=== PATIENT | male | born 1950 | race Caucasian/White ===

== ENCOUNTER 2016-10-12 06:25 | Outpatient (RCR) | payer MEDICARE, MEDICAID ==
--- OUTSIDE RECORDS SUMMARY | 2016-10-04 12:50 | XMS REPORT | Continuity of Care Document ---
Author Author [facility] Organization [facility] Address Unknown Phone Unavailable Care Team Providers Care Kier Operator Name Role Phone MarlaMaynor PCP [phone] Source Comments Some departments are not documenting in the electronic medical record. If you do not see the information that you expected, contact Release of Information in the Health Information Management department at [phone] for further assistance in locating additional records.[facility] Active Allergies and Adverse Reactions No Known [...] ULTRA-FINE) 1 mL 29 x 1/2" syrg HYDROcodone/acetaminophen Take 1-2 Tabs by mouth Active [...] tablet every 5 minutes as 16 needed. carvedilol (COREG) 25 mg TAKE 1 TABLET BY MOUTH 180 Tab 2 09/14/20 Active tablet TWICE DAILY WITH MEALS 16 carvedilol (COREG) 25 mg TAKE 1 TABLET BY MOUTH 180 Tab 3 09/28/19 09/13/20 Discontin tablet TWICE DAILY WITH MEALS 16 16 ued Active Problems Problem Noted Date Urinary retention with incomplete bladder emptying 10/22/2012 Last Assessment & Plan: Now seeing urologist in [place]. Was given Rx that he did not [...] mg daily. Arthritis 08/05/2010 Glaucoma 08/05/2010 Claudication ([facility]) 08/05/2010 Overview: a. 03/26 - Lower arterial/SARAH study: no LE arterial stenosis, mod reduced bilateral SARAH's. Obesity, morbid ([facility]) 12/13/2007 Last Assessment & Plan: Reviewed diet and exercise goals. Encouraged to continue efforts with portion reduction and decreasing amount of soda consumed each day. Knee arthroplasty 12/13/2007 DM (diabetes mellitus) ([facility]) 12/13/2007 Last Assessment & Plan: Increase premeal [...] & Plan: Following with sleep specialist in [place]. CAD (coronary artery disease) 12/13/2007 Overview: a. History of chest pain. Treated at [facility] and told that he had "small heart attack" given NTG tabs. Seen at [facility] x 2 for chest pain resolved with [...] prior study J. 10/18/07 pt admitted to [facility], in [place] with CP. Cardiac cath showed a patent stent in the obtuse marginal. He had 50% stenosis in the mid LAD, 70% stenosis in a distal right PDA that was not amenable to intervention. It was felt that he didn't have anatomy suitable for intervention and he was managed medically. Reduced mobility 12/13/2007 Gait abnormality 12/13/2007 Most Recent Encounters Date Type Specialty Providers Description 09/13/2016 Refill Endocrinology, Metabolism Haresh Bo MD & Genetics 08/24/2016 Office Visit Endocrinology, Metabolism Haresh Bo MD Type 2 diabetes mellitus & Genetics with diabetic autonomic neuropathy, with long-term current use of insulin (HCC) (Primary Dx); Coronary artery disease of [place] heart with stable angina pectoris, unspecified vessel or lesion type (HCC) 08/24/2016 Telephone Endocrinology, Metabolism Haresh Bo MD Medication Question & Genetics 08/22/2016 Telephone Endocrinology, Metabolism Nereyda Tafoya PA-C Medication Refill - & Genetics Vitamin D 08/10/2016 Refill Endocrinology, Metabolism Haresh Bo MD & Genetics 08/03/2016 Telephone Endocrinology, Metabolism Nereyda Tafoya PA-C Medication Refill - & Genetics insulin Immunizations Name Dates Previously Given Next Due FLU VACCINE >3YO 08/21/2012, 07/11/2011 Flu Vaccine Trivalent=>3 07/16/2013 YO Social History Tobacco Use Types Packs/Day Years Used Date Former Smoker Cigarettes 28 Quit: 08/05/1978 Smokeless Tobacco: Never Used Tobacco Cessation: Counseling Given: No Comments: Alcohol Use Drinks/Week oz/Week Comments No Last Filed Vital Signs Vital Sign Reading Time Taken Blood Pressure 166/71 08/24/2016 11:47 AM ISOBUTYLENE OPERATOR CHIEF Pulse 80 08/24/2016 11:47 AM ISOBUTYLENE OPERATOR CHIEF Temperature 36.1 C (97 F) 07/11/2011 9:22 AM CDT Respiratory Rate 18 08/21/2012 2:25 PM ISOBUTYLENE OPERATOR CHIEF Height 1.803 m (5' 11") 08/24/2016 11:47 AM ISOBUTYLENE OPERATOR CHIEF Weight 178.627 kg (393 lb 12.8 08/24/2016 11:47 AM ISOBUTYLENE OPERATOR CHIEF oz) Body Mass Index 54.95 08/24/2016 11:47 AM ISOBUTYLENE OPERATOR CHIEF Oxygen Saturation 99% 12/16/2007 6:00 AM CDT Plan of Care Patient Goal Type Goal Result Component HEMOGLOBIN A1C below 8.0 Date Type Specialty Providers Description 11/27/2016 Appointment Endocrinology, Metabolism Nereyda Tafoya PA- C & Genetics [address] [facility] [address] [place] [address] [phone] (Fax) Health Maintenance Due Date Last Done [...]
[2016-10-04 13:52] VITALS: BP 154/50
--- NOTE | 2016-10-04 14:11 | Diagnostic Imaging Report ---
EXAMINATION: Portable upright radiograph of the chest. INDICATION: PICC line placement. FINDINGS: The heart size is moderately enlarged. There is pulmonary vascular congestion. There is no effusion or pneumothorax. The mediastinum and vianney appear unremarkable. A right-sided PICC line is placed, tip appears to be at the SVC level. IMPRESSION: Cardiomegaly with pulmonary vascular congestion. Dictated by: Dictated on workstation # [id number]
[2016-10-04 17:12] VITALS: BP 154/50
[2016-10-05] MEDS: VANCOMYCIN 2000 MG/NS 500 ML IVPB IV SCH ×4 (07:34→18:51)
[2016-10-05 09:45] VITALS: BP 128/51
[2016-10-05 18:57] VITALS: BP 180/74
[2016-10-05 21:12] VITALS: BP 180/74
[2016-10-06] MEDS: VANCOMYCIN 2000 MG/NS 500 ML IVPB IV SCH ×4 (07:45→17:30)
[2016-10-06 10:33] VITALS: BP 115/51
[2016-10-06 19:27] VITALS: BP 148/65
[2016-10-07] MEDS: VANCOMYCIN 2000 MG/NS 500 ML IVPB IV SCH ×4 (06:35→16:55)
[2016-10-07 07:03] VITALS: BP 146/66
[2016-10-07 16:58] VITALS: BP 124/65
[2016-10-08] MEDS: VANCOMYCIN 2000 MG/NS 500 ML IVPB IV SCH ×4 (06:56→16:53)
[2016-10-08 07:00] VITALS: BP 134/57
[2016-10-08 09:18] VITALS: BP 134/57
[2016-10-08 16:56] VITALS: BP 162/68
[2016-10-09] MEDS: CATHETER FLUSH 10 ML SYR IV PRN ×2 (07:35→09:45)
[2016-10-09] MEDS: VANCOMYCIN 2000 MG/NS 500 ML IVPB IV SCH ×4 (07:36→18:00)
[2016-10-09 07:44] VITALS: BP 152/74
[2016-10-09 18:10] VITALS: BP 148/88
[2016-10-10] MEDS: VANCOMYCIN 2000 MG/NS 500 ML IVPB IV SCH ×4 (07:32→17:11)
[2016-10-10] MEDS: CATHETER FLUSH 10 ML SYR IV PRN ×2 (07:33→09:50)
[2016-10-10 07:48] VITALS: BP 129/67
[2016-10-10 17:00] VITALS: BP 130/69
[2016-10-11] MEDS: CATHETER FLUSH 10 ML SYR IV PRN ×3 (07:16→19:02)
[2016-10-11 07:18] VITALS: BP 140/60
[2016-10-11] MEDS: VANCOMYCIN 2000 MG/NS 500 ML IVPB IV SCH ×4 (07:18→19:02)
[2016-10-11 09:25] VITALS: BP 140/60
[2016-10-11 19:03] VITALS: BP 127/78
[2016-10-11 21:25] VITALS: BP 127/78
[~2016-10-12] VITALS: Ht 180.3 cm; Wt 174.2 kg
[~2016-10-12 06:25] MED LIST: AC325T PO; ACET1TAB37 PO; ACHYD1T PO; ALIS150T PO; AMIT50TA3 PO; AMLO10TA2 PO; AMLO10TA4 PO; AMLO10TA82 PO; AMOX250C PO; AMOX500C2; AMOX500C2 PO; ASP325TEC PO; ASP81CT; ASP81TEC PO; ATEN100T45 PO; ATEN100T88 PO; ATEN50TA; ATN50T; ATOR80TA PO; ATOR80TA76 PO; AZIT-21 PO; BACI28.35 TP; BISA10SU58 RC; BRIM5DRO12 OD; BRIM5DRO12 OU; BRIM5DRO2 OU; CARV25TA PO; CEFD300C PO; CELE200C PO; CEPH-507 PO; CHOL500049 PO; CLCX200C; CLCX200C PO; CLIN-81 PO; CLIN300C3 PO; CLOP75TA; CLOP75TA28 PO; CLPD75T PO; CPR500T PO; CRV25T PO; CSPT25 OU; CYCL10TA9 PO; D50KC PO; DORZ10DR OU; DOXY100C42 PO; ERGO500028 PO; FURO40TA4 PO; FURO80TA3 PO; GABA-486 PO; GNT.3OO351 OU; GUAI120L29 PO; GUAI120S36 PO; HCT25T; HCT25T PO; HUM100VI14 SQ; HUMALOG SQ; HYDR-1231 PO; HYDR-2890 PO; HYDR-34; HYDR-3720 PO; HYDR-3820 PO; HYDR-757 PO; HYDR50TA3; INSASP10V; INSASP10V SC; INSASP10V SQ; INSU100C SQ; INSU100C7 SQ; INSU100I23 SQ; INSU100I3; INSU100V31 IJ; INSU100V5 SQ; INSU100V6 SC; INSU100V6 SQ; INSU200I SC; INSU300I SQ; Insulin Human Lispro SC; KCL20TCR PO; LACT1CAP62 PO; LANTU; LANTUS; LATA2.5D19 OU; LATA2.5D5 OU; LISI-552 PO; LISI1TAB10 PO; LISI40TA PO; LPRM1B120 PO; LSNP20T; LTN005OP2 OP; LTN005OP2 OU; MAGN400T6 PO; MAGN64TA8 PO; METF-380; METF500T8 PO; MPR22T TOP; MPR22T TP; MTF500T; NF-DOR2% OU; NITR0.4T3 SL; NS IV 500 ML 500 ML ONE; NS.65NA45; NTR.4SL SL; OMEG1CAP51 PO; OMEP20CA12; OMEP20CA12 PO; OMEP20CA6 PO; OMEP40CA36 PO; OXYGEN NG; OXYGEN NS; PARO20TA5 PO; PARO20TA57 PO; PIOG1TAB PO; PNT40TEC PO; POTA10CA43 PO; POTA10TA PO; POTA10TA10 PO; POTA10TA36 PO; POTA10TA6 PO; POTA20TA15 PO; PRD10T PO; PRX20T; RSG4T; RSG4T PO; SIMV40TA2; SIMV80TA3 PO; SULF-222 PO; SULF1TAB35 PO; SULF1TAB7 PO; TERA1CAP3 PO; TR1O15 TP; TRL10C90 TOP; TRM50T PO; TROUGH ORDER-PHARMACY XX NR; TROUGH ORDER-PHARMACY XX ONE; VANCOMYCIN 1 GM ADD-VANTAGE VIAL IV ONE; VANCOMYCIN 2000 MG/NS 500 ML IVPB IV SCH; VANCOMYCIN INJECTION 2,250 MG in NS IV 500 ML 500 ML IV ONE
[2016-10-12] MEDS: CATHETER FLUSH 10 ML SYR IV PRN ×2 (07:15→09:35)
[2016-10-12] MEDS: VANCOMYCIN 2000 MG/NS 500 ML IVPB IV SCH ×2 (07:15)
[2016-10-12 08:01] VITALS: BP 119/67
[2016-10-12 14:23] VITALS: BP 0/0
[2016-11-01] MEDS ORDERED: INSU200I SQ (11:20)
[2016-11-01] MEDS ORDERED: EMPA25TA PO (11:20)
[2016-11-01] MEDS ORDERED: POTA10TA10 PO (11:20)
[2016-11-01] MEDS ORDERED: ASPI-999 PO (11:20)
[2016-11-01] MEDS ORDERED: INSU300I SQ (11:20)
[2016-12-15] MEDS ORDERED: PRED10TA22 PO (10:28)
[2017-01-01] MEDS ORDERED: CYCL10TA9 PO (22:10)
== END 2017-01-02 | disposition home or self-care (01) ==
LOC: SDC 06:25
PROVIDERS: ATTEND Nurse Practitioner
DX: Z45.2 Encounter for adjustment and management of vascular access device (principal); L97.229 Non-pressure chronic ulcer of left calf with unspecified severity
CPT/HCPCS: 36415; 36569; 36592; 71010; 76937; 80202; 82565; 96365; 96366; 99211

== ENCOUNTER 2016-10-19 13:02 | Outpatient (RCR) | payer MEDICARE, MEDICAID ==
--- OUTSIDE RECORDS SUMMARY | 2016-08-31 13:17 | XMS REPORT | Continuity of Care Document ---
Author Author [facility] Organization [facility] Address Unknown Phone Unavailable Care Team Providers Care Brake Drum Lathe Operator Name Role Phone MarlaMaynor PCP [phone] Source Comments Some departments are not documenting in the electronic medical record. If you do not see the information that you expected, contact Release of Information in the Health Information Management department at [phone] for further assistance in locating additional records.[facility] Active Allergies and Adverse Reactions No Known Allergies Current Medications Prescription Sig. Disp. Refills Start End Date Status Date omeprazole DR(+) Take 2 Caps by mouth 30 0 12/16/19 Active (PRILOSEC) 20 mg capsule Daily. 08 aspirin EC 81 mg PO Take 81 mg by mouth Active tablet daily. paroxetine (PAXIL) 20 mg Take 20 mg by mouth Active PO tablet daily. atorvastatin (LIPITOR) 80 Take 80 mg by mouth Active mg PO tablet daily. clopidogrel (PLAVIX) 75 Take 75 mg by mouth Active mg daily. brimonidine (ALPHAGAN P) Apply 1 Drop to both eyes Active 0.15 % ophthalmic three times daily. solution Miscellaneous Medical 1 Each 3 02/08/20 Active Supply (T.E.D. 13 ANTI-EMBOLISM STOCKING) Misc POTASSIUM CHLORIDE Take 20 mEq by mouth Active (KLOR-CON M20 PO) daily. furosemide (LASIX) 80 mg Take 80 mg by mouth Active tablet daily. permethrin (ELIMITE) 5 % Apply to skin from neck 60 g 3 07/14/20 Active topical cream to toes. Bathe to remove 14 drug after 8-14 hours. Repeat in 7 days. Insulin Syringe-Needle Use to inject insulin six 600 Syringe 3 Active U-100 (BD INSULIN SYRINGE times daily. 14 ULTRA-FINE) 1 mL 29 x 1/2" syrg carvedilol (COREG) 25 mg TAKE 1 TABLET BY MOUTH 180 Tab 3 09/28/19 Active tablet TWICE DAILY WITH MEALS 16 HYDROcodone/acetaminophen Take 1-2 Tabs by mouth Active (+) (LORTAB, NORCO) every 6 hours as needed 10/325 mg tablet for Pain mupirocin (BACTROBAN) 2 % Apply topically to Active topical ointment affected area twice daily. gabapentin (NEURONTIN) Take 100 mg by mouth Active 100 mg capsule three times daily. blood sugar diagnostic Use 1 Strip as directed Active test strip twice daily before meals. amLODIPine (NORVASC) 10 Take 1 Tab by mouth every 90 Tab 3 05/31/20 Active mg tablet morning. 16 lisinopril (PRINIVIL; Take 1 Tab by mouth 90 Tab 3 05/31/20 Active ZESTRIL) 20 mg tablet daily. 16 insulin pen needles Use 1 Each as directed 400 Each 3 06/30/20 Active (disposable) (ULTICARE four times daily. 16 PEN NEEDLE) 32 gauge x 5/32" pen needle insulin lispro (HUMALOG Inject 85 Units under the 26 Syringe 3 Active KWIKPEN) 200 unit/mL (3 skin twice daily before 16 mL) inpn meals. TOUJEO SOLOSTAR 300 INJECT 150 UNITS (0.5ML) 60 Syringe 2 08/10/20 Active unit/mL (1.5 mL) SUBCUTANEOUSLY TWICE 16 injectable DAILY DIRECTED ergocalciferol (VITAMIN Take 1 Cap by mouth every 12 Cap 3 08/23/20 Active D-2) 50,000 unit capsule 7 days. 16 empagliflozin (JARDIANCE) Take 1 Tab by mouth daily 30 Tab 5 08/24/20 Active 25 mg tab 30 minutes before 16 breakfast. Indications: TYPE 2 DIABETES MELLITUS nitroglycerin (NITROSTAT) Place 1 Tab under tongue 25 Tab 0 08/24/20 Active 0.4 mg tablet every 5 minutes as 16 needed. nitroglycerin (NITROSTAT) Place 1 Tab under tongue 25 Tab 0 01/18/20 08/24/20 Discontin 0.4 mg tablet every 5 minutes as 13 16 ued needed. metFORMIN-XR(+) Take 2 Tabs by mouth 120 Tab 11 09/14/20 08/24/20 Discontin (GLUCOPHAGE XR) 500 mg twice daily with meals. 15 16 ued tablet insulin lispro (HUMALOG Inject 75 Units into 24 mL 5 03/03/20 Discontin KWIKPEN) 200 unit/mL (3 area(s) as directed twice 16 16 ued mL) inpn daily before meals. ergocalciferol (VITAMIN Take 1 Cap by mouth every 4 Cap 1 04/18/20 08/23/20 Discontin D-2) 50,000 unit capsule 7 days. 16 16 ued sulfamethoxazole-trimetho Take 1 Tab by mouth twice 08/24/20 Discontin prim (BACTRIM DS) 800-160 daily. Just renewed for 16 ued mg tablet another seven days TOUJEO SOLOSTAR 300 INJECT 150 UNITS (0.5 ML) 21 Syringe 1 06/12/20 08/10/20 Discontin unit/mL (1.5 mL) SUBCUTANEOUSLY TWICE 16 16 ued injectable DAILY DIRECTED dapagliflozin (FARXIGA) Take 1 Tab by mouth every 30 Tab 6 08/24/20 08/24/20 Discontin 10 mg tab morning. Indications: 16 16 ued TYPE 2 DIABETES MELLITUS Active Problems Problem Noted Date Urinary retention with incomplete bladder emptying 10/22/2012 Last Assessment & Plan: Now seeing urologist in [place]. Was given Rx that he did not feel was helpful. Cannot recall which medication. Encouraged to follow up regardless. Hearing loss of left ear 06/14/2012 Hypertension goal BP (blood pressure) < 130/80 01/24/2011 Last Assessment & Plan: BP good today. Continue the same, no change. Hypercholesteremia 08/05/2010 Last Assessment & Plan: Formatting of this note may be different from the original. Results for JEFF SUNG ( ) as of 01/21/2013 08:26 Ref. Range 10/18/2012 13:38 Cholesterol Latest Range: <200 MG/DL 112 Triglycerides Latest Range: <150 MG/DL 168 (H) HDL Latest Range: >40 MG/DL 29 (L) LDL Latest Range: <100 MG/DL 58 VLDL No range found 34 Non HDL Cholesterol No range found 83 LDL at goal, cont atorvastatin 80 mg daily. Arthritis 08/05/2010 Glaucoma 08/05/2010 Claudication (HCC) 08/05/2010 Overview: a. 03/26 - Lower arterial/SARAH study: no LE arterial stenosis, mod reduced bilateral SARAH's. Obesity, morbid ([facility]) 12/13/2007 Last Assessment & Plan: Reviewed diet and exercise goals. Encouraged to continue efforts with portion reduction and decreasing amount of soda consumed each day. Knee arthroplasty 12/13/2007 DM (diabetes mellitus) ([facility]) 12/13/2007 Last Assessment & Plan: Increase premeal insulin (Humalog to 40 units at breakfast and 60 units at lunch, 90 units before supper). Try getting supper insulin ready when supper started on the stove. Then, take Humalog when supper plate ready. Continue Lantus 75 units 3 times a day. At bedtime OK to take Humalog 2 units for every 10 over 180 mg/dL Humalog correction scale (add 2 units for every 10 points over 180), So, if bs 180 - 190 add 2 units, 191 - 200, add 4 units 201 - 210, add 6 units 211 - 220, add 8 units 221 - 230, add 10 units 231 - 240, add 12 241 - 250, add 14 251 - 260, add 16 261- 270, add 18 271 - 280, add 20 281 - 290, add 22 291 - 300, add 24 301 - 310, add 26 311 - 320, add 28 321 - 330, add 30 331 - 340, add 32 Etc. Gave examples of chair exercises. Discussed that it is imperative he lose weight. Gave Rx for DM shoes today, signed by Dr Bo SERAFIN (obstructive sleep apnea) 12/13/2007 Last Assessment & Plan: Following with sleep specialist in [place]. CAD (coronary artery disease) 12/13/2007 Overview: a. History of chest pain. Treated at [facility] and told that he had "small heart attack" given NTG tabs. Seen at [facility] x 2 for chest pain resolved with NTG. B. 2001 TARIK and plavix started c. 03/26 - Dobutamine stress echo: EF 50%, mild left-sided enlargement, non-ischemic. d. 06/26 - Stress thallium: EF 49%, mod lateral wall defect. e. 07/16/03 - Cardiac cath: Single-vessel disease in distal CX. Drug-eluting stent placed in OM branch. Normal LV function. f. 03/23/2004- 1. This pharmacologic stress test did not evoke any chest discomfort or EKG changes indicative of myocardial ischemia. Normal left ventricular size with mildly reduced ejection fraction (50%). All segments of myocardium are viable. There is no evidence of scar tissue. There is a very mild intensity, very small-sized, reversible ischemia involving the inferolateral wall. G. 10/17. thallium stress test: EF 50%, similar to previous exam H. 10/12/05 thallium stress test: EF 51%, slight increase in inducible ischemia on the present study, compared to the previous investigation, but this is a subtle distinction. I. 11/28/06 thallium stress test: EF 53%, similar compared to prior study J. 10/18/07 pt admitted to [facility] in [place] with CP. Cardiac cath showed a patent stent in the obtuse marginal. He had 50% stenosis in the mid LAD, 70% stenosis in a distal right PDA that was not amenable to intervention. It was felt that he didn't have anatomy suitable for intervention and he was managed medically. Reduced mobility 12/13/2007 Gait abnormality 12/13/2007 Most Recent Encounters Date Type Specialty Providers Description 08/24/2016 Office Visit Endocrinology, Metabolism Haresh Bo MD Type 2 diabetes mellitus & Genetics with diabetic autonomic neuropathy, with long-term current use of insulin ([facility]) (Primary Dx); Coronary artery disease of [place] heart with stable angina pectoris, unspecified vessel or lesion type ([facility]) 08/24/2016 Telephone EndocrinologyGrover David C, MD Medication Question & Genetics 08/22/2016 Telephone EndocrinologyGrover Kerstin, PA-C Medication Refill - & Genetics Vitamin D 08/10/2016 Refill EndocrinologyGrover David C, MD & Genetics 08/03/2016 Telephone EndocrinologyGrover Kerstin, PA-C Medication Refill - & Genetics insulin 06/30/2016 Refill EndocrinologyGrover David C, MD & Genetics 06/12/2016 Refill Endocrinology, Nereyda Albright PA-C & Genetics 06/12/2016 Refill EndocrinologyGrover David C, MD & Genetics 06/01/2016 Telephone EndocrinologyGrover Kerstin, PA-C Lab Results & Genetics Immunizations Name Dates Previously Given Next Due FLU VACCINE >3YO 08/21/2012, 07/11/2011 Flu Vaccine Trivalent=>3 07/16/2013 YO Social History Tobacco Use Types Packs/Day Years Used Date Former Smoker Cigarettes 28 Quit: 08/05/1978 Smokeless Tobacco: Never Used Tobacco Cessation: Counseling Given: No Comments: Alcohol Use Drinks/Week oz/Week Comments No Last Filed Vital Signs Vital Sign Reading Time Taken Blood Pressure 166/71 08/24/2016 11:47 AM CLAIM PROCESSING SPECIALIST Pulse 80 08/24/2016 11:47 AM CLAIM PROCESSING SPECIALIST Temperature 36.1 C (97 F) 07/11/2011 9:22 AM CDT Respiratory Rate 18 08/21/2012 2:25 PM CLAIM PROCESSING SPECIALIST Height 1.803 m (5' 11") 08/24/2016 11:47 AM CLAIM PROCESSING SPECIALIST Weight 178.627 kg (393 lb 12.8 08/24/2016 11:47 AM CLAIM PROCESSING SPECIALIST oz) Body Mass Index 54.95 08/24/2016 11:47 AM CLAIM PROCESSING SPECIALIST Oxygen Saturation 99% 12/16/2007 6:00 AM CDT Plan of Care Patient Goal Type Goal Result Component HEMOGLOBIN A1C below 8.0 Date Type Specialty Providers Description 11/27/2016 Appointment Endocrinology, Metabolism Nereyda Tafoya PA- C & Genetics [address] [facility] [address] [place] [address] [phone] (Fax) Health Maintenance Due Date Last Done Comments Hepatitis C Screening 1949 Physical (Comprehensive) 1956 Exam Pertussis Vaccine 1960 Tetanus Vaccine 1966 Colorectal Cancer 1999 Screening Shingles Vaccine 2009 Prevnar/Pneumovax (#1) 2014 Microalbumin 11/29/2016 11/30/2015, 11/26/2013, 03/11/2012 Additional history exists Dilated Eye Exam 12/27/2016 12/28/2015, 07/26/2015 (Previously completed), 07/23/2014 (Previously completed) Hba1c 02/22/2017 08/24/2016, 05/31/2016, 02/29/2016 Additional history exists Foot Exam 08/24/2017 08/24/2016, 05/31/2016, 05/31/2016 Additional history exists Influenza Vaccine 08/24/2017 08/28/2014 (Declined), 07/16/2013, Postponed from 05/25/2016 07/16/2013 (Patient declined), Additional history exists Results from Last 3 Months POC HEMOGLOBIN A1C (08/24/2016 1:30 PM) Component Value Range Poc Hemoglobin A1C 8.3 Specimen Blood, capillary - Blood POC GLUCOSE QUANTITATIVE BLOOD (08/24/2016 1:30 PM) Component Value Range Glucose, POC 368 Specimen Blood, capillary
[~2016-10-19 13:02] MED LIST changes: -NS IV 500 ML 500 ML ONE; -TROUGH ORDER-PHARMACY XX NR; -TROUGH ORDER-PHARMACY XX ONE; -VANCOMYCIN 1 GM ADD-VANTAGE VIAL IV ONE; -VANCOMYCIN 2000 MG/NS 500 ML IVPB IV SCH; -VANCOMYCIN INJECTION 2,250 MG in NS IV 500 ML 500 ML IV ONE
== END 2016-10-19 16:00 | disposition home or self-care (01) ==
LOC: WOUNDCARE 13:02
PROVIDERS: ATTEND Nurse Practitioner
DX: L97.222 Non-pressure chronic ulcer of left calf with fat layer exposed (principal); L03.116 Cellulitis of left lower limb
CPT/HCPCS: 11042; 87070; 87075; 87077; 87186; 87205; 97597; 99213

== ENCOUNTER 2016-11-01 08:12 | Day surgery (SDC) | payer MEDICARE, MEDICAID ==
[2016-11-01] VITALS (10 sets, daily range): BP systolic 100–161; BP diastolic 64–83
[~2016-11-01] VITALS: Ht 180.3 cm; Wt 174.2 kg
--- OUTSIDE RECORDS SUMMARY | 2016-11-01 08:16 | XMS REPORT | Continuity of Care Document ---
Author Author [facility] Organization [facility] Address Unknown Phone Unavailable Care Team Providers Care Medical Representative Name Role Phone MarlaMaynor PCP [phone] Source Comments Some departments are not documenting in the electronic medical record. If you do not see the information that you expected, contact Release of Information in the Health Information Management department at [phone] for further assistance in locating additional records.[facility] Active Allergies and Adverse Reactions No [...] Active tablet TWICE DAILY WITH MEALS 16 Active Problems Problem Noted Date Urinary retention with incomplete bladder emptying 10/22/2012 Last Assessment & Plan: Now seeing urologist in [place]. Was given Rx that he did not [...] mg daily. Arthritis 08/05/2010 Glaucoma 08/05/2010 Claudication ([facility]) 08/05/2010 Overview: a. 03/26 - Lower arterial/SARAH study: no LE arterial stenosis, mod reduced bilateral SARAH's. Obesity, morbid ([facility]) 12/13/2007 Last Assessment & Plan: Reviewed diet and exercise goals. Encouraged to continue efforts with portion reduction and decreasing amount of soda consumed each day. Knee arthroplasty 12/13/2007 DM (diabetes mellitus) ([facility]) 12/13/2007 Last Assessment & Plan: Increase premeal [...] & Plan: Following with sleep specialist in [place]. CAD (coronary artery disease) 12/13/2007 Overview: a. History of chest pain. Treated at [facility] and told that he had [...] prior study J. 10/18/07 pt admitted to hospital, [facility], in [place] with CP. Cardiac cath showed a patent [...] neuropathy, with long-term current use of insulin ([facility]) (Primary Dx); Coronary artery disease of [place] heart with stable angina pectoris, unspecified vessel or lesion type ([facility]) 08/24/2016 Telephone Endocrinology, Metabolism Haresh Bo MD [...] Taken Blood Pressure 166/71 08/24/2016 11:47 AM WOOL FLEECE SORTER Pulse 80 08/24/2016 11:47 AM WOOL FLEECE SORTER Temperature 36.1 C (97 F) 07/11/2011 9:22 AM CDT Respiratory Rate 18 08/21/2012 2:25 PM WOOL FLEECE SORTER Height 1.803 m (5' 11") 08/24/2016 11:47 AM WOOL FLEECE SORTER Weight 178.627 kg (393 lb 12.8 08/24/2016 11:47 AM WOOL FLEECE SORTER oz) Body Mass Index 54.95 08/24/2016 11:47 AM WOOL FLEECE SORTER Oxygen Saturation 99% 12/16/2007 6:00 AM CDT Plan of Care Patient Goal Type Goal Result Component HEMOGLOBIN A1C below 8.0 Date Type Specialty Providers Description 11/27/2016 Appointment Endocrinology, Metabolism Nereyda Tafoya PA- C & Genetics [address] [facility] [address] [place] [address] [phone] (Fax) Health Maintenance Due Date Last Done [...]
--- OUTSIDE RECORDS SUMMARY | 2016-11-01 08:18 | XMS REPORT | Continuity of Care Document ---
Author Author [facility] Organization [facility] Address Unknown Phone Unavailable Care Team Providers Care Label Tacker Name Role Phone MarlaMaynor PCP [phone] Source Comments Some departments are not documenting in the electronic medical record. If you do not see the information that you expected, contact Release of Information in the Health Information Management department at [phone] for further assistance in locating additional records.[facility] Active Allergies and Adverse Reactions No [...] Assessment & Plan: Now seeing urologist in [place]. Was given Rx that he did not [...] mg daily. Arthritis 08/05/2010 Glaucoma 08/05/2010 Claudication ([facility]) 08/05/2010 Overview: a. 03/26 - Lower arterial/SARAH study: no LE arterial stenosis, mod reduced bilateral SARAH's. Obesity, morbid ([facility]) 12/13/2007 Last Assessment & Plan: Reviewed diet and exercise goals. Encouraged to continue efforts with portion reduction and decreasing amount of soda consumed each day. Knee arthroplasty 12/13/2007 DM (diabetes mellitus) ([facility]) 12/13/2007 Last Assessment & Plan: Increase premeal [...] & Plan: Following with sleep specialist in [place]. CAD (coronary artery disease) 12/13/2007 Overview: a. History of chest pain. Treated at [facility] and told that he had "small heart attack" given NTG tabs. Seen at [facility] x 2 for chest pain resolved [...] study J. 10/18/07 pt admitted to hospital, [facility], in [place] with CP. Cardiac cath showed a patent [...] neuropathy, with long-term current use of insulin ([facility]) (Primary Dx); Coronary artery disease of [place] heart with stable angina pectoris, unspecified vessel or lesion type ([facility]) 08/24/2016 Telephone Endocrinology, Metabolism Haresh Bo MD [...] Taken Blood Pressure 166/71 08/24/2016 11:47 AM CASH ACCOUNTING CLERK Pulse 80 08/24/2016 11:47 AM CASH ACCOUNTING CLERK Temperature 36.1 C (97 F) 07/11/2011 9:22 AM CDT Respiratory Rate 18 08/21/2012 2:25 PM CASH ACCOUNTING CLERK Height 1.803 m (5' 11") 08/24/2016 11:47 AM CASH ACCOUNTING CLERK Weight 178.627 kg (393 lb 12.8 08/24/2016 11:47 AM CASH ACCOUNTING CLERK oz) Body Mass Index 54.95 08/24/2016 11:47 AM CASH ACCOUNTING CLERK Oxygen Saturation 99% 12/16/2007 6:00 AM CDT Plan of Care Patient Goal Type Goal Result Component HEMOGLOBIN A1C below 8.0 Date Type Specialty Providers Description 11/27/2016 Appointment Endocrinology, Metabolism Nereyda Tafoya PA- C & Genetics [address] [facility] [address] [place] [address] [phone] (Fax) Health Maintenance Due Date Last Done [...]
[2016-11-01] MEDS ORDERED: NS IV 1000 ML 1,000 ML ONE (08:41)
[2016-11-01] MEDS ORDERED: LIDOCAINE 1% INJ 20 ML (XYLOCAINE) VIAL ONE ×2 (08:41→12:27)
[2016-11-01] MEDS ORDERED: HEParin (CATH LAB) 2,000 ML IV ONE (08:41)
[2016-11-01] MEDS ORDERED: NS IV 1000 ML 1,000 ML IV SCH (08:43)
--- NOTE | 2016-11-01 09:11 | Diagnostic Imaging Report ---
EXAMINATION: Portable upright radiograph of the chest. INDICATION: Peripheral vascular disease. FINDINGS: The heart size is moderately enlarged. There is minimal pulmonary vascular congestion. No effusion or pneumothorax. The mediastinum and vianney appear unremarkable. IMPRESSION: Cardiomegaly with minimal pulmonary vascular congestion. Dictated by: Dictated on workstation # [id number]
[2016-11-01 09:15] LABS: MEAN PLATELET VOLUME 11.2 FL (7.4-10.4); RED BLOOD COUNT 5.43 10^6/uL (4.35-5.85); RED CELL DISTRIBUTION WIDTH 15.7 % (10.0-14.5); WHITE BLOOD COUNT 8.4 10^3/uL (4.3-11.0)
[2016-11-01] MEDS ORDERED: FLU TRIvalent (5 YOA+) 2016-17 (AFLURIA) 0.5 ML IM ONE (09:30)
[2016-11-01 09:31] LABS: PROTHROMBIN TIME PATIENT 12.7 SEC (12.2-14.7)
[2016-11-01 09:38] LABS: ALANINE AMINOTRANSFERASE 28 U/L (0-55); ALBUMIN 3.7 G/DL (3.2-4.5); ANION GAP 11 MMOL/L (5-14); ASPARTATE AMINO TRANSFERASE 18 U/L (5-34); BILIRUBIN,TOTAL 0.5 MG/DL (0.1-1.0); BLOOD UREA NITROGEN 14 MG/DL (7-18); BUN/CREATININE RATIO 15; CARBON DIOXIDE 24 MMOL/L (21-32); CHLORIDE 106 MMOL/L (98-107); CHOLESTEROL 119 MG/DL (< 200); CREATININE SERUM 0.95 MG/DL (0.60-1.30); DIRECT LDL 70 MG/DL (1-129); GFR ESTIMATED > 60; GLUCOSE 164 MG/DL (70-105); POTASSIUM 3.9 MMOL/L (3.6-5.0); SODIUM 141 MMOL/L (135-145); TOTAL PROTEIN 7.3 G/DL (6.4-8.2); TRIGLYCERIDES 147 MG/DL (<150); VLDL CHOLESTEROL 29 MG/DL (5-40)
[2016-11-01] MEDS ORDERED: EMPA25TA PO (11:20)
[2016-11-01] MEDS ORDERED: POTA10TA10 PO (11:20)
[2016-11-01] MEDS ORDERED: INSU300I SQ (11:20)
[2016-11-01] MEDS ORDERED: INSU200I SQ (11:20)
[2016-11-01] MEDS ORDERED: ASPI-999 PO (11:20)
[2016-11-01] MEDS ORDERED: fentaNYL INJECTION 100 MCG/2 ML AMP ONE (11:41)
[2016-11-01] MEDS ORDERED: MIDAZOLAM 5 MG/5 ML (VERSED) VIAL ONE (11:41)
--- NOTE | 2016-11-01 11:49 | Cardiac Procedure Note-CS/ASA ---
Pre-Procedure Note Pre-Op Procedure Note H&P Reviewed The H&P was reviewed, patient examined and no changes noted. Date H&P Reviewed: Nov 01, 2016 Time H&P Reviewed: 11:49 Conscious Sedation Pre-Proced Time Reviewed: 11:49 ASA Class: 3 Airway Mallampati Classification: (nenana appropriate class) I. II. III, IV Lungs Heart ASA score ASA 1: a normal healthy patient ASA 2: a patient with a mild systemic disease (mid diabetes, controlled hypertension, obesity x ASA 3: a patient with a severe systemic disease that limits activity (angina , COPD, prior Myocardial infarction) ASA 4: a patient with an incapacitating disease that is a constant threat to life (CHF, renal failure) ASA 5: a moribund patient not expected to survive 24 hrs. (ruptured aneurysm) ASA 6: a declared brain patient whose organs are being harvested. For emergent operations, add the letter E after the classification Grade 3 Sedation Plan: Analgesia, Amnesia, Plan communicated to team members, Discussed options with patient/fam, Discussed risks with patient/fam Note The patient is an appropriate candidate to undergo the planned procedure, sedation, and anesthesia. The patient immediately re-assessed prior to indication. GAMAL BRUNO MD Nov 01, 2016 11:49
[2016-11-01] MEDS ORDERED: HEParin 1000 UNIT/ML (10ML VIAL) FOR BOLUS ONE (12:39)
[2016-11-01] MEDS ORDERED: CLOPIDOGREL 300 MG (PLAVIX) TABLET PO ONE (13:12)
[2016-11-01] MEDS ORDERED: ASPIRIN 325 MG (5 GR) TABLET ONE (13:12)
[2016-11-01] MEDS ORDERED: PATIENT MAY USE OWN MEDS, ALL PO SCH (13:15)
[2016-11-01] MEDS ORDERED: HYDROcodone/APAP 10 MG/325 MG (LORTAB) TAB PO PRN (13:15)
[2016-11-01] MEDS: NS IV 1000 ML 1,000 ML IV SCH ×2 (13:38→23:09)
[2016-11-01] MEDS: PANTOPRAZOLE 20 MG TABLET (PROTONIX) PO SCH (16:00)
[2016-11-01] MEDS: INSULIN LISPRO SQ SCH (16:36)
[2016-11-01] MEDS ORDERED: LATANOPROST 0.005% (XALATAN) OPHTH SOLN 2.5 ML OU SCH (21:00)
[2016-11-01] MEDS ORDERED: ATORVASTATIN 80 MG (LIPITOR) TABLET PO SCH (21:00)
[2016-11-01] MEDS: Carvedilol 25 MG TABLET PO SCH (21:08)
[2016-11-01] MEDS: BRIMONIDINE 0.1% OU SCH (21:08)
[2016-11-02] VITALS: BP 133/80
[2016-11-02 04:00] VITALS: BP 106/50
[2016-11-02 04:57] LABS: MEAN PLATELET VOLUME 11.6 FL (7.4-10.4); RED CELL DISTRIBUTION WIDTH 15.9 % (10.0-14.5); WHITE BLOOD COUNT 9.2 10^3/uL (4.3-11.0)
[2016-11-02] MEDS: PANTOPRAZOLE 20 MG TABLET (PROTONIX) PO SCH (05:19)
[2016-11-02 05:32] LABS: ANION GAP 11 MMOL/L (5-14); BLOOD UREA NITROGEN 11 MG/DL (7-18); BUN/CREATININE RATIO 15; CALCIUM 8.6 MG/DL (8.5-10.1); CARBON DIOXIDE 22 MMOL/L (21-32); CHLORIDE 106 MMOL/L (98-107); CREATININE SERUM 0.74 MG/DL (0.60-1.30); GFR ESTIMATED > 60; GLUCOSE 92 MG/DL (70-105); POTASSIUM 3.6 MMOL/L (3.6-5.0); SODIUM 139 MMOL/L (135-145)
[2016-11-02] MEDS ORDERED: KCL 20 MEQ TAB (K-DUR) PO SCH (07:00)
[2016-11-02] MEDS: INSULIN LISPRO SQ SCH (07:00)
[2016-11-02] MEDS ORDERED: KCL 10 MEQ TAB (MICRO K) PO SCH (07:00)
--- NOTE | 2016-11-02 07:30 | Cardiology Progress Note ---
Subjective Subjective/Events-last exam patient is feeling better, no new complaint, groin is healing well Review of Systems General: No Chills, No Night Sweats, No Fatigue, No Malaise, No Appetite, No Other HEENT: No Head Aches, No Visual Changes, No Eye Pain, No Ear Pain, No Dysphasia , No Sinus Congestion, No Post Nasal Drip, No Sore Throat, No Other Pulmonary: No Dyspnea, No Cough, No Pleuritic Chest Pain, No Other Cardiovascular: No: Chest Pain, Edema, Lt Headedness, Orthopnea, Other, Palpitations, Paroxysmal Noc. Dyspnea Objective-Cardiology Exam Last Set of Vital Signs Vital Signs 11/02/16 11/02/16 04:00 07:00 Temp 97.6 Pulse 70 Resp 20 B/P 106/50 Pulse Ox 98 O2 Delivery Nasal Cannula O2 Flow Rate 3.00 Capillary Refill : Greater Than 3 Seconds General: Alert, Oriented X3, Cooperative HEENT: Atraumatic, PERRLA Neck: Supple, No JVD, No Thyromegaly Lungs: Clear to Auscultation, Normal Air Movement Heart: Regular Rate, Normal S1, Normal S2, No Murmurs Abdomen: Normal Bowel Sounds, Soft, No Tenderness, No Hepatosplenomegaly, No Masses Extremities: No Clubbing, No Cyanosis, No Edema, Normal Pulses, No Tenderness/ Swelling Skin: No Rashes, No Breakdown, No Significant Lesion Neuro: Normal Gait, Normal Speech, Strength at 5/5 X4 Ext, Normal Tone, Sensation Intact Psych/Mental Status: Mental Status NL, Mood NL Results Lab Laboratory Tests 11/01/16 09:10 11/02/16 04:24 A/P-Cardiology Admission Diagnosis peripheral arterial disease Hypertension Hyperlipidemia COPD Assessment/Plan peripheral arterial disease, status post drug-coated balloon angioplasty to the common femoral artery on the left Hypertension, continue current medication Hyperlipidemia, continue to monitor lipids COPD Morbid obesity GAMAL BRUNO MD Nov 02, 2016 07:30
--- NOTE | 2016-11-02 07:31 | Discharge Inst-Post CATH ---
Discharge Inst-CATH Post Cardiac Cath D/C Inst Follow Up/Plan Appointment with Dr. Miguel's office in 2-4 weeks CARDIAC CATH DISCHARGE INSTRUCTIONS *Hold Metformin for 48 hours post heart cath. ACTIVITY * Go Home directly and rest. * Limit activity of the leg (or wrist if it was used) for 7 days including aerobics, swimming, jogging, bicycling, etc. * Restrict stair-climbing for 7 days if possible, if not, climb up with your non -cath leg, then bring together on the same step. * Avoid lifting, pushing, pulling or excessive movement of the affected extremity for 7 days. * Customary sexual activity may be resumed after 2 days-use caution not to use a position that strains or causes pain to the affected extremity. * No driving for 24 hours. * NO SMOKING. * Avoid straining for bowel movements for 7 days. * Gentle walking on level ground is allowed. * Returning to work will depend on the type of procedure and the results. Your doctor will discuss this with you. CALL YOUR DOCTOR FOR ANY OF THE FOLLOWING: *If bleeding from the puncture site occurs- Apply gentle pressure to site with clean cloth and call your doctor or EMS. * If a knot or lump forms under the skin, increases in size, or causes pain. * If bruising appears to be worsening or moving further down your leg instead of disappearing. * Temperature above 101 F. CARE OF YOUR GROIN INCISION; * Bruising or purple discoloration of the skin near the puncture site is common. * You may shower only, no bathtub bathing for 5 days. Be careful to avoid slipping as your leg may feel stiff. * If a closure device was used on your femoral artery, please see the attached guide regarding care of the device and your leg. * REMOVE the dressing from your groin the next day after your procedure in the shower. CARE OF YOUR WRIST INCISION; * Bruising or purple discoloration of the skin near the puncture site is common. * You may shower. * DO NOT submerge wrist. * Remove dressing in 24 hours. GAMAL MIGUEL MD Nov 02, 2016 07:31
[2016-11-02 07:49] VITALS: BP 179/99
[2016-11-02] MEDS ORDERED: CLOPIDOGREL 75 MG (PLAVIX) TABLET PO SCH ×2 (09:00)
[2016-11-02] MEDS ORDERED: ASPIRIN E.C. 81 MG (ECOTRIN) TAB PO SCH (09:00)
[2016-11-02] MEDS ORDERED: amLODIPine 10 MG (NORVASC) TAB PO SCH (09:00)
[2016-11-02] MEDS ORDERED: lisINopril 20 MG (ZESTRIL) TAB PO SCH (09:00)
[2016-11-02] MEDS ORDERED: FUROSEMIDE 80 MG PO SCH (09:00)
[2016-11-02] MEDS ORDERED: Empagliflozin (Jardiance) 25 MG TABLET PO SCH (09:00)
[2016-11-02] MEDS ORDERED: ASPIRIN 81 MG CHEW (CHILDREN'S ASA) PO SCH (09:00)
[2016-11-02] MEDS ORDERED: PARoxetine 20 MG (PAXIL) TAB PO SCH (09:00)
[2016-11-02] MEDS: BRIMONIDINE 0.1% OU SCH (09:04)
[2016-11-02] MEDS: Carvedilol 25 MG TABLET PO SCH (09:07)
[2016-11-02 09:15] VITALS: BP 179/99
--- NOTE | 2016-11-02 13:21 | DISCHARGE SUMMARY ---
PROCEDURE PHYSICIAN: GAMAL BRUNO DATE OF PROCEDURE: 11/01/2016 REFERRING PHYSICIAN: Dr. Gutiérrez BRIEF HISTORY: Mr. Sung is a 65-year-old gentleman with hypertension, hyperlipidemia, morbid obesity and diabetes mellitus, peripheral arterial disease he had severe stenosis. In April was diagnosed with severe stenosis at the left common femoral artery. Underwent cutting balloon, and balloon angioplasty with excellent results reported significant improvement. Return to the office having worsening pain. SARAH became abnormal leg. I decided to evaluate him with angiogram again. PROCEDURE NOTE: After explaining the procedure to the patient, all pros and cons were explained. All questions were answered. The patient signed a consent, then he was placed on the cardiac catheterization laboratory. The right groin was prepped in sterile fashion. Local anesthesia applied right groin. 6-[place] sheath was placed in the right femoral artery. A pigtail catheter advanced to the abdominal aorta. Abdominal aortogram was done. Then through the pigtail I advanced a Storq wire and then advanced a straight catheter down to the common iliac artery. Angiogram was done. Then reintroduce the wire down to the superficial femoral artery and advanced the straight catheter down to the mid to distal SFA. Repeat angiogram to the left leg was done with runoff. At that point, I started pulling back the catheter and recording the pressure. The patient had systolic pressure of 90 mmHg in the superficial femoral artery and 160 mmHg of the common iliac artery at the site of the lesion at the origin of the superficial femoral artery and common femoral artery. At that point I reintroduced the Storq wire. I removed the catheter and exchanged the sheath into 7-[place]er 45 mm sheath placed in the left common femoral artery, then I advanced Wellington balloon 7 x 40 mm inflated to its nominal size then introduces a drug coated balloon with Lutonix 7 x 60 mm, inflated to 7.5 mm with excellent results. The balloon was removed. Angiogram showed excellent result. I pulled the long sheath back across the bifurcation. Did not show any significant gradient. Then advanced the wire up to the abdominal aorta, removed the long sheath and used a short 7-[place]er sheath placed the pigtail catheter in the abdominal aorta and repeated angiogram twice to evaluate the bifurcation. No complication noted. Pigtail catheter was removed. Then the sheath was removed. Attempt to deploy Mynx device failed. Manual pressure applied FINDINGS: 1. Right lower extremity: The right lower extremity runoff was done through the sheath showing mild to moderate disease, small vessel disease distally down to the foot. Small vessel disease distally down to the foot. Nonobstructive disease. 2. Left lower extremity runoff: Left lower extremity runoff was done at multiple stages. The superficial femoral artery has 40 to 50% stenosis. Distally there is small vessel disease. The left common femoral artery has restenosis at the previous area with severe stenosis with a gradient of 70 mmHg across the lesion. Successful balloon angioplasty, then using drug coated balloon with Lutonix 7 x 60 mm, inflated up to 7.25 mm with excellent results. Minimal residual stenosis was noted due to the fact that the artery is larger than 7 mm. 3. Abdominal aortogram: Abdominal aortogram was done at 3 separate imaging with evaluating of the bifurcation, mild disease at the bifurcation. No obstructive disease. No dissection was noted. CONCLUSION: 1. Severe restenosis of the left common femoral artery. Successful balloon angioplasty then drug coated balloon using Lutonix 7 x 16 mm with excellent results. 2. Mild disease at the left SFA and small vessel disease distally. 3. Mild small vessel disease at the right lower extremity distally. DISCUSSION AND RECOMMENDATION: I will continue maximizing medical therapy continue to monitor. FINAL DIAGNOSIS: 1. Peripheral arterial disease. 2. Hypertension. 3. Hyperlipidemia. 4. 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
== END 2016-11-02 07:31 | disposition home or self-care (01) ==
LOC: CATH 08:12 → CSD 13:38 → CATH 11-02 07:31
PROVIDERS: ATTEND Internal Medicine Cardiovascular Disease
DX: T82.857A Stenosis of other cardiac prosthetic devices, implants and grafts, initial encounter (principal); I70.203 Unspecified atherosclerosis of native arteries of extremities, bilateral legs; I10 Essential (primary) hypertension; E66.9 Obesity, unspecified; I25.10 Atherosclerotic heart disease of native coronary artery without angina pectoris; E78.5 Hyperlipidemia, unspecified; E11.9 Type 2 diabetes mellitus without complications; I50.32 Chronic diastolic (congestive) heart failure; I35.0 Nonrheumatic aortic (valve) stenosis; G47.30 Sleep apnea, unspecified; Z95.5 Presence of coronary angioplasty implant and graft; Z79.899 Other long term (current) drug therapy; Z79.4 Long term (current) use of insulin; Z86.718 Personal history of other venous thrombosis and embolism; Z87.891 Personal history of nicotine dependence; Z68.43 Body mass index [BMI] 50.0-59.9, adult
CPT/HCPCS: 36247; 36415; 37224; 71010; 75625; 75716; 80048; 80053; 80061; 82962; 85027; 85347; 85610; 85730; 87081

== ENCOUNTER 2016-12-14 00:24 | Inpatient (IN) | payer MEDICARE, MEDICAID ==
[2016-12-14] VITALS (15 sets, daily range): BP systolic 119–177; BP diastolic 55–83
[~2016-12-14] VITALS: Ht 180.3 cm; Wt 165.1 kg
[~2016-12-14 00:24] MED LIST changes: +ASPI-999 PO; +EMPA25TA PO; +INSU200I SQ
--- NOTE | 2016-12-14 00:39 | ED General ---
General Stated Complaint: CP,SOB,SHAKES,DIARRHEA Source of Information: Patient, Old Records History of Present Illness Time Seen by Provider: 00:28 Initial Comments PT ARRIVES VIA POV FROM HOME STATES "I GOT THE SHAKES AND I GOT THE RUNS" SINCE 1800 TONIGHT DIARRHEA X 4 . NO BLACK/BLOODY OR TARRY STOOLS NO NAUSEA/VOMITING PT STATES HE HAS "FELT HOT" SINCE 1800, BUT DID NOT CHECK TEMPERATURE ALSO C/O CHEST PAIN AND SHORTNESS OF BREATH X 1 HOUR--PT WITH HISTORY OF COPD, CHF AND CAD RATES CHEST PAIN / PT HAS PRODUCTIVE COUGH WITH WHITE SPUTUM HAS CHRONIC LEG EDEMA AND REDNESS TO LOWER LEGS--STATES IS NO DIFFERENT TODAY NO KNOWN SICK CONTACTS WITH [facility] HAS NOT TAKEN ANYTHING FOR SYMPTOMS PCP: DR. COOK Allergies and Home Medications Allergies Coded Allergies: No Known Drug Allergies (Verified , 10/17/07) Home Medications Amlodipine Besylate 10 Mg Tablet, 10 MG PO DAILY, (Reported) Aspirin 81 Mg Tab.chew, 81 MG PO DAILY, (Reported) Atorvastatin Calcium 80 Mg Tablet, 80 MG PO HS, (Reported) Brimonidine Tartrate 5 Ml Drops, 1 DROP OU TID, (Reported) Carvedilol 25 Mg Tablet, 25 MG PO BID, (Reported) Clopidogrel Bisulfate 75 Mg Tablet, 75 MG PO DAILY, (Reported) Empagliflozin 25 Mg Tablet, 25 MG PO DAILY, (Reported) Ergocalciferol (Vitamin D2) 50,000 Unit Capsule, 50,000 UNITS PO Mo, (Reported) Furosemide 80 Mg Tablet, 80 MG PO DAILY, (Reported) Hydrocodone/Acetaminophen 1 Each Tablet, 2 TAB PO Q6H PRN for PAIN, (Reported) Insulin Glargine,Hum.rec.anlog 300 Unit/1 Ml Insuln.pen, 150 UNITS SQ BID, ( Reported) Insulin Lispro 200 Unit/1 Ml Insuln.pen, 75 UNITS SQ BID, (Reported) Latanoprost 2.5 Ml Drops, 1 DROP OU HS, (Reported) Lisinopril 20 Mg Tablet, 20 MG PO DAILY, (Reported) Omeprazole 20 Mg Capsule.dr, 20 MG PO BID, (Reported) Paroxetine HCl 20 Mg Tablet, 20 MG PO DAILY, (Reported) Potassium Chloride 20 Meq Tab.er.prt, 20 MEQ PO DAILY, (Reported) Potassium Chloride 10 Meq Tablet.er, 10 MEQ PO DAILY, (Reported) Constitutional: see HPI, fever EENTM: no symptoms reported Respiratory: see HPI, cough, short of breath Cardiovascular: see HPI, chest pain, edema Gastrointestinal: see HPI, No abdominal pain, diarrhea, No nausea, No vomiting Genitourinary: no symptoms reported Musculoskeletal: no symptoms reported Skin: no symptoms reported Psychiatric/Neurological: No Symptoms Reported Hematologic/Lymphatic: No Symptoms Reported Immunological/Allergic: no symptoms reported Past Bsowsna-Noiunw-Vpwkyu Hx Patient Social History Alcohol Use: Denies Use Recreational Drug Use: No (DENIES BUT HAS A TATTOO OF A SYRINGE AND NEEDLE IN LEFT AC) Smoking Status: Former Smoker Type Used: Cigarettes Former Smoker/When Quit: Sep 24, 1998 Recent Foreign Travel: No Contact w/Someone Who Travel: No Recent Hopitalizations: Yes Immunizations Up To Date Tetanus Booster (TDap): Unknown PED Vaccines UTD: Yes Date of Pneumonia Vaccine: February 04, 2014 Date of Influenza Vaccine: May 25, 2013 Seasonal Allergies Seasonal Allergies: No Surgeries HX Surgeries: Yes (LEFT KNEE TKR; BILATERAL INGUINAL HERNIA; 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; I&D'S ; CARDIAC CATHS/STENTS IN HEART AND LEGS AND ANGIOPLASTIES-- LAST INTERVENTION 11/01/16 BALLOON ANGIOPLASTY LEFT COMMON FEMORAL ARTERY) Surgeries: Abdominal, Cardiac, Coronary Stent, Joint Replacement, Orthopedic, Vascular Surgery, Vasectomy Respiratory Hx Respiratory Disorders: Yes (O2 AT HS--REFUSES TO WEAR CPAP) Respiratory Disorders: Sleep Apnea, COPD Cardiovascular Hx Cardiac Disorders: Yes (MULTIPLE INTERVENTIONS IN HEART AND LEGS; CHF; CAROTID BRUIT) Cardiac Disorders: Chronic Edema/Swelling, Coronary Artery Disease, Deep Vein Thrombosis, High Cholesterol, Hypertension, Peripheral Vascular, Valvular Heart Disease Neurological Hx Neurological Disorders: Yes Neurological Disorders: Neuropathy Reproductive System Hx Reproductive Disorders: No Sexually Transmitted Disease: No HIV/AIDS: No Genitourinary Hx Genitourinary Disorders: No Gastrointestinal Hx Gastrointestinal Disorders: Yes Gastrointestinal Disorders: Abdominal Hernia, Gastroesophageal Reflux Musculoskeletal Hx Musculoskeletal Disorders: Yes Musculoskeletal Disorders: Arthritis, Chronic Back Pain, Fractures Endocrine Hx Endocrine Disorders: Yes (MORBID OBESITY) Endocrine Disorders: Diabetes, Insulin dep HEENT HX ENT Disorders: Yes HEENT Disorders: Glaucoma Loss of Vision: Denies Hearing Impairment: Denies Cancer Hx Cancer: No Psychosocial Hx Psychiatric Problems: No Integumentary HX Skin/Integumentary Disorder: Yes (MRSA; ABSCESSES AND CELLULITIS; I&D'S'; CHRONIC LEG ULCERS) Blood Transfusions Hx Blood Disorders: No Adverse Reaction to a Blood Tr: No Family Medical History Family Medial History: Arthritis 19 MOTHER Completed stroke 19 MOTHER Family history: Diabetes mellitus 19 MOTHER Family history: Hypertension 19 FATHER 19 MOTHER Hypercholesterolemia 19 MOTHER G8 BROTHER G8 BROTHER Hypertension 19 MOTHER Kidney disease 19 MOTHER Seizure disorder G8 BROTHER No Family History of: AIDS Abdominal aortic aneurysm Abdominal aortic aneurysm [place] disease [place]'s disease Alcoholism Alcoholism Alzheimer's disease Aphasia Aphasia Asthma Cancer Cancer of colon Cancer of mouth Cardiovascular disease Cataract Cataracts Chest pain Colon cancer Congenital disease Congenital heart disease Congenital heart disease Congestive heart failure Coronary thrombosis Cystic fibrosis Deafness or hearing loss Dementia Dementia Diabetes mellitus Drug abuse Dysphagia Family history: Allergy Family history: Alzheimer's disease Family history: Arthritis Family history: Asthma Family history: Breast disease Family history: Cardiovascular disease Family history: Coronary thrombosis Family history: Gastrointestinal disease Family history: Glaucoma Family history: Osteoporosis Family history: Thyroid disorder Fibrocystic disease of breast Gastroenteritis Glaucoma Headache Headache disorder Hearing loss Heart disease Hereditary disease History of - anemia History of - disorder History of - respiratory disease History of drug abuse Human immunodeficiency virus (HIV) seropositivity Infertile Malignant neoplasm of lung Myocardial infarction Parkinson's disease Prostate cancer Psychotic disorder Stroke Tuberculosis Visual impairment Physical Exam Vital Signs Vital Sign - Last 12Hours 12/14/16 12/14/16 00:30 00:31 Temp 101.1 Pulse 82 Resp 30 B/P (MAP) 160/52 Pulse Ox 86 O2 Delivery Room Air O2 Flow Rate 2.00 Capillary Refill : General Appearance: Obese, Other (DIRTY, MALODOROUS. TALKS IN FULL SENTENCES; MILDLY DYSPNEIC--AMBULATES IN ON HIS OWN) Neck: Non Tender, Supple, No JVD Respiratory: Decreased Breath Sounds (IN BASES ), Other (MILDLY DYSPNEIC; TALKS IN FULL SENTENCES) Cardiovascular: Regular Rate, Rhythm, Systolic Murmur (1-2/6) Gastrointestinal: Non Tender, Soft Extremity: Normal Capillary Refill, Non Tender, No Calf Tenderness, Pedal Edema (1+ BILATERALLY; ), Other (WOODY INDURATION AND CHRONIC VENOUS STASIS CHANGES AND ERYTHEMA TO BILATERAL LOWER LEGS. 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 ) Focused Exam Lactic Acid Level Laboratory Tests Test 12/14/16 03:11 Lactic Acid Level 1.73 MMOL/L (0.50-2.00) Progress/Results/Core Measures Results/Orders Lab Results Laboratory Tests Test 12/14/16 00:37 12/14/16 03:11 Range/Units White Blood Count 5.3 4.3-11.0 10^3/uL Red Blood Count 5.39 4.35-5.85 10^6/uL Hemoglobin 14.9 13.3-17.7 G/DL Hematocrit 44 40-54 % Mean Corpuscular Volume 82 80-99 FL Mean Corpuscular Hemoglobin 28 25-34 PG Mean Corpuscular Hemoglobin Concent 34 32-36 G/DL Red Cell Distribution Width 16.6 H 10.0-14.5 % Platelet Count 234 130-400 10^3/uL Mean Platelet Volume 11.9 H 7.4-10.4 FL Neutrophils (%) (Auto) 47 42-75 % Lymphocytes (%) (Auto) 30 12-44 % Monocytes (%) (Auto) 22 H 0-12 % Eosinophils (%) (Auto) 1 0-10 % Basophils (%) (Auto) 0 0-10 % Neutrophils # (Auto) 2.5 1.8-7.8 X 10^3 Lymphocytes # (Auto) 1.6 1.0-4.0 X 10^3 Monocytes # (Auto) 1.2 H 0.0-1.0 X 10^3 Eosinophils # (Auto) 0.1 0.0-0.3 10^3/uL Basophils # (Auto) 0.0 0.0-0.1 10^3/uL Neutrophils % (Manual) 56 % Lymphocytes % (Manual) 28 % Monocytes % (Manual) 15 % Eosinophils % (Manual) 0 % Basophils % (Manual) 0 % Band Neutrophils 1 % Blood Morphology Comment NORMAL Prothrombin Time 13.1 12.2-14.7 SEC INR Comment 1.0 0.8-1.4 Activated Partial Thromboplast Time 29 24-35 SEC Sodium Level 136 135-145 MMOL/L Potassium Level 3.8 3.6-5.0 MMOL/L Chloride Level 103 98-107 MMOL/L Carbon Dioxide Level 17 L 21-32 MMOL/L Anion Gap 16 H 5-14 MMOL/L Blood Urea Nitrogen 17 7-18 MG/DL Creatinine 1.47 H 0.60-1.30 MG/DL Estimat Glomerular Filtration Rate 48 BUN/Creatinine Ratio 12 Glucose Level 267 H 70-105 MG/DL Lactic Acid Level 3.39 *H 1.73 0.50-2.00 MMOL/L Calcium Level 8.8 8.5-10.1 MG/DL Magnesium Level 1.9 1.8-2.4 MG/DL Total Bilirubin 0.4 0.1-1.0 MG/DL Aspartate Amino Transf (AST/SGOT) 22 5-34 U/L Alanine Aminotransferase (ALT/SGPT) 22 0-55 U/L Alkaline Phosphatase 99 40-136 U/L Total Creatine Kinase 157 30-200 U/L Creatine Kinase MB 2.2 <6.6 NG/ML Troponin I < 0.30 <0.30 NG/ML B-Type Natriuretic Peptide 35.8 <100.0 PG/ML Total Protein 7.6 6.4-8.2 G/DL Albumin 3.8 3.2-4.5 G/DL Micro Results Microbiology 12/14/16 Influenza Types A,B Antigen (VAUGHN) - Final, Complete My Orders Orders - GERHARD WILLS DO Saline Lock/Iv-Start (12/14/16 00:34) Ekg Tracing (12/14/16 00:34) O2 (12/14/16 00:34) Monitor-Rhythm Ecg Trace Only (12/14/16 00:34) BNP (12/14/16 00:34) Cbc With Automated Diff (12/14/16 00:34) Comprehensive Metabolic Panel (12/14/16 00:34) Creatine Kinase (12/14/16 00:34) Creatine Kinase Mb (12/14/16 00:34) Lactic Acid Analyzer (12/14/16:34) Magnesium (12/14/16 00:34) Protime With Inr (12/14/16 00:34) Partial Thromboplastin Time (12/14/16 00:34) Troponin I (12/14/16 00:34) Ua Culture If Indicated (12/14/16 00:34) Blood Culture (3/23/17 00:34) Influenza A And B Antigens (12/14/16 00:34) Chest 1 View, Ap/Pa Only (12/14/16 00:34) Albuterol/Ipra Inhalation Soln (Duoneb I (12/14/16 00:45) Rt Request For Service (12/14/16 00:34) Svn Sm Volume Nebulizer Rt-Rfs (12/14/16 00:34) Acetaminophen Tablet (Tylenol Tablet) (12/14/16 00:45) Methylprednisolone Sod Succ (Solu-Medrol (12/14/16 00:45) Manual Differential (12/14/16 00:37) Aspirin Chewable Tablet (Baby Aspirin Ch (12/14/16 01:30) Ceftriaxone Injection (Rocephin Injectio (12/14/16 01:30) Medications Given in ED Current Medications Medications Dose Ordered Sig/Coral Route Start Time Stop Time Status Last Admin Dose Admin Acetaminophen 1,000 mg ONCE ONCE PO 12/14/16 00:45 12/14/16 00:46 DC 12/14/16 00:43 1,000 MG Albuterol/ Ipratropium 3 ml ONCE ONCE INH 12/14/16 00:45 12/14/16 00:46 DC 12/14/16 01:41 3 ML Aspirin 324 mg ONCE ONCE PO 12/14/16 01:30 12/14/16 01:31 DC 12/14/16 02:00 324 MG Ceftriaxone Sodium 1000 mg/ Sodium Chloride 50 ml @ 100 mls/hr ONCE ONCE IV 12/14/16 01:30 12/14/16 01:59 DC 12/14/16 02:00 100 MLS/HR Methylprednisolone Sodium Succinate 125 mg ONCE ONCE IVP 12/14/16 00:45 12/14/16 00:46 DC 12/14/16 00:43 125 MG Vital Signs/I&O Vital Sign - Last 12Hours 12/14/16 12/14/16 12/14/16 12/14/16 00:30 00:31 00:42 00:43 Temp 101.1 101.1 Pulse 82 Resp 30 B/P (MAP) 160/52 Pulse Ox 86 86 94 O2 Delivery Room Air Nasal Cannula O2 Flow Rate 2.00 2.00 12/14/16 12/14/16 12/14/16 12/14/16 02:55 03:28 03:45 03:47 Temp 98.1 97.4 Pulse 68 66 63 65 Resp 22 18 18 B/P (MAP) 164/64 146/72 Pulse Ox 95 94 97 O2 Delivery Nasal Cannula Nasal Cannula O2 Flow Rate 2.00 2.00 2.00 12/14/16 12/14/16 12/14/16 04:00 04:15 04:30 Pulse 63 64 62 Resp 20 16 19 B/P (MAP) 119/65 157/68 169/64 Pulse Ox 96 91 95 O2 Delivery Nasal Cannula Nasal Cannula Nasal Cannula O2 Flow Rate 2.00 2.00 2.00 Progress Note : Progress Note O2 SATS 85-887% ON ROOM AIR ON ARRIVAL--PT STATES HE WEARS HOME O2 AT BEDTIME. PT NO LONGER DYSPNEIC AFTER NEB TX AND O2 PLACEMENT--SATS UP TO LOW TO MID 90'S NO DETERIORATION IN PT'S CONDITION DURING ER STAY ECG Initial ECG Impression Time: 00:36 Initial ECG Rate: 79 Initial ECG Rhythm: Normal Sinus Initial ECG Impression: Nonspecific Changes Initial ECG Comparisson: Unchanged Diagnostic Imaging Comments CXR--CHRONIC CHANGES, NO ACUTE PROCESS, PENDING RADIOLOGIST REVIEW Reviewed: Reviewed by Me Departure Communication Progress Notes 0130--SPOKE WITH DR. MORE, ACCEPTS PT FOR ADMIT. Impression Impression: Primary Impression: COPD with acute exacerbation Additional Impressions: Hypoxia POSSIBLE PNEUMONIA Disposition: ADMITTED INPATIENT Condition: Improved Decision to Admit Reason: Admit from ER (General) Decision to Admit/Date: Dec 14, 2016 Time/Decision to Admit Time: 01:30 Departure-Patient Inst. Referrals: SHIV COOK MD (PCP/Family) Primary Care Physician GERHARD WILLS DO Dec 14, 2016 00:39
[2016-12-14] MEDS ORDERED: ACETAMINOPHEN 500 MG TAB (TYLENOL) PO ONE (00:45)
[2016-12-14] MEDS ORDERED: RT-ALBUTEROL/IPRATROPIUM 3 ML (DUONEB) VIAL INH ONE (00:45)
[2016-12-14] MEDS ORDERED: methylPREDNISolone 125 MG (Solu-MEDROL) VIAL IVP ONE (00:45)
[2016-12-14 00:48] LABS: BASOPHILS % (AUTO) 0 % (0-10); EOSINOPHILS # (AUTO) 0.1 10^3/uL (0.0-0.3); EOSINOPHILS % (AUTO) 1 % (0-10); LYMPHOCYTES # (AUTO) 1.6 X 10^3 (1.0-4.0); LYMPHOCYTES % (AUTO) 30 % (12-44); MEAN CORPUSCULAR HEMOGLOBIN 28 PG (25-34); MEAN CORPUSCULAR HGB CONC 34 G/DL (32-36); MEAN CORPUSCULAR VOLUME 82 FL (80-99); MEAN PLATELET VOLUME 11.9 FL (7.4-10.4); MONOCYTES # (AUTO) 1.2 X 10^3 (0.0-1.0); MONOCYTES % (AUTO) 22 % (0-12); NEUTROPHILS # (AUTO) 2.5 X 10^3 (1.8-7.8); NEUTROPHILS % (AUTO) 47 % (42-75); PLATELET COUNT 234 10^3/uL (130-400); RED BLOOD COUNT 5.39 10^6/uL (4.35-5.85); RED CELL DISTRIBUTION WIDTH 16.6 % (10.0-14.5); WHITE BLOOD COUNT 5.3 10^3/uL (4.3-11.0)
[2016-12-14 00:59] LABS: PROTHROMBIN TIME PATIENT 13.1 SEC (12.2-14.7)
[2016-12-14 01:08] LABS: ALANINE AMINOTRANSFERASE 22 U/L (0-55); ALBUMIN 3.8 G/DL (3.2-4.5); ANION GAP 16 MMOL/L (5-14); ASPARTATE AMINO TRANSFERASE 22 U/L (5-34); BILIRUBIN,TOTAL 0.4 MG/DL (0.1-1.0); BLOOD UREA NITROGEN 17 MG/DL (7-18); BUN/CREATININE RATIO 12; CALCIUM 8.8 MG/DL (8.5-10.1); CARBON DIOXIDE 17 MMOL/L (21-32); CHLORIDE 103 MMOL/L (98-107); CREATINE KINASE 157 U/L (30-200); CREATININE SERUM 1.47 MG/DL (0.60-1.30); GFR ESTIMATED 48; GLUCOSE 267 MG/DL (70-105); MAGNESIUM 1.9 MG/DL (1.8-2.4); POTASSIUM 3.8 MMOL/L (3.6-5.0); SODIUM 136 MMOL/L (135-145); TOTAL PROTEIN 7.6 G/DL (6.4-8.2)
[2016-12-14 01:15] LABS: TROPONIN I < 0.30 NG/ML (<0.30)
[2016-12-14 01:18] LABS: BAND NEUTROPHILS 1 %; BASOPHILS % (MANUAL) 0 %; EOSINOPHILS % (MANUAL) 0 %; LYMPHOCYTES % (MANUAL) 28 %; NEUTROPHILS % (MANUAL) 56 %
[2016-12-14] MEDS ORDERED: ASPIRIN 81 MG CHEW (CHILDREN'S ASA) PO ONE (01:30)
[2016-12-14] MEDS ORDERED: cefTRIAXone INJECTION 1,000 MG in NS (IVPB) 50 ML IV ONE (01:30)
[2016-12-14] MEDS ORDERED: ACETAMINOPHEN 500 MG TAB (TYLENOL) PO PRN (05:45)
[2016-12-14] MEDS ORDERED: methylPREDNISolone 125 MG (Solu-MEDROL) VIAL IV ONE (06:00)
[2016-12-14] MEDS ORDERED: CATHETER FLUSH 10 ML SYR IV PRN (06:00)
[2016-12-14] MEDS ORDERED: NITROGLYCERIN SUBLINGUAL 0.4 MG TAB (NITROSTAT) SL PRN (06:00)
[2016-12-14 06:06] LABS: BASOPHILS % (AUTO) 0 % (0-10); EOSINOPHILS % (AUTO) 0 % (0-10); LYMPHOCYTES # (AUTO) 0.7 X 10^3 (1.0-4.0); LYMPHOCYTES % (AUTO) 20 % (12-44); MEAN CORPUSCULAR HEMOGLOBIN 28 PG (25-34); MEAN CORPUSCULAR HGB CONC 34 G/DL (32-36); MEAN CORPUSCULAR VOLUME 82 FL (80-99); MEAN PLATELET VOLUME 11.9 FL (7.4-10.4); MONOCYTES # (AUTO) 0.1 X 10^3 (0.0-1.0); MONOCYTES % (AUTO) 3 % (0-12); NEUTROPHILS # (AUTO) 2.8 X 10^3 (1.8-7.8); NEUTROPHILS % (AUTO) 77 % (42-75); PLATELET COUNT 206 10^3/uL (130-400); RED BLOOD COUNT 5.39 10^6/uL (4.35-5.85); RED CELL DISTRIBUTION WIDTH 16.5 % (10.0-14.5); WHITE BLOOD COUNT 3.7 10^3/uL (4.3-11.0)
[2016-12-14 06:26] LABS: MYOGLOBIN SERUM 75.6 NG/ML (10.0-92.0)
[2016-12-14 06:30] LABS: ALANINE AMINOTRANSFERASE 23 U/L (0-55); ALBUMIN 3.7 G/DL (3.2-4.5); ANION GAP 14 MMOL/L (5-14); ASPARTATE AMINO TRANSFERASE 23 U/L (5-34); BILIRUBIN,TOTAL 0.4 MG/DL (0.1-1.0); BLOOD UREA NITROGEN 19 MG/DL (7-18); BUN/CREATININE RATIO 15; CALCIUM 8.8 MG/DL (8.5-10.1); CARBON DIOXIDE 18 MMOL/L (21-32); CHLORIDE 105 MMOL/L (98-107); CHOLESTEROL 118 MG/DL (< 200); DIRECT LDL 65 MG/DL (1-129); GFR ESTIMATED 55; GLUCOSE 305 MG/DL (70-105); MAGNESIUM 1.9 MG/DL (1.8-2.4); POTASSIUM 4.1 MMOL/L (3.6-5.0); SODIUM 137 MMOL/L (135-145); TOTAL PROTEIN 7.4 G/DL (6.4-8.2); TRIGLYCERIDES 128 MG/DL (<150); VLDL CHOLESTEROL 26 MG/DL (5-40)
--- NOTE | 2016-12-14 07:03 | Pulmonary Consultation ---
History of Present Illness History of Present Illness Date of Consultation 12/14/16 06:58 Date of Admission History of Present Illness 66yo with hx of COPD, CHF presented to ED secondary to progressive SOB, diarrhea, fever 101.1 and tremors. PT also had nonradiating mid sternal CP on admission that is now resolved. Pt has had similar previous episodes. I am consulted for pulmonary management. Allergies and Home Medications Allergies Coded Allergies: No Known Drug Allergies (Verified , 10/17/07) Home Medications Amlodipine Besylate 10 Mg Tablet, 10 MG PO DAILY, (Reported) Aspirin 81 Mg Tab.chew, 81 MG PO DAILY, (Reported) Atorvastatin Calcium 80 Mg Tablet, 80 MG PO HS, (Reported) Brimonidine Tartrate 5 Ml Drops, 1 DROP OU TID, (Reported) Carvedilol 25 Mg Tablet, 25 MG PO BID, (Reported) Clopidogrel Bisulfate 75 Mg Tablet, 75 MG PO DAILY, (Reported) Empagliflozin 25 Mg Tablet, 25 MG PO DAILY, (Reported) Ergocalciferol (Vitamin D2) 50,000 Unit Capsule, 50,000 UNITS PO Mo, (Reported) Furosemide 80 Mg Tablet, 80 MG PO DAILY, (Reported) Hydrocodone/Acetaminophen 1 Each Tablet, 2 TAB PO Q6H PRN for PAIN, (Reported) Insulin Glargine,Hum.rec.anlog 300 Unit/1 Ml Insuln.pen, 150 UNITS SQ BID, ( Reported) Insulin Lispro 200 Unit/1 Ml Insuln.pen, 75 UNITS SQ BID, (Reported) Latanoprost 2.5 Ml Drops, 1 DROP OU HS, (Reported) Lisinopril 20 Mg Tablet, 20 MG PO DAILY, (Reported) Omeprazole 20 Mg Capsule.dr, 20 MG PO BID, (Reported) Paroxetine HCl 20 Mg Tablet, 20 MG PO DAILY, (Reported) Potassium Chloride 20 Meq Tab.er.prt, 20 MEQ PO DAILY, (Reported) Potassium Chloride 10 Meq Tablet.er, 10 MEQ PO DAILY, (Reported) Past Upnlvoj-Qoyiom-Onhdtu Hx Patient Social History Alcohol Use: Denies Use Recreational Drug Use: No (DENIES BUT HAS A TATTOO OF A SYRINGE AND NEEDLE IN LEFT AC) Smoking Status: Former Smoker Type Used: Cigarettes Former Smoker/When Quit: Sep 24, 1998 Recent Foreign Travel: No Contact w/Someone Who Travel: No Recent Infectious Disease Expo: No Recent Hopitalizations: No Physical Abuse Screen: No Sexual Abuse: No Immunizations Up To Date Tetanus Booster (TDap): Unknown PED Vaccines UTD: Yes Date of Pneumonia Vaccine: February 04, 2014 Date of Influenza Vaccine: May 25, 2013 Seasonal Allergies Seasonal Allergies: No Surgeries HX Surgeries: Yes (LEFT KNEE TKR; BILATERAL INGUINAL HERNIA; 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; I&D'S ; CARDIAC CATHS/STENTS IN HEART AND LEGS AND ANGIOPLASTIES-- LAST INTERVENTION 11/01/16 BALLOON ANGIOPLASTY LEFT COMMON FEMORAL ARTERY) Surgeries: Abdominal, Cardiac, Coronary Stent, Joint Replacement, Orthopedic, Vascular Surgery, Vasectomy Respiratory Hx Respiratory Disorders: Yes (O2 AT HS--REFUSES TO WEAR CPAP) Respiratory Disorders: Sleep Apnea, COPD Cardiovascular Hx Cardiac Disorders: Yes (MULTIPLE INTERVENTIONS IN HEART AND LEGS; CHF; CAROTID BRUIT) Cardiac Disorders: Chronic Edema/Swelling, Coronary Artery Disease, Deep Vein Thrombosis, High Cholesterol, Hypertension, Peripheral Vascular, Valvular Heart Disease Neurological Hx Neurological Disorders: Yes Neurological Disorders: Neuropathy Reproductive System Hx Reproductive Disorders: No Sexually Transmitted Disease: No HIV/AIDS: No Genitourinary Hx Genitourinary Disorders: No Gastrointestinal Hx Gastrointestinal Disorders: Yes Gastrointestinal Disorders: Abdominal Hernia, Gastroesophageal Reflux Musculoskeletal Hx Musculoskeletal Disorders: Yes Musculoskeletal Disorders: Arthritis, Chronic Back Pain Endocrine Hx Endocrine Disorders: Yes (MORBID OBESITY) Endocrine Disorders: Diabetes, Insulin dep HEENT HX ENT Disorders: Yes HEENT Disorders: Glaucoma Loss of Vision: Denies Hearing Impairment: Denies Cancer Hx Cancer: No Psychosocial Hx Psychiatric Problems: No Integumentary HX Skin/Integumentary Disorder: Yes (MRSA; ABSCESSES AND CELLULITIS; I&D'S'; CHRONIC LEG ULCERS) Skin/Integumentary Disorders: Herpes Blood Transfusions Hx Blood Disorders: No Adverse Reaction to a Blood Tr: No Family Medical History Family Medial History: Arthritis 19 MOTHER Completed stroke 19 MOTHER Family history: Diabetes mellitus 19 MOTHER Family history: Hypertension 19 FATHER 19 MOTHER Hypercholesterolemia 19 MOTHER G8 BROTHER G8 BROTHER Hypertension 19 MOTHER Kidney disease 19 MOTHER Seizure disorder G8 BROTHER No Family History of: AIDS Abdominal aortic aneurysm Abdominal aortic aneurysm Neeraj's disease [place]'s disease Alcoholism Alcoholism Alzheimer's disease Aphasia Aphasia Asthma Cancer Cancer of colon Cancer of mouth Cardiovascular disease Cataract Cataracts Chest pain Colon cancer Congenital disease Congenital heart disease Congenital heart disease Congestive heart failure Coronary thrombosis Cystic fibrosis Deafness or hearing loss Dementia Dementia Diabetes mellitus Drug abuse Dysphagia Family history: Allergy Family history: Alzheimer's disease Family history: Arthritis Family history: Asthma Family history: Breast disease Family history: Cardiovascular disease Family history: Coronary thrombosis Family history: Gastrointestinal disease Family history: Glaucoma Family history: Osteoporosis Family history: Thyroid disorder Fibrocystic disease of breast Gastroenteritis Glaucoma Headache Headache disorder Hearing loss Heart disease Hereditary disease History of - anemia History of - disorder History of - respiratory disease History of drug abuse Human immunodeficiency virus (HIV) seropositivity Infertile Malignant neoplasm of lung Myocardial infarction Parkinson's disease Prostate cancer Psychotic disorder Stroke Tuberculosis Visual impairment Review of Systems Constitutional: Fever, Malaise, Weakness Eyes: No: Conjunctivae inflammation, Eyelid inflammation, Other, Pain, Redness , Vision change Respiratory: Cough, Dry, SOB with excertion, Shortness of breath, Wheezing Cardiovascular: Chest Pain, Lt Headedness, Paroxysmal Noc. Dyspnea, No: Palpitations Gastrointestinal: No: Abdominal Pain, Constipation, Diarrhea, Hematochezia, Melena, Nausea, Other, Vomiting Exam Exam Vital Signs Date Time Temp Pulse Resp B/P (MAP) Pulse Ox O2 Delivery O2 Flow Rate FiO2 12/14/16 06:30 57 18 132/58 95 Nasal Cannula 2.00 12/14/16 06:00 61 20 136/71 93 Nasal Cannula 2.00 12/14/16 05:30 57 18 132/55 93 Nasal Cannula 2.00 12/14/16 05:00 61 17 166/64 89 Nasal Cannula 2.00 12/14/16 04:45 62 17 170/71 89 Nasal Cannula 2.00 12/14/16 04:30 62 19 169/64 95 Nasal Cannula 2.00 12/14/16 04:15 64 16 157/68 91 Nasal Cannula 2.00 12/14/16 04:00 63 20 119/65 96 Nasal Cannula 2.00 12/14/16 03:47 65 12/14/16 03:45 63 18 146/72 97 Nasal Cannula 2.00 12/14/16 03:28 97.4 66 18 164/64 94 Nasal Cannula 2.00 12/14/16 02:55 98.1 68 22 95 2.00 12/14/16 00:43 101.1 12/14/16 00:42 94 2.00 12/14/16 00:31 86 Nasal Cannula 2.00 12/14/16 00:30 101.1 82 30 160/52 86 Room Air I & O 12/14/16 07:00 Intake Total 50 ml Balance 50 ml General Appearance: No Apparent Distress, Anxious, Obese Neck: Non Tender, Supple, No JVD Respiratory: No Accessory Muscle Use, No Respiratory Distress, Decreased Breath Sounds (IN BASES ) Cardiovascular: Regular Rate, Rhythm, Systolic Murmur (1-2/6) Capillary Refill: Less Than 3 Seconds Extremity: Normal Capillary Refill, Non Tender, No Calf Tenderness, Pedal Edema (1+ BILATERALLY; ), Other (WOODY INDURATION AND CHRONIC VENOUS STASIS CHANGES AND ERYTHEMA TO BILATERAL LOWER LEGS. 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 ) Results Lab Laboratory Tests 12/14/16 00:37 12/14/16 05:58 Assessment/Plan Assessment/Plan COPDAE -SVNS, solumedrol CAP with sepsis -Continue rocephin and doxy -barragan cultures -check influenza Obesity morbid obesity Transfer to 4th floor if ok with cardiology.. Clinical Quality Measures DVT/VTE Risk/Contraindication: Risk Factor Score Per Nursin RFS Level Per Nursing on Admit: 4+=Very High PEYMAN VALE DO Dec 14, 2016 07:03
[2016-12-14] MEDS: CATHETER FLUSH 10 ML SYR IV SCH ×3 (07:18→21:24)
[2016-12-14] MEDS: inSUlin (REGULAR) HUMAN 1 UNIT/0.01 ML (CHARGE PER UNIT) SC SCH ×4 (07:22→21:26)
[2016-12-14 07:47] LABS: BILIRUBIN,URINE NEGATIVE (NEGATIVE); KETONES,URINE NEGATIVE (NEGATIVE); LEUKOCYTE ESTERASE ,URINE NEGATIVE (NEGATIVE); NITRITE,URINE NEGATIVE (NEGATIVE); PH,URINE 6 (5-9); PROTEIN,URINE 2+ (NEGATIVE); UROBILINOGEN,URINE NORMAL (NORMAL)
[2016-12-14 08:00] LABS: SQUAMOUS EPITHELIAL CELL,UR RARE /HPF
[2016-12-14] MEDS ORDERED: RT-ALBUTEROL/IPRATROPIUM 3 ML (DUONEB) VIAL INH SCH (08:00)
--- NOTE | 2016-12-14 08:00 | Diagnostic Imaging Report ---
INDICATION: Questionable right lower lobe infiltrate, shortness of air. COMPARISON STUDY: Chest from November 01. FINDINGS: Portable view of the chest demonstrates lungs to be clear. Heart, mediastinum and pulmonary vascularity are normal. IMPRESSION: Negative chest. Dictated by: Dictated on workstation # [id number]
[2016-12-14] MEDS ORDERED: RT-ALBUTEROL/IPRATROPIUM 3 ML (DUONEB) VIAL IH PRN (08:30)
--- NOTE | 2016-12-14 08:43 | Consultation-Cardiology ---
HPI-Cardiology Cardiology Consultation: Date of Consultation 12/14/16 Date of Admission 12-14-16 Attending Physician Maynor Gutiérrez MD Admitting Physician Maynor Gutiérrez MD Consulting Physician Trae Aldana MD FACP [facility] HPI: Chief Complaint: Dyspnea Hypoxia Mr. 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 He has been admitted to ICU5 from the ED. He reports increasing malaise and generally not feeling well over the last couple days. He states he woke up early this morning with diarrhea, nausea, chills, fever and epigastric discomfort. He reports the epigastric discomfort was sharp and stabbing. He states it would come and go. No other associated symptoms. He reports chronic dyspnea, which has been somewhat worse the last few days. He reports productive cough of thick phlegm. He reports chronic bilat LE edema which is unchanged in the recent past. He states overall he is feeling better this morning. No c/o CP, palpitations, syncope or near syncope. He would like to eat and drink. Review of Systems-Cardiology Review of Systems Constitutional: As described under HPI Eyes: No blurred vision, No drainage, No pain, No vision change Ears/Nose/Throat: No ear discharge, No ear pain, No nasal drainage, No ulcerations Respiratory: As described under HPI Cardiovascular: As described under HPI Gastrointestinal: No constipation, diarrhea, nausea, No vomiting, No stool coloration changes Genitourinary: No dysuria, No discharge, No frequency, No hematuria, No urgency Skin: No rash, No skin related problems, No ulcerations Psychiatric/Neurological: No anxiety, No depression, No focal weakness, No seizure, No syncope Hematologic: No bleeding abnormalities [id number] Hx Patient Social History Alcohol Use: Denies Use Recreational Drug Use: No (DENIES BUT HAS A TATTOO OF A SYRINGE AND NEEDLE IN LEFT AC) Smoking Status: Former Smoker Former smoker/When Quit: Sep 24, 1998 Type Used: Cigarettes Recent Foreign Travel: No Recent Infectious Disease Expo: No Physical Abuse Screen: No Sexual Abuse: No Immunizations Up To Date Tetanus Booster (TDap): Unknown Date of Pneumonia Vaccine: February 04, 2014 Date of Influenza Vaccine: May 25, 2013 Past Medical History PMH As described under Assessment. Family Medical History Family Medical History: He reports a family h/o hypertension in his father and mother. He reports his mother had a stroke. He reports no family h/o CAD or premature SCD. Family History: 19 FATHER Family history: Hypertension 19 MOTHER Arthritis Completed stroke Family history: Diabetes mellitus Family history: Hypertension Hypercholesterolemia Hypertension Kidney disease G8 BROTHER Seizure disorder G8 BROTHER Hypercholesterolemia G8 BROTHER Hypercholesterolemia Allergies and Home Medications Allergies Coded Allergies: No Known Drug Allergies (Verified , 10/17/07) Home Medications Amlodipine Besylate 10 Mg Tablet, 10 MG PO DAILY, (Reported) Aspirin 81 Mg Tab.chew, 81 MG PO DAILY, (Reported) Atorvastatin Calcium 80 Mg Tablet, 80 MG PO HS, (Reported) Brimonidine Tartrate 5 Ml Drops, 1 DROP OU Q8H, (Reported) Carvedilol 25 Mg Tablet, 25 MG PO BID, (Reported) Clopidogrel Bisulfate 75 Mg Tablet, 75 MG PO DAILY, (Reported) Empagliflozin 25 Mg Tablet, 25 MG PO DAILY, (Reported) Ergocalciferol (Vitamin D2) 50,000 Unit Capsule, 50,000 UNITS PO Mo, (Reported) Furosemide 80 Mg Tablet, 80 MG PO DAILY, (Reported) Hydrocodone/Acetaminophen 1 Each Tablet, 2 TAB PO Q6H PRN for PAIN, (Reported) Insulin Glargine,Hum.rec.anlog 300 Unit/1 Ml Insuln.pen, 150 UNITS SQ BID, ( Reported) Insulin Lispro 200 Unit/1 Ml Insuln.pen, 75 UNITS SQ BID, (Reported) Latanoprost 2.5 Ml Drops, 1 DROP OU HS, (Reported) Lisinopril 20 Mg Tablet, 20 MG PO DAILY, (Reported) Omeprazole 20 Mg Capsule.dr, 20 MG PO BID, (Reported) Paroxetine HCl 20 Mg Tablet, 20 MG PO DAILY, (Reported) Potassium Chloride 20 Meq Tab.er.prt, 20 MEQ PO DAILY, (Reported) Physical Exam-Cardiology Physical Exam Vital Signs/I&O Vital Sign - Last 12Hours 12/14/16 12/14/16 12/14/16 12/14/16 00:43 02:55 03:28 03:45 Temp 101.1 98.1 97.4 Pulse 68 66 63 Resp 22 18 18 B/P (MAP) 164/64 146/72 Pulse Ox 95 94 97 O2 Delivery Nasal Cannula Nasal Cannula O2 Flow Rate 2.00 2.00 2.00 3/23/17 3/23/17 3/23/17 3/23/17 03:47 04:00 04:00 04:15 Pulse 65 63 64 Resp 20 16 B/P (MAP) 119/65 157/68 Pulse Ox 96 96 91 O2 Delivery Nasal Cannula Nasal Cannula O2 Flow Rate 2.00 3.00 2.00 12/14/16 12/14/16 12/14/16 12/14/16 04:30 04:45 05:00 05:30 Pulse 62 62 61 57 Resp 19 17 17 18 B/P (MAP) 169/64 170/71 166/64 132/55 Pulse Ox 95 89 89 93 O2 Delivery Nasal Cannula Nasal Cannula Nasal Cannula Nasal Cannula O2 Flow Rate 2.00 2.00 2.00 2.00 12/14/16 12/14/16 12/14/16 12/14/16 06:00 06:00 06:30 07:00 Pulse 61 57 59 Resp 20 18 B/P (MAP) 136/71 132/58 Pulse Ox 98 93 95 O2 Delivery Nasal Cannula Nasal Cannula Nasal Cannula O2 Flow Rate 3.00 2.00 2.00 12/14/16 09:37 Pulse Ox 92 O2 Flow Rate 3.00 Capillary Refill : Less Than 3 Seconds Constitutional: appears stated age, No apparent distress, well-developed, well- nourished HEENT: PERRL, No discharge, hearing is well preserved, oral hygience is good, No ulceration, No xanthelasmas are seen Neck: No carotid bruit, carotid pulses are 2 + bilaterally Respiratory: No accessory muscle use, No respiratory distress, chest expansion is symmetric, chest is bilaterally symmetric, other (diminished bases bilat; fair air entry) Cardiovascular: regular rate-rhythm, No JVD, S1 and S2, systolic murmur Gastrointestinal: No tender, soft, round, No spleenomegaly Extremities: No clubbing, No cyanosis, No significant edema Neurologic/Psychiatric: alert, oriented x 3, power is 5/5 both on sides Skin: No rash, No ulcerations Data Review Labs Laboratory Tests 12/14/16 00:37: White Blood Count 5.3, Red Blood Count 5.39, Hemoglobin 14.9, Hematocrit 44, Mean Corpuscular Volume 82, Mean Corpuscular Hemoglobin 28, Mean Corpuscular Hemoglobin Concent 34, Red Cell Distribution Width 16.6H, Platelet Count 234, Mean Platelet Volume 11.9H, Neutrophils (%) (Auto) 47, Lymphocytes (%) (Auto) 30 , Monocytes (%) (Auto) 22H, Eosinophils (%) (Auto) 1, Basophils (%) (Auto) 0, Neutrophils # (Auto) 2.5, Lymphocytes # (Auto) 1.6, Monocytes # (Auto) 1.2H, Eosinophils # (Auto) 0.1, Basophils # (Auto) 0.0, Neutrophils % (Manual) 56, Lymphocytes % (Manual) 28, Monocytes % (Manual) 15, Eosinophils % (Manual) 0, Basophils % (Manual) 0, Band Neutrophils 1, Blood Morphology Comment NORMAL, Prothrombin Time 13.1, INR Comment 1.0, Activated Partial Thromboplast Time 29, Sodium Level 136, Potassium Level 3.8, Chloride Level 103, Carbon Dioxide Level 17L, Anion Gap 16H, Blood Urea Nitrogen 17, Creatinine 1.47H, Estimat Glomerular Filtration Rate 48, BUN/Creatinine Ratio 12, Glucose Level 267H, Lactic Acid Level 3.39*H, Calcium Level 8.8, Magnesium Level 1.9, Total Bilirubin 0.4, Aspartate Amino Transf (AST/SGOT) 22, Alanine Aminotransferase ( ALT/SGPT) 22, Alkaline Phosphatase 99, Total Creatine Kinase 157, Creatine Kinase MB 2.2, Troponin I < 0.30, B-Type Natriuretic Peptide 35.8, Total Protein 7.6, Albumin 3.8 12/14/16 03:11: Lactic Acid Level 1.73 12/14/16 05:58: White Blood Count 3.7L, Red Blood Count 5.39, Hemoglobin 14.9, Hematocrit 44, Mean Corpuscular Volume 82, Mean Corpuscular Hemoglobin 28, Mean Corpuscular Hemoglobin Concent 34, Red Cell Distribution Width 16.5H, Platelet Count 206, Mean Platelet Volume 11.9H, Neutrophils (%) (Auto) 77H, Lymphocytes (%) (Auto) 20, Monocytes (%) (Auto) 3, Eosinophils (%) (Auto) 0, Basophils (%) (Auto) 0, Neutrophils # (Auto) 2.8, Lymphocytes # (Auto) 0.7L, Monocytes # (Auto) 0.1, Eosinophils # (Auto) 0.0, Basophils # (Auto) 0.0, Sodium Level 137, Potassium Level 4.1, Chloride Level 105, Carbon Dioxide Level 18L, Anion Gap 14, Blood Urea Nitrogen 19H, Creatinine 1.30, Estimat Glomerular Filtration Rate 55, BUN/ Creatinine Ratio 15, Glucose Level 305H, Calcium Level 8.8, Magnesium Level 1.9 , Total Bilirubin 0.4, Aspartate Amino Transf (AST/SGOT) 23, Alanine Aminotransferase (ALT/SGPT) 23, Alkaline Phosphatase 96, Troponin I < 0.30, Total Protein 7.4, Albumin 3.7, Myoglobin 75.6, Triglycerides Level 128, Cholesterol Level 118, LDL Cholesterol Direct 65, VLDL Cholesterol 26, HDL Cholesterol 19L 12/14/16 07:35: Urine Color YELLOW, Urine Clarity CLEAR, Urine pH 6, Urine Specific [place] 1.015L, Urine Protein 2+H, Urine Glucose (UA) 4+H, Urine Ketones NEGATIVE, Urine Nitrite NEGATIVE, Urine Bilirubin NEGATIVE, Urine Urobilinogen NORMAL, Urine Leukocyte Esterase NEGATIVE, Urine RBC (Auto) NEGATIVE, Urine RBC NONE, Urine WBC NONE, Urine Squamous Epithelial Cells RARE, Urine Crystals NONE, Urine Bacteria NEGATIVE, Urine Casts NONE, Urine Mucus NEGATIVE, Urine Culture Indicated NO Microbiology 12/14/16 Influenza Types A,B Antigen (VAUGHN) - Final, Complete Radiology NAME: JEFF SUNG [facility] REC#: [id number] PT STATUS: ADM IN : 1950 PHYSICIAN: GERHARD WILLS DO ADMIT DATE: 12/14/16/ICU Draft Date of Exam:12/14/16 CHEST 1 VIEW, AP/PA ONLY INDICATION: Questionable right lower lobe infiltrate, shortness of air. COMPARISON STUDY: Chest from November 01. FINDINGS: Portable view of the chest demonstrates lungs to be clear. Heart, mediastinum and pulmonary vascularity are normal. IMPRESSION: Negative chest. Dictated on workstation # [id number] Dict: 12/14/16 0644 Trans: 12/14/16 [id number] [id number] Interpreted by: MELY CEE MD Electronically signed by: ECG Impression ECG Initial ECG Rhythm: Normal Sinus A/P-Cardiology Assessment/Admission Diagnosis Sepsis likely secondary to pneumonia - management per Medical Services Acute on chronic exacerbation of COPD - management per pulmonary services Chronic diastolic congestive heart failure - clinically compensated Echocardiogram April 2016 showing moderate LVH with EF 60 percent, moderate aortic stenosis, no aortic regurgitation, PA pressure of 15 mmHg Moderate aortic valve stenosis Coronary artery disease-history of coronary stenting at in 2007, cardiac catheterization was carried out on November 04, 2014 showed [id number] aortic valve stenosis, patent stent in the second obtuse marginal branch, 40-50 percent stenosis in the mid LAD with mild irregularity in the first obtuse marginal branch and mild disease in the right coronary artery, nonobstructive disease, normal left ventricular size and function, ejection fraction [address] Miguel Peripheral arterial disease. Underwent angiogram on May 17, 2016 which showed severe stenosis at a calcified lesion at the left common femoral artery, underwent complex intervention using cutting balloon ([place]) and [place] balloon with improvement. Most recent peripheral angiogram of Oct [address] Miguel showed severe restenosis of the left common femoral artery. Successful balloon angioplasty then drug coated balloon using Lutonix 7 x 16 mm with excellent results. Mild disease at the left SFA and small vessel disease distally. Mild small vessel disease at the right lower extremity distally. Obesity, BMI is 51 Diabetes mellitus, followed and managed by Dr. Gutiérrez. History of joint replacement, History of glaucoma. Sleep apnea-refuses CPAP therapy, seen and followed by Dr. Pink Bilateral carotid calcification, no evidence of significant stenosis. Ultrasound was done in April 2016, continue to monitor Discussion and Recomendations Sepsis likely secondary to pneumonia which is being managed by pulmonary and medical services. C/O epigastric discomfort at time of nausea, diarrhea. No evidence of ACS thus far. Continue home medications including ASA, Plavix, BB, SHUKRI (-) and diuretics. No evidence of CHF at this time. Monitor lab closely. We would like to thank the hospitalist service for this consult. Further recommendations will be based on his hospital course. This consult is being scribed by Terry Goddard APRN on behalf of Dr. Aldana after discussion regarding plan of care. Clinical Quality Measures DVT/VTE Risk/Contraindication: Risk Factor Score Per Nursin RFS Level Per Nursing on Admit: 4+=Very High Physician Assessment Physician Assessment Lungs: fair air entry, prolonged exp phase Cor: reg A&R * As documented in our note above * Complex management due to multiple comorbidities * Will follow with you * Follow labs * I spoke with him and answered questions WANG GODDARD Dec 14, 2016 08:43 TRAE ALDANA MD FACP [facility] Dec 14, 2016 12:44
[2016-12-14] MEDS ORDERED: ASPIRIN E.C. 325 MG (ECOTRIN) TABLET PO SCH (09:00)
[2016-12-14] MEDS: methylPREDNISolone 40 MG/ML (Solu-MEDROL) VIAL IV SCH ×3 (09:25→21:25)
[2016-12-14] MEDS: RT-ALBUTEROL/IPRATROPIUM 3 ML (DUONEB) VIAL INH SCH ×3 (09:37→20:51)
[2016-12-14] MEDS: DOXYCYCLINE 100 MG/NS 100 ML IVPB IV SCH ×4 (09:42→21:25)
[2016-12-14] MEDS ORDERED: FLU TRIvalent (5 YOA+) 2016-17 (AFLURIA) 0.5 ML IM ONE (10:30)
--- NOTE | 2016-12-14 10:48 | History & Physical-Hospitalist ---
HPI History of Present Illness: HPI/Chief Complaint CC: Chest pain and SOB with diarrhea and fever of 101.1 HPI: This is a 66[address]WM pt of Dr. Gutiérrez's with hx of COPD and CHF that presented to ER with complaints of chest pain and SOB. Pt also complained of waking up with diarrhea and fever, which was 101.1. Pt was admitted to ICU and Cardiology and Pulmonology were consulted. senior gis analyst: Dr. Pink stated that pt may move to floor Dr. Aldana may want a heart cath Patient Interview: Pt states that he is breathing a little better. Pt states that PCP is Dr. Gutiérrez, and he saw him this Sunday. Pt started soft cough syrup with Hydrocodone which did not help his cough. Dr. Aldana is pts normal Flatwork Catcher. Pt states that he wears O2 at night. Physical exam stable. Pt states that he lives with his sons family. Pt normally ambulates using a scooter. Scribed by Eduardo Mary under the direct supervision of Dr. More. Source: patient Exam Limitations: no limitations Date Seen 12/14/16 Attending Physician Maynor Gutiérrez MD PCP Maynor Gutiérrez MD Referring Physician Date of Admission Dec 14, 2016 at 01:30 Home Medications & Allergies Home Medications Reviewed patient Home Medication Reconciliation Form Allergies Allergies Coded Allergies No Known Drug Allergies (Verified10/17/07) Past Rsflqsq-Sbmcyd-Bisjck Hx Patient Social History Marrital Status: single Employed/Student: unemployed Alcohol Use: Denies Use Recreational Drug Use: No (DENIES BUT HAS A TATTOO OF A SYRINGE AND NEEDLE IN LEFT AC) Smoking Status: Former Smoker Former smoker/When Quit: Sep 24, 1998 Type Used: Cigarettes Physical Abuse Screen: No Sexual Abuse: No Recent Foreign Travel: No Contact w/other who traveled: No Recent Hopitalizations: No Recent Infectious Disease Expo: No Immunizations Up To Date Tetanus Booster (TDap): Unknown Date of Pneumonia Vaccine: February 04, 2014 Date of Influenza Vaccine: May 25, 2013 Seasonal Allergies Seasonal Allergies: No Surgeries HX Surgeries: Yes (LEFT KNEE TKR; BILATERAL INGUINAL HERNIA; 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; I&D'S ; CARDIAC CATHS/STENTS IN HEART AND LEGS AND ANGIOPLASTIES-- LAST INTERVENTION 11/01/16 BALLOON ANGIOPLASTY LEFT COMMON FEMORAL ARTERY) Surgeries: Abdominal, Cardiac, Coronary Stent, Joint Replacement, Orthopedic, Vascular Surgery, Vasectomy Respiratory Hx Respiratory Disorders: Yes (O2 AT HS--REFUSES TO WEAR CPAP) Respiratory Disorders: COPD, Sleep Apnea Cardiovascular Hx Cardiovascular Disorders: Yes (MULTIPLE INTERVENTIONS IN HEART AND LEGS; CHF ; CAROTID BRUIT) Cardiac Disorders: Chronic Edema/Swelling, Coronary Artery Disease, Deep Vein Thrombosis, High Cholesterol, Hypertension, Peripheral Vascular, Valvular Heart Disease Neurological Hx Neurological Disorders: Yes Neurological Disorders: Neuropathy Reproductive System Hx Reproductive Disorders: No Sexually Transmitted Disease: No HIV/AIDS: No Genitourinary Hx Genitourinary Disorders: No Gastrointestinal Hx Gastrointestinal Disorders: Yes Gastrointestinal Disorders: Abdominal Hernia, Gastroesophageal Reflux Musculoskeletal Hx Musculoskeletal Disorders: Yes Musculoskeletal Disorders: Arthritis, Chronic Back Pain Endocrine Hx Endocrine Disorders: Yes (MORBID OBESITY) Endocrine Disorders: Diabetes, Insulin dep HEENT HX ENT Disorders: Yes HEENT Disorders: Glaucoma Loss of Vision: Denies Hearing Impairment: Denies Cancer Hx Cancer: No Psychosocial Hx Psychiatric Problems: No Integumentary HX Skin/Integumentary Disorder: Yes (MRSA; ABSCESSES AND CELLULITIS; I&D'S'; CHRONIC LEG ULCERS) Skin/Integumentary Disorders: Herpes Blood Transfusions Hx Blood Disorders: No Adverse Reaction to a Blood Tr: No Family Medical History Family Hx: Arthritis 19 MOTHER Completed stroke 19 MOTHER Family history: Diabetes mellitus 19 MOTHER Family history: Hypertension 19 FATHER 19 MOTHER Hypercholesterolemia 19 MOTHER G8 BROTHER G8 BROTHER Hypertension 19 MOTHER Kidney disease 19 MOTHER Seizure disorder G8 BROTHER No Family History of: AIDS Abdominal aortic aneurysm Abdominal aortic aneurysm [place]'s disease Neeraj's disease Alcoholism Alcoholism Alzheimer's disease Aphasia Aphasia Asthma Cancer Cancer of colon Cancer of mouth Cardiovascular disease Cataract Cataracts Chest pain Colon cancer Congenital disease Congenital heart disease Congenital heart disease Congestive heart failure Coronary thrombosis Cystic fibrosis Deafness or hearing loss Dementia Dementia Diabetes mellitus Drug abuse Dysphagia Family history: Allergy Family history: Alzheimer's disease Family history: Arthritis Family history: Asthma Family history: Breast disease Family history: Cardiovascular disease Family history: Coronary thrombosis Family history: Gastrointestinal disease Family history: Glaucoma Family history: Osteoporosis Family history: Thyroid disorder Fibrocystic disease of breast Gastroenteritis Glaucoma Headache Headache disorder Hearing loss Heart disease Hereditary disease History of - anemia History of - disorder History of - respiratory disease History of drug abuse Human immunodeficiency virus (HIV) seropositivity Infertile Malignant neoplasm of lung Myocardial infarction Parkinson's disease Prostate cancer Psychotic disorder Stroke Tuberculosis Visual impairment Review of Systems Constitutional: see HPI EENTM: no symptoms reported Respiratory: cough, short of breath Cardiovascular: chest pain Gastrointestinal: no symptoms reported Genitourinary: no symptoms reported Musculoskeletal: back pain Skin: no symptoms reported Psychiatric/Neurological: Depressed All Other Systems Reviewed Negative Unless Noted: Yes Physical Exam Physical Exam Vital Signs Vital Sign - Last 12Hours 12/14/16 12/14/16 00:30 00:31 Temp 101.1 Pulse 82 Resp 30 B/P (MAP) 160/52 Pulse Ox 86 O2 Delivery Room Air O2 Flow Rate 2.00 Capillary Refill : Less Than 3 Seconds General Appearance: No Apparent Distress, WD/WN, Chronically ill, Obese Eyes: Bilateral Eye Normal Inspection, Bilateral Eye PERRL HEENT: PERRL/EOMI, Normal ENT Inspection, Pharynx Normal Neck: Full Range of Motion, Normal Inspection, Non Tender, Supple, Carotid Bruit Respiratory: Chest Non Tender, Lungs Clear, No Accessory Muscle Use, No Respiratory Distress, Crackles, Decreased Breath Sounds Cardiovascular: Regular Rate, Rhythm, No Edema, No Gallop, No JVD, No Murmur, Normal Peripheral Pulses Gastrointestinal: Normal Bowel Sounds, No Organomegaly, No Pulsatile Mass, Non Tender, Soft Back: Normal Inspection, No CVA Tenderness, No Vertebral Tenderness Extremity: Normal Capillary Refill, Normal Inspection, Normal Range of Motion, Non Tender, No Calf Tenderness, No Pedal Edema Neurologic/Psychiatric: Alert, Oriented x3, No Motor/Sensory Deficits, Depressed Affect Skin: Normal Color, Warm/Dry Lymphatic: No Adenopathy Results Results/Procedures Lab Laboratory Tests 12/14/16 00:37 12/14/16 05:58 Assessment/Plan Admission Diagnosis Assessment: Sepsis with elevated lactic acid with acute bronchitis versus early pneumonia Diabetes mellitus insulin requiring Hypertension Obstructive sleep apnea Chronic hypoxia Overall debility Assessment and Plan Plan: Await Dr. Aldana's orders regarding heart cath Continue abx Maintain O2, Nebs Home meds Clinical Quality Measures DVT/VTE Risk/Contraindication: Risk Factor Score Per Nursin RFS Level Per Nursing on Admit: 4+=Very High FAITH MORE DO Dec 14, 2016 10:47
[2016-12-14] MEDS ORDERED: LATANOPROST 0.005% (XALATAN) OPHTH SOLN 2.5 ML OU SCH (21:00)
[2016-12-14] MEDS ORDERED: ATORVASTATIN 80 MG (LIPITOR) TABLET PO SCH (21:00)
[2016-12-14] MEDS: CARVEDILOL 12.5 MG (COREG) TABLET PO SCH (21:25)
[2016-12-14] MEDS: inSUlin ASPART (NovoLOG) 1 UNIT/0.01 ML (CHARGE PER UNIT) SC SCH (21:26)
[2016-12-14] MEDS: inSUlin DETERMIR 1 UNIT/0.01 ML (LEVEMIR) CHARGE PER UNIT SQ SCH (21:27)
[2016-12-14] MEDS: BRIMONIDINE 0.2% (ALPHAGAN) OPHTH SOLN 5 ML BTL OU SCH (21:34)
[2016-12-14] MEDS: PANTOPRAZOLE 20 MG TABLET (PROTONIX) PO SCH (21:38)
[2016-12-15] VITALS: BP 153/76
[2016-12-15] MEDS: HYDROcodone/APAP 10 MG/325 MG (LORTAB) TAB PO PRN ×2 (00:26→09:19)
[2016-12-15] MEDS: methylPREDNISolone 40 MG/ML (Solu-MEDROL) VIAL IV SCH ×2 (01:53→08:10)
[2016-12-15] MEDS: CATHETER FLUSH 10 ML SYR IV SCH (01:57)
[2016-12-15] MEDS: RT-ALBUTEROL/IPRATROPIUM 3 ML (DUONEB) VIAL INH SCH ×2 (02:22→10:29)
[2016-12-15 04:00] VITALS: BP 137/80
[2016-12-15 04:28] LABS: BASOPHILS % (AUTO) 0 % (0-10); EOSINOPHILS % (AUTO) 0 % (0-10); LYMPHOCYTES # (AUTO) 0.7 X 10^3 (1.0-4.0); LYMPHOCYTES % (AUTO) 7 % (12-44); MEAN CORPUSCULAR HEMOGLOBIN 27 PG (25-34); MEAN CORPUSCULAR HGB CONC 33 G/DL (32-36); MEAN CORPUSCULAR VOLUME 81 FL (80-99); MEAN PLATELET VOLUME 11.9 FL (7.4-10.4); MONOCYTES # (AUTO) 0.6 X 10^3 (0.0-1.0); MONOCYTES % (AUTO) 5 % (0-12); NEUTROPHILS % (AUTO) 88 % (42-75); PLATELET COUNT 248 10^3/uL (130-400); RED BLOOD COUNT 5.58 10^6/uL (4.35-5.85); RED CELL DISTRIBUTION WIDTH 16.3 % (10.0-14.5); WHITE BLOOD COUNT 10.2 10^3/uL (4.3-11.0)
[2016-12-15 04:51] LABS: ANION GAP 15 MMOL/L (5-14); BLOOD UREA NITROGEN 24 MG/DL (7-18); BUN/CREATININE RATIO 26; CARBON DIOXIDE 16 MMOL/L (21-32); CHLORIDE 102 MMOL/L (98-107); CREATININE SERUM 0.92 MG/DL (0.60-1.30); GFR ESTIMATED > 60; GLUCOSE 266 MG/DL (70-105); MAGNESIUM 1.9 MG/DL (1.8-2.4); PHOSPHORUS 3.6 MG/DL (2.3-4.7); POTASSIUM 3.9 MMOL/L (3.6-5.0); SODIUM 133 MMOL/L (135-145)
[2016-12-15] MEDS: inSUlin (REGULAR) HUMAN 1 UNIT/0.01 ML (CHARGE PER UNIT) SC SCH (06:41)
[2016-12-15] MEDS ORDERED: FUROSEMIDE 40 MG (LASIX) TAB PO SCH (07:00)
--- NOTE | 2016-12-15 07:48 | Diagnostic Imaging Report ---
INDICATION: Exacerbation COPD, hypoxemia. Portable chest 4:37 AM. Heart size upper limits of normal. Vascularity is normal. Lungs are clear. There are no effusions or pneumothoraces. IMPRESSION: No acute abnormalities in the chest. Dictated by: Dictated on workstation # [id number]
--- NOTE | 2016-12-15 07:59 | Pulmonary Progress Note ---
Subjective Subjective/Events-last exam No complications noted. Exam Exam Vital Signs Date Time Temp Pulse Resp B/P (MAP) Pulse Ox O2 Delivery O2 Flow Rate FiO2 12/15/16 07:05 74 12/15/16 04:00 96.4 60 20 137/80 99 Nasal Cannula 3.00 12/15/16 02:22 98 3.00 12/15/16 01:10 58 12/15/16 00:00 97.1 62 18 153/76 96 Nasal Cannula 3.00 12/14/16 20:51 98 3.00 12/14/16 20:30 98 Nasal Cannula 3.00 12/14/16 20:00 97.1 62 18 177/83 98 Nasal Cannula 3.00 12/14/16 19:00 60 12/14/16 16:00 96.2 63 20 144/65 95 Nasal Cannula 3.00 12/14/16 15:26 94 3.00 12/14/16 14:35 96.3 63 20 159/71 97 Nasal Cannula 3.00 12/14/16 14:32 92 Nasal Cannula 3.00 12/14/16 13:00 58 12/14/16 12:00 97.6 57 16 144/68 94 Nasal Cannula 3.00 12/14/16 09:37 92 3.00 12/14/16 08:00 98.0 61 20 157/78 97 Nasal Cannula 3.00 12/14/16 08:00 92 Nasal Cannula 3.00 I & O 12/15/16 07:00 Intake Total 3540 ml Output Total 3125 ml Balance 415 ml General Appearance: No Apparent Distress, WD/WN, Chronically ill, Obese HEENT: PERRL/EOMI, Normal ENT Inspection, Pharynx Normal Neck: Full Range of Motion, Normal Inspection, Non Tender, Supple, Carotid Bruit Respiratory: Chest Non Tender, Lungs Clear, No Accessory Muscle Use, No Respiratory Distress, Crackles, Decreased Breath Sounds Cardiovascular: Regular Rate, Rhythm, No Edema, No Gallop, No JVD, No Murmur, Normal Peripheral Pulses Capillary Refill: Less Than 3 Seconds Extremity: Normal Capillary Refill, Normal Inspection, Normal Range of Motion, Non Tender, No Calf Tenderness, No Pedal Edema Neurologic/Psychiatric: Alert, Oriented x3, No Motor/Sensory Deficits, Depressed Affect Skin: Normal Color, Warm/Dry Lymphatic: No Adenopathy Results Lab Laboratory Tests 12/14/16 00:37 12/14/16 05:58 12/15/16 04:16 Assessment/Plan Assessment/Plan COPDAE -SVNS, solumedrol CAP with sepsis - rocephin and doxy -barragan cultures Obesity morbid obesity Clinical Quality Measures DVT/VTE Risk/Contraindication: Risk Factor Score Per Nursin RFS Level Per Nursing on Admit: 4+=Very High PEYMAN VALE DO Dec 15, 2016 07:59
[2016-12-15] MEDS: CARVEDILOL 12.5 MG (COREG) TABLET PO SCH (08:10)
[2016-12-15] MEDS: PANTOPRAZOLE 20 MG TABLET (PROTONIX) PO SCH (08:10)
[2016-12-15] MEDS: inSUlin ASPART (NovoLOG) 1 UNIT/0.01 ML (CHARGE PER UNIT) SC SCH (08:11)
[2016-12-15] MEDS: inSUlin DETERMIR 1 UNIT/0.01 ML (LEVEMIR) CHARGE PER UNIT SQ SCH (08:11)
[2016-12-15] MEDS: BRIMONIDINE 0.2% (ALPHAGAN) OPHTH SOLN 5 ML BTL OU SCH (08:12)
[2016-12-15 08:39] VITALS: BP 148/67
[2016-12-15] MEDS ORDERED: KCL 20 MEQ TAB (K-DUR) PO SCH (09:00)
[2016-12-15] MEDS ORDERED: PARoxetine 20 MG (PAXIL) TAB PO SCH (09:00)
[2016-12-15] MEDS ORDERED: NON-FORMULARY MEDICATION 1 EA EA (Empagliflozin (Jardiance) 25 MG) PO SCH (09:00)
[2016-12-15] MEDS ORDERED: amLODIPine 10 MG (NORVASC) TAB PO SCH (09:00)
[2016-12-15] MEDS ORDERED: lisINopril 20 MG (ZESTRIL) TAB PO SCH (09:00)
[2016-12-15] MEDS ORDERED: ASPIRIN 81 MG CHEW (CHILDREN'S ASA) PO SCH (09:00)
[2016-12-15] MEDS ORDERED: DOXYCYCLINE 100 MG (VIBRAMYCIN) TABLET PO SCH (09:00)
[2016-12-15] MEDS ORDERED: CLOPIDOGREL 75 MG (PLAVIX) TABLET PO SCH (09:00)
--- NOTE | 2016-12-15 10:15 | Discharge Summary-Hospitalist ---
Diagnosis/Chief Complaint Date of Admission Dec 14, 2016 at 01:30 Date of Discharge Admission Diagnosis Assessment: Sepsis with elevated lactic acid with acute bronchitis versus early pneumonia Diabetes mellitus insulin requiring Hypertension Obstructive sleep apnea Chronic hypoxia Overall debility Discharge Diagnosis Assessment: Sepsis with elevated lactic acid with viral bronchitis Chest pain but ruled out angina Diabetes mellitus insulin requiring Hypertension Obstructive sleep apnea Chronic hypoxia Overall debility Plan: Await Dr. Aldana's orders regarding heart cath Continue abx Maintain O2, Nebs Home meds Reason Hospital Visit/Course CC: Chest pain and SOB with diarrhea and fever of 101.1 HPI: This is a 66yoWM pt of Dr. Gutiérrez's with hx of COPD and CHF that presented to ER with complaints of chest pain and SOB. Pt also complained of waking up with diarrhea and fever, which was 101.1. Pt was admitted to ICU and Cardiology and Pulmonology were consulted. dev technical mgr: Dr. Pink stated that pt may move to floor Dr. Aldana may want a heart cath Patient Interview: Pt states that he is breathing a little better. Pt states that PCP is Dr. Gutiérrez, and he saw him this Sunday. Pt started soft cough syrup with Hydrocodone which did not help his cough. Dr. Aldana is pts normal Plastic Maker. Pt states that he wears O2 at night. Physical exam stable. Pt states that he lives with his sons family. Pt normally ambulates using a scooter. Scribed by Eduardo Mary under the direct supervision of Dr. Mroe. Notes from 12/15/2016: Chart Review: No fever Vitals stable WBC 10 Labs adequate for DC CXR: no acute abnormality Patient Interview: Pt states that he feels ready for DC and will have his son pick him up. Pt uses [facility] pharmacy. Physical exam stable. Pt states that he has a sufficient supply of pain meds. No fever, vital signs stable, pleasant, improved, sitting in chair Regular rate and rhythm, clear to auscultation bilaterally and no wheezing is noted No significant edema Scribed by Eduardo Mary under the direct supervision of Dr. More. Hospital course: Patient had a brief hospital course he was admitted due to wheezing and chest pain and possible early pneumonia. Dr. Aldana was consulted since he sees the patient on a regular basis and he evaluated the situation and found no myocardial ischemia as source of the chest pain so cardiac catheterization was not initiated. Dr. Pink saw him in consultation due to the obstructive sleep apnea noncompliant with CPAP and found the patient to not have pneumonia just a viral bronchitis so all antibiotics were discontinued but he remained on steroid taper. Overall he was stable enough and wished for discharge and those arrangements were made with close follow-up with Dr. Pink and Dr. Gutiérrez. Discharge Summary Discharge Physical Examination Allergies: Coded Allergies: No Known Drug Allergies (Verified , 10/17/07) Vitals & I&Os Vital Signs Date Time Temp Pulse Resp B/P (MAP) Pulse Ox O2 Delivery O2 Flow Rate FiO2 12/15/16 08:45 96 Nasal Cannula 3.00 12/15/16 08:39 95.6 61 22 148/67 Hospital Course Labs (last 24 hrs) Laboratory Tests 12/14/16 13:19: Glucometer 285H 12/14/16 15:35: Glucometer 245H 12/14/16 20:37: Glucometer 285H 12/15/16 04:16: White Blood Count 10.2, Red Blood Count 5.58, Hemoglobin 15.0, Hematocrit 45, Mean Corpuscular Volume 81, Mean Corpuscular Hemoglobin 27, Mean Corpuscular Hemoglobin Concent 33, Red Cell Distribution Width 16.3H, Platelet Count 248, Mean Platelet Volume 11.9H, Neutrophils (%) (Auto) 88H, Lymphocytes (%) (Auto) 7L, Monocytes (%) (Auto) 5, Eosinophils (%) (Auto) 0, Basophils (%) (Auto) 0, Neutrophils # (Auto) 9.0H, Lymphocytes # (Auto) 0.7L, Monocytes # (Auto) 0.6, Eosinophils # (Auto) 0.0, Basophils # (Auto) 0.0, Sodium Level 133L, Potassium Level 3.9, Chloride Level 102, Carbon Dioxide Level 16L, Anion Gap 15H, Blood Urea Nitrogen 24H, Creatinine 0.92, Estimat Glomerular Filtration Rate > 60, BUN /Creatinine Ratio 26, Glucose Level 266H, Calcium Level 9.0, Phosphorus Level 3.6, Magnesium Level 1.9 Microbiology 12/14/16 Influenza Types A,B Antigen (VAUGHN) - Final, Complete Pending Labs Laboratory Tests 12/15/16 04:16: White Blood Count 10.2, Red Blood Count 5.58, Hemoglobin 15.0, Hematocrit 45, Mean Corpuscular Volume 81, Mean Corpuscular Hemoglobin 27, Mean Corpuscular Hemoglobin Concent 33, Red Cell Distribution Width 16.3, Platelet Count 248, Mean Platelet Volume 11.9, Neutrophils (%) (Auto) 88, Lymphocytes (%) (Auto) 7, Monocytes (%) (Auto) 5, Eosinophils (%) (Auto) 0, Basophils (%) (Auto) 0, Neutrophils # (Auto) 9.0, Lymphocytes # (Auto) 0.7, Monocytes # (Auto) 0.6, Eosinophils # (Auto) 0.0, Basophils # (Auto) 0.0, Sodium Level 133, Potassium Level 3.9, Chloride Level 102, Carbon Dioxide Level 16, Anion Gap 15, Blood Urea Nitrogen 24, Creatinine 0.92, Estimat Glomerular Filtration Rate > 60, BUN/ Creatinine Ratio 26, Glucose Level 266, Calcium Level 9.0, Phosphorus Level 3.6 , Magnesium Level 1.9 Discharge Home Medications: Active Scripts Active Prednisone 10 Mg Tab.ds.pk 10 Mg PO DAILY Take 6 tabs(60mg)daily,decrease by 1 tab(10mg)every other day. Reported Jardiance (Empagliflozin) 25 Mg Tablet 25 Mg PO DAILY Toujeo Solostar (Insulin Glargine,Hum.rec.anlog) 300 Unit/1 Ml Insuln.pen 150 Units SQ BID Humalog Kwikpen (Insulin Lispro) 200 Unit/1 Ml Insuln.pen 75 Units SQ BID Aspirin 81 Mg Tab.chew 81 Mg PO DAILY Latanoprost 2.5 Ml Drops 1 Drop OU HS Potassium Chloride 20 Meq Tab.er.prt 20 Meq PO DAILY Vitamin D2 (Ergocalciferol (Vitamin D2)) 50,000 Unit Capsule 50,000 Units PO MO Atorvastatin Calcium 80 Mg Tablet 80 Mg PO HS Amlodipine Besylate 10 Mg Tablet 10 Mg PO DAILY Furosemide 80 Mg Tablet 80 Mg PO DAILY Carvedilol 25 Mg Tablet 25 Mg PO BID Lisinopril 20 Mg Tablet 20 Mg PO DAILY Clopidogrel (Clopidogrel Bisulfate) 75 Mg Tablet 75 Mg PO DAILY Paroxetine HCl 20 Mg Tablet 20 Mg PO DAILY Omeprazole 20 Mg Capsule.dr 20 Mg PO BID Hydrocodon-Acetaminophn 10-325 (Hydrocodone/Acetaminophen) 1 Each Tablet 2 Tab PO Q6H PRN Alphagan P (Brimonidine Tartrate) 5 Ml Drops 1 Drop OU Q8H Instructions to patient/family Please see electonic discharge instructions given to patient. Clinical Quality Measures DVT/VTE Risk/Contraindication: Risk Factor Score Per Nursin RFS Level Per Nursing on Admit: 4+=Very High FAITH MORE DO Dec 15, 2016 10:14
[2016-12-15] MEDS ORDERED: PRED10TA22 PO (10:28)
--- NOTE | 2016-12-15 10:31 | Discharge Instructions ---
Discharge Instructions Discharge Medications New, Converted or Re-Newed RX: Transmitted to Pharmacy New Medications: Prednisone (Prednisone) 10 Mg Tab.ds.pk 10 MG PO DAILY, #42 PKG Take 6 tabs(60mg)daily,decrease by 1 tab(10mg)every other day. Continued Medications: Amlodipine Besylate (Amlodipine Besylate) 10 Mg Tablet 10 MG PO DAILY, TAB Aspirin (Aspirin) 81 Mg Tab.chew 81 MG PO DAILY, TAB Atorvastatin Calcium (Atorvastatin Calcium) 80 Mg Tablet 80 MG PO HS, TAB Brimonidine Tartrate (Alphagan P) 5 Ml Drops 1 DROP OU Q8H, EA Carvedilol (Carvedilol) 25 Mg Tablet 25 MG PO BID, TAB Clopidogrel Bisulfate (Clopidogrel) 75 Mg Tablet 75 MG PO DAILY, TAB Empagliflozin (Jardiance) 25 Mg Tablet 25 MG PO DAILY Ergocalciferol (Vitamin D2) (Vitamin D2) 50,000 Unit Capsule 35417 UNITS PO Mo, TAB Furosemide (Furosemide) 80 Mg Tablet 80 MG PO DAILY, TAB Hydrocodone/Acetaminophen (Hydrocodon-Acetaminophn 10-325) 1 Each Tablet 2 TAB PO Q6H PRN for PAIN, TAB Insulin Glargine,Hum.rec.anlog (Toujeo Solostar) 300 Unit/1 Ml Insuln.pen 150 UNITS SQ BID Insulin Lispro (Humalog Kwikpen) 200 Unit/1 Ml Insuln.pen 75 UNITS SQ BID Latanoprost (Latanoprost) 2.5 Ml Drops 1 DROP OU HS, EA Lisinopril (Lisinopril) 20 Mg Tablet 20 MG PO DAILY, TAB Omeprazole (Omeprazole) 20 Mg Capsule.dr 20 MG PO BID, CAP Paroxetine HCl (Paroxetine HCl) 20 Mg Tablet 20 MG PO DAILY, TAB Potassium Chloride (Potassium Chloride) 20 Meq Tab.er.prt 20 MEQ PO DAILY, TAB Patient Instructions Goal/Follow Up Appt: Dr Pink in [address] Gutiérrez in 1 week Activity & Diet Discharge Diet: ADA Diet, Cardiac Diet Activity as Tolerated: Yes FAITH MORE DO Dec 15, 2016 10:31
[2016-12-15 11:14] VITALS: BP 148/67
--- OUTSIDE RECORDS SUMMARY | 2016-12-17 05:23 | XMS REPORT | Continuity of Care Document ---
Author Author [facility] Organization [facility] Address Unknown Phone Unavailable Care Team Providers Care Rn Cardiac Name Role Phone Maynor Gutiérrez PCP [phone] Source Comments Some departments are not documenting in the electronic medical record. If you do not see the information that you expected, contact Release of Information in the Health Information Management department at [phone] for further assistance in locating additional records.[facility] Active Allergies and Adverse Reactions [...] Assessment & Plan: Now seeing urologist in [place]. Was given Rx that he did not [...] mg daily. Arthritis 08/05/2010 Glaucoma 08/05/2010 Claudication ([facility]) 08/05/2010 Overview: a. 03/26 - Lower arterial/SARAH study: no LE arterial stenosis, mod reduced bilateral SARAH's. Obesity, morbid ([facility]) 12/13/2007 Last Assessment & Plan: Reviewed diet and exercise goals. Encouraged to continue efforts with portion reduction and decreasing amount of soda consumed each day. Knee arthroplasty 12/13/2007 DM (diabetes mellitus) ([facility]) 12/13/2007 Last Assessment & Plan: [...] & Plan: Following with sleep specialist in [place]. CAD (coronary artery disease) 12/13/2007 Overview: a. History of chest pain. Treated at [facility] and told that he had "small heart attack" given NTG tabs. Seen at [facility] x 2 for chest pain resolved [...] prior study J. 10/18/07 pt admitted to [facility], in [place] with CP. Cardiac cath showed a patent stent in the obtuse marginal. He had 50% stenosis in the mid LAD, 70% stenosis in a distal right PDA that was not amenable to intervention. It was felt that he didn't have anatomy suitable for intervention and he was managed medically. Reduced mobility 12/13/2007 Gait abnormality 12/13/2007 Immunizations Name Dates Previously Given Next Due FLU VACCINE >3YO 08/21/2012, 07/11/2011 Flu Vaccine Trivalent=>3 07/16/2013 YO Social History Tobacco Use Types Packs/Day Years Used Date Former Smoker Cigarettes 27 Quit: 08/05/1978 Smokeless Tobacco: Never Used Tobacco Cessation: Counseling Given: No Comments: Alcohol Use Drinks/Week oz/Week Comments No Last Filed Vital Signs Vital Sign Reading Time Taken Blood Pressure 166/71 08/24/2016 11:47 AM UNDERCUTTER OPERATOR Pulse 80 08/24/2016 11:47 AM UNDERCUTTER OPERATOR Temperature 36.1 C (97 F) 07/11/2011 9:22 AM CDT Respiratory Rate 18 08/21/2012 2:25 PM UNDERCUTTER OPERATOR Height 1.803 m (5' 11") 08/24/2016 11:47 AM UNDERCUTTER OPERATOR Weight 178.627 kg (393 lb 12.8 08/24/2016 11:47 AM UNDERCUTTER OPERATOR oz) Body Mass Index 54.95 08/24/2016 11:47 AM UNDERCUTTER OPERATOR Oxygen Saturation 99% 12/16/2007 6:00 AM CDT Plan of Care Patient Goal Type Goal Result Component HEMOGLOBIN A1C below 8.0 Health Maintenance Due Date Last Done Comments [...] Vaccine 08/24/2017 08/28/2014 (Declined), 07/16/2013, Postponed from 05/25/2017 07/16/2013 (Patient declined), Additional history exists Results from Last 3 Months Not on file
--- OUTSIDE RECORDS SUMMARY | 2016-12-17 05:49 | XMS REPORT | Continuity of Care Document ---
Author Author [facility] Organization [facility] Address Unknown Phone Unavailable Care Team Providers Care Pumping Plant Operator Name Role Phone Maynor Gutiérrez PCP [phone] Source Comments Some departments are not documenting in the electronic medical record. If you do not see the information that you expected, contact Release of Information in the Health Information Management department at [phone] for further assistance in locating additional records.[facility] Active Allergies and Adverse Reactions No [...] Assessment & Plan: Now seeing urologist in [place]. Was given Rx that he did not [...] mg daily. Arthritis 08/05/2010 Glaucoma 08/05/2010 Claudication ([facility]) 08/05/2010 Overview: a. 03/26 - Lower arterial/SARAH study: no LE arterial stenosis, mod reduced bilateral SARAH's. Obesity, morbid ([facility]) 12/13/2007 Last Assessment & Plan: Reviewed diet and exercise goals. Encouraged to continue efforts with portion reduction and decreasing amount of soda consumed each day. Knee arthroplasty 12/13/2007 DM (diabetes mellitus) ([facility]) 12/13/2007 Last Assessment & Plan: Increase [...] & Plan: Following with sleep specialist in [place]. CAD (coronary artery disease) 12/13/2007 Overview: a. History of chest pain. Treated at [facility] and told that he had "small heart attack" given NTG tabs. Seen at [facility] x 2 for chest pain resolved [...] prior study J. 10/18/07 pt admitted to [facility], in [place] with CP. Cardiac cath showed a patent [...] Taken Blood Pressure 166/71 08/24/2016 11:47 AM BATCH WEIGHER Pulse 80 08/24/2016 11:47 AM BATCH WEIGHER Temperature 36.1 C (97 F) 07/11/2011 9:22 AM CDT Respiratory Rate 18 08/21/2012 2:25 PM BATCH WEIGHER Height 1.803 m (5' 11") 08/24/2016 11:47 AM BATCH WEIGHER Weight 178.627 kg (393 lb 12.8 08/24/2016 11:47 AM BATCH WEIGHER oz) Body Mass Index 54.95 08/24/2016 11:47 AM BATCH WEIGHER Oxygen Saturation 99% 12/16/2007 6:00 AM CDT [...]
[2016-12-18] MEDS ORDERED: VITAMIN D2 50,000 UNITS (1.25 MG) CAP PO SCH (11:30)
== END 2016-12-15 11:10 | disposition home or self-care (01) | DRG 871 ==
LOC: DELPENDDIS → EDUNIT# 00:24 → ER 00:32 → ICU 01:30 → 4TH 13:56
PROVIDERS: ADMIT Internal Medicine; ATTEND Family Medicine
DX: A41.9 Sepsis, unspecified organism (principal); J18.9 Pneumonia, unspecified organism; J44.1 Chronic obstructive pulmonary disease with (acute) exacerbation; I50.32 Chronic diastolic (congestive) heart failure; I35.0 Nonrheumatic aortic (valve) stenosis; I25.10 Atherosclerotic heart disease of native coronary artery without angina pectoris; Z95.5 Presence of coronary angioplasty implant and graft; I73.9 Peripheral vascular disease, unspecified; E66.01 Morbid (severe) obesity due to excess calories; Z68.43 Body mass index [BMI] 50.0-59.9, adult; E11.9 Type 2 diabetes mellitus without complications; G47.30 Sleep apnea, unspecified; I65.23 Occlusion and stenosis of bilateral carotid arteries
CPT/HCPCS: 36415; 71010; 80048; 80053; 80061; 81000; 82550; 82553; 82962; 83605; 83735; 83874; 83880; 84100; 84484; 85007; 85025; 85027; 85610; 85730; 87040; 87804; 93005; 93041; 94640; 94760; 96365; 96375

== ENCOUNTER 2016-12-28 09:37 | Outpatient (RCR) | payer MEDICARE, MEDICAID ==
[~2016-12-28 09:37] MED LIST changes: +ERGO50006 PO; +PRED10TA22 PO
[2017-01-01] MEDS ORDERED: CYCL10TA9 PO (22:10)
== END 2017-03-28 | disposition home or self-care (01) ==
LOC: CARD 09:37
PROVIDERS: ATTEND Physician Assistant
DX: I25.10 Atherosclerotic heart disease of native coronary artery without angina pectoris (principal); R07.9 Chest pain, unspecified; G89.4 Chronic pain syndrome; E11.9 Type 2 diabetes mellitus without complications
CPT/HCPCS: 93225; 93226

== ENCOUNTER 2017-01-01 21:24 | Emergency (ER) | payer MEDICARE, MEDICAID ==
[~2017-01-01] VITALS: Ht 170.2 cm; Wt 163.3 kg
[~2017-01-01 21:24] MED LIST changes: -ERGO50006 PO
[2017-01-01] MEDS ORDERED: ORPHENADRINE 60 MG/2 ML (NORFLEX) AMP IM ONE (21:45)
[2017-01-01] MEDS ORDERED: KETOROLAC 60 MG/2 ML VIAL IM ONE (21:45)
[2017-01-01] MEDS ORDERED: CYCL10TA9 PO (22:10)
--- NOTE | 2017-01-01 22:10 | ED General ---
General Chief Complaint: Head/Cervical Problems Stated Complaint: NECK PAIN Nursing Triage Note: Pt. advises neck pain that awoke him from sleep prior to contacting EMS. Pt. denies injury to his neck and rates pain at a 10/10. He also advises he has been experiencing periods of dizziness in addition to the neck pain. Nursing Sepsis Screen: No Definite Risk Source of Information: Patient Exam Limitations: No Limitations History of Present Illness Time Seen by Provider: 21:30 Initial Comments This 66-year-old gentleman presents to the emergency room via EMS with complaints of left-sided neck pain that started upon waking up around 08:00. He denies any injury or strain of any kind. There is obvious muscle tension or spasm on palpation. He took 3 hydrocodone 10 mg tablets without sufficient relief. Allergies and Home Medications Allergies Coded Allergies: No Known Drug Allergies (Verified , 10/17/07) Home Medications Amlodipine Besylate 10 Mg Tablet, 10 MG PO DAILY, (Reported) Aspirin 81 Mg Tab.chew, 81 MG PO DAILY, (Reported) Atorvastatin Calcium 80 Mg Tablet, 80 MG PO HS, (Reported) Brimonidine Tartrate 5 Ml Drops, 1 DROP OU Q8H, (Reported) Carvedilol 25 Mg Tablet, 25 MG PO BID, (Reported) Clopidogrel Bisulfate 75 Mg Tablet, 75 MG PO DAILY, (Reported) Cyclobenzaprine HCl 10 Mg Tablet, 10 MG PO TID PRN for SPASMS, #15 Prescribed by: BECKI LEDBETTER on 01/01/17 2210 Empagliflozin 25 Mg Tablet, 25 MG PO DAILY, (Reported) Ergocalciferol (Vitamin D2) 50,000 Unit Capsule, 50,000 UNITS PO Mo, (Reported) Furosemide 80 Mg Tablet, 80 MG PO DAILY, (Reported) Hydrocodone/Acetaminophen 1 Each Tablet, 2 TAB PO Q6H PRN for PAIN, (Reported) Insulin Glargine,Hum.rec.anlog 300 Unit/1 Ml Insuln.pen, 150 UNITS SQ BID, ( Reported) Insulin Lispro 200 Unit/1 Ml Insuln.pen, 75 UNITS SQ BID, (Reported) Latanoprost 2.5 Ml Drops, 1 DROP OU HS, (Reported) Lisinopril 20 Mg Tablet, 20 MG PO DAILY, (Reported) Omeprazole 20 Mg Capsule.dr, 20 MG PO BID, (Reported) Paroxetine HCl 20 Mg Tablet, 20 MG PO DAILY, (Reported) Potassium Chloride 20 Meq Tab.er.prt, 20 MEQ PO DAILY, (Reported) Prednisone 10 Mg Tab.ds.pk, 10 MG PO DAILY, #42 Take 6 tabs(60mg)daily,decrease by 1 tab(10mg)every other day. Prescribed by: FAITH MORE on 12/15/16 1028 Constitutional: no symptoms reported EENTM: no symptoms reported Respiratory: no symptoms reported Cardiovascular: no symptoms reported Gastrointestinal: no symptoms reported Genitourinary: no symptoms reported Musculoskeletal: see HPI Skin: no symptoms reported Psychiatric/Neurological: No Symptoms Reported Hematologic/Lymphatic: No Symptoms Reported Past Afidddo-Kzmnyv-Ggllwb Hx Patient Social History Alcohol Use: Denies Use Recreational Drug Use: No Type Used: Cigarettes Former Smoker/When Quit: Sep 24, 1998 Recent Foreign Travel: No Contact w/Someone Who Travel: No Recent Infectious Disease Expo: No Recent Hopitalizations: No Immunizations Up To Date Tetanus Booster (TDap): Unknown PED Vaccines UTD: Yes Date of Pneumonia Vaccine: February 04, 2014 Date of Influenza Vaccine: May 25, 2013 Seasonal Allergies Seasonal Allergies: No Surgeries HX Surgeries: Yes Surgeries: Abdominal, Cardiac, Coronary Stent, Joint Replacement, Orthopedic, Vascular Surgery, Vasectomy Respiratory Hx Respiratory Disorders: Yes (O2 AT HS--REFUSES TO WEAR CPAP) Respiratory Disorders: Sleep Apnea, COPD Cardiovascular Hx Cardiac Disorders: Yes (MULTIPLE INTERVENTIONS IN HEART AND LEGS; CHF; CAROTID BRUIT) Cardiac Disorders: Chronic Edema/Swelling, Coronary Artery Disease, Deep Vein Thrombosis, High Cholesterol, Hypertension, Peripheral Vascular, Valvular Heart Disease Neurological Hx Neurological Disorders: Yes Neurological Disorders: Neuropathy Reproductive System Hx Reproductive Disorders: No Sexually Transmitted Disease: No HIV/AIDS: No Genitourinary Hx Genitourinary Disorders: No Gastrointestinal Hx Gastrointestinal Disorders: Yes Gastrointestinal Disorders: Abdominal Hernia, Gastroesophageal Reflux Musculoskeletal Hx Musculoskeletal Disorders: Yes Musculoskeletal Disorders: Arthritis, Chronic Back Pain Endocrine Hx Endocrine Disorders: Yes (MORBID OBESITY) Endocrine Disorders: Diabetes, Insulin dep HEENT HX ENT Disorders: Yes HEENT Disorders: Glaucoma Loss of Vision: Denies Hearing Impairment: Denies Cancer Hx Cancer: No Psychosocial Hx Psychiatric Problems: No Integumentary HX Skin/Integumentary Disorder: Yes (MRSA; ABSCESSES AND CELLULITIS; I&D'S'; CHRONIC LEG ULCERS) Skin/Integumentary Disorders: Herpes Blood Transfusions Hx Blood Disorders: No Adverse Reaction to a Blood Tr: No Family Medical History Family Medial History: Arthritis 19 MOTHER Completed stroke 19 MOTHER Family history: Diabetes mellitus 19 MOTHER Family history: Hypertension 19 FATHER 19 MOTHER Hypercholesterolemia 19 MOTHER G8 BROTHER G8 BROTHER Hypertension 19 MOTHER Kidney disease 19 MOTHER Seizure disorder G8 BROTHER No Family History of: AIDS Abdominal aortic aneurysm Abdominal aortic aneurysm Neeraj's disease Sargent's disease Alcoholism Alcoholism Alzheimer's disease Aphasia Aphasia Asthma Cancer Cancer of colon Cancer of mouth Cardiovascular disease Cataract Cataracts Chest pain Colon cancer Congenital disease Congenital heart disease Congenital heart disease Congestive heart failure Coronary thrombosis Cystic fibrosis Deafness or hearing loss Dementia Dementia Diabetes mellitus Drug abuse Dysphagia Family history: Allergy Family history: Alzheimer's disease Family history: Arthritis Family history: Asthma Family history: Breast disease Family history: Cardiovascular disease Family history: Coronary thrombosis Family history: Gastrointestinal disease Family history: Glaucoma Family history: Osteoporosis Family history: Thyroid disorder Fibrocystic disease of breast Gastroenteritis Glaucoma Headache Headache disorder Hearing loss Heart disease Hereditary disease History of - anemia History of - disorder History of - respiratory disease History of drug abuse Human immunodeficiency virus (HIV) seropositivity Infertile Malignant neoplasm of lung Myocardial infarction Parkinson's disease Prostate cancer Psychotic disorder Stroke Tuberculosis Visual impairment Physical Exam Vital Signs Vital Sign - Last 12Hours 01/01/17 01/01/17 21:34 22:34 Temp 98.8 Pulse 79 Resp 14 B/P (MAP) 144/52 Pulse Ox 94 O2 Delivery Room Air O2 Flow Rate 2.00 Capillary Refill : Less Than 3 Seconds General Appearance: No Apparent Distress, WD/WN, Obese HEENT: PERRL/EOMI, Normal ENT Inspection Neck: Tender Lateral, Other (muscle tension/spasm of the left lateral neck) Respiratory: Lungs Clear, Normal Breath Sounds, No Accessory Muscle Use, No Respiratory Distress Cardiovascular: Regular Rate, Rhythm, No Edema, No Murmur Extremity: Normal Inspection Neurologic/Psychiatric: Alert, Oriented x3, No Motor/Sensory Deficits, Normal Mood/Affect, trustee of estate II-XII Norm as Tested Skin: Normal Color, Warm/Dry Progress/Results/Core Measures Results/Orders My Orders Orders - BECKI PADILLA MD Ketorolac Injection (Toradol Injection) (01/01/17 21:45) Orphenadrine Injection (Norflex Injectio (01/01/17 21:45) Medications Given in ED Current Medications Medications Dose Ordered Sig/Coral Route Start Time Stop Time Status Last Admin Dose Admin Ketorolac Tromethamine 60 mg ONCE ONCE IM 01/01/17 21:45 01/01/17 21:46 DC 01/01/17 21:44 60 MG Orphenadrine Citrate 60 mg ONCE ONCE IM 01/01/17 21:45 01/01/17 21:46 DC 01/01/17 21:44 60 MG Vital Signs/I&O Vital Sign - Last 12Hours 01/01/17 01/01/17 21:34 22:34 Temp 98.8 Pulse 79 69 Resp 14 14 B/P (MAP) 144/52 Pulse Ox 94 96 O2 Delivery Room Air O2 Flow Rate 2.00 Blood Pressure Mean: 82 Progress Note : Progress Note Patient treated with Toradol and Norflex with moderate improvement. Departure Impression Impression: Primary Impression: Muscle spasms of neck Additional Impression: Neck pain Disposition: 01 HOME, SELF-CARE Condition: Improved Departure-Patient Inst. Decision time for Depature: 22:00 Referrals: SHIV COOK MD (PCP/Family) Primary Care Physician Patient Instructions: Muscle Spasms (DC) Add. Discharge Instructions: You may take ibuprofen up to 800 mg every 8 hours as needed for pain. Add your hydrocodone for pain not controlled by ibuprofen. Use your supplemental oxygen if you take hydrocodone or Flexeril (cyclobenzaprine). Follow-up with your primary care provider in 2 days if not improving. You may use a gentle heat on the affected muscle to encourage relaxation. All discharge instructions reviewed with patient and/or family. Voiced understanding. Scripts Cyclobenzaprine HCl (Cyclobenzaprine HCl) 10 Mg Tablet 10 MG PO TID Y for SPASMS, #15 TAB Prov: BECKI PADILLA MD 01/01/17 BECKI PADILLA MD Jan 01, 2017 22:10
[2017-01-01 22:34] VITALS: BP 137/57
== END 2017-01-01 22:35 | disposition home or self-care (01) ==
LOC: EDUNIT# 21:24 → ER 21:26
DX: M62.838 Other muscle spasm (principal); I10 Essential (primary) hypertension; E11.9 Type 2 diabetes mellitus without complications; E66.01 Morbid (severe) obesity due to excess calories; Z79.4 Long term (current) use of insulin; Z79.02 Long term (current) use of antithrombotics/antiplatelets; Z79.82 Long term (current) use of aspirin; Z79.899 Other long term (current) drug therapy; Z95.5 Presence of coronary angioplasty implant and graft
CPT/HCPCS: 96372; 99283

== ENCOUNTER 2017-01-18 10:24 | Emergency (ER) | payer MEDICARE, MEDICAID ==
[~2017-01-18] VITALS: Ht 180.3 cm; Wt 163.3 kg
--- NOTE | 2017-01-18 10:44 | Diagnostic Imaging Report ---
EXAM: CT head. TECHNIQUE: Noncontrast axial images of the brain were obtained. INDICATION: Right facial. Right-sided weakness. Comparison 04/16/14. FINDINGS: There is no intracranial hemorrhage, edema or mass effect. There is mild periventricular and deep white hypodensities compatible with chronic microvascular ischemic changes. The brain parenchyma appears unremarkable. No hydrocephalus. The visualized portions of the orbits and paranasal sinuses appear unremarkable. IMPRESSION: No acute process. Dictated by: Dictated on workstation # [id number]
[2017-01-18 11:00] LABS: BASOPHILS % (AUTO) 1 % (0-10); EOSINOPHILS # (AUTO) 0.2 10^3/uL (0.0-0.3); EOSINOPHILS % (AUTO) 3 % (0-10); LYMPHOCYTES # (AUTO) 1.8 X 10^3 (1.0-4.0); LYMPHOCYTES % (AUTO) 22 % (12-44); MEAN CORPUSCULAR HEMOGLOBIN 28 PG (25-34); MEAN CORPUSCULAR HGB CONC 34 G/DL (32-36); MEAN CORPUSCULAR VOLUME 83 FL (80-99); MEAN PLATELET VOLUME 10.9 FL (7.4-10.4); MONOCYTES # (AUTO) 0.9 X 10^3 (0.0-1.0); MONOCYTES % (AUTO) 11 % (0-12); NEUTROPHILS # (AUTO) 5.3 X 10^3 (1.8-7.8); NEUTROPHILS % (AUTO) 64 % (42-75); PLATELET COUNT 319 10^3/uL (130-400); RED BLOOD COUNT 5.04 10^6/uL (4.35-5.85); RED CELL DISTRIBUTION WIDTH 17.2 % (10.0-14.5); WHITE BLOOD COUNT 8.3 10^3/uL (4.3-11.0)
--- NOTE | 2017-01-18 11:08 | Diagnostic Imaging Report ---
INDICATION: Right-sided facial droop Portable chest 10:59 AM There is cardiomegaly. Pulmonary vascularity is normal. Lungs are clear. There are no effusions or pneumothoraces. IMPRESSION: Cardiomegaly without evidence of pulmonary venous hypertension Dictated by: Dictated on workstation # [id number]
[2017-01-18 11:10] LABS: PROTHROMBIN TIME PATIENT 12.8 SEC (12.2-14.7)
[2017-01-18 11:18] LABS: ALANINE AMINOTRANSFERASE 16 U/L (0-55); ALBUMIN 3.6 G/DL (3.2-4.5); ANION GAP 12 MMOL/L (5-14); ASPARTATE AMINO TRANSFERASE 17 U/L (5-34); BILIRUBIN,TOTAL 0.8 MG/DL (0.1-1.0); BLOOD UREA NITROGEN 10 MG/DL (7-18); BUN/CREATININE RATIO 12; CALCIUM 8.7 MG/DL (8.5-10.1); CARBON DIOXIDE 23 MMOL/L (21-32); CHLORIDE 107 MMOL/L (98-107); CREATININE SERUM 0.81 MG/DL (0.60-1.30); GFR ESTIMATED > 60; GLUCOSE 118 MG/DL (70-105); POTASSIUM 3.3 MMOL/L (3.6-5.0); SODIUM 142 MMOL/L (135-145); TOTAL PROTEIN 6.9 G/DL (6.4-8.2)
[2017-01-18 11:24] LABS: TROPONIN I < 0.30 NG/ML (<0.30)
[2017-01-18 11:34] LABS: BILIRUBIN,URINE NEGATIVE (NEGATIVE); KETONES,URINE NEGATIVE (NEGATIVE); LEUKOCYTE ESTERASE ,URINE NEGATIVE (NEGATIVE); NITRITE,URINE NEGATIVE (NEGATIVE); PH,URINE 5 (5-9); PROTEIN,URINE NEGATIVE (NEGATIVE); UROBILINOGEN,URINE NORMAL (NORMAL)
[2017-01-18 11:44] LABS: SQUAMOUS EPITHELIAL CELL,UR 0-2 /HPF
--- NOTE | 2017-01-18 11:48 | ED Neurological Problem ---
General Chief Complaint: Neuro-Stroke Like Symptoms Stated Complaint: RIGHT SIDE FACIAL DROOPING/RIGHT SIDE PAIN Nursing Triage Note: Reports he woke up with right eye pain and right facial droop along with right sided weakness. Nursing Sepsis Screen: No Definite Risk Source: patient Exam Limitations: no limitations History of Present Illness Time seen by provider: 10:37 Initial Comments Here with report of waking up with right facial droop and right-sided weakness. States he went to bed at 930 last night and was fine and then woke up an hour or 2 ago this morning and had the symptoms. States that there are little better now but still feels a little droopy on the right side. Denies nausea or vomiting. Denies other concerns. Timing/Duration: unknown Severity: mild Associated Symptoms: No fever/chills, No nausea/vomiting, weakness Allergies and Home Medications Allergies Coded Allergies: No Known Drug Allergies (Verified , 10/17/07) Home Medications Amlodipine Besylate 10 Mg Tablet, 10 MG PO DAILY, (Reported) Aspirin 81 Mg Tab.chew, 81 MG PO DAILY, (Reported) Atorvastatin Calcium 80 Mg Tablet, 80 MG PO HS, (Reported) Brimonidine Tartrate 5 Ml Drops, 1 DROP OU Q8H, (Reported) Carvedilol 25 Mg Tablet, 25 MG PO BID, (Reported) Clopidogrel Bisulfate 75 Mg Tablet, 75 MG PO DAILY, (Reported) Cyclobenzaprine HCl 10 Mg Tablet, 10 MG PO TID PRN for SPASMS, #15 Prescribed by: BECKI LEDBETTER on 01/01/17 2210 Empagliflozin 25 Mg Tablet, 25 MG PO DAILY, (Reported) Ergocalciferol (Vitamin D2) 50,000 Unit Capsule, 50,000 UNITS PO Mo, (Reported) Furosemide 80 Mg Tablet, 80 MG PO DAILY, (Reported) Hydrocodone/Acetaminophen 1 Each Tablet, 2 TAB PO Q6H PRN for PAIN, (Reported) Insulin Glargine,Hum.rec.anlog 300 Unit/1 Ml Insuln.pen, 150 UNITS SQ BID, ( Reported) Insulin Lispro 200 Unit/1 Ml Insuln.pen, 75 UNITS SQ BID, (Reported) Latanoprost 2.5 Ml Drops, 1 DROP OU HS, (Reported) Lisinopril 20 Mg Tablet, 20 MG PO DAILY, (Reported) Omeprazole 20 Mg Capsule.dr, 20 MG PO BID, (Reported) Paroxetine HCl 20 Mg Tablet, 20 MG PO DAILY, (Reported) Potassium Chloride 20 Meq Tab.er.prt, 20 MEQ PO DAILY, (Reported) Prednisone 10 Mg Tab.ds.pk, 10 MG PO DAILY, #42 Take 6 tabs(60mg)daily,decrease by 1 tab(10mg)every other day. Prescribed by: FAITH MORE on 12/15/16 1028 Constitutional: no symptoms reported Eyes: No Symptoms Reported Ears, Nose, Mouth, Throat: no symptoms reported Respiratory: no symptoms reported Cardiovascular: No chest pain, edema, No palpitations Gastrointestinal: No abdominal pain, No nausea, No vomiting Genitourinary: no symptoms reported Musculoskeletal: see HPI, muscle weakness Psychiatric/Neurological: See HPI, Denies Headache, Weakness Endocrine: No Symptoms Reported All Other Systems Reviewed Negative Unless Noted: Yes Past Vbgroae-Igditw-Futxwc Hx Patient Social History Alcohol Use: Rarely Uses Recreational Drug Use: No Smoking Status: Former Smoker Type Used: Cigarettes Former Smoker/When Quit: Sep 24, 1998 Recent Foreign Travel: No Contact w/Someone Who Travel: No Recent Infectious Disease Expo: No Recent Hopitalizations: Yes (OCT 2016) Immunizations Up To Date Tetanus Booster (TDap): Unknown PED Vaccines UTD: Yes Date of Pneumonia Vaccine: February 04, 2014 Date of Influenza Vaccine: May 25, 2013 Seasonal Allergies Seasonal Allergies: No Surgeries HX Surgeries: Yes Surgeries: Abdominal, Cardiac, Coronary Stent, Joint Replacement, Orthopedic, Vascular Surgery, Vasectomy Respiratory Hx Respiratory Disorders: Yes (O2 AT HS--REFUSES TO WEAR CPAP) Respiratory Disorders: Sleep Apnea, COPD Cardiovascular Hx Cardiac Disorders: Yes (MULTIPLE INTERVENTIONS IN HEART AND LEGS; CHF; CAROTID BRUIT) Cardiac Disorders: Chronic Edema/Swelling, Coronary Artery Disease, Deep Vein Thrombosis, High Cholesterol, Hypertension, Peripheral Vascular, Valvular Heart Disease Neurological Hx Neurological Disorders: Yes Neurological Disorders: Neuropathy Reproductive System Hx Reproductive Disorders: No Sexually Transmitted Disease: No HIV/AIDS: No Genitourinary Hx Genitourinary Disorders: No Gastrointestinal Hx Gastrointestinal Disorders: Yes Gastrointestinal Disorders: Abdominal Hernia, Gastroesophageal Reflux Musculoskeletal Hx Musculoskeletal Disorders: Yes Musculoskeletal Disorders: Arthritis, Chronic Back Pain Endocrine Hx Endocrine Disorders: Yes (MORBID OBESITY) Endocrine Disorders: Diabetes, Insulin dep HEENT HX ENT Disorders: Yes HEENT Disorders: Glaucoma Loss of Vision: Denies Hearing Impairment: Denies Cancer Hx Cancer: No Psychosocial Hx Psychiatric Problems: No Integumentary HX Skin/Integumentary Disorder: Yes (MRSA; ABSCESSES AND CELLULITIS; I&D'S'; CHRONIC LEG ULCERS) Skin/Integumentary Disorders: Herpes Blood Transfusions Hx Blood Disorders: No Adverse Reaction to a Blood Tr: No Reviewed Nursing Assessment Reviewed/Agree w Nursing PMH: Yes Family Medical History Family Medial History: Arthritis 19 MOTHER Completed stroke 19 MOTHER Family history: Diabetes mellitus 19 MOTHER Family history: Hypertension 19 FATHER 19 MOTHER Hypercholesterolemia 19 MOTHER G8 BROTHER G8 BROTHER Hypertension 19 MOTHER Kidney disease 19 MOTHER Seizure disorder G8 BROTHER Physical Exam Vital Signs Vital Sign - Last 12Hours 01/18/17 01/18/17 11:06 11:11 Temp 97.8 Pulse 67 Resp 20 B/P (MAP) 137/69 Pulse Ox 95 O2 Delivery Nasal Cannula O2 Flow Rate 3.00 Capillary Refill : Less Than 3 Seconds General Appearance: WD/WN, no apparent distress, obese HEENT: PERRL/EOMI, pharynx normal Neck: full range of motion, supple Respiratory: lungs clear, normal breath sounds Cardiovascular: regular rate, rhythm, no murmur Peripheral Pulses: 2+ Dorsalis Pedis (R), 2+ Left Dors-Pedis (L), 2+ Radial Pulses (R), 2+ Radial Pulses (L) Gastrointestinal: non tender, soft Back: normal inspection, no CVA tenderness, no vertebral tenderness Extremities: non-tender, normal inspection Neurologic/Psychiatric: alert, oriented x 3 Crainal Nerves: normal hearing, normal speech, PERRL Coordination/Gait: normal finger to nose Motor/Sensory: no sensory deficit, no pronator drift, weak motor strength RLE Skin: normal color, warm/dry Stroke NIH Stroke Scale Assessment Level of Consciousness: 0=Alert Level of Consciousness-Questio: 0=Answers both month/age LOC Commands: 0=Performs both tasks Gaze: 0=Normal Visual Morales: 0=No visual loss Facial Movement (Facial Paresi: 0=Normal symmetrical mnt Motor Function-Arms Right: 0=No drift Motor Function-Arms Left: 0=No drift Motor Function-Legs Right: 1=Drift Motor Function-Legs Left: 0=No drift Limb Ataxia: 0=Absent Sensory: 0=Normal:no loss Best Language: 0=No aphasia Dysarthria: 0=Normal Extinction & Inattention: 0=No abnormality Stroke Thrombolytic Exclusion Age 18 or Over: Yes Progress/Results/Core Measures Results/Orders Lab Results Laboratory Tests Test 01/18/17 10:52 01/18/17 11:25 Range/Units White Blood Count 8.3 4.3-11.0 10^3/uL Red Blood Count 5.04 4.35-5.85 10^6/uL Hemoglobin 14.1 13.3-17.7 G/DL Hematocrit 42 40-54 % Mean Corpuscular Volume 83 80-99 FL Mean Corpuscular Hemoglobin 28 25-34 PG Mean Corpuscular Hemoglobin Concent 34 32-36 G/DL Red Cell Distribution Width 17.2 H 10.0-14.5 % Platelet Count 319 130-400 10^3/uL Mean Platelet Volume 10.9 H 7.4-10.4 FL Neutrophils (%) (Auto) 64 42-75 % Lymphocytes (%) (Auto) 22 12-44 % Monocytes (%) (Auto) 11 0-12 % Eosinophils (%) (Auto) 3 0-10 % Basophils (%) (Auto) 1 0-10 % Neutrophils # (Auto) 5.3 1.8-7.8 X 10^3 Lymphocytes # (Auto) 1.8 1.0-4.0 X 10^3 Monocytes # (Auto) 0.9 0.0-1.0 X 10^3 Eosinophils # (Auto) 0.2 0.0-0.3 10^3/uL Basophils # (Auto) 0.0 0.0-0.1 10^3/uL Prothrombin Time 12.8 12.2-14.7 SEC INR Comment 1.0 0.8-1.4 Activated Partial Thromboplast Time 27 24-35 SEC D-Dimer 0.64 H 0.00-0.49 UG/ML Sodium Level 142 135-145 MMOL/L Potassium Level 3.3 L 3.6-5.0 MMOL/L Chloride Level 107 98-107 MMOL/L Carbon Dioxide Level 23 21-32 MMOL/L Anion Gap 12 5-14 MMOL/L Blood Urea Nitrogen 10 7-18 MG/DL Creatinine 0.81 0.60-1.30 MG/DL Estimat Glomerular Filtration Rate > 60 BUN/Creatinine Ratio 12 Glucose Level 118 H 70-105 MG/DL Calcium Level 8.7 8.5-10.1 MG/DL Total Bilirubin 0.8 0.1-1.0 MG/DL Aspartate Amino Transf (AST/SGOT) 17 5-34 U/L Alanine Aminotransferase (ALT/SGPT) 16 0-55 U/L Alkaline Phosphatase 80 40-136 U/L Troponin I < 0.30 <0.30 NG/ML B-Type Natriuretic Peptide 154.2 H <100.0 PG/ML Total Protein 6.9 6.4-8.2 G/DL Albumin 3.6 3.2-4.5 G/DL Urine Color YELLOW Urine Clarity CLEAR Urine pH 5 5-9 Urine Specific [place] 1.010 L 1.016-1.022 Urine Protein NEGATIVE NEGATIVE Urine Glucose (UA) 4+ H NEGATIVE Urine Ketones NEGATIVE NEGATIVE Urine Nitrite NEGATIVE NEGATIVE Urine Bilirubin NEGATIVE NEGATIVE Urine Urobilinogen NORMAL NORMAL MG/DL Urine Leukocyte Esterase NEGATIVE NEGATIVE Urine RBC (Auto) NEGATIVE NEGATIVE Urine RBC NONE /HPF Urine WBC NONE /HPF Urine Squamous Epithelial Cells 0-2 /HPF Urine Crystals NONE /LPF Urine Bacteria TRACE /HPF Urine Casts NONE /LPF Urine Mucus NEGATIVE /LPF Urine Culture Indicated NO My Orders Orders - DOE DUMAS MD Ct Head Wo-R/O Stroke (01/18/17 10:34) Cbc With Automated Diff (01/18/17 10:37) Protime With Inr (01/18/17 10:37) Partial Thromboplastin Time (01/18/17 10:37) Comprehensive Metabolic Panel (01/18/17 10:37) Fibrin Degradation Products (01/18/17 10:37) Troponin I (01/18/17 10:37) Ua Culture If Indicated (01/18/17 10:37) Chest 1 View, Ap/Pa Only (01/18/17 10:37) Ekg Tracing (01/18/17 10:37) Nothing By Mouth (01/18/17 Dinner) Accucheck Stat ONCE (01/18/17 10:37) Saline Lock/Iv-Start (01/18/17 10:37) Saline Lock/Iv-Start (01/18/17 10:37) Vital Signs-Stroke Q1H (01/18/17 10:37) O2 (01/18/17 10:37) Intake & Output 06,14,22 (01/18/17 10:37) Monitor-Rhythm Ecg Trace Only (01/18/17 10:37) Dysphagia Screening Tool (01/18/17 10:37) BNP (01/18/17 11:48) Vital Signs/I&O Vital Sign - Last 12Hours 01/18/17 01/18/17 11:06 11:11 Temp 97.8 Pulse 67 Resp 20 B/P (MAP) 137/69 Pulse Ox 95 O2 Delivery Nasal Cannula O2 Flow Rate 3.00 Blood Pressure Mean: 91 Point of Care Testing Finger Stick Blood Glucose: 114 Progress Note : Progress Note Seen and evaluated. Stroke team activation initiated. IV, labs, EKG, chest x- ray, CT head ordered. Patient is excluded from TPA due to outside timeframe and patient is on oral anticoagulation. Patient informed and agrees. Monitor patient. Patient only scores a 1 on stroke scale for mild weakness of the right lower extremity which may have been new. Monitor patient. 1200: Patient is improved and without symptoms. 1300: All labs and findings reviewed. CT negative for acute findings. No other acute findings noted. Patient was able to walk through the ER without difficulty. Patient was noted to have normal blood sugar this morning which is not normal for the patient as he usually has her blood sugars. Patient may have had a hypoglycemic episode on waking. Overall though, no acute findings. I did discuss this with the patient and he states he is comfortable going home. I would like him to follow-up with his primary care doctor, Dr. Gutiérrez. I did inform the patient that I would send a copy of the chart over to his doctor. He requested that I send a copy to Dr. Miguel as well. This will be done. Discharged home with return precautions. Patient verbalize understanding instructions and agreement with plan. ECG Initial ECG Impression Date: Jan 18, 2017 Initial ECG Impression Time: 11:02 Initial ECG Rate: 65 Initial ECG Rhythm: Normal Sinus Comment Sinus rhythm with incomplete left bundle branch block. No evidence of ST elevation ND. Left axis deviation. Similar to previous of 12/15/16. Interpreted by me. Diagnostic Imaging Diagonstic Imaging: CT Plain Films/CT/US/NM/MRI: head Comments NAME: JEFF TERRY [facility] REC#: [id number] PT STATUS: REG ER : 1950 PHYSICIAN: DOE DUMAS MD ADMIT DATE: 01/18/17/ER Signed Date of Exam: 01/18/17 CT HEAD WO-R/O STROKE EXAM: CT head. TECHNIQUE: Noncontrast axial images of the brain were obtained. INDICATION: Right facial. Right-sided weakness. Comparison 04/16/14. FINDINGS: There is no intracranial hemorrhage, edema or mass effect. There is mild periventricular and deep white hypodensities compatible with chronic microvascular ischemic changes. The brain parenchyma appears unremarkable. No hydrocephalus. The visualized portions of the orbits and paranasal sinuses appear unremarkable. IMPRESSION: No acute process. Dictated by: Dictated on workstation # [id number] Dict: 01/18/17 1039 Trans: 01/18/17 1041 Interpreted by: PAMELLA WILSON MD Electronically signed by: PAMELLA WILSON MD 01/18/17 1041 Diagonstic Imaging: Xray Plain Films/CT/US/NM/MRI: chest Comments VIA [facility]. [place], [place] NAME: JEFF TERRY [facility] REC#: [id number] PT STATUS: REG ER : 1950 PHYSICIAN: DOE DUMAS MD ADMIT DATE: 01/18/17/ER Draft Date of Exam:01/18/17 CHEST 1 VIEW, AP/PA ONLY INDICATION: Right-sided facial droop Portable chest 10:59 AM There is cardiomegaly. Pulmonary vascularity is normal. Lungs are clear. There are no effusions or pneumothoraces. IMPRESSION: Cardiomegaly without evidence of pulmonary venous hypertension Dictated on workstation # [id number] Dict: 01/18/17 1104 Trans: 01/18/17 1107 CITLALY [id number] Interpreted by: DOE PHAM Electronically signed by: Departure Impression Impression: Primary Impression: Transient cerebral ischemia Qualified Codes: G45.9 - Transient cerebral ischemic attack, unspecified Disposition: 01 HOME, SELF-CARE Condition: Improved Departure-Patient Inst. Decision time for Depature: 13:12 Referrals: SHIV GUTIÉRREZ MD (PCP/Family) Primary Care Physician Patient Instructions: Transient Ischemic Attack (DC) Add. Discharge Instructions: All discharge instructions reviewed with patient and/or family. Voiced understanding. Carefully monitor your blood sugars and take medications as directed. Follow up with Dr. Gutiérrez and a few days for recheck. You may follow-up with her division engineer as well. Return for worse pain, fever, vomiting, weakness, breathing problems or other concerns as needed. Copy Copies To 1: SHIV GUTIÉRREZ MD Copies To 2: GAMAL MIGUEL MD, TIMOTHY D MD Jan 18, 2017 11:48
[2017-01-18 13:21] VITALS: BP 135/72
== END 2017-01-18 13:21 | disposition home or self-care (01) ==
LOC: EDUNIT# 10:24 → ER 10:28
DX: G45.9 Transient cerebral ischemic attack, unspecified (principal); I51.7 Cardiomegaly; I10 Essential (primary) hypertension; E11.9 Type 2 diabetes mellitus without complications; I25.10 Atherosclerotic heart disease of native coronary artery without angina pectoris; I44.7 Left bundle-branch block, unspecified; E66.01 Morbid (severe) obesity due to excess calories; Z79.82 Long term (current) use of aspirin; Z79.02 Long term (current) use of antithrombotics/antiplatelets; Z79.4 Long term (current) use of insulin; Z79.899 Other long term (current) drug therapy; Z87.891 Personal history of nicotine dependence
CPT/HCPCS: 36415; 70450; 71010; 80053; 81000; 83880; 84484; 85025; 85379; 85610; 85730; 93005; 93041

== ENCOUNTER → 2017-02-08 | Outpatient (CLI) | payer MEDICARE, MEDICAID ==
--- NOTE | 2017-02-08 15:18 | Diagnostic Imaging Report ---
INDICATION: Right knee pain. FINDINGS: Three views of the right knee show severe joint space narrowing of the medial compartment of the knee with nearly [id number]-[id number] contact. There are osteophytes forming at the margins of the articular surfaces on both the medial and lateral compartment. There are small osteophytes forming at the patellofemoral joint as well. There is no fracture or dislocation. There is no appreciable joint effusion. IMPRESSION: Degenerative changes of the knee, most severe in the medial compartment. Dictated by: Dictated on workstation # [id number]
== END ==
LOC: RAD 14:11
PROVIDERS: ATTEND Family Medicine
DX: M17.11 Unilateral primary osteoarthritis, right knee (principal)
CPT/HCPCS: 73562

== ENCOUNTER → 2017-03-05 | Outpatient (CLI) | payer MEDICARE, MEDICAID ==
[~2017-03-05] MED LIST changes: +ERGO50006 PO
== END ==
LOC: CARD 11:42
PROVIDERS: ATTEND Physician Assistant
DX: I25.10 Atherosclerotic heart disease of native coronary artery without angina pectoris (principal); E11.9 Type 2 diabetes mellitus without complications; I10 Essential (primary) hypertension; E78.2 Mixed hyperlipidemia

== ENCOUNTER → 2017-03-28 | Outpatient (CLI) | payer MEDICARE, MEDICAID ==
[~2017-03-28] MED LIST changes: +CATHETER FLUSH 10 ML SYR IV PRN; +REGADENOSON 0.4 MG/5 ML SYR (LEXISCAN) IV ONE
[2017-03-28 09:46] VITALS: BP 177/81
[2017-03-28 09:49] VITALS: BP 187/87
--- NOTE | 2017-03-28 16:54 | STRESS TEST ---
PROCEDURE PHYSICIAN: GAMAL BRUNO DATE OF PROCEDURE: 03/28/2017 LEXISCAN MYOVIEW STRESS TEST REPORT: INDICATION: Coronary artery disease. BASELINE HEART RATE: 71 BASELINE BLOOD PRESSURE: 177/81 BASELINE EKG: Sinus rhythm with no ischemic changes. IN SUMMARY: The patient was injected with 10.69 mCi of technetium 99 Myoview and the resting images were obtained. Then the patient received 0.4 mg of Lexiscan followed by 32.1 mCi of technetium 99 Myoview. Throughout the test, there were no EKG changes. The resting and stress images were reviewed and compared in the short axis, horizontal long axis, and vertical long axis views. Review of the images showed diaphragmatic attenuation. There is a fixed defect at the basal to mid inferior wall, which is probably secondary to that diaphragmatic attenuation. Ischemia was noted involving the whole anterior wall , anteroapical segment, with reversibility. SSS is 8, SDS 6, TID value 1.06. On the gated images, the left ventricle appeared to be dilated with end-diastolic volume 152 mL, end-systolic volume 78 mL. Mild diffuse left ventricular hypokinesia with calculated ejection fraction 49%. IN CONCLUSION: 1. The patient tolerated Lexiscan well. 2. Diaphragmatic attenuation with reversible ischemia involving the whole anterior wall, anteroapical segment, fixed defect at the basal to mid inferior wall, which could be a secondary to diaphragmatic attenuation. 3. Dilated left ventricle with mild diffuse left ventricular hypokinesia. Calculated ejection fraction 49%. Job ID: [id number] Dictated Date: 03/28/2017 14:09:22 Utility Accounts Director Date: 03/28/2017 16:47:54 / shonna
== END ==
LOC: CARD 08:17
PROVIDERS: ATTEND Physician Assistant
DX: I25.10 Atherosclerotic heart disease of native coronary artery without angina pectoris (principal); E11.9 Type 2 diabetes mellitus without complications; I10 Essential (primary) hypertension; E78.2 Mixed hyperlipidemia
CPT/HCPCS: 78452; 93017

== ENCOUNTER 2017-04-03 08:26 | Day surgery (SDC) | payer MEDICARE, MEDICAID ==
[~2017-04-03] VITALS: Ht 180.3 cm; Wt 166.9 kg
[~2017-04-03 08:26] MED LIST changes: -CATHETER FLUSH 10 ML SYR IV PRN; -REGADENOSON 0.4 MG/5 ML SYR (LEXISCAN) IV ONE
[2017-04-03] MEDS ORDERED: NS IV 1000 ML 1,000 ML ONE (08:45)
[2017-04-03] MEDS ORDERED: HEParin (CATH LAB) 2,000 ML IV ONE (08:45)
[2017-04-03] MEDS ORDERED: NS IV 1000 ML 1,000 ML IV SCH ×3 (08:51→12:30)
[2017-04-03 09:02] VITALS: BP 150/75
[2017-04-03 09:07] LABS: MEAN PLATELET VOLUME 11.4 FL (7.4-10.4); RED BLOOD COUNT 5.64 10^6/uL (4.35-5.85); RED CELL DISTRIBUTION WIDTH 15.2 % (10.0-14.5); WHITE BLOOD COUNT 9.3 10^3/uL (4.3-11.0)
[2017-04-03 09:28] LABS: ALANINE AMINOTRANSFERASE 23 U/L (0-55); ANION GAP 11 MMOL/L (5-14); ASPARTATE AMINO TRANSFERASE 14 U/L (5-34); BILIRUBIN,TOTAL 0.8 MG/DL (0.1-1.0); BLOOD UREA NITROGEN 15 MG/DL (7-18); BUN/CREATININE RATIO 15; CALCIUM 9.9 MG/DL (8.5-10.1); CARBON DIOXIDE 25 MMOL/L (21-32); CHLORIDE 101 MMOL/L (98-107); CHOLESTEROL 129 MG/DL (< 200); CREATININE SERUM 1.03 MG/DL (0.60-1.30); DIRECT LDL 65 MG/DL (1-129); GFR ESTIMATED > 60; GLUCOSE 156 MG/DL (70-105); POTASSIUM 4.1 MMOL/L (3.6-5.0); SODIUM 137 MMOL/L (135-145); TOTAL PROTEIN 7.9 GM/DL (6.4-8.2); TRIGLYCERIDES 169 MG/DL (<150); VLDL CHOLESTEROL 34 MG/DL (5-40)
[2017-04-03] MEDS ORDERED: GABA-486 PO (10:04)
[2017-04-03] MEDS ORDERED: ISOS30TA3 PO (10:04)
[2017-04-03 10:08] LABS: INR 0.9 (0.8-1.4)
[2017-04-03] MEDS ORDERED: MIDAZOLAM 5 MG/5 ML (VERSED) VIAL ONE (10:16)
[2017-04-03] MEDS ORDERED: diphenhydrAMINE 50 MG/ML INJ (BENADRYL) ONE (10:16)
[2017-04-03] MEDS ORDERED: fentaNYL INJECTION 100 MCG/2 ML AMP ONE (10:16)
[2017-04-03] MEDS ORDERED: HEParin 1000 UNIT/ML (10ML VIAL) FOR BOLUS ONE (10:17)
[2017-04-03] MEDS ORDERED: VERAPAMIL 5 MG/2 ML (CALAN) VIAL IV ONE (10:17)
[2017-04-03] MEDS ORDERED: NITROGLYCERIN DRIP 25 MG/D5W 250 ML IV ONE (10:17)
--- NOTE | 2017-04-03 10:58 | Cardiac Procedure Note-CS/ASA ---
Pre-Procedure Note Pre-Op Procedure Note H&P Reviewed The H&P was reviewed, patient examined and no changes noted. Date H&P Reviewed: Apr 03, 2017 Time H&P Reviewed: 10:58 Conscious Sedation Pre-Proced Time Reviewed: 10:58 ASA Class: 3 Airway Mallampati Classification: (port gamble appropriate class) I. II. III, IV Lungs Heart ASA score ASA 1: a normal healthy patient ASA 2: a patient with a mild systemic disease (mid diabetes, controlled hypertension, obesity ASA 3: a patient with a severe systemic disease that limits activity (angina , COPD, prior Myocardial infarction) ASA 4: a patient with an incapacitating disease that is a constant threat to life (CHF, renal failure) ASA 5: a moribund patient not expected to survive 24 hrs. (ruptured aneurysm) ASA 6: a declared brain patient whose organs are being harvested. For emergent operations, add the letter E after the classification Grade 1 Sedation Plan: Analgesia, Amnesia, Plan communicated to team members, Discussed options with patient/fam, Discussed risks with patient/fam Note The patient is an appropriate candidate to undergo the planned procedure, sedation, and anesthesia. The patient immediately re-assessed prior to indication. Dominick NOGUERA MD Apr 03, 2017 10:58
--- NOTE | 2017-04-03 12:08 | Cardiology Post Procedure Note ---
Post-Procedure Note Physician (s)/Mortgage Loan Computation Clerk (s) Physician Dominick NOGUERA MD Pre-Procedure Diagnosis Pre-Procedure Diagnosis: atypical chest pain, abnormal nuclear stress test Post-Procedure Note Procedure Start Date: Apr 03, 2017 Procedure Start Time: 11:00 Name of Procedure: coronary angiography, left heart catheterization Findings/Procedure Note patent RCA, Mild disease in the LAD. Patent stent in the OM; no severe disease noted. Normal LV function with no wall motion abnormalities and LVEDP of 18 mmHg. Severe aortic stenosis with mean gradient of 45 mmHg and peak gradient of 57-67 mmHg. contrast dose 144 mL's of Omnipaque. Fluoroscopy time 11.8 minutes. Fluoroscopy dose 1568 mgy Anesthesia Type: Conscious Sedation Estimated blood loss (mL): 15 mL Contrast Amount: 144 Post-Procedure Diagnosis Post-operative diagnosis: patent epicardial coronary arteries. Severe aortic stenosis Dominick NOGUERA MD Apr 03, 2017 12:08 pm
--- NOTE | 2017-04-03 12:12 | Discharge Inst-Post CATH ---
Discharge Inst-CATH Post Cardiac Cath D/C Inst Follow Up/Plan Dr. Miguel in 2 weeks CARDIAC CATH DISCHARGE INSTRUCTIONS *Hold Metformin for 48 hours post heart cath. ACTIVITY * Go Home directly and rest. * Limit activity of the leg (or wrist if it was used) for 7 days including aerobics, swimming, jogging, bicycling, etc. * Restrict stair-climbing for 7 days if possible, if not, climb up with your non -cath leg, then bring together on the same step. * Avoid lifting, pushing, pulling or excessive movement of the affected extremity for 7 days. * Customary sexual activity may be resumed after 2 days-use caution not to use a position that strains or causes pain to the affected extremity. * No driving for 24 hours. * NO SMOKING. * Avoid straining for bowel movements for 7 days. * Gentle walking on level ground is allowed. * Returning to work will depend on the type of procedure and the results. Your doctor will discuss this with you. CALL YOUR DOCTOR FOR ANY OF THE FOLLOWING: *If bleeding from the puncture site occurs- Apply gentle pressure to site with clean cloth and call your doctor or EMS. * If a knot or lump forms under the skin, increases in size, or causes pain. * If bruising appears to be worsening or moving further down your leg instead of disappearing. * Temperature above 101 F. CARE OF YOUR GROIN INCISION; * Bruising or purple discoloration of the skin near the puncture site is common. * You may shower only, no bathtub bathing for 5 days. Be careful to avoid slipping as your leg may feel stiff. * If a closure device was used on your femoral artery, please see the attached guide regarding care of the device and your leg. * REMOVE the dressing from your groin the next day after your procedure in the shower. CARE OF YOUR WRIST INCISION; * Bruising or purple discoloration of the skin near the puncture site is common. * You may shower. * DO NOT submerge wrist. * Remove dressing in 24 hours. Dominick NOGUERA MD Apr 03, 2017 12:12 pm
[2017-04-03 12:15] VITALS: BP 97/65
[2017-04-03] MEDS ORDERED: PATIENT MAY USE OWN MEDS, ALL PO SCH (12:15)
--- NOTE | 2017-04-03 12:15 | Cardiology Discharge Summary ---
Diagnosis/Chief Complaint Date of Admission 04/03/2017 Date of Discharge 04/03/2017 Admission Diagnosis chest pressure, abnormal nuclear stress test, previous coronary artery disease Final/Discharge Diagnosis no severe coronary artery disease, severe aortic valve stenosis Chief Complaint/HPI Chief Complaint/HPI this is a 66-year-old gentleman who has history of coronary artery disease status post PCI with stent to OM, diabetes, morbid obesity, PAD. He presented with episodes of atypical chest pressure and chest numbness. He is a patient of Dr. Miguel. Stress test was performed which showed possibility of anterior ischemia. He was brought to the Access Clerk after informed consent was taken. Discharge Summary Procedures coronary angiography and left heart catheterization Discharge Physical Examination stable Hospital Course stable Pending Labs Laboratory Tests 04/03/17 09:00: White Blood Count 9.3, Red Blood Count 5.64, Hemoglobin 16.1, Hematocrit 48, Mean Corpuscular Volume 85, Mean Corpuscular Hemoglobin 29, Mean Corpuscular Hemoglobin Concent 34, Red Cell Distribution Width 15.2, Platelet Count 274, Mean Platelet Volume 11.4, Prothrombin Time 12.0, INR Comment 0.9, Activated Partial Thromboplast Time 25, Sodium Level 137, Potassium Level 4.1, Chloride Level 101, Carbon Dioxide Level 25, Anion Gap 11, Blood Urea Nitrogen 15, Creatinine 1.03, Estimat Glomerular Filtration Rate > 60, BUN/Creatinine Ratio 15, Glucose Level 156, Calcium Level 9.9, Total Bilirubin 0.8, Aspartate Amino Transf (AST/SGOT) 14, Alanine Aminotransferase (ALT/SGPT) 23, Alkaline Phosphatase 103, Total Protein 7.9, Albumin 4.0, Triglycerides Level 169, Cholesterol Level 129, LDL Cholesterol Direct 65, VLDL Cholesterol 34, HDL Cholesterol 33 Discussion & Recommendations Discussion no severe coronary artery disease, severe aortic stenosis on left heart catheterization with normal ejection fraction. Will defer to Dr. Miguel for further management. Follow up appt.: Dr. Miguel in 2 weeks Dicharge Diet: Cardiac Diet Activity as Tolerated: Yes Home Medications Reviewed patient Home Medication Reconciliation Form Discharge Home Medications: Reviewed and agree with Discharge Medication list on patient's Discharge Instruction sheet Condition at discharge stable Instructions to patient/family Dr. Miguel in 2 weeks Dominick NOGUERA MD Apr 03, 2017 12:15 pm
[2017-04-03 13:00] VITALS: BP 114/66
[2017-04-03 14:00] VITALS: BP 113/65
[2017-04-03 15:00] VITALS: BP 91/47
--- OUTSIDE RECORDS SUMMARY | 2017-04-03 19:34 | XMS REPORT | Continuity of Care Document ---
Author Author [facility] Organization [facility] Address Unknown Phone Unavailable Care Team Providers Care Optics Engineer Name Role Phone Dmitri Gutiérrezyd PCP [phone] Source Comments Some departments are not documenting in the electronic medical record. If you do not see the information that you expected, contact Release of Information in the Health Information Management department at [phone] for further assistance in locating additional records.[facility] Active Allergies and Adverse Reactions No Known [...] 80 mg by mouth Active tablet daily. HYDROcodone/acetaminophen Take 1-2 Tabs by mouth Active (+) (LORTAB, NORCO) every 6 hours as needed 10/325 mg tablet for Pain blood sugar diagnostic Use 1 Strip as directed Active test strip twice daily before meals. CareSens N brandChecks twice daily lisinopril (PRINIVIL; Take 1 Tab by mouth 90 Tab 3 09/07/20 Active ZESTRIL) 20 mg tablet daily. 16 insulin pen needles Use 1 Each as directed 400 Each 3 06/30/20 Active (disposable) (ULTICARE four times daily. 16 PEN NEEDLE) 32 gauge x 5/32" pen needle ergocalciferol (VITAMIN Take 1 Cap by mouth every 12 Cap 3 08/23/20 Active D-2) 50,000 unit capsule 7 days. 16 nitroglycerin (NITROSTAT) Place 1 Tab under tongue 25 Tab 0 08/24/20 Active 0.4 mg tablet every 5 minutes as 16 needed. carvedilol (COREG) 25 mg TAKE 1 TABLET BY MOUTH 180 Tab 2 09/14/20 Active tablet TWICE DAILY WITH MEALS 16 potassium chloride SR Take 10 mEq by mouth Active (K-DUR) 10 mEq tablet daily. Take with a meal and a full glass of water. insulin glargine (TOUJEO Inject 150 units under 60 Syringe 2 02/21/20 Active SOLOSTAR) 300 unit/mL skin twice daily as 17 (1.5 mL) injectable directed. insulin lispro (HUMALOG Inject 75 Units under the 135 mL 2 02/21/20 Active KWIKPEN) 200 unit/mL (3 skin twice daily. 17 mL) inpn JARDIANCE 25 mg tab TAKE ONE TABLET BY MOUTH 30 Tab 6 03/08/20 Active EVERY DAY 30 MINUTES 17 BEFORE BREAKFAST. INDICATION: TYPE 2 DIABETES MELLITUS amLODIPine (NORVASC) 10 Take 1 Tab by mouth every 90 Tab 3 03/10/20 Active mg tablet morning. 17 amLODIPine (NORVASC) 10 Take 1 Tab by mouth every 90 Tab 3 05/31/20 03/08/20 Discontin mg tablet morning. 16 17 ued empagliflozin (JARDIANCE) Take 1 Tab by mouth daily 30 Tab 5 08/24/20 03/08/20 Discontin 25 mg tab 30 minutes before 16 17 ued breakfast. Indications: TYPE 2 DIABETES MELLITUS Active Problems Problem Noted Date Urinary retention with incomplete bladder emptying 10/22/2012 Last Assessment & Plan: Now seeing urologist in [place]. Was given Rx that he did not [...] mg daily. Arthritis 08/05/2010 Glaucoma 08/05/2010 Claudication ([facility]) 08/05/2010 Overview: a. 03/26 - Lower arterial/SARAH study: no LE arterial stenosis, mod reduced bilateral SARAH's. Obesity, morbid ([facility]) 12/13/2007 Last Assessment & Plan: Reviewed diet and exercise goals. Encouraged to continue efforts with portion reduction and decreasing amount of soda consumed each day. Knee arthroplasty 12/13/2007 DM (diabetes mellitus) ([facility]) 12/13/2007 Last Assessment & Plan: Increase premeal [...] & Plan: Following with sleep specialist in [place]. CAD (coronary artery disease) 12/13/2007 Overview: a. History of chest pain. Treated at and told that he had "small heart attack" given NTG tabs. Seen at [facility] x 2 for chest pain resolved with [...] reversible ischemia involving the inferolateral wall. G. thallium stress test: EF 50%, similar to previous exam H. 10/12/05 thallium stress test: EF 51%, slight increase in inducible ischemia on the present study, compared to the previous investigation, but this is a subtle distinction. I. 11/28/06 thallium stress test: EF 53%, similar compared to prior study J. 10/18/07 pt admitted to hospital, [facility] [place] with CP. Cardiac cath showed a patent stent in the obtuse marginal. He had 50% stenosis in the mid LAD, 70% stenosis in a distal right PDA that was not amenable to intervention. It was felt that he didn't have anatomy suitable for intervention and he was managed medically. Reduced mobility 12/13/2007 Gait abnormality 12/13/2007 Most Recent Encounters Date Type Specialty Providers Description 03/08/2017 Refill Endocrinology, Metabolism Nereyda Tafoya PA-C Essential hypertension & Genetics (Primary Dx); Uncontrolled type 2 diabetes mellitus with complication, with long-term current use of insulin (HCC) 03/08/2017 Refill Endocrinology, Metabolism Haresh Bo MD & Genetics 02/20/2017 Refill Endocrinology, Metabolism Nereyda Tafoya PA-C & Genetics 02/07/2017 Orders Only Endocrinology, Metabolism Nereyda Tafoya PA- C & Genetics 01/30/2017 Office Visit Endocrinology, Metabolism Nereyda Tafoya PA- C 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 (HCC) (Primary Dx); Essential hypertension; Hypercholesteremia; Vitamin D deficiency; Morbid obesity, unspecified obesity type (HCC) Immunizations Name Dates Previously Given Next Due FLU VACCINE >3YO 08/21/2012, 07/11/2011 Flu Vaccine Trivalent=>3 07/16/2013 YO Social History Tobacco Use Types Packs/Day Years Used Date Former Smoker Cigarettes 28 Quit: 08/05/1978 Smokeless Tobacco: Never Used Tobacco Cessation: Counseling Given: No Comments: Alcohol Use Drinks/Week oz/Week Comments No drinks a few drinks per year Last Filed Vital Signs Vital Sign Reading Time Taken Blood Pressure 147/73 01/30/2017 11:02 AM CDT Pulse 66 01/30/2017 11:02 AM CDT Temperature 36.1 C (97 F) 07/11/2011 9:22 AM CDT Respiratory Rate 18 08/21/2012 2:25 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 Height 1.803 m (5' 11") 01/30/2017 11:02 AM CDT Weight 167.922 kg (370 lb 3.2 01/30/2017 11:02 AM CDT oz) Body Mass Index 51.66 01/30/2017 11:02 AM CDT Oxygen Saturation 99% 12/16/2007 6:00 AM CDT Plan of Care Patient Goal Type Goal Result Component HEMOGLOBIN A1C below 8.0 Health Maintenance Due Date Last Done Comments Hepatitis C Screening 1949 Physical (Comprehensive) 1956 Exam Pertussis Vaccine 1960 Tetanus Vaccine 1966 Colorectal Cancer 1999 Screening Shingles Vaccine 2009 Abdominal Aortic Aneurysm 2014 Screening Prevnar/Pneumovax (#1) 2014 Microalbumin 11/29/2016 11/30/2015, 11/26/2013, 03/11/2012 Additional history exists Hba1c 08/02/2017 01/30/2017, 08/24/2016, 05/31/2016 Additional history exists Influenza Vaccine 08/24/2017 08/28/2014 (Declined), 07/16/2013, Postponed from 05/25/2017 07/16/2013 (Patient declined), Additional history exists Dilated Eye Exam 12/12/2017 12/12/2016, 12/28/2015, 07/26/2015 Additional history exists (Previously completed) Foot Exam 01/30/2018 01/30/2017, 08/24/2016, 05/31/2016 Additional history exists Procedures from Last 3 Months Procedure Name Priority Date/Time Associated Diagnosis Comments GLUCOSE METER DOWNLOAD Routine 01/30/2017 Diabetic autonomic 12:00 AM CDT neuropathy associated with type 2 diabetes mellitus (HCC) Results from Last 3 Months * POC HEMOGLOBIN A1C (01/30/2017 11:21 AM) Component Value Range Poc Hemoglobin A1C 8.2 Specimen Blood, capillary - Blood * POC GLUCOSE QUANTITATIVE BLOOD (01/30/2017 11:21 AM) Component Value Range Glucose, POC 131 Specimen Blood, capillary * GLUCOSE METER DOWNLOAD (01/30/2017)
--- NOTE | 2017-04-05 09:40 | CARDIAC CATHETERIZATION ---
PROCEDURE PHYSICIAN: ELVA MIDDLETON DATE OF PROCEDURE: 04/03/2017 CORONARY ANGIOGRAPHY AND LEFT HEART CATHETERIZATION REPORT: PRIMARY DESK INTERVIEWER: Dr. Miguel PERFORMING DESK INTERVIEWER: Dr. Verna Middleton INDICATION: 1. Atypical chest pressure. 2. Abnormal nuclear stress test. 3. Previous history of coronary artery disease, status post PCI. PREOPERATIVE DIAGNOSIS: 1. Atypical chest pressure with abnormal nuclear stress test. 2. History of coronary artery disease with PCI. POSTOPERATIVE DIAGNOSES: 1. No severe coronary artery disease. 2. Severe aortic stenosis. HISTORY: Mr. Sung is a 66-year-old gentleman with a history of morbid obesity, diabetes, peripheral arterial disease, coronary artery disease status post PCI, he presents with atypical chest pressure and chest numbness for the last 2 months. His primary front office java developer is Dr. Miguel who performed a stress test which showed an abnormality in the anterior wall. The patient therefore consented for coronary angiography and left heart catheterization. PROCEDURE PERFORMED: 1. Coronary angiography. 2. Left heart catheterization. SPECIMENS: None. COMPLICATIONS: None. ANTICOAGULATION: IV heparin. CONTRAST: 144 mL of Omnipaque. FLUOROSCOPY DOSE: 1568 mGy. FLUOROSCOPY TIME: 11.8 minutes. COMPLICATIONS: None. PROCEDURE DETAILS: The patient was brought to the Central Supply Assistant after informed consent was taken. He was draped and prepped in the usual sterile fashion. The right radial artery was weak; however, the Wade's test was normal. Therefore, we accessed the right radial artery to with a 6-British sheath. We first went in with a Francis catheter and performed heart catheterization. We were also able to cannulate the RCA. However, we were not able to engage the left coronary system; therefore, we tried a JL5 catheter. We were still unsuccessful; therefore, we finally tried with a JL4.5 catheter and were successful. FINDINGS: LEFT HEART CATHETERIZATION: 1. LV pressure 165/3 mmHg, LVDP 18 mmHg, aortic pressure 109/59 mmHg. Normal LV function with no wall motion abnormalities. Mean gradient across the aortic valve 45 mmHg. Peak gradient was anywhere between 57 and 67 mmHg. 2. RCA was patent with no epicardial coronary disease. 3. Left main: This is short left main with no disease. 4. LAD: The LAD has mild proximal disease with no severe stenosis. There is a small diagonal artery less than 1.5 mm in diameter which has probably 50 to 60% disease. There is a large first diagonal artery, which divides into 2 branches with no severe disease. 5. The left circumflex artery has no significant disease in the proximal and midsegment. It divides into an obtuse marginal artery, which has a patent stent and no significant disease noted. IMPRESSION/CONCLUSION: 1. Patent stent in the obtuse marginal artery. 2. Mild to moderate disease in the LAD/diagonal system. RCA is patent. 3. Severe aortic stenosis with mean gradient of 45 mmHg on left heart catheterization with normal LV function. 4. Will deferred to Dr. Miguel for further management. Job ID: [id number] Dictated Date: 04/03/2017 12:24:51 Legend Maker Date: 04/05/2017 08:59:53 / shonna
== END 2017-04-03 15:30 | disposition home or self-care (01) ==
LOC: CATH 08:26 → ICU 12:15 → ENPENDDIS 15:00 → CATH 15:30
PROVIDERS: ATTEND Internal Medicine Interventional Cardiology
DX: R07.89 Other chest pain (principal); R94.39 Abnormal result of other cardiovascular function study; I25.10 Atherosclerotic heart disease of native coronary artery without angina pectoris; I35.0 Nonrheumatic aortic (valve) stenosis; E66.01 Morbid (severe) obesity due to excess calories; I10 Essential (primary) hypertension; Z86.718 Personal history of other venous thrombosis and embolism; E78.5 Hyperlipidemia, unspecified; E11.9 Type 2 diabetes mellitus without complications; I50.32 Chronic diastolic (congestive) heart failure; I70.203 Unspecified atherosclerosis of native arteries of extremities, bilateral legs; R00.8 Other abnormalities of heart beat; Z79.899 Other long term (current) drug therapy; Z95.5 Presence of coronary angioplasty implant and graft; Z79.4 Long term (current) use of insulin; Z87.891 Personal history of nicotine dependence; Z95.820 Peripheral vascular angioplasty status with implants and grafts; Z68.43 Body mass index [BMI] 50.0-59.9, adult
CPT/HCPCS: 36415; 80053; 80061; 85027; 85610; 85730; 87081; 93005; 93458

== ENCOUNTER → 2017-07-18 | Outpatient (CLI) | payer MEDICARE, MEDICAID ==
[~2017-07-18] MED LIST changes: +ISOS30TA3 PO; +RT-ALBUTEROL SULF 2.5 MG/3 ML PRE-MIX VIAL IH ONE
== END ==
LOC: RT 12:48
PROVIDERS: ATTEND Nurse Practitioner Family
DX: J98.4 Other disorders of lung (principal); R09.02 Hypoxemia; R06.00 Dyspnea, unspecified; E66.01 Morbid (severe) obesity due to excess calories
CPT/HCPCS: 94060; 94640; 94726; 94729

== ENCOUNTER 2017-10-01 15:09 | Emergency (ER) | payer MEDICARE, MEDICAID ==
[~2017-10-01] VITALS: Ht 180.3 cm; Wt 168.3 kg
[~2017-10-01 15:09] MED LIST changes: -NITR0.4T3 SL; +NITR0.4T42 SL; -RT-ALBUTEROL SULF 2.5 MG/3 ML PRE-MIX VIAL IH ONE
--- OUTSIDE RECORDS SUMMARY | 2017-10-01 15:14 | XMS REPORT | Clinical Summary ---
Author Author [facility] Organization [facility] Address Unknown Phone Unavailable Care Team Providers Care Contract Designer Name Role Phone PCP Unavailable Source Comments Some departments are not documenting in the electronic medical record. If you do not see the information that you expected, contact Release of Information in the Health Information Management department at [phone] for further assistance in locating additional records.[facility] Allergies No Known Allergies Current Medications Prescription Sig. [...] by mouth Active tablet daily. HYDROcodone/acetaminophen Take 2 tablets by mouth Active (+) (LORTAB, NORCO) every 6 hours as needed 10/325 mg tablet for Pain blood sugar diagnostic Use 1 Strip as directed Active test strip twice daily before meals. CareSens N brandChecks twice daily ergocalciferol (VITAMIN Take 1 Cap by mouth every 12 Cap 3 08/23/20 Active D-2) 50,000 unit capsule 7 days. 16 nitroglycerin (NITROSTAT) Place 1 Tab under tongue 25 Tab 0 12/01/20 Active 0.4 mg tabletIndications: every 5 minutes as 16 Type 2 diabetes mellitus needed. with diabetic autonomic neuropathy, with long-term current use of insulin ([facility]), Coronary artery disease of [place] heart with stable angina pectoris, unspecified vessel or lesion type ([facility]) insulin glargine (TOUJEO Inject 150 units under 60 Syringe 2 02/21/20 Active SOLOSTAR) 300 unit/mL skin twice daily as 17 (1.5 mL) injectable directed. JARDIANCE 25 mg tab TAKE ONE TABLET BY MOUTH 30 Tab 6 03/08/20 Active EVERY DAY 30 MINUTES 17 BEFORE BREAKFAST. INDICATION: TYPE 2 DIABETES MELLITUS amLODIPine (NORVASC) 10 Take 1 Tab by mouth every 90 Tab 3 03/10/20 Active mg tabletIndications: morning. 17 Essential hypertension, Uncontrolled type 2 diabetes mellitus with complication, with long-term current use of insulin ([facility]) lisinopril (PRINIVIL; TAKE ONE (1) TABLET BY 90 Tab 3 05/01/20 Active ZESTRIL) 20 mg MOUTH DAILY 17 tabletIndications: Essential hypertension, Uncontrolled type 2 diabetes mellitus with complication, with long-term current use of insulin ([facility]) isosorbide mononitrate SR Take 30 mg by mouth every Active (IMDUR) 30 mg tablet morning. Extended release cyclobenzaprine Take 10 mg by mouth three Active (FLEXERIL) 10 mg tablet times daily as needed for Muscle Cramps. gabapentin (NEURONTIN) Take 100 mg by mouth Active 100 mg capsule three times daily. carvedilol (COREG) 25 mg Take 1 tablet by mouth 180 tablet 2 06/29/20 Active tablet twice daily. Take with 17 food. aMILoride (MIDAMOR) 5 mg Take 1 tablet by mouth 60 tablet 3 07/25/20 Active tabletIndications: daily. 17 Essential hypertension insulin lispro (HUMALOG 75 units in AM; 90 U ac 30 Syringe 3 07/25/20 Active KWIKPEN) 200 unit/mL (3 supper, SQ inj 17 mL) inpnIndications: type Indications: type 2 2 diabetes mellitus diabetes mellitus insulin pen needles Use 1 each as directed 400 each 3 09/19/20 Active (disposable) (ULTICARE four times daily. 17 PEN NEEDLE) 32 gauge x 5/32" pen needle insulin pen needles Use 1 Each as directed 400 Each 3 06/30/2009/19 Discontin (disposable) (ULTICARE four times daily. 16 17 ued PEN NEEDLE) 32 gauge x /32" pen needle Active Problems Problem Noted Date Urinary retention with incomplete bladder emptying 10/22/2012 Last Assessment & Plan: Now seeing urologist in [place]. Was given Rx that he did not [...] mg daily. Arthritis 08/05/2010 Glaucoma 08/05/2010 Claudication ([facility]) 08/05/2010 Overview: a. 03/26 - Lower arterial/SARAH study: no LE arterial stenosis, mod reduced bilateral SARAH's. Obesity, morbid ([facility]) 12/13/2007 Last Assessment & Plan: Reviewed diet and exercise goals. Encouraged to continue efforts with portion reduction and decreasing amount of soda consumed each day. Knee arthroplasty 12/13/2007 DM (diabetes mellitus) ([facility]) 12/13/2007 Last Assessment & Plan: Increase [...] & Plan: Following with sleep specialist in [place]. CAD (coronary artery disease) 12/13/2007 Overview: a. History of chest pain. Treated at [facility] and told that he had "small heart attack" given NTG tabs. Seen at [facility] x 2 for chest pain resolved [...] prior study J. 10/18/07 pt admitted to [facility], [facility], in [place] with CP. Cardiac cath showed a patent stent in the obtuse marginal. He had 50% stenosis in the mid LAD, 70% stenosis in a distal right PDA that was not amenable to intervention. It was felt that he didn't have anatomy suitable for intervention and he was managed medically. Reduced mobility 12/13/2007 Gait abnormality 12/13/2007 Encounters Date Type Specialty Care Team Description 09/19/2017 Refill Endocrinology, Metabolism Haresh Bo MD & Genetics 09/03/2017 Refill Endocrinology, Metabolism Nereyda Tafoya PA-C & Genetics 07/25/2017 Office Visit Endocrinology, Metabolism Haresh Bo MD Diabetes mellitus without & Genetics complication (HCC) (Primary Dx);Essential hypertension;Type 2 diabetes mellitus with diabetic polyneuropathy, with long-term current use of insulin (HCC);Chronic pain of right knee from Last 3 Months Immunizations Name Dates Previously Given Next Due FLU VACCINE >3YO 08/21/2012, 07/11/2011 Flu Vaccine Trivalent=>3 07/16/2013 YO Family History Medical History Relation Name Comments Seizures Brother Diabetes Brother T2DM Diabetes Father Melanoma Neg Hx Relation Name Status Comments Brother Brother Father Mother Social History Tobacco Use Types Packs/Day Years Used Date Former Smoker Cigarettes 28 Quit: 08/05/1978 Smokeless Tobacco: Former User Tobacco Cessation: Counseling Given: No Alcohol Use Drinks/Week oz/Week Comments No "beer once or twice per year" Sex Assigned at Date Recorded Not on file Last Filed Vital Signs Vital Sign Reading Time Taken Blood Pressure 148/70 07/25/2017 1:06 PM CDT Pulse 81 07/25/2017 1:06 PM CDT Temperature 36.1 C (97 F) 07/11/2011 9:22 AM CDT Respiratory Rate 18 08/21/2012 2:25 PM [employer] Oxygen Saturation 99% 12/16/2007 6:00 AM CDT Inhaled Oxygen - - Concentration Weight 162.8 kg (359 lb) 07/25/2017 1:06 PM CDT Height 180.3 cm (5' 11") 07/25/2017 1:06 PM CDT Body Mass Index 50.07 07/25/2017 1:06 PM CDT Plan of Treatment Health Maintenance Due Date Last Done Comments HEPATITIS C SCREENING 1949 PHYSICAL (COMPREHENSIVE) 1956 EXAM PERTUSSIS VACCINE 1960 TETANUS VACCINE 1966 COLORECTAL CANCER 1999 SCREENING SHINGLES VACCINE 2009 ABDOMINAL AORTIC ANEURYSM 2014 SCREENING PREVNAR/PNEUMOVAX (#1) 2014 HBA1C 01/22/2018 07/25/2017, 07/25/2017, 05/07/2017, Additional history exists DILATED EYE EXAM 04/29/2018 04/29/2017 (Previously completed), 12/12/2016, 12/28/2015, Additional history exists MICROALBUMIN 05/07/2018 05/07/2017, 11/30/2015, 11/26/2013, Additional history exists FOOT EXAM 07/25/2018 07/25/2017, 05/07/2017, 01/30/2017, Additional history exists INFLUENZA VACCINE Addressed 07/03/2017 (Previously completed), Overridden with the 08/28/2014 (Declined), 07/16/2013, intention of not Additional history exists completing the topic Goals Patient Goal Type Goal Recent Progress Patient-Stat Author ed? Result Component HEMOGLOBIN A1C < 8.0 7.6 (12/05/2007 5:20 AM No RAUL Tafoya) MARILEE Dawn Procedures Procedure Name Priority Date/Time Associated Diagnosis Comments GLUCOSE METER DOWNLOAD Routine 07/25/2017 Diabetes mellitus without 12:00 AM CDT complication (HCC) from Last 3 Months Results * POC GLUCOSE QUANTITATIVE BLOOD (07/25/2017) Component Value Ref Range Glucose, POC 288 Specimen Performing Laboratory IN CLINIC * GLUCOSE METER DOWNLOAD (07/25/2017) Specimen Performing Laboratory IN CLINIC * POC HEMOGLOBIN A1C (07/25/2017) Component Value Ref Range Poc Hemoglobin A1C 8.1 Specimen Performing Laboratory Blood IN CLINIC from Last 3 Months
--- OUTSIDE RECORDS SUMMARY | 2017-10-01 15:14 | XMS REPORT | Encounter Summary ---
Author Author [facility] Organization [facility] Address Unknown Phone Unavailable Care Team Providers Care Corn Miller Name Role Phone PCP Unavailable Reason for Referral * Consult, Test & Treat (Routine) Status Reason Specialty Diagnoses / Referred By Referred To Procedures Contact Contact Closed Specialty Orthopedic Surgery Diagnoses [facility] Chronic pain of MD Stephanie 1ST AND 2ND FLOOR Required right knee [address] [place] [phone] Phone: Reason for Visit * Reason Comments Diabetes Encounter Details Date Type Department Care Team Description 07/25/2017 Office Visit [facility] Haresh Bo MD Diabetes mellitus without Physicians - Internal [address] complication (HCC) Medicine [address] (Primary Dx);Essential [address] [place] [address] hypertension;Type 2 [address] [facility] [phone] diabetes mellitus with OFFICE BLDG diabetic polyneuropathy, [place], [place] with long-term current [phone] use of insulin [phone] ([facility]);Chronic pain of right knee Social History Tobacco Use Types Packs/Day Years Used Date Former Smoker Cigarettes 28 Quit: 08/05/1978 Smokeless Tobacco: Former User Alcohol Use Drinks/Week oz/Week Comments No "beer once or twice per year" Sex Assigned at Date Recorded Not on file as of this encounter Last Filed Vital Signs Vital Sign Reading Time Taken Blood Pressure 148/70 07/25/2017 1:06 PM CDT Pulse 81 07/25/2017 1:06 PM CDT Temperature - - Respiratory Rate - - Oxygen Saturation - - Inhaled Oxygen - - Concentration Weight 162.8 kg (359 lb) 07/25/2017 1:06 PM CDT Height 180.3 cm (5' 11") 07/25/2017 1:06 PM CDT Body Mass Index 50.07 07/25/2017 1:06 PM CDT in this encounter Instructions * Patient Instructions - Haresh Bo MD - 07/25/2017 1:00 PM CDT You were seen in the diabetes clinic today for type 2 diabetes treated with insulin. Your hemoglobin A1c today was 8.1% representing a slight drop since her last visit when it was 8.3%. Your doing a great job on recording your blood sugars twice daily. Some of your morning blood sugars are approaching the target range of the low 100 mg/dL. Your evening sugars seem to be higher and this is also your largest meal. Today I have changed her insulin dose to as follows: 1 continue to take Toujeo insulin 150 units before breakfast and dinner. Takes 75 units of Humalog before breakfast and 90 units before supper. Today we also addressed her blood pressure. Your last several visits have shown a systolic blood pressure of about 150 mmHg. I would like this slightly lower so I have added another medication called amiodarone which she will take once daily in the morning. I am very happy to hear that you are making some progress on your diet and trying to walk more. My other major concern is the health of your feet. Continue to look at them every day, wear good comfortable shoes and report any lesions cuts or infection as soon as they should appear. We will see you back in 3 months but be sure to call if things change before then or if you need further assistance. in this encounter Progress Notes * Haresh Bo MD - 07/25/2017 1:00 PM CDT Formatting of this note may be different from the original. Date of Service: 07/25/2017 Subjective: Edis Sung is a 66 y.o. male. History of Present Illness This is a 66-year-old man with type 2 diabetes and high insulin dose requirements. He feels like his health is been "falling apart." His knees are his major complaint particularly the right knee which is painful on walking. His feet and ankles also hurt when walking and he asks for referral for orthopedic surgery to consider replacement of the right knee. He admits to walking more than usual. He has had increased focus on his diet and is trying to decrease the number of calories and fat calories in particular he is eating more salads. He takes Toujeo insulin twice daily 150 units each dose. He takes 75 units of Humalog before breakfast and dinner. He eats 2 meals a day with the morning meal being very light such as cereal and milk. He eats out at a cafeteria for his evening meal where he gets his major calories at 5:30 PM. Sometimes he will have a snack midday. He has had no hypoglycemia. He had a left cataract removed 4 months ago and had a complete ophthalmologic examination at that time. He has shortness of breath with walking but no chest pain. His edema has been stable. He has complete anesthesia from the tips of the toes to sock top area on the ankles. He inspects his feet bottom and top every day and seems to understand the importance of reporting complications to a should they occur. He has had some loose stools last for 5 days. Imodium has not been helpful. There is been no blood in the stool. Review of Systems The standard 14 point review of systems is positive for decreased hearing and joint pain or stiffness. Objective: aMILoride (MIDAMOR) 5 mg tablet Take 1 tablet by mouth daily. amLODIPine (NORVASC) 10 mg tablet Take 1 Tab by mouth every morning. aspirin EC 81 mg PO tablet Take 81 mg by mouth daily. atorvastatin (LIPITOR) 80 mg PO tablet Take 80 mg by mouth daily. blood sugar diagnostic test strip Use 1 Strip as directed twice daily before meals. CareSens N brand Checks twice daily brimonidine (ALPHAGAN P) 0.15 % ophthalmic solution Apply 1 Drop to both eyes three times daily. carvedilol (COREG) 25 mg tablet Take 1 tablet by mouth twice daily. Take with food. clopidogrel (PLAVIX) 75 mg Take 75 mg by mouth daily. cyclobenzaprine (FLEXERIL) 10 mg tablet Take 10 mg by mouth three times daily as needed for Muscle Cramps. ergocalciferol (VITAMIN D-2) 50,000 unit capsule Take 1 Cap by mouth every 7 days. furosemide (LASIX) 80 mg tablet Take 80 mg by mouth daily. gabapentin (NEURONTIN) 100 mg capsule Take 100 mg by mouth three times daily. HYDROcodone/acetaminophen(+) (LORTAB, NORCO) 10/325 mg tablet Take 2 tablets by mouth every 6 hours as needed for Pain insulin glargine (TOUJEO SOLOSTAR) 300 unit/mL (1.5 mL) injectable Inject 150 units under skin twice daily as directed. insulin lispro (HUMALOG KWIKPEN) 200 unit/mL (3 mL) inpn 75 units in AM; 90 U ac supper, SQ inj Indications: type 2 diabetes mellitus insulin pen needles (disposable) (ULTICARE PEN NEEDLE) 32 gauge x 5/32" pen needle Use 1 Each as directed four times daily. isosorbide mononitrate SR (IMDUR) 30 mg tablet Take 30 mg by mouth every morning. Extended release JARDIANCE 25 mg tab TAKE ONE TABLET BY MOUTH EVERY DAY 30 MINUTES BEFORE BREAKFAST. INDICATION: TYPE 2 DIABETES MELLITUS lisinopril (PRINIVIL; ZESTRIL) 20 mg tablet TAKE ONE (1) TABLET BY MOUTH DAILY Miscellaneous Medical Supply (T.E.D. ANTI-EMBOLISM STOCKING) Misc nitroglycerin (NITROSTAT) 0.[address] 1 Tab under tongue every 5 minutes as needed. omeprazole DR(+) (PRILOSEC) 20 mg capsule Take 2 Caps by mouth Daily. paroxetine (PAXIL) 20 mg PO tablet Take 20 mg by mouth daily. POTASSIUM CHLORIDE (KLOR-CON M20 PO) Take 20 mEq by mouth daily. Vitals: 07/25/17 1306 BP: 148/70 Pulse: 81 Weight: (!) 162.8 kg (359 lb) Height: 180.3 cm (71") Body mass index is 50.07 kg/(m^2). Physical Exam Constitutional: He is oriented to person, place, and time. He appears well- developed and well-nourished. No distress. HENT: Head: Normocephalic and atraumatic. Eyes: Conjunctivae and EOM are normal. Pupils are equal, round, and reactive to light. Right eye exhibits no discharge. Left eye exhibits no discharge. Both retinas are benign, no H/E Neck: Normal range of motion. Neck supple. No JVD present. No tracheal deviation present. No thyromegaly present. Cardiovascular: Normal rate, regular rhythm, normal heart sounds and intact distal pulses. No murmur heard. Pulses: Dorsalis pedis pulses are 0 on the right side, and 0 on the left side. Posterior tibial pulses are 0 on the right side, and 0 on the left side. Pulmonary/Chest: Effort normal and breath sounds normal. He has no wheezes. He has no rales. Abdominal: Soft. Bowel sounds are normal. Musculoskeletal: Normal range of motion. Right foot: There is no deformity. Left foot: There is normal range of motion and no deformity. 2+ pretibial edema, chronic edema with redness to mid calf. Numb to touch to mid calf bilaterally. Feet: Right Foot: Protective Sensation: 5 sites tested. 5 sites sensed. Skin Integrity: Negative for ulcer, blister, skin breakdown, erythema, warmth, callus or dry skin. Left Foot: Protective Sensation: 5 sites tested. 5 sites sensed. Skin Integrity: Negative for ulcer, blister, skin breakdown, erythema, warmth, callus or dry skin. Lymphadenopathy: He has no cervical adenopathy. Neurological: He is alert and oriented to person, place, and time. He has normal reflexes. No cranial nerve deficit. Coordination normal. Skin: Skin is warm and dry. No rash noted. He is not diaphoretic. No erythema. Psychiatric: He has a normal mood and affect. His behavior is normal. Judgment and thought content normal. Nursing note and vitals reviewed. Comprehensive Metabolic Profile Lab Results Component Value Date/Time NA 140 05/07/2017 08:06 AM K 3.6 05/07/2017 08:06 AM CL 107 05/07/2017 08:06 AM CO2 24 05/07/2017 08:06 AM GAP 9 05/07/2017 08:06 AM BUN 9 05/07/2017 08:06 AM CR 0.82 05/07/2017 08:06 AM GLU 161 (H) 05/07/2017 08:06 AM GLU 140 (H) 07/20/2006 08:42 AM Lab Results Component Value Date/Time CA 9.3 05/07/2017 08:06 AM ALBUMIN 4.0 05/07/2017 08:06 AM TOTPROT 7.4 05/07/2017 08:06 AM ALKPHOS 90 05/07/2017 08:06 AM AST 12 05/07/2017 08:06 AM ALT 15 05/07/2017 08:06 AM TOTBILI 0.6 05/07/2017 08:06 AM GFR >60 05/07/2017 08:06 AM GFRAA >60 05/07/2017 08:06 AM A1c 8.1% Assessment and Plan: 1. Diabetes mellitus without complication (HCC) POC GLUCOSE QUANTITATIVE BLOOD POC HEMOGLOBIN A1C GLUCOSE METER DOWNLOAD 2. Essential hypertension aMILoride (MIDAMOR) 5 mg tablet 3. Type 2 diabetes mellitus with diabetic polyneuropathy, with long-term current use of insulin (HCC) insulin lispro (HUMALOG KWIKPEN) 200 unit/mL (3 mL ) inpn 4. Chronic pain of right knee AMB REFERRAL TO ORTHOPEDICS Diagnoses and all orders for this visit: Diabetes mellitus without complication (HCC) - POC GLUCOSE QUANTITATIVE BLOOD - POC HEMOGLOBIN A1C - GLUCOSE METER DOWNLOAD Essential hypertension - aMILoride (MIDAMOR) 5 mg tablet; Take 1 tablet by mouth daily. Type 2 diabetes mellitus with diabetic polyneuropathy, with long-term current use of insulin ([facility]) - insulin lispro (HUMALOG KWIKPEN) 200 unit/mL (3 mL) inpn; 75 units in AM; 90 U ac supper, SQ inj Indications: type 2 diabetes mellitus Chronic pain of right knee - ORTHOPEDIC SURGERY Patient Instructions You were seen in the diabetes clinic today for type 2 diabetes treated with insulin. Your hemoglobin A1c today was 8.1% representing a slight drop since her last visit when it was 8.3%. Your doing a great job on recording your blood sugars twice daily. Some of your morning blood sugars are approaching the target range of the low 100 mg/dL. Your evening sugars seem to be higher and this is also your largest meal. Today I have changed her insulin dose to as follows: 1 continue to take Toujeo insulin 150 units before breakfast and dinner. Takes 75 units of Humalog before breakfast and 90 units before supper. Today we also addressed her blood pressure. Your last several visits have shown a systolic blood pressure of about 150 mmHg. I would like this slightly lower so I have added another medication called amiodarone which she will take once daily in the morning. I am very happy to hear that you are making some progress on your diet and trying to walk more. My other major concern is the health of your feet. Continue to look at them every day, wear good comfortable shoes and report any lesions cuts or infection as soon as they should appear. We will see you back in 3 months but be sure to call if things change before then or if you need further assistance. call if diarrhea persists Future Appointments Date Time Provider Department Center 10/26/2017 2:00 PM Nereyda Tafoya PA-C [facility] in this encounter Plan of Treatment Name Priority Associated Diagnoses Order Schedule AMB REFERRAL TO ORTHOPEDICS Routine Chronic pain of right Ordered: 07/25 knee as of this encounter Goals Patient Goal Type Goal Recent Progress Patient-Stat Author ed? Result Component HEMOGLOBIN A1C < 8.0 7.6 (12/05/2007 5:20 AM No RAUL Tafoya) MARILEE Dawn as of this encounter Procedures Procedure Name Priority Date/Time Associated Diagnosis Comments GLUCOSE METER DOWNLOAD Routine 07/25/2017 Diabetes mellitus without 12:00 AM CDT complication (HCC) in this encounter Results * POC HEMOGLOBIN A1C (07/25/2017) Component Value Ref Range Poc Hemoglobin A1C 8.1 Specimen Performing Laboratory Blood IN CLINIC * POC GLUCOSE QUANTITATIVE BLOOD (07/25/2017) Component Value Ref Range Glucose, POC 288 Specimen Performing Laboratory IN CLINIC in this encounter Visit Diagnoses Diagnosis Diabetes mellitus without complication (HCC) - Primary Type II or unspecified type diabetes mellitus without mention of complication , not stated as uncontrolled Essential hypertension Unspecified essential hypertension Type 2 diabetes mellitus with diabetic polyneuropathy, with long-term current use of insulin (HCC) Chronic pain of right knee in this encounter
--- OUTSIDE RECORDS SUMMARY | 2017-10-01 15:14 | XMS REPORT | Continuity of Care Document ---
Author Author [facility] Organization [facility] Address Unknown Phone Unavailable Care Team Providers Care Developer Automatic Name Role Phone [employer] Unavailable Unavailable Problems Medications Allergies, Adverse Reactions, Alerts Immunizations Results Vital Signs Encounters Location Location Details Encounter Type Encounter Number Reason For Visit Attending Provider ADM Date DC Date Status Source OUTPATIENT [id number] BINACA SHULTZ 05/07/20172016 Active [facility] [place] [facility] Active [facility] Procedures Plan of Care Social History Assessment and Plan Family History Advance Directives Functional Status
--- OUTSIDE RECORDS SUMMARY | 2017-10-01 15:14 | XMS REPORT | Encounter Summary ---
Author Author [facility] Organization [facility] Address Unknown Phone Unavailable Care Team Providers Care Statistical Financial Analyst Name Role Phone PCP Unavailable Reason for Visit * Reason Comments Medication Refill Vitamin D Encounter Details Date Type Department Care Team Description 09/03/2017 Refill [facility] Nereyda Tafoya PA-C Physicians - Internal [address] [facility] Medicine [address] [facility] [place] [address] OFFICE BLDG [phone] [address] [place] [address] Social History Tobacco Use Types Packs/Day Years Used Date Former Smoker Cigarettes 28 Quit: 08/05/1978 Smokeless Tobacco: Former User Alcohol Use Drinks/Week oz/Week Comments No "beer once or twice per year" Sex Assigned at Date Recorded Not on file as of this encounter Plan of Treatment Not on fileas of this encounter Goals Patient Goal Type Goal Recent Progress Patient-Stat Author ed? Result Component HEMOGLOBIN A1C < 8.0 7.6 (12/05/2007 5:20 AM No RAUL Tafoya) MARILEE Dawn as of this encounter Visit Diagnoses Not on filein this encounter
--- OUTSIDE RECORDS SUMMARY | 2017-10-01 15:14 | XMS REPORT | Encounter Summary ---
Author Author [facility] Organization [facility] Address Unknown Phone Unavailable Care Team Providers Care Dental Assisting Instructor Name Role Phone PCP Unavailable Reason for Visit * Reason Comments Medication Refill pen needles Encounter Details Date Type Department Care Team Description 09/19/2017 Refill [facility] Haresh Bo MD Physicians - Internal [address] [facility] Medicine [address] [place] [address] [address] [facility] MED [phone] [place] [address] Social History Tobacco Use Types Packs/Day Years [...]
--- NOTE | 2017-10-01 15:26 | ED Cough/URI ---
General Chief Complaint: Glucose Problems Stated Complaint: LETHARGIC Source: patient, EMS Exam Limitations: clinical condition History of Present Illness Time seen by provider: 15:14 Initial Comments Patient presents to ER by EMS with a chief complaint per EMS the family called them because they found him at his house passed out. When EMS arrived they said the blood glucose was 40 to give him an amp of D50 and his blood glucose 1/200. This is the patient does not give much history but didn't open his eyes and was alert after the give him the sugar. Patient says he ate rice crispy for breakfast that morning and then he remembered he was going to go out with his family after going to his doctor's appointment this morning. He went to the doctor's appointment to get some refills on his pain medications hydrocodone. He took 2 tablets of hydrocodone this morning but none since then. He does not remember falling or anything after getting home from the doctor's office. Family says he could've been away for much more than an hour. Patient reports she is on long-acting insulin twice a day and Humalog 75 units twice a day with meals. He typically eats 3 meals a day. He says had a cough nonproductive for the last one day. No fevers, chills, nausea, vomiting, diarrhea, abdominal pain , chest pain. He does feel little short of breath. EMS put a nonrebreather on him because his sats were 80 something percent when he was still waking up. Patient does have obesity hypoventilation syndrome and sleep apnea likely and says he uses a CPAP at home. The patient says he has COPD but does not smoke. He denies using oxygen at home. Allergies and Home Medications Allergies Coded Allergies: No Known Drug Allergies (Verified , 10/17/07) Home Medications Amlodipine Besylate 10 Mg Tablet, 10 MG PO DAILY, (Reported) Aspirin 81 Mg Tab.chew, 81 MG PO DAILY, (Reported) Atorvastatin Calcium 80 Mg Tablet, 80 MG PO HS, (Reported) Brimonidine Tartrate 5 Ml Drops, 1 DROP OU Q8H, (Reported) Carvedilol 25 Mg Tablet, 25 MG PO BID, (Reported) Clopidogrel Bisulfate 75 Mg Tablet, 75 MG PO DAILY, (Reported) Empagliflozin 25 Mg Tablet, 25 MG PO DAILY, (Reported) Ergocalciferol (Vitamin D2) 50,000 Unit Capsule, 50,000 UNITS PO Mo, (Reported) Furosemide 80 Mg Tablet, 80 MG PO DAILY, (Reported) Gabapentin 100 Mg Capsule, 100 MG PO TID, (Reported) Hydrocodone/Acetaminophen 1 Each Tablet, 2 TAB PO Q6H PRN for PAIN, (Reported) Insulin Glargine,Hum.rec.anlog 300 Unit/1 Ml Insuln.pen, 150 UNITS SQ BID, ( Reported) Insulin Lispro 200 Unit/1 Ml Insuln.pen, 75 UNITS SQ BID, (Reported) Isosorbide Mononitrate 30 Mg Tab.er.24h, 30 MG PO DAILY, (Reported) Lisinopril 20 Mg Tablet, 20 MG PO DAILY, (Reported) Omeprazole 20 Mg Capsule.dr, 20 MG PO BID, (Reported) Paroxetine HCl 20 Mg Tablet, 20 MG PO DAILY, (Reported) Potassium Chloride 20 Meq Tab.er.prt, 20 MEQ PO DAILY, (Reported) Constitutional: No chills, No diaphoresis, No fever, No malaise EENTM: nose congestion, No ear discharge, No ear pain Respiratory: cough, No phlegm, short of breath, No wheezing Cardiovascular: see HPI, No chest pain, No palpitations, syncope Gastrointestinal: No abdominal pain, No constipation, No diarrhea, No nausea, No vomiting Genitourinary: No discharge Musculoskeletal: No back pain, No joint pain Skin: No pruritus, No rash Psychiatric/Neurological: Denies Headache, Denies Numbness Past Trgsvdj-Wtmtvc-Bsekoy Hx Patient Social History Alcohol Use: Denies Use Recreational Drug Use: No Smoking Status: Former Smoker Type Used: Cigarettes Former Smoker, Quit: Sep 24, 1986 Recent Hopitalizations: Yes (OCT 2016) Immunizations Up To Date Tetanus Booster (TDap): Unknown PED Vaccines UTD: Yes Date of Pneumonia Vaccine: February 04, 2014 Date of Influenza Vaccine: May 25, 2013 Seasonal Allergies Seasonal Allergies: No Surgeries History of Surgeries: Yes (STENT PLACEMENT, VASECTOMY, SURGERY TO LEFT AXILARRY -DRAINED AREA, MRSA POS) Surgeries: Abdominal, Cardiac, Coronary Stent, Joint Replacement, Orthopedic, Vascular Surgery, Vasectomy Respiratory History of Respiratory Disorde: Yes (O2 AT HS--REFUSES TO WEAR CPAP) Respiratory Disorders: Sleep Apnea, COPD Currently Using CPAP: No Currently Using BIPAP: No Cardiovascular History of Cardiac Disorders: Yes (MULTIPLE INTERVENTIONS IN HEART AND LEGS; CHF; CAROTID BRUIT) Cardiac Disorders: Chronic Edema/Swelling, Coronary Artery Disease, Deep Vein Thrombosis, High Cholesterol, Hypertension, Peripheral Vascular, Valvular Heart Disease Neurological History of Neurological Disord: Yes (CVA around 07') Neurological Disorders: Neuropathy Reproductive System Hx Reproductive Disorders: No Sexually Transmitted Disease: No HIV/AIDS: No Genitourinary History of Genitourinary Disor: No Gastrointestinal History of Gastrointestinal Di: Yes Gastrointestinal Disorders: Gastroesophageal Reflux Musculoskeletal History of Musculoskeletal Dis: Yes Musculoskeletal Disorders: Arthritis, Chronic Back Pain Endocrine History of Endocrine Disorders: Yes (MORBID OBESITY) Endocrine Disorders: Diabetes, Insulin dep HEENT HEENT Disorders: Glaucoma Loss of Vision: Denies Hearing Impairment: Denies Cancer History of Cancer: No Psychosocial History of Psychiatric Problem: No Integumentary History of Skin or Integumenta: Yes (MRSA; ABSCESSES AND CELLULITIS; I&D'S'; CHRONIC LEG ULCERS, cold sores) Skin/Integumentary Disorders: Herpes Blood Transfusions History of Blood Disorders: No Adverse Reaction to a Blood Tr: No Family Medical History Family Medial History: Arthritis 19 MOTHER Completed stroke 19 MOTHER Family history: Diabetes mellitus 19 MOTHER Family history: Hypertension 19 FATHER 19 MOTHER Hypercholesterolemia 19 MOTHER G8 BROTHER G8 BROTHER Hypertension 19 MOTHER Kidney disease 19 MOTHER Seizure disorder G8 BROTHER No Family History of: AIDS Abdominal aortic aneurysm Abdominal aortic aneurysm Bacon's disease Neeraj's disease Alcoholism Alcoholism Alzheimer's disease Aphasia Aphasia Asthma Cancer Cancer of colon Cancer of mouth Cardiovascular disease Cataract Cataracts Chest pain Colon cancer Congenital disease Congenital heart disease Congenital heart disease Congestive heart failure Coronary thrombosis Cystic fibrosis Deafness or hearing loss Dementia Dementia Diabetes mellitus Drug abuse Dysphagia Family history: Allergy Family history: Alzheimer's disease Family history: Arthritis Family history: Asthma Family history: Breast disease Family history: Cardiovascular disease Family history: Coronary thrombosis Family history: Gastrointestinal disease Family history: Glaucoma Family history: Osteoporosis Family history: Thyroid disorder Fibrocystic disease of breast Gastroenteritis Glaucoma Headache Headache disorder Hearing loss Heart disease Hereditary disease History of - anemia History of - disorder History of - respiratory disease History of drug abuse Human immunodeficiency virus (HIV) seropositivity Infertile Malignant neoplasm of lung Myocardial infarction Parkinson's disease Prostate cancer Psychotic disorder Stroke Tuberculosis Visual impairment Physical Exam Vital Signs Vital Sign - Last 12Hours 10/01/17 10/01/17 15:09 15:41 Temp 95.9 Pulse 56 Resp 18 B/P (MAP) 121/67 (85) Pulse Ox 95 O2 Delivery Room Air O2 Flow Rate 2.00 Capillary Refill : General Appearance: WD/WN, mild distress Eyes: Bilateral Eye Normal Inspection, Bilateral Eye PERRL, Bilateral Eye EOMI HEENT: PERRL/EOMI, normal ENT inspection, TMs normal, pharynx normal (oral mucosa mildly dry) Neck: non-tender, supple, normal inspection Respiratory: chest non-tender, no respiratory distress, no accessory muscle use , decreased breath sounds, wheezing (few) Cardiovascular: normal peripheral pulses, regular rate, rhythm Gastrointestinal: normal bowel sounds, non tender, soft Extremities: non-tender, normal capillary refill, other (chronic pedal edema 1 + pitting) Neurologic/Psychiatric: alert, oriented x 3 Skin: normal color, warm/dry Progress/Results/Core Measures Suspected Sepsis SIRS Temperature: Pulse: Respiratory Rate: Laboratory Tests 10/01/17 16:57: White Blood Count 11.1H Blood Pressure / Mean: Laboratory Tests 10/01/17 16:57: Creatinine 1.10, Platelet Count 224, Total Bilirubin 0.7 Results/Orders Lab Results Laboratory Tests Test 10/01/17 15:36 10/01/17 16:57 Range/Units Blood Gas Puncture Site R RAD Blood Gas Patient Temperature 96.8 Arterial Blood pH 7.37 7.37-7.43 Arterial Blood Partial Pressure CO2 36 35-45 MMHG Arterial Blood Partial Pressure O2 76 L 79-93 MMHG Arterial Blood HCO3 21 L 23-27 MMOL/L Arterial Blood Total CO2 21.6 21.0-31.0 MMOL/L Arterial Blood Oxygen Saturation 96 94-100 % Arterial Blood Base Excess -4.1 L -2.5-2.5 MMOL/L Wade Test YES-POS Blood Gas Ventilator Setting NO Blood Gas Inspired Oxygen RA White Blood Count 11.1 H 4.3-11.0 10^3/uL Red Blood Count 4.34 L 4.35-5.85 10^6/uL Hemoglobin 13.4 13.3-17.7 G/DL Hematocrit 38 L 40-54 % Mean Corpuscular Volume 88 80-99 FL Mean Corpuscular Hemoglobin 31 25-34 PG Mean Corpuscular Hemoglobin Concent 35 32-36 G/DL Red Cell Distribution Width 14.8 H 10.0-14.5 % Platelet Count 224 130-400 10^3/uL Mean Platelet Volume 11.5 H 7.4-10.4 FL Neutrophils (%) (Auto) 77 H 42-75 % Lymphocytes (%) (Auto) 13 12-44 % Monocytes (%) (Auto) 8 0-12 % Eosinophils (%) (Auto) 2 0-10 % Basophils (%) (Auto) 0 0-10 % Neutrophils # (Auto) 8.5 H 1.8-7.8 X 10^3 Lymphocytes # (Auto) 1.4 1.0-4.0 X 10^3 Monocytes # (Auto) 0.9 0.0-1.0 X 10^3 Eosinophils # (Auto) 0.2 0.0-0.3 10^3/uL Basophils # (Auto) 0.0 0.0-0.1 10^3/uL Sodium Level 135 135-145 MMOL/L Potassium Level 3.7 3.6-5.0 MMOL/L Chloride Level 103 98-107 MMOL/L Carbon Dioxide Level 20 L 21-32 MMOL/L Anion Gap 12 5-14 MMOL/L Blood Urea Nitrogen 20 H 7-18 MG/DL Creatinine 1.10 0.60-1.30 MG/DL Estimat Glomerular Filtration Rate > 60 BUN/Creatinine Ratio 18 Glucose Level 70 70-105 MG/DL Calcium Level 9.2 8.5-10.1 MG/DL Total Bilirubin 0.7 0.1-1.0 MG/DL Aspartate Amino Transf (AST/SGOT) 20 5-34 U/L Alanine Aminotransferase (ALT/SGPT) 18 0-55 U/L Alkaline Phosphatase 80 40-136 U/L C-Reactive Protein High Sensitivity 6.90 H 0.00-0.50 MG/DL B-Type Natriuretic Peptide 134.3 H <100.0 PG/ML Total Protein 7.4 6.4-8.2 GM/DL Albumin 3.8 3.2-4.5 GM/DL Micro Results Microbiology 10/01/17 Influenza Types A,B Antigen (VAUGHN) - Final, Complete My Orders Orders - VICTORINA ANDRE Arterial Blood Gas (10/01/17 15:36) BNP (10/01/17 15:21) Cbc With Automated Diff (10/01/17 15:21) Comprehensive Metabolic Panel (10/01/17 15:21) Hs C Reactive Protein (1/8/18 15:21) Influenza A And B Antigens (10/01/17 15:21) Chest 1 View, Ap/Pa Only (10/01/17 15:21) Albuterol/Ipra Inhalation Soln (Duoneb I (10/01/17 15:30) Svn Sm Volume Nebulizer Rt-Rfs (10/01/17 15:21) Accucheck Stat ONCE (10/01/17 15:23) Cho 60g/M 3snack (16-2000 Clement) (10/01/17 Lunch) Medications Given in ED Current Medications Medications Dose Ordered Sig/Coral Route Start Time Stop Time Status Last Admin Dose Admin Albuterol/ Ipratropium 3 ml ONCE ONCE INH 10/01/17 15:30 10/01/17 15:31 DC 10/01/17 15:41 3 ML Vital Signs/I&O Vital Sign - Last 12Hours 10/01/17 10/01/17 15:09 15:41 Temp 95.9 Pulse 56 Resp 18 B/P (MAP) 121/67 (85) Pulse Ox 95 98 O2 Delivery Room Air Nasal Cannula O2 Flow Rate 2.00 Capillary Refill : Progress Note #1: Time: 16:58 Progress Note ABG is not remarkable at this time. There is a miscommunication and a delay in his labs which is increased his length of stay in the ER. We are still waiting for lab results. Patient is comfortable, alert oriented and ate dinner. Progress Note #2: Time: 18:20 Progress Note Patient is no longer short of breath. His sats are in the mid 90s on room air. He is not expressing any pain or nausea and feels that he is ready to go home. His repeat CBG after eating dinner is 88. We will put crackers in his hand let him go home and eat supper. Diagnostic Imaging Diagonstic Imaging: Xray Plain Films/CT/US/NM/MRI: chest Comments NAME: JEFF TERRY MED REC#: [id number] PHYSICIAN: VICTORINA ANDRE MD CC: DOE PHAM MD; VICTORINA ANDRE Page 1 of 1 RADIOLOGY REPORT [place] CC: DOE PHAM MD; VICTORINA ANDRE Page 1 of 1 RADIOLOGY REPORT NAME: JEFF TERRY [facility] REC#: [id number] PT STATUS: REG ER : 1950 PHYSICIAN: VICTORINA ANDRE MD ADMIT DATE: 10/01/17/ER Signed Date of Exam: 10/01/17 CHEST 1 VIEW, AP/PA ONLY INDICATION: Hyperglycemia. EXAMINATION: Portable chest at 3:39 PM. FINDINGS: The heart size and pulmonary vascularity are normal. The lungs are clear. There are no effusions or pneumothoraces. IMPRESSION: Negative chest. Dictated by: Dictated on workstation # [id number] Dict: 10/01/17 1548 Trans: 10/01/17 1637 Interpreted by: DOE PHAM MD Electronically signed by: DOE PHAM MD 10/01/17 1637 Reviewed: Reviewed by Me Departure Impression Impression: Primary Impression: Hypoglycemic reaction Disposition: 01 HOME, SELF-CARE Condition: Improved Departure-Patient Inst. Decision time for Depature: 18:22 Referrals: SHIV COOK MD (PCP/Family) Primary Care Physician Patient Instructions: Diabetes Type 2 (DC) Add. Discharge Instructions: Go home and eat some food high in fiber. Take your insulin and check your sugar. Plan to follow up with your primary care physician within the next 1-2 weeks. If her sugar goes low again or you begin to have other symptoms such as nausea, shortness of breath, cough, diarrhea, abdominal pain or chest pain you should return to the ER for further evaluation. All discharge instructions reviewed with patient and/or family. Voiced understanding. Copy Copies To 1: SHIV COOK MD, TITUS J Oct 01, 2017 15:26
[2017-10-01] MEDS ORDERED: RT-ALBUTEROL/IPRATROPIUM 3 ML (DUONEB) VIAL INH ONE (15:30)
[2017-10-01 15:43] LABS: ABG BASE EXCESS -4.1 MMOL/L (-2.5-2.5); ABG OXYGEN SATURATION 96 % (94-100); ABG PCO2 36 MMHG (35-45); ABG PH 7.37 (7.37-7.43); ABG PO2 76 MMHG (79-93); ABG TCO2 21.6 MMOL/L (21.0-31.0)
[2017-10-01 15:47] LABS: ALLENS TEST YES-POS; INSPIRED O2 RA; PATIENT TEMP 96.8; VENTILATOR NO
--- NOTE | 2017-10-01 15:55 | Diagnostic Imaging Report ---
INDICATION: Hyperglycemia. EXAMINATION: Portable chest at 3:39 PM. FINDINGS: The heart size and pulmonary vascularity are normal. The lungs are clear. There are no effusions or pneumothoraces. IMPRESSION: Negative chest. Dictated by: Dictated on workstation # [id number]
[2017-10-01 17:20] LABS: BASOPHILS % (AUTO) 0 % (0-10); EOSINOPHILS # (AUTO) 0.2 10^3/uL (0.0-0.3); EOSINOPHILS % (AUTO) 2 % (0-10); HEMATOCRIT 38 % (40-54); HEMOGLOBIN 13.4 G/DL (13.3-17.7); LYMPHOCYTES # (AUTO) 1.4 X 10^3 (1.0-4.0); LYMPHOCYTES % (AUTO) 13 % (12-44); MEAN CORPUSCULAR HEMOGLOBIN 31 PG (25-34); MEAN CORPUSCULAR HGB CONC 35 G/DL (32-36); MEAN CORPUSCULAR VOLUME 88 FL (80-99); MEAN PLATELET VOLUME 11.5 FL (7.4-10.4); MONOCYTES # (AUTO) 0.9 X 10^3 (0.0-1.0); MONOCYTES % (AUTO) 8 % (0-12); NEUTROPHILS # (AUTO) 8.5 X 10^3 (1.8-7.8); NEUTROPHILS % (AUTO) 77 % (42-75); PLATELET COUNT 224 10^3/uL (130-400); RED BLOOD COUNT 4.34 10^6/uL (4.35-5.85); RED CELL DISTRIBUTION WIDTH 14.8 % (10.0-14.5); WHITE BLOOD COUNT 11.1 10^3/uL (4.3-11.0)
[2017-10-01 17:27] LABS: ALANINE AMINOTRANSFERASE 18 U/L (0-55); ALBUMIN 3.8 GM/DL (3.2-4.5); ALKALINE PHOSPHATASE 80 U/L (40-136); BILIRUBIN,TOTAL 0.7 MG/DL (0.1-1.0); BUN/CREATININE RATIO 18; CALCIUM 9.2 MG/DL (8.5-10.1); CARBON DIOXIDE 20 MMOL/L (21-32); CHLORIDE 103 MMOL/L (98-107); GFR ESTIMATED > 60; GLUCOSE 70 MG/DL (70-105); POTASSIUM 3.7 MMOL/L (3.6-5.0); SODIUM 135 MMOL/L (135-145); TOTAL PROTEIN 7.4 GM/DL (6.4-8.2)
[2017-10-01 18:26] VITALS: BP 129/68
== END 2017-10-01 18:36 | disposition home or self-care (01) ==
LOC: EDUNIT# 15:09 → ER 15:10
DX: E11.649 Type 2 diabetes mellitus with hypoglycemia without coma (principal); J44.9 Chronic obstructive pulmonary disease, unspecified; G47.30 Sleep apnea, unspecified; I11.0 Hypertensive heart disease with heart failure; I50.9 Heart failure, unspecified; I25.10 Atherosclerotic heart disease of native coronary artery without angina pectoris; I73.9 Peripheral vascular disease, unspecified; E78.00 Pure hypercholesterolemia, unspecified; K21.9 Gastro-esophageal reflux disease without esophagitis; E66.01 Morbid (severe) obesity due to excess calories; E11.40 Type 2 diabetes mellitus with diabetic neuropathy, unspecified; Z86.718 Personal history of other venous thrombosis and embolism; Z79.82 Long term (current) use of aspirin; Z79.4 Long term (current) use of insulin; Z86.73 Personal history of transient ischemic attack (TIA), and cerebral infarction without residual deficits; Z98.52 Vasectomy status; Z87.891 Personal history of nicotine dependence; Z95.5 Presence of coronary angioplasty implant and graft; Z86.14 Personal history of Methicillin resistant Staphylococcus aureus infection; Z82.49 Family history of ischemic heart disease and other diseases of the circulatory system; Z68.43 Body mass index [BMI] 50.0-59.9, adult
CPT/HCPCS: 36415; 71045; 80053; 82805; 82962; 83880; 85025; 86141; 87804; 94640; 99283

== ENCOUNTER → 2017-11-07 | Outpatient (CLI) | payer MEDICARE, MEDICAID ==
[2017-11-07 17:24] LABS: BUN/CREATININE RATIO 20; CALCIUM 9.2 MG/DL (8.5-10.1); CARBON DIOXIDE 21 MMOL/L (21-32); CHLORIDE 102 MMOL/L (98-107); CREATININE SERUM 1.02 MG/DL (0.60-1.30); GFR ESTIMATED > 60; GLUCOSE 176 MG/DL (70-105); POTASSIUM 4.4 MMOL/L (3.6-5.0); SODIUM 134 MMOL/L (135-145)
== END ==
LOC: LAB 16:46
PROVIDERS: ATTEND Physician Assistant Surgical
DX: I10 Essential (primary) hypertension (principal); E11.65 Type 2 diabetes mellitus with hyperglycemia; E11.43 Type 2 diabetes mellitus with diabetic autonomic (poly)neuropathy; Z79.4 Long term (current) use of insulin
CPT/HCPCS: 36415; 80048

== ENCOUNTER → 2018-03-08 | Outpatient (CLI) | payer MEDICARE, MEDICAID | LOC: CARD 10:37 | PROVIDERS: ATTEND Physician Assistant | DX: I25.10 Atherosclerotic heart disease of native coronary artery without angina pectoris (principal); I10 Essential (primary) hypertension; E78.2 Mixed hyperlipidemia; I73.9 Peripheral vascular disease, unspecified; E11.9 Type 2 diabetes mellitus without complications; I07.1 Rheumatic tricuspid insufficiency | CPT/HCPCS: 93306 ==

== ENCOUNTER 2018-07-27 12:39 | Emergency (ER) | payer MEDICARE, MEDICAID ==
[~2018-07-27] VITALS: Ht 180.3 cm; Wt 166.9 kg
[~2018-07-27 12:39] MED LIST changes: -AMLO10TA2 PO; +AMLO10TA6 PO
--- NOTE | 2018-07-27 13:11 | Diagnostic Imaging Report ---
INDICATION: Dyspnea and cough for three days. COMPARISON: 10/01/2017. DISCUSSION: Two views of the chest were obtained. Normal heart size. No focal consolidation, pleural fluid, or pneumothorax. No osseous abnormality. IMPRESSION: 1. Negative chest. Dictated by: Dictated on workstation # [id number]
[2018-07-27] MEDS ORDERED: BENZONATATE 100 MG (TESSALON) CAPSULE PO SCH (13:30)
[2018-07-27] MEDS ORDERED: BENZ-13 PO (14:11)
--- NOTE | 2018-07-27 14:11 | ED Cough/URI ---
General Chief Complaint: Cough/Cold/Flu Symptoms Stated Complaint: COUGH Nursing Triage Note: ARRIVED VIA ELECTRIC WC TO ROOM 07. COMPLAINS OF COUGH AND HAVING A FEVER OF 99 LAST NIGHT. HAS TAKEN ASA FOR FEVER. Source: patient Exam Limitations: no limitations History of Present Illness Date Seen by Provider: Jul 27, 2018 Time Seen by Provider: 12:43 Initial Comments Patient is a 67 year old male who presents to the emergency room with complaints of a cough for 3 days and a low grade fever of 99 degrees last night. Reports taking aspirin for fever. Denies SOB, productive cough, chest pain. Timing/Duration: other (3 days) Severity/Quality: dry cough Prior Episodes/Possible Cause: no prior episodes Associated Symptoms: fever/chills Allergies and Home Medications Allergies Coded Allergies: No Known Drug Allergies (Verified , 10/17/07) Home Medications Amlodipine Besylate 10 Mg Tablet, 10 MG PO DAILY, (Reported) Aspirin 81 Mg Tab.chew, 81 MG PO DAILY, (Reported) Atorvastatin Calcium 80 Mg Tablet, 80 MG PO HS, (Reported) Benzonatate 100 Mg Capsule, 100 MG PO TID Prescribed by: ABDIRIZAK TAYLOR on 07/27/18 1411 Brimonidine Tartrate 5 Ml Drops, 1 DROP OU Q8H, (Reported) Carvedilol 25 Mg Tablet, 25 MG PO BID, (Reported) Clopidogrel Bisulfate 75 Mg Tablet, 75 MG PO DAILY, (Reported) Empagliflozin 25 Mg Tablet, 25 MG PO DAILY, (Reported) Ergocalciferol (Vitamin D2) 50,000 Unit Capsule, 50,000 UNITS PO Mo, (Reported) Furosemide 80 Mg Tablet, 80 MG PO DAILY, (Reported) Gabapentin 100 Mg Capsule, 100 MG PO TID, (Reported) Hydrocodone/Acetaminophen 1 Each Tablet, 2 TAB PO Q6H PRN for PAIN, (Reported) Insulin Glargine,Hum.rec.anlog 300 Unit/1 Ml Insuln.pen, 150 UNITS SQ BID, ( Reported) Insulin Lispro 200 Unit/1 Ml Insuln.pen, 75 UNITS SQ BID, (Reported) Isosorbide Mononitrate 30 Mg Tab.er.24h, 30 MG PO DAILY, (Reported) Lisinopril 20 Mg Tablet, 20 MG PO DAILY, (Reported) Omeprazole 20 Mg Capsule.dr, 20 MG PO BID, (Reported) Paroxetine HCl 20 Mg Tablet, 20 MG PO DAILY, (Reported) Potassium Chloride 20 Meq Tab.er.prt, 20 MEQ PO DAILY, (Reported) Patient Home Medication List Home Medication List Reviewed: Yes Review of Systems Review of Systems Constitutional: see HPI, fever Respiratory: see HPI, cough; No hemoptysis, No phlegm, No short of breath, No wheezing All Other Systems Reviewed Negative Unless Noted: Yes Past Fdfjbks-Likhdu-Atynbx Hx Past Med/Social Hx: Reviewed Nursing Past Med/Soc Hx Patient Social History Alcohol Use: Rarely Uses Recreational Drug Use: No Smoking Status: Former Smoker Type Used: Cigarettes Former Smoker, Quit: Sep 24, 1986 Recent Foreign Travel: No Contact w/Someone Who Travel: No Recent Infectious Disease Expo: No Recent Hopitalizations: Yes (OCT 2016) Immunizations Up To Date Tetanus Booster (TDap): Unknown PED Vaccines UTD: Yes Date of Pneumonia Vaccine: February 04, 2014 Date of Influenza Vaccine: May 25, 2013 Seasonal Allergies Seasonal Allergies: No Past Medical History Surgeries: Yes (STENT PLACEMENT, VASECTOMY, SURGERY TO LEFT AXILARRY-DRAINED AREA, MRSA POS) Abdominal, Cardiac, Coronary Stent, Joint Replacement, Orthopedic, Vascular Surgery, Vasectomy Respiratory: No (O2 AT HS--REFUSES TO WEAR CPAP) Sleep Apnea, COPD Currently Using CPAP: No Currently Using BIPAP: No Cardiac: Yes (MULTIPLE INTERVENTIONS IN HEART AND LEGS; CHF; CAROTID BRUIT) Chronic Edema/Swelling, Coronary Artery Disease, Deep Vein Thrombosis, High Cholesterol, Hypertension, Peripheral Vascular, Valvular Heart Disease Neurological: Yes (CVA around 07') Neuropathy Reproductive Disorders: No Sexually Transmitted Disease: No HIV/AIDS: No Genitourinary: No Gastrointestinal: Yes Gastroesophageal Reflux Musculoskeletal: Yes Arthritis, Chronic Back Pain Endocrine: Yes (MORBID OBESITY) Diabetes, Insulin dep Glaucoma Loss of Vision: Denies Hearing Impairment: Denies Cancer: No Psychosocial: No Integumentary: Yes (MRSA; ABSCESSES AND CELLULITIS; I&D'S'; CHRONIC LEG ULCERS) Herpes Blood Disorders: No Adverse Reaction/Blood Tranf: No Family Medical History Reviewed Nursing Family Hx Arthritis 19 MOTHER Completed stroke 19 MOTHER Family history: Diabetes mellitus 19 MOTHER Family history: Hypertension 19 FATHER 19 MOTHER Hypercholesterolemia 19 MOTHER G8 BROTHER G8 BROTHER Hypertension 19 MOTHER Kidney disease 19 MOTHER Seizure disorder G8 BROTHER No Family History of: AIDS Abdominal aortic aneurysm Abdominal aortic aneurysm Dougherty's disease Dougherty's disease Alcoholism Alcoholism Alzheimer's disease Aphasia Aphasia Asthma Cancer Cancer of colon Cancer of mouth Cardiovascular disease Cataract Cataracts Chest pain Colon cancer Congenital disease Congenital heart disease Congenital heart disease Congestive heart failure Coronary thrombosis Cystic fibrosis Deafness or hearing loss Dementia Dementia Diabetes mellitus Drug abuse Dysphagia Family history: Allergy Family history: Alzheimer's disease Family history: Arthritis Family history: Asthma Family history: Breast disease Family history: Cardiovascular disease Family history: Coronary thrombosis Family history: Gastrointestinal disease Family history: Glaucoma Family history: Osteoporosis Family history: Thyroid disorder Fibrocystic disease of breast Gastroenteritis Glaucoma Headache Headache disorder Hearing loss Heart disease Hereditary disease History of - anemia History of - disorder History of - respiratory disease History of drug abuse Human immunodeficiency virus (HIV) seropositivity Infertile Malignant neoplasm of lung Myocardial infarction Parkinson's disease Prostate cancer Psychotic disorder Stroke Tuberculosis Visual impairment Physical Exam Vital Signs - First Documented 07/27/18 12:43 Temp 97.8 Pulse 77 Resp 16 B/P (MAP) 109/63 (78) Pulse Ox 97 O2 Delivery Room Air Capillary Refill : Less Than 3 Seconds Height: 5'11.00" Weight: 368lbs. 0.0oz. 166.286441qn; 51.3 BMI Method:Stated General Appearance: WD/WN, no apparent distress Eyes: Bilateral Eye Normal Inspection, Bilateral Eye PERRL, Bilateral Eye EOMI HEENT: TMs normal, pharynx normal Neck: non-tender, full range of motion, supple, normal inspection, carotid bruit Respiratory: chest non-tender, lungs clear, normal breath sounds, no respiratory distress, no accessory muscle use Cardiovascular: normal peripheral pulses, regular rate, rhythm, no edema, no gallop, no JVD, no murmur Extremities: normal capillary refill Neurologic/Psychiatric: alert, normal mood/affect, oriented x 3 Skin: normal color, warm/dry Progress/Results/Core Measures Suspected Sepsis Recent Fever Within 48 Hours: No Infection Criteria Present: Suspected New Infection New/Unexplained Altered Menta: No Sepsis Screen: No Definite Risk SIRS Temperature:97.8 Pulse: 77 Respiratory Rate: 16 Blood Pressure 109 /63 Mean: 78 Results/Orders Micro Results Microbiology 07/27/18 Influenza Types A,B Antigen (VAUGHN) - Final, Complete My Orders Orders - ABDIRIZAK TAYLOR Influenza A And B Antigens (07/27/18 12:51) Chest Pa/Lat (2 View) (07/27/18 12:51) Benzonatate Capsule (Tessalon Perles) (07/27/18 13:30) Vital Signs/I&O 07/27/18 07/27/18 12:43 14:30 Temp 97.8 97.8 Pulse 77 77 Resp 16 16 B/P (MAP) 109/63 (78) 109/63 (78) Pulse Ox 97 97 O2 Delivery Room Air Capillary Refill : Less Than 3 Seconds Blood Pressure Mean: 78 Progress Note : Time: 14:00 Progress Note I have seen and evaluated the patient. I have informed him of his normal imaging and laboratory studies. He agrees with plan of care, plans for discharge , return precautions were given. Diagnostic Imaging Diagonstic Imaging: Xray Plain Films/CT/US/NM/MRI: chest Comments NAME: JEFF TERRY [facility] REC#: [id number] PT STATUS: DEP ER : 1950 PHYSICIAN: ABDIRIZAK TAYLOR ADMIT DATE: 07/27/18/ER Signed Date of Exam: 07/27/18 CHEST PA/LAT (2 VIEW) INDICATION: Dyspnea and cough for three days. COMPARISON: 10/01/2017. DISCUSSION: Two views of the chest were obtained. Normal heart size. No focal consolidation, pleural fluid, or pneumothorax. No osseous abnormality. IMPRESSION: 1. Negative chest. Dictated by: Dictated on workstation # [id number] Dict: 07/27/18 1308 Trans: 07/27/18 1606 Interpreted by: SAMI TOLEDO MD Electronically signed by: SAMI TOLEDO MD 07/27/18 1606 Reviewed: Reviewed by Me Departure Impression Primary Impression: Upper respiratory infection Disposition: 01 HOME, SELF-CARE Condition: Stable/Unchanged Departure-Patient Inst. Decision time for Depature: 14:09 Referrals: SHIV GUTIÉRREZ MD (PCP/Family) Primary Care Physician Patient Instructions: Cough, Runny Nose, and the Common Cold (DC) Add. Discharge Instructions: Medication as directed. Follow-up with Dr. Gutiérrez within 1 week for recheck. Return back to the emergency room for any worsening symptoms or concerns as needed. All discharge instructions reviewed with patient and/or family. Voiced understanding. Scripts Benzonatate (Tessalon Perle) 100 Mg Capsule 100 MG PO TID, #21 CAP Prov: ABDIRIZAK TAYLOR 07/27/18 ABDIRIZAK TAYLOR Jul 27, 2018 14:11
[2018-07-27 14:30] VITALS: BP 109/63
== END 2018-07-27 14:30 | disposition home or self-care (01) ==
LOC: EDUNIT# 12:39 → ER 12:40
DX: J06.9 Acute upper respiratory infection, unspecified (principal); G47.30 Sleep apnea, unspecified; J44.9 Chronic obstructive pulmonary disease, unspecified; I11.0 Hypertensive heart disease with heart failure; I50.9 Heart failure, unspecified; I25.10 Atherosclerotic heart disease of native coronary artery without angina pectoris; E78.00 Pure hypercholesterolemia, unspecified; E11.59 Type 2 diabetes mellitus with other circulatory complications; I73.9 Peripheral vascular disease, unspecified; E11.42 Type 2 diabetes mellitus with diabetic polyneuropathy; K21.9 Gastro-esophageal reflux disease without esophagitis; E66.01 Morbid (severe) obesity due to excess calories; Z86.718 Personal history of other venous thrombosis and embolism; Z86.73 Personal history of transient ischemic attack (TIA), and cerebral infarction without residual deficits; Z79.82 Long term (current) use of aspirin; Z86.14 Personal history of Methicillin resistant Staphylococcus aureus infection; Z82.49 Family history of ischemic heart disease and other diseases of the circulatory system; Z79.4 Long term (current) use of insulin; Z87.891 Personal history of nicotine dependence; Z98.52 Vasectomy status; Z86.19 Personal history of other infectious and parasitic diseases; Z95.5 Presence of coronary angioplasty implant and graft
CPT/HCPCS: 71046; 87804

== ENCOUNTER → 2018-08-23 | Outpatient (CLI) | payer MEDICARE, MEDICAID ==
[~2018-08-23] MED LIST changes: +BENZ-13 PO
[2018-08-23 14:02] LABS: CREATININE SERUM 1.76 MG/DL (0.60-1.30); POTASSIUM 5.7 MMOL/L (3.6-5.0)
== END ==
LOC: LAB 13:32
PROVIDERS: ATTEND Physician Assistant Surgical
DX: E11.65 Type 2 diabetes mellitus with hyperglycemia (principal); E87.5 Hyperkalemia; E87.1 Hypo-osmolality and hyponatremia
CPT/HCPCS: 36415; 80048

== ENCOUNTER → 2018-08-28 | Outpatient (CLI) | payer MEDICARE, MEDICAID ==
[2018-08-28 12:31] LABS: CALCIUM 9.8 MG/DL (8.5-10.1); CREATININE SERUM 1.38 MG/DL (0.60-1.30); POTASSIUM 5.3 MMOL/L (3.6-5.0)
== END ==
LOC: LAB 11:53
PROVIDERS: ATTEND Physician Assistant Surgical
DX: E11.65 Type 2 diabetes mellitus with hyperglycemia (principal); E87.1 Hypo-osmolality and hyponatremia; E87.5 Hyperkalemia
CPT/HCPCS: 36415; 80048

== ENCOUNTER 2018-12-31 13:08 | Emergency (ER) | payer MEDICARE, MEDICAID ==
[~2018-12-31] VITALS: Ht 180.3 cm; Wt 166.9 kg
[~2018-12-31 13:08] MED LIST changes: -AMLO10TA6 PO; +AMLO10TA7 PO
--- OUTSIDE RECORDS SUMMARY | 2018-12-31 13:14 | XMS REPORT | Encounter Summary ---
Author Author [facility] Organization [facility] Address Unknown Phone Unavailable Care Team Providers Care Bark Scaler Name Role Phone Haresh Goldsmith MD Unavailable Xiao Burrows MD Unavailable Maynor Gutiérrez MD PCP Nereyda Tafoya PA-C Unavailable Haresh Bo MD Unavailable Froilan Delgado MD Unavailable Meliza Spencer APRN Unavailable Unavailable Barry Gale MD Unavailable Sebastian Amador MD Unavailable [place] Choi MD Unavailable Reason for Visit * Reason Comments Medication Refill Encounter Details Care Team Description Date Type Department Haresh Bo MD [address] [facility] [address] [place] [address] [phone] 11/11/2018 Refill [facility] [address] [place] [address] Social History Date Tobacco Use Types Packs/Day Years Used Quit: 08/05/1978 Former Smoker Cigarettes 28 Smokeless Tobacco: Never Used Alcohol Use Drinks/Week oz/Week Comments No Sex Assigned at Date Recorded Not on file Industry Job Start Date Occupation Not on file Not on file Not on file Travel End Travel History Travel Start No recent travel history available. documented as of this encounter Functional Status Date of Assessment Functional Status Response 10/18/2017 Does the patient have a hearing impairment: Yes 10/18/2017 Does the patient have a visual impairment: Yes 10/18/2017 Does the patient have an activity of daily living Yes (ADL) impairment: 10/18/2017 Does the patient have an instrumental activity of Yes daily living (IADL) impairment: Date of Assessment Cognitive Status Response 10/18/2017 Does the patient have a cognitive impairment: No documented as of this encounter Plan of Treatment Not on filedocumented as of this encounter Goals Goal Patient Associated Recent Progress Patient-Stat Author Goal Type Problems ed? HEMOGLOBIN A1C < 8.0 Result 7.6 (12/05/2007 No Lottie, Component 5:20 AM CDT) MARILEE Dawn documented as of this encounter Visit Diagnoses Not on filedocumented in this encounter
--- OUTSIDE RECORDS SUMMARY | 2018-12-31 13:14 | XMS REPORT | Clinical Summary ---
Author Author [facility] Organization [facility] Address Unknown Phone Unavailable Care Team Providers Care Direct Care Supervisor Name Role Phone Haresh Goldsmith MD Unavailable Xiao Burrows MD Unavailable Maynor Gutiérrez MD PCP Nereyda Tafoya PA-C Unavailable Haresh Bo MD Unavailable Froilan Delgado MD Unavailable Meliza Spencer APRN Unavailable Unavailable Barry Gale MD Unavailable Sebasitan Amador MD Unavailable [place] Choi MD Unavailable Source Comments Some departments are not documenting in the electronic medical record. If you do not see the information that you expected, contact Release of Information in the Health Information Management department at [phone] for further assistance in locating additional records.[facility] Allergies No Known Allergies Medications End Date Status Medication Sig Dispensed Refills Start Date Active aspirin EC 81 mg PO Take 81 mg by 0 tablet mouth daily. Active paroxetine (PAXIL) 20 mg Take 20 mg by 0 PO tablet mouth daily. Active atorvastatin (LIPITOR) 80 Take 80 mg by 0 mg PO tablet mouth daily. Active clopidogrel (PLAVIX) 75 Take 75 mg by 0 mg mouth daily. Active brimonidine (ALPHAGAN P) Apply 1 Drop 0 0.15 % ophthalmic to both eyes solution three times daily. Active Miscellaneous Medical 1 Each 3 Supply (T.E.D. 3 ANTI-EMBOLISM STOCKING) Misc Active POTASSIUM CHLORIDE Take 20 mEq 0 (KLOR-CON M20 PO) by mouth daily. Active furosemide (LASIX) 80 mg Take 80 mg by 0 tablet mouth daily. Active HYDROcodone/acetaminophen Take 2 0 (+) (LORTAB, NORCO) tablets by 10/325 mg tablet mouth every 6 hours as needed for Pain Active blood sugar diagnostic Use 1 Strip 0 test strip as directed twice daily before meals. CareSens N brand Checks twice daily Active nitroglycerin (NITROSTAT) Place 1 Tab 25 Tab 0 0.4 mg tabletIndications: under tongue 6 Type 2 diabetes mellitus every 5 with diabetic autonomic minutes as neuropathy, with needed. long-term current use of insulin ([facility]), Coronary artery disease of [place] heart with stable angina pectoris, unspecified vessel or lesion type ([facility]) Active isosorbide mononitrate SR Take 30 mg by 0 (IMDUR) 30 mg tablet mouth every morning. Extended release Active cyclobenzaprine Take 10 mg by 0 (FLEXERIL) 10 mg tablet mouth three times daily as needed for Muscle Cramps. Active gabapentin (NEURONTIN) Take 100 mg 0 100 mg capsule by mouth three times daily. Active amLODIPine (NORVASC) 10 TAKE 1 TABLET 90 tablet 3 mg tabletIndications: BY MOUTH 8 Essential hypertension, EVERY Uncontrolled type 2 MORNING. diabetes mellitus with complication, with long-term current use of insulin ([facility]) Active Alcohol Swabs padm Apply 1 each 400 each 3 topically to 8 affected area four times daily. E11.[address] Haresh Bo Active aMILoride (MIDAMOR) 5 mg Take 1 tablet 30 tablet 0 tabletIndications: by mouth 8 Essential hypertension daily. Active lisinopril (PRINIVIL; TAKE 1 TABLET 90 tablet 2 ZESTRIL) 20 mg BY MOUTH 8 tabletIndications: DAILY Essential hypertension, Uncontrolled type 2 diabetes mellitus with complication, with long-term current use of insulin ([facility]) Active carvedilol (COREG) 25 mg TAKE 1 TABLET 180 tablet 2 tablet BY MOUTH 8 TWICE DAILY. TAKE WITH FOOD. Active insulin glargine U-300 135 U bid 6 Package 3 conc (TOUJEO SOLOSTAR 8 U-300 INSULIN) 300 unit/mL (1.5 mL) injectableIndications: Uncontrolled type 2 diabetes mellitus with complication, with long-term current use of insulin ([facility]) Active insulin lispro (HUMALOG 75 units in 10 Syringe 5 KWIKPEN INSULIN) 200 AM; 90 U ac 8 unit/mL (3 mL) supper, SQ inpnIndications: type 2 inj diabetes mellitus Active VITAMIN D 50,000 unit TAKE 1 12 capsule 3 capsuleIndications: CAPSULE BY 9 Vitamin D deficiency MOUTH EVERY 7 DAYS. Active empagliflozin 25 mg Take 25 mg by 0 tabIndications: type 2 mouth daily. diabetes mellitus Active ULTICARE PEN NEEDLE 32 USE 1 EACH 400 each 3 gauge x 5/32" pen needle DIRECTED FOUR 9 TIMES DAILY. Active VICTOZA 3-DOMI 0.6 mg/0.1 INJECT 1.8 MG 27 mL 1 mL (18 mg/3 mL) UNDER THE 9 pnijIndications: SKIN DAILY. Uncontrolled type 2 diabetes mellitus with complication, with long-term current use of insulin ([facility]) 12/09/2018 Discontinued liraglutide(+) (VICTOZA) Inject 1.8 mg 27 mL 2 0.6 mg/0.1 mL (18 mg/3 under the 8 mL) pnijIndications: skin daily. Uncontrolled type 2 diabetes mellitus with complication, with long-term current use of insulin ([facility]) Active Problems Problem Noted Date Urinary retention with incomplete bladder emptying 10/22/2012 Last Assessment & Plan: Now seeing urologist in [place]. Was given Rx that he did not feel was helpful. Cannot recall which medication. Encouraged to follow up regardless. Hearing loss of left ear 06/14/2012 Hypertension goal BP (blood pressure) < 130/80 01/24/2011 Last Assessment & Plan: BP good today. Continue the same, no change. Hypercholesteremia 08/05/2010 Last Assessment & Plan: Results for JEFF SUNG ( ) as [...] mg daily. Arthritis 08/05/2010 Glaucoma 08/05/2010 Claudication 08/05/2010 Overview: a. 03/26 - Lower arterial/SARAH study: no LE arterial stenosis, mod reduced bilateral SARAH's. Obesity, morbid 12/13/2007 Last Assessment & Plan: Reviewed diet and exercise goals. Encouraged to continue efforts with portion reduction and decreasing amount of soda consumed each day. Knee arthroplasty 12/13/2007 DM (diabetes mellitus) 12/13/2007 Last Assessment & Plan: Increase premeal [...] & Plan: Following with sleep specialist in [place]. CAD (coronary artery disease) 12/13/2007 Overview: a. History of chest pain. Treated at [facility] and told that he had "small heart attack" given NTG tabs. Seen at [facility] x 2 for chest pain resolved with [...] prior study J. 10/18/07 pt admitted to [facility] in [place] with CP. Cardiac cath showed a patent stent in the obtuse marginal. He had 50% stenosis in the mid LAD, 70% stenosis in a distal right PDA that was not amenable to intervention. It was felt that he didn't have anatomy suitable for intervention and he was managed medically. Reduced mobility 12/13/2007 Gait abnormality 12/13/2007 Encounters Care Team Description Date Type Specialty Nereyda Tafoya PA-C Uncontrolled type 2 diabetes mellitus with complication , with long-term current use of insulin (HCC) 12/09/2018 Refill Diabetes Services Haresh Bo MD 11/11/2018 Refill Endocrinology, Metabolism & Genetics Haresh Bo MD Type 2 diabetes mellitus with other circulatory complication, with long-term current use of insulin (HCC) (Primary Dx) 10/30/2018 Office Visit Diabetes Services Nereyda Tafoya PA-C Vitamin D deficiency 10/21/2018 Refill Diabetes Services from Last 3 Months Immunizations Name Dates Previously Given Next Due FLU VACCINE >3YO 08/21/2012, 07/11/2011 Flu Vaccine Trivalent=>3 07/16/2013 YO Family History Medical History Relation Name Comments Seizures Brother Diabetes Brother T2DM Diabetes Father Melanoma Neg Hx Relation Name Status Comments Brother Brother Father Mother Social History Date Tobacco Use Types Packs/Day Years Used Quit: 08/05/1978 Former Smoker Cigarettes 28 Smokeless Tobacco: Never Used Tobacco Cessation: Counseling Given: No Alcohol Use Drinks/Week oz/Week Comments No Sex Assigned at Date Recorded Not on file Industry Job Start Date Occupation Not on file Not on file Not on file Travel End Travel History Travel Start No recent travel history available. Last Filed Vital Signs Time Taken Vital Sign Reading 10/30/2018 12:51 PM SURVEY TECHNICIAN Blood Pressure 114/62 10/30/2018 12:51 PM SURVEY TECHNICIAN Pulse 76 07/11/2011 9:22 AM CDT Temperature 36.1 C (97 F) 08/21/2012 2:25 PM SURVEY TECHNICIAN Respiratory Rate 18 08/19/2018 2:29 PM SURVEY TECHNICIAN Oxygen Saturation 95% - Inhaled Oxygen - Concentration 10/30/2018 12:51 PM SURVEY TECHNICIAN Weight 160.8 kg (354 lb 6.4 oz) 10/30/2018 12:51 PM SURVEY TECHNICIAN Height 180.3 cm (5' 11") 10/30/2018 12:51 PM SURVEY TECHNICIAN Body Mass Index 49.43 Plan of Treatment Health Maintenance Due Date Last Done Comments HEPATITIS C SCREENING 1950 PHYSICAL (COMPREHENSIVE) 1956 EXAM DTAP/TDAP VACCINES (1 - 1967 Tdap) COLORECTAL CANCER 1999 SCREENING SHINGLES RECOMBINANT 1999 VACCINE (1 of 2) ABDOMINAL AORTIC ANEURYSM 2014 SCREENING PNEUMONIA (PCV13/PPSV23) 2014 VACCINES (1 of 2 - PCV13) INFLUENZA VACCINE 04/24/2019 06/05/2018 (Previously completed), 07/03/2017 (Previously completed), 08/28/2014 (Declined), Additional history exists HBA1C 04/29/2019 10/30/2018, 08/19/2018, 05/03/2018, Additional history exists DILATED EYE EXAM 05/01/2019 05/01/2018 (Previously completed), 10/29/2017 (Previously completed), 08/08/2017 (Previously completed), Additional history exists FOOT EXAM 10/30/2019 10/30/2018, 08/19/2018, 05/03/2018, Additional history exists Goals Goal Patient Associated Recent Progress Patient-Stat Author Goal Type Problems ed? HEMOGLOBIN A1C < 8.0 Result 7.6 (12/05/2007 No Lottie, Component 5:20 AM CDT) MARILEE Dawn Procedures Comments Procedure Name Priority Date/Time Associated Diagnosis POC GLUCOSE QUANTITATIVE Routine 10/30/2018 Type 2 diabetes mellitus BLOOD 1:35 PM SURVEY TECHNICIAN with other circulatory complication, with long-term current use of insulin (HCC) POC GLUCOSE QUANTITATIVE Routine 10/30/2018 Type 2 diabetes mellitus BLOOD 1:20 PM SURVEY TECHNICIAN with other circulatory complication, with long-term current use of insulin (HCC) POC HEMOGLOBIN A1C Routine 10/30/2018 Type 2 diabetes mellitus 1:05 PM SURVEY TECHNICIAN with other circulatory complication, with long-term current use of insulin (HCC) POC GLUCOSE QUANTITATIVE Routine 10/30/2018 Type 2 diabetes mellitus BLOOD 1:05 PM SURVEY TECHNICIAN with other circulatory complication, with long-term current use of insulin (HCC) from Last 3 Months Results * POC GLUCOSE QUANTITATIVE BLOOD (10/30/2018 1:35 PM SURVEY TECHNICIAN) Only the most recent of 3 results within the time period is included. Glucose, POC [facility] Specimen Blood, capillary Performing Organization Address City/State/Zipcode Phone Number IN CLINIC * POC HEMOGLOBIN A1C (10/30/2018 1:05 PM SURVEY TECHNICIAN) Poc Hemoglobin 7.5 % IN CLINIC A1C Specimen Blood, capillary - Blood Performing Organization Address City/State/Zipcode Phone Number IN CLINIC from Last 3 Months Insurance Type Payer Benefit Subscriber ID Effective Phone Address Plan / Dates Group Medicare MEDICARE MEDICARE xxxxxxxxxx 2005-P PART A AND resent B Medicaid [facility] MEDICAID [facility] xxxxxxxxxxx 2012-P [employer] [place] PLAN [place] (Home) [place] [address] Advance Directives Patient has advance care planning documents, and code status on file. For more information, please contact: [facility] [address] [place] [address] Date Inactivated Comments Code Status Date Activated 12/16/2007 6:14 PM Full Code 12/06/2007 9:00 PM
--- OUTSIDE RECORDS SUMMARY | 2018-12-31 13:14 | XMS REPORT | Encounter Summary ---
Author Author [facility] Organization [facility] Address Unknown Phone Unavailable Care Team Providers Care Firefighter Name Role Phone Haresh Goldsmith MD Unavailable Xiao Burrows MD Unavailable Maynor Gutiérrez MD PCP Nereyda Tafoya PA-C Unavailable Haresh Bo MD Unavailable Froilan Delgado MD Unavailable Meliza Spencer APRN Unavailable Unavailable Barry Gale MD Unavailable Sebastian Amador MD Unavailable [place] Choi MD Unavailable Reason for Visit * Reason Comments Medication Refill Encounter Details Care Team Description Date Type Department Nereyda Tafoya PA-C [address] [facility] [address] [place] [address] Uncontrolled type 2 diabetes mellitus with complication, with long-term current use of insulin (HCC) 12/09/2018 Refill [facility] [address] [place] [address] Social History Date Tobacco Use Types Packs/Day [...] impairment: No documented as of this encounter Miscellaneous Notes * Telephone Encounter - Nuris Bee RN - 12/09/2018 2:00 PM CDT .E-scribe filled per standing order protocol documented in this encounter Plan of Treatment Not on filedocumented as of this encounter Goals Goal Patient Associated Recent Progress Patient-Stat Author Goal Type Problems ed? HEMOGLOBIN A1C < 8.0 Result 7.6 (12/05/2007 No Lottie, Component 5:20 AM CDT) MARILEE Dawn documented as of this encounter Visit Diagnoses Diagnosis Uncontrolled type 2 diabetes mellitus with complication, with long-term current use of insulin (HCC) documented in this encounter
--- OUTSIDE RECORDS SUMMARY | 2018-12-31 13:14 | XMS REPORT | Encounter Summary ---
Author Author [facility] Organization [facility] Address Unknown Phone Unavailable Care Team Providers Care Nurse Transitional Name Role Phone Haresh Goldsmith MD Unavailable Xiao Burrows MD Unavailable Maynor Gutiérrez MD PCP Nereyda Tafoya PA-C Unavailable Haresh Bo MD Unavailable Froilan Delgado MD Unavailable Meliza Spencer APRN Unavailable Unavailable Barry Gale MD Unavailable Sebastian Amador MD Unavailable [place] Choi MD Unavailable Reason for Visit * Reason Comments Diabetes Encounter Details Care Team Description Date Type Department Haresh Bo MD [address] [facility] [address] [place], [place] [id number] Type 2 diabetes mellitus with other circulatory complication , with long-term current use of insulin (HCC) (Primary Dx) 10/30/2018 Office Visit [facility] [address] [place] [address] Social History Date Tobacco Use [...] history available. documented as of this encounter Last Filed Vital Signs Time Taken Vital Sign Reading 10/30/2018 12:51 PM CASH CONTROLLER Blood Pressure 114/62 10/30/2018 12:51 PM CASH CONTROLLER Pulse 76 - Temperature - - Respiratory Rate - - Oxygen Saturation - - Inhaled Oxygen - Concentration 10/30/2018 12:51 PM CASH CONTROLLER Weight 160.8 kg (354 lb 6.4 oz) 10/30/2018 12:51 PM CASH CONTROLLER Height 180.3 cm (5' 11") 10/30/2018 12:51 PM CASH CONTROLLER Body Mass Index 49.43 documented in this encounter Functional Status Date of Assessment [...] impairment: No documented as of this encounter Patient Instructions * Patient Instructions* Haresh Bo MD - 10/30/2018 1:00 PM CASH CONTROLLER Your A1c today is 7.5%, a good value. I like it under 8%. Your blood sugars are sometimes high at bedtime because you eat more carbohydrate with your dinner meal. When you have a dinner with extra carbohydrate, INCREASE your PREmeal insulin ( Humalog) to 100 units instead of 90. Good job, please stop in the lab today to check you blood chemitries. Your Foot Exam: . The foot should have good circulation, normal sensation and no deformities. Actions taken today: Please follow regularly with a foot doctor or plastic molder. Wear shoes or slippers all the time. Trim your toe nails carefully. Cut straight across and file the nail. Do not cut cuticles or pop blisters. Wash your feet with warm water and soap every day and pat them dry. Put a moisturizing cream or lotion on your feet. Check both feet every day. Look for cuts, blisters, swelling, or redness. Make sure to check all over your feet, including the bottoms of your feet and in between your toes. If you cant see well or if you have trouble seeing the bottoms of your feet, ask a family member or friend to check your feet. Wear socks that are not too tight, and change them every day. Wear shoes that fit well, but are not too tight. Check inside your shoes before you put them on. Make sure there is nothing sharp inside. Have your doctor check your feet at each visit. File calluses after shower/bath with gus board CONTROLLER documented in this encounter Progress Notes * Haresh Bo MD - 10/30/2018 1:00 PM CASH CONTROLLER Date of Service: 10/30/2018 Subjective: Edis Sung is a 67 y.o. male. History of Present IllnessThis is a 67-year-old obese type II diabetic with high insulin requirements who comes to clinic today without any specific complaints. He admits that he is feeling better and doing well. He is prior to the fact that he is eating a little less and exercising somewhat more in the past. He walks around at home when possible. His current complaints include numbness in the hands and feet which tends to keep him up at night. His hands are tingling all the time and they are symmetrical in the fingers. Nothing seems to give him relief although he tries stretching them and massaging and when possible. His feet are numb from the toes to the several inches above the ankle joint. He is also complaining of a fine tremor in both hands that does not interfere with his ability to write. He eats 2 meals a day breakfast and supper. His supper is his largest meal at about 530. He takes 75 units of Humalog before breakfast and 90 units of Humalog before supper. He takes Toujeo insulin 55 units in the morning and 80 at night. He checks his blood sugars twice daily. There is no particular pattern to the blood sugar in the mornings vary between about 128 and 306. In the afternoons early evening some blood sugars approach 450 again without any particular pattern to range from about 115 up to the mid 400s. He attributes the high blood sugars before bedtime to eating more carbohydrate with his meal and not taking extra insulin. He has no hypoglycemia at home. He has no hypoglycemic unawareness. He had a dilated eye exam in August 2018 and was not told of any diabetic pathology. He has chest pain when he walks about 100 feet. It is substernal and a pressure feeling it is nonradiating and is relieved by rest. He is seen his oracle application consultant 3 weeks ago and this is apparently under evaluation. There is been no nocturnal chest pain or shortness of breath. His stomach and bowels are working normally although he admits to only having a bowel movement every other day. He has lots of gas. He has no sores or infection in his feet and does a thorough foot exam daily. His flu shot is current. He has been tested for sleep apnea and does not have it and does not use CPAP. Review of Systems Objective: Alcohol Swabs padm Apply 1 each topically to affected area four times daily. E11.[address] Haresh Bo aMILoride (MIDAMOR) 5 mg tablet Take 1 tablet by mouth daily. amLODIPine (NORVASC) 10 mg tablet TAKE 1 TABLET BY MOUTH EVERY MORNING. aspirin EC 81 mg PO tablet Take [...] times daily. carvedilol (COREG) 25 mg tablet TAKE 1 TABLET BY MOUTH TWICE DAILY. TAKE WITH FOOD. clopidogrel (PLAVIX) 75 mg Take 75 mg by mouth daily. cyclobenzaprine (FLEXERIL) 10 mg tablet Take 10 mg by mouth three times daily as needed for Muscle Cramps. empagliflozin 25 mg tab Take 25 mg by mouth daily. furosemide (LASIX) 80 mg tablet Take 80 mg by mouth daily. gabapentin (NEURONTIN) 100 mg capsule Take 100 mg by mouth three times daily. HYDROcodone/acetaminophen(+) (LORTAB, NORCO) 10/325 mg tablet Take 2 tablets by mouth every 6 hours as needed for Pain insulin glargine U-300 conc (TOUJEO SOLOSTAR U-300 INSULIN) 300 unit/mL ( 1.5 mL) injectable 135 U bid insulin lispro (HUMALOG KWIKPEN INSULIN) 200 unit/mL (3 mL) inpn 75 units in AM; 90 U ac supper, SQ inj insulin pen needles (disposable) (ULTICARE PEN NEEDLE) 32 gauge x 5/32" pen needle Use one each as directed four times daily. isosorbide mononitrate SR (IMDUR) 30 mg tablet Take 30 mg by mouth every morning. Extended release liraglutide(+) (VICTOZA) 0.6 mg/0.1 mL (18 mg/3 mL) pnij Inject 1.8 mg under the skin daily. lisinopril (PRINIVIL; ZESTRIL) 20 mg tablet TAKE 1 TABLET BY MOUTH DAILY Miscellaneous Medical Supply (T.E.D. ANTI-EMBOLISM STOCKING) Misc nitroglycerin (NITROSTAT) 0.[address] 1 Tab under tongue every 5 minutes as needed. paroxetine (PAXIL) 20 mg PO tablet Take 20 mg by mouth daily. POTASSIUM CHLORIDE (KLOR-CON M20 PO) Take 20 mEq by mouth daily. VITAMIN D 50,000 unit capsule TAKE 1 CAPSULE BY MOUTH EVERY 7 DAYS. Vitals: 10/30/18 1251 BP: 114/62 Pulse: 76 Weight: (!) 160.8 kg (354 lb 6.4 oz) Height: 180.3 cm (71") Body mass index is 49.43 kg/m. Physical Exam Constitutional: He is oriented to [...] murmur heard. Pulses: Dorsalis pedis pulses are 1+ on the right side, and 1+ on the left side. Posterior tibial pulses are 1+ on the right side, and 0 on the left side. Pulmonary/Chest: Effort normal and breath sounds normal. He has no wheezes. He has no rales. Abdominal: Soft. Bowel sounds are normal. Musculoskeletal: Normal range of motion. Right foot: There is deformity. Left foot: There is deformity. Sl hammer toes. Skin dry and cool, flaky. Mild pretibial and pedal edema. Feet: Right Foot: Protective Sensation: 5 sites tested. 0 sites sensed. Skin Integrity: Positive for skin breakdown and dry skin. Negative for ulcer, blister, erythema, warmth or callus. Left Foot: Protective Sensation: 5 sites tested. 0 sites sensed. Skin Integrity: Positive for skin breakdown and dry skin. Negative for ulcer, blister, erythema, warmth or callus. Lymphadenopathy: He has no cervical adenopathy. Neurological: He is alert and oriented to person, place, and time. He has normal reflexes. No cranial nerve deficit. Coordination normal. Skin: Skin is warm and dry. Capillary refill takes more than 3 seconds. No rash noted. He is not diaphoretic. No erythema. Psychiatric: He has a normal mood and affect. His behavior is normal. Judgment and thought content normal. Nursing note and vitals reviewed. Comprehensive Metabolic Profile Lab Results Component Value Date/Time NA 129 (A) 08/23/2018 K 5.7 (A) 08/23/2018 CL 101 08/23/2018 CO2 15 (A) 08/23/2018 GAP 13 08/23/2018 BUN 60 (A) 08/23/2018 CR 1.76 (A) 08/23/2018 GLU 529 (A) 08/23/2018 GLU 140 (H) 07/20/2006 08:42 AM Lab Results Component Value Date/Time CA 9 08/23/2018 ALBUMIN 4.3 08/19/2018 02:49 PM TOTPROT 8.1 (H) 08/19/2018 02:49 PM ALKPHOS 81 08/19/2018 02:49 PM AST 16 08/19/2018 02:49 PM ALT 22 08/19/2018 02:49 PM TOTBILI 0.7 08/19/2018 02:49 PM GFR 39 08/23/2018 GFRAA >60 08/19/2018 02:49 PM No results found for: MCALB24 Microalbumin/CR ratio Urine Date Value Ref Range Status 05/07/2017 169.69 (H) <30 ug/mg Final Comment: NOTE NEW REFERENCE RANGES Microalbumin, Random Date Value Ref Range Status 08/19/2018 <7.0 <19 MCG/ML Final Lab Results Component Value Date CHOL 92 08/19/2018 TRIG 223 (H) 08/19/2018 HDL 23 (L) 08/19/2018 LDL 42 08/19/2018 VLDL 45 08/19/2018 NONHDLCHOL 69 08/19/2018 TSH Date Value Ref Range Status 05/07/2017 2.085 0.35 - 5.00 MCU/ML Final Hemoglobin A1C Date Value Ref Range Status 12/05/2007 7.6 (H) 5.0 - 6.5 % Final Comment: For non-diabetic patients, the normal reference range is 5.0-6.5%. For patients with Type I or Type II Diabetes Mellitus, the ADA recommends maintaining the A1c level <7.3%. However, at levels below 5.8%, the risk of hypoglycemia increases. Patients with an A1c of >9.8% are considered to be extremely hyperglycemic. Please note the reference range is higher by 0.3%. This is due to the new world standardizing organizations making diabetic monitoring the same internationally. Poc Hemoglobin A1C Date Value Ref Range Status 10/30/2018 7.5 % Final 08/19/2018 8.2 % Final 05/03/2018 8.8 Final Assessment and Plan: Improved A1c, acceptable w/ target < 8%. Chest pain could be ischemic, cardiology working on it. Neuropathy, increase Paxil to 40 mg I don't think he can handle carb counting, but I suggested adding +10U Humalog when he has extra CHO w dinner. 1. Type 2 diabetes mellitus with other circulatory complication, with long-term current use of insulin ([facility]) COMPREHENSIVE METABOLIC PANEL POC GLUCOSE QUANTITATIVE BLOOD POC HEMOGLOBIN A1C POC GLUCOSE QUANTITATIVE BLOOD POC GLUCOSE QUANTITATIVE BLOOD Diagnoses and all orders for this visit: Type 2 diabetes mellitus with other circulatory complication, with long-term current use of insulin ([facility]) - COMPREHENSIVE METABOLIC PANEL; Future; Expected date: 10/30/2018 - POC GLUCOSE QUANTITATIVE BLOOD - POC HEMOGLOBIN A1C - POC GLUCOSE QUANTITATIVE BLOOD - POC GLUCOSE QUANTITATIVE BLOOD Patient Instructions Your A1c today is 7.5%, a good value. I like it under 8%. Your blood sugars are sometimes high at bedtime because you eat more carbohydrate with your dinner meal. When you have a dinner with extra carbohydrate, INCREASE your PREmeal insulin ( Humalog) to 100 units instead of 90. Good job, please stop in the lab today to check you blood chemitries. Your Foot Exam: . The foot should have good circulation, normal sensation and no deformities. Actions taken today: Please follow regularly with a foot doctor or plastic molder. Wear shoes or slippers all the time. Trim your toe nails carefully. Cut straight across and file the nail. Do not cut cuticles or pop blisters. Wash your feet with warm water and soap every day and pat them dry. Put a moisturizing cream or lotion on your feet. Check both feet every day. Look for cuts, blisters, swelling, or redness. Make sure to check all over your feet, including the bottoms of your feet and in between your toes. If you cant see well or if you have trouble seeing the bottoms of your feet, ask a family member or friend to check your feet. Wear socks that are not too tight, and change them every day. Wear shoes that fit well, but are not too tight. Check inside your shoes before you put them on. Make sure there is nothing sharp inside. Have your doctor check your feet at each visit. File calluses after shower/bath with emery board No future appointments. ' CONTROLLER documented in this encounter Plan of Treatment Order Schedule Name Priority Associated Diagnoses Expected: 10/30/2018 (Approximate), Expires: 10/30/2019 COMPREHENSIVE METABOLIC PANEL Routine Type 2 diabetes mellitus with other circulatory complication, with long-term current use of insulin ([facility]) documented as of this encounter Goals Goal Patient Associated Recent Progress Patient-Stat Author Goal Type Problems ed? HEMOGLOBIN A1C < 8.0 Result 7.6 (12/05/2007 No Lottie, Component 5:20 AM CDT) MARILEE Dawn documented as of this encounter Procedures Comments Procedure Name Priority Date/Time Associated Diagnosis POC GLUCOSE QUANTITATIVE Routine 10/30/2018 Type 2 diabetes mellitus BLOOD 1:35 PM CASH CONTROLLER with other circulatory complication, with long-term current use of insulin ([facility]) POC GLUCOSE QUANTITATIVE Routine 10/30/2018 Type 2 diabetes mellitus BLOOD 1:20 PM CASH CONTROLLER with other circulatory complication, with long-term current use of insulin ([facility]) POC GLUCOSE QUANTITATIVE Routine 10/30/2018 Type 2 diabetes mellitus BLOOD 1:05 PM CASH CONTROLLER with other circulatory complication, with long-term current use of insulin ([facility]) POC HEMOGLOBIN A1C Routine 10/30/2018 Type 2 diabetes mellitus 1:05 PM CASH CONTROLLER with other circulatory complication, with long-term current use of insulin ([facility]) documented in this encounter Results * POC GLUCOSE QUANTITATIVE BLOOD (10/30/2018 1:35 PM CASH CONTROLLER) Glucose, POC 117 IN CLINIC Specimen Blood, capillary Performing Organization Address [facility] [place] [facility] * POC GLUCOSE QUANTITATIVE BLOOD (10/30/2018 1:20 PM CASH CONTROLLER) Glucose, POC 66Comment: gave additional cup IN CLINIC of apple juice - physician in room Specimen Blood, capillary Performing Organization Address [facility] Phone Number [place] [facility] * POC HEMOGLOBIN A1C (10/30/2018 1:05 PM CASH CONTROLLER) Poc Hemoglobin 7.5 % IN CLINIC A1C Specimen Blood, capillary - Blood Performing Organization Address [facility] Phone Number [place] [facility] * POC GLUCOSE QUANTITATIVE BLOOD (10/30/2018 1:05 PM CASH CONTROLLER) Glucose, POC 67Comment: gave 1 cup of apple IN CLINIC juice Specimen Blood, capillary Performing Organization Address [facility] Phone Number [place] [facility] documented in this encounter Visit Diagnoses Diagnosis Type 2 diabetes mellitus with other circulatory complication, with long-term current use of insulin ([facility]) - Primary documented in this encounter
--- OUTSIDE RECORDS SUMMARY | 2018-12-31 13:15 | XMS REPORT | Encounter Summary ---
Author Author [facility] Organization [facility] Address Unknown Phone Unavailable Care Team Providers Care Sports Doctor Name Role Phone Haresh Goldsmith MD Unavailable [...] Date Type Department Nereyda Tafoya PA-C [address] [facility] [address] [place] [address] Vitamin D deficiency 10/21/2018 Refill [facility] [address] [place] [address] Social History Date Tobacco Use [...] A1C < 8.0 Result 7.6 (12/05/2007 No Tafoya, Component 5:20 AM CDT) MARILEE Dawn documented as of this encounter Visit Diagnoses Diagnosis Vitamin D deficiency Unspecified vitamin D deficiency documented in this encounter
[2018-12-31 13:28] LABS: BASOPHILS % (AUTO) 0 % (0-10); EOSINOPHILS # (AUTO) 0.4 10^3/uL (0.0-0.3); EOSINOPHILS % (AUTO) 3 % (0-10); HEMATOCRIT 41 % (40-54); HEMOGLOBIN 13.9 G/DL (13.3-17.7); LYMPHOCYTES # (AUTO) 1.8 X 10^3 (1.0-4.0); LYMPHOCYTES % (AUTO) 15 % (12-44); MEAN CORPUSCULAR HEMOGLOBIN 31 PG (25-34); MEAN CORPUSCULAR HGB CONC 34 G/DL (32-36); MEAN CORPUSCULAR VOLUME 90 FL (80-99); MEAN PLATELET VOLUME 11.4 FL (7.4-10.4); MONOCYTES # (AUTO) 0.9 X 10^3 (0.0-1.0); MONOCYTES % (AUTO) 7 % (0-12); NEUTROPHILS # (AUTO) 8.9 X 10^3 (1.8-7.8); NEUTROPHILS % (AUTO) 74 % (42-75); PLATELET COUNT 236 10^3/uL (130-400); RED CELL DISTRIBUTION WIDTH 14.7 % (10.0-14.5); WHITE BLOOD COUNT 12.1 10^3/uL (4.3-11.0)
[2018-12-31 13:50] LABS: ALANINE AMINOTRANSFERASE 20 U/L (0-55); ALBUMIN 3.8 GM/DL (3.2-4.5); ALKALINE PHOSPHATASE 71 U/L (40-136); BILIRUBIN,TOTAL 0.7 MG/DL (0.1-1.0); BUN/CREATININE RATIO 12; CALCIUM 8.8 MG/DL (8.5-10.1); CARBON DIOXIDE 21 MMOL/L (21-32); CHLORIDE 107 MMOL/L (98-107); CREATININE SERUM 0.83 MG/DL (0.60-1.30); GFR ESTIMATED > 60; GLUCOSE 87 MG/DL (70-105); POTASSIUM 3.8 MMOL/L (3.6-5.0); SODIUM 136 MMOL/L (135-145); URIC ACID 8.7 MG/DL (2.6-7.2)
[2018-12-31 14:13] LABS: ERYTHROCYTE SEDIMENTATION RATE 18 MM/HR (0-30)
--- NOTE | 2018-12-31 14:24 | ED Upper Extremity ---
General Chief Complaint: Upper Extremity Stated Complaint: L ARM PAIN Nursing Triage Note: PT ARRIVED PER EMS, PT CO OF L WRIST PAIN FOR A COUPLE MONTHS, RATES PAIN 10/10 Nursing Sepsis Screen: No Definite Risk Source: patient Exam Limitations: no limitations History of Present Illness Date Seen by Provider: Dec 31, 2018 Time Seen by Provider: 13:10 Initial Comments 68-year-old male who was brought to the emergency room by [facility] for complaints of left wrist pain that started last night. He reports taking his home pain medication without relief. He reports he's had trouble with the left upper extremity for a couple of months but the pain is not worse the last night. There is mild swelling to the left wrist and it is painful to touch. Allergies and Home Medications Allergies Coded Allergies: No Known Drug Allergies (Verified , 10/17/07) Home Medications Amlodipine Besylate 10 Mg Tablet, 10 MG PO DAILY, (Reported) Aspirin 81 Mg Tab.chew, 81 MG PO DAILY, (Reported) Atorvastatin Calcium 80 Mg Tablet, 80 MG PO HS, (Reported) Benzonatate 100 Mg Capsule, 100 MG PO TID Prescribed by: ABDIRIZAK TAYLOR on 07/27/18 1411 Brimonidine Tartrate 5 Ml Drops, 1 DROP OU Q8H, (Reported) Carvedilol 25 Mg Tablet, 25 MG PO BID, (Reported) Clopidogrel Bisulfate 75 Mg Tablet, 75 MG PO DAILY, (Reported) Empagliflozin 25 Mg Tablet, 25 MG PO DAILY, (Reported) Ergocalciferol (Vitamin D2) 50,000 Unit Capsule, 50,000 UNITS PO Mo, (Reported) Furosemide 80 Mg Tablet, 80 MG PO DAILY, (Reported) Gabapentin 100 Mg Capsule, 100 MG PO TID, (Reported) Hydrocodone/Acetaminophen 1 Each Tablet, 2 TAB PO Q6H PRN for PAIN, (Reported) Insulin Glargine,Hum.rec.anlog 300 Unit/1 Ml Insuln.pen, 150 UNITS SQ BID, ( Reported) Insulin Lispro 200 Unit/1 Ml Insuln.pen, 75 UNITS SQ BID, (Reported) Isosorbide Mononitrate 30 Mg Tab.er.24h, 30 MG PO DAILY, (Reported) Lisinopril 20 Mg Tablet, 20 MG PO DAILY, (Reported) Omeprazole 20 Mg Capsule.dr, 20 MG PO BID, (Reported) Paroxetine HCl 20 Mg Tablet, 20 MG PO DAILY, (Reported) Potassium Chloride 20 Meq Tab.er.prt, 20 MEQ PO DAILY, (Reported) Past Wngrsfo-Svlhwn-Amnvaz Hx Patient Social History Alcohol Use: Denies Use Recreational Drug Use: No Smoking Status: Never a Smoker Type Used: Cigarettes Former Smoker, Quit: Sep 24, 1986 Recent Foreign Travel: No Contact w/Someone Who Travel: No Recent Infectious Disease Expo: No Recent Hopitalizations: No Immunizations Up To Date Tetanus Booster (TDap): Unknown PED Vaccines UTD: Yes Date of Pneumonia Vaccine: February 04, 2014 Date of Influenza Vaccine: May 25, 2013 Seasonal Allergies Seasonal Allergies: No Past Medical History Surgeries: Yes (STENT PLACEMENT, VASECTOMY, SURGERY TO LEFT AXILARRY-DRAINED AREA, MRSA POS) Abdominal, Cardiac, Coronary Stent, Joint Replacement, Orthopedic, Vascular Surgery, Vasectomy Respiratory: No (O2 AT HS--REFUSES TO WEAR CPAP) Sleep Apnea, COPD Currently Using CPAP: No Currently Using BIPAP: No Cardiac: Yes (MULTIPLE INTERVENTIONS IN HEART AND LEGS; CHF; CAROTID BRUIT) Chronic Edema/Swelling, Coronary Artery Disease, Deep Vein Thrombosis, High Cholesterol, Hypertension, Peripheral Vascular, Valvular Heart Disease Neurological: Yes (CVA around 07') Neuropathy Reproductive Disorders: No Sexually Transmitted Disease: No HIV/AIDS: No Genitourinary: No Gastrointestinal: Yes Gastroesophageal Reflux Musculoskeletal: Yes Arthritis, Chronic Back Pain Endocrine: Yes (MORBID OBESITY) Diabetes, Insulin dep Glaucoma Loss of Vision: Denies Hearing Impairment: Denies Cancer: No Psychosocial: No Integumentary: Yes (MRSA; ABSCESSES AND CELLULITIS; I&D'S'; CHRONIC LEG ULCERS) Herpes Blood Disorders: No Adverse Reaction/Blood Tranf: No Family Medical History Arthritis 19 MOTHER Completed stroke 19 MOTHER Family history: Diabetes mellitus 19 MOTHER Family history: Hypertension 19 FATHER 19 MOTHER Hypercholesterolemia 19 MOTHER G8 BROTHER G8 BROTHER Hypertension 19 MOTHER Kidney disease 19 MOTHER Seizure disorder G8 BROTHER No Family History of: AIDS Abdominal aortic aneurysm Abdominal aortic aneurysm Neeraj's disease Seneca's disease Alcoholism Alcoholism Alzheimer's disease Aphasia Aphasia Asthma Cancer Cancer of colon Cancer of mouth Cardiovascular disease Cataract Cataracts Chest pain Colon cancer Congenital disease Congenital heart disease Congenital heart disease Congestive heart failure Coronary thrombosis Cystic fibrosis Deafness or hearing loss Dementia Dementia Diabetes mellitus Drug abuse Dysphagia Family history: Allergy Family history: Alzheimer's disease Family history: Arthritis Family history: Asthma Family history: Breast disease Family history: Cardiovascular disease Family history: Coronary thrombosis Family history: Gastrointestinal disease Family history: Glaucoma Family history: Osteoporosis Family history: Thyroid disorder Fibrocystic disease of breast Gastroenteritis Glaucoma Headache Headache disorder Hearing loss Heart disease Hereditary disease History of - anemia History of - disorder History of - respiratory disease History of drug abuse Human immunodeficiency virus (HIV) seropositivity Infertile Malignant neoplasm of lung Myocardial infarction Parkinson's disease Prostate cancer Psychotic disorder Stroke Tuberculosis Visual impairment Physical Exam Vital Signs Vital Signs - First Documented 12/31/18 13:10 Temp 98.7 Pulse 72 Resp 18 B/P (MAP) 122/59 (80) Pulse Ox 97 Capillary Refill : Less Than 3 Seconds Height, Weight, BMI Height: 5'11.00" Weight: 368lbs. 0.0oz. 166.744168lg; 51.3 BMI Method:Stated Progress/Results/Core Measures Results/Orders Lab Results Laboratory Tests Test 12/31/18 13:20 Range/Units White Blood Count 12.1 H 4.3-11.0 10^3/uL Red Blood Count 4.50 4.35-5.85 10^6/uL Hemoglobin 13.9 13.3-17.7 G/DL Hematocrit 41 40-54 % Mean Corpuscular Volume 90 80-99 FL Mean Corpuscular Hemoglobin 31 25-34 PG Mean Corpuscular Hemoglobin Concent 34 32-36 G/DL Red Cell Distribution Width 14.7 H 10.0-14.5 % Platelet Count 236 130-400 10^3/uL Mean Platelet Volume 11.4 H 7.4-10.4 FL Neutrophils (%) (Auto) 74 42-75 % Lymphocytes (%) (Auto) 15 12-44 % Monocytes (%) (Auto) 7 0-12 % Eosinophils (%) (Auto) 3 0-10 % Basophils (%) (Auto) 0 0-10 % Neutrophils # (Auto) 8.9 H 1.8-7.8 X 10^3 Lymphocytes # (Auto) 1.8 1.0-4.0 X 10^3 Monocytes # (Auto) 0.9 0.0-1.0 X 10^3 Eosinophils # (Auto) 0.4 H 0.0-0.3 10^3/uL Basophils # (Auto) 0.0 0.0-0.1 10^3/uL Erythrocyte Sedimentation Rate 18 0-30 MM/HR Sodium Level 136 135-145 MMOL/L Potassium Level 3.8 3.6-5.0 MMOL/L Chloride Level 107 98-107 MMOL/L Carbon Dioxide Level 21 21-32 MMOL/L Anion Gap 8 5-14 MMOL/L Blood Urea Nitrogen 10 7-18 MG/DL Creatinine 0.83 0.60-1.30 MG/DL Estimat Glomerular Filtration Rate > 60 BUN/Creatinine Ratio 12 Glucose Level 87 70-105 MG/DL Uric Acid 8.7 H 2.6-7.2 MG/DL Calcium Level 8.8 8.5-10.1 MG/DL Corrected Calcium 9.0 8.5-10.1 MG/DL Total Bilirubin 0.7 0.1-1.0 MG/DL Aspartate Amino Transf (AST/SGOT) 19 5-34 U/L Alanine Aminotransferase (ALT/SGPT) 20 0-55 U/L Alkaline Phosphatase 71 40-136 U/L C-Reactive Protein High Sensitivity 0.81 H 0.00-0.50 MG/DL Total Protein 7.0 6.4-8.2 GM/DL Albumin 3.8 3.2-4.5 GM/DL My Orders Orders - ABDIRIZAK TAYLOR Cbc With Automated Diff (12/31/18 13:17) Comprehensive Metabolic Panel (12/31/18 13:17) Hs C Reactive Protein (12/31/18 13:17) Uric Acid (12/31/18 13:17) Erythrocyte Sedimentation Rate (12/31/18 13:17) Wrist, Left, 3 Views Or More (12/31/18 13:17) Fentanyl Injection (Sublimaze Injection (12/31/18 14:30) Colchicine Tablet (Colcrys Tablet) (12/31/18 14:30) Vital Signs/I&O 12/31/18 13:10 Temp 98.7 Pulse 72 Resp 18 B/P (MAP) 122/59 (80) Pulse Ox 97 Blood Pressure Mean: 80 Diagnostic Imaging Diagonstic Imaging: Xray Comments [facility] [place], [place] NAME: JEFF TERRY [facility] REC#: [id number] PT STATUS: REG ER : 1950 PHYSICIAN: ABDIRIZAK TAYLOR ADMIT DATE: 12/31/18/ER Draft Date of Exam:12/31/18 WRIST, LEFT, 3 VIEWS OR MORE INDICATION: Left wrist pain 3 views of the left wrist shows calcific arterial sclerosis. There is some calcification of the triangular fibrocartilage. There is slight widening of the scapholunate joint space. There are no fractures seen. IMPRESSION: Slight widening of the scapholunate joint space could represent some ligamentous injury in the wrist. Dictated on workstation # [id number] Dict: 12/31/18 1420 Trans: 12/31/18 1424 [facility] [id number] Interpreted by: DOE PHAM MD Electronically signed by: Reviewed: Reviewed by Me Departure Impression Primary Impression: Gout attack Disposition: 01 HOME, SELF-CARE Condition: Stable/Unchanged Departure-Patient Inst. Decision time for Depature: 14:22 Referrals: SHIV COOK MD (PCP/Family) Primary Care Physician Patient Instructions: Gout Add. Discharge Instructions: Take the 2 colchicine pills that were given to you in the emergency room one hour after discharge. Follow-up with your primary care provider within 1 week for recheck. Take your home medication as directed for pain. All discharge instructions reviewed with patient and/or family. Voiced understanding. ABDIRIZAK TAYLOR Dec 31, 2018 14:24
[2018-12-31] MEDS ORDERED: fentaNYL INJECTION 100 MCG/2 ML AMP IVP ONE (14:30)
[2018-12-31] MEDS ORDERED: COLCHICINE 0.6 MG (COLCRYS) TABLET PO ONE (14:30)
[2018-12-31 15:25] VITALS: BP 120/59
== END 2018-12-31 15:25 | disposition home or self-care (01) ==
LOC: EDUNIT# 13:08 → ER 13:09
DX: M10.9 Gout, unspecified (principal); J44.9 Chronic obstructive pulmonary disease, unspecified; G47.30 Sleep apnea, unspecified; I11.0 Hypertensive heart disease with heart failure; I50.9 Heart failure, unspecified; I25.10 Atherosclerotic heart disease of native coronary artery without angina pectoris; E78.00 Pure hypercholesterolemia, unspecified; E11.51 Type 2 diabetes mellitus with diabetic peripheral angiopathy without gangrene; I73.9 Peripheral vascular disease, unspecified; E11.40 Type 2 diabetes mellitus with diabetic neuropathy, unspecified; K21.9 Gastro-esophageal reflux disease without esophagitis; E66.01 Morbid (severe) obesity due to excess calories; Z86.73 Personal history of transient ischemic attack (TIA), and cerebral infarction without residual deficits; Z86.718 Personal history of other venous thrombosis and embolism; Z86.14 Personal history of Methicillin resistant Staphylococcus aureus infection; Z82.49 Family history of ischemic heart disease and other diseases of the circulatory system; Z68.43 Body mass index [BMI] 50.0-59.9, adult; Z79.82 Long term (current) use of aspirin; Z79.02 Long term (current) use of antithrombotics/antiplatelets; Z79.4 Long term (current) use of insulin; Z87.891 Personal history of nicotine dependence; Z95.5 Presence of coronary angioplasty implant and graft; Z98.52 Vasectomy status
CPT/HCPCS: 36415; 73110; 80053; 84550; 85025; 85652; 86141

== ENCOUNTER 2019-01-06 08:58 | Emergency (ER) | payer MEDICARE, MEDICAID ==
[~2019-01-06] VITALS: Ht 180.3 cm; Wt 166.9 kg
--- NOTE | 2019-01-06 09:44 | ED Lower Extremity ---
General Chief Complaint: Lower Extremity Stated Complaint: LEFT BIG TOE, KNEE PAIN Nursing Triage Note: AMB TO ED C/O PAIN IN L FOOT AFTER HITING A TABLE BRUSING TOE . ABRASION TO OUTSIDE OF L KNEE. Nursing Sepsis Screen: No Definite Risk Source: patient Exam Limitations: no limitations History of Present Illness Date Seen by Provider: Jan 06, 2019 Time Seen by Provider: 09:13 Initial Comments Here with report of left great toe pain and abrasion to the left knee as well as in the left ankle. Go to the bathroom in the middle the night and misjudged the door and accidentally kicked the door with his toe. This caused him to fall for into the wall and he got the abrasion on his knee. Unsure about the abrasion to the lateral aspect of the foot. He is able to walk but does have pain at the foot, especially the great and second toe, and the knee. Denies other injuries. Did not hit his head. Onset: this morning Severity: mild, moderate Pain/Injury Location: left knee, left 1st toe Method of Injury: direct blow Modifying Factors: Improves With Immobilization; Worse With Movement Allergies and Home Medications Allergies Coded Allergies: No Known Drug Allergies (Verified , 10/17/07) Home Medications Amlodipine Besylate 10 Mg Tablet, 10 MG PO DAILY, (Reported) Aspirin 81 Mg Tab.chew, 81 MG PO DAILY, (Reported) Atorvastatin Calcium 80 Mg Tablet, 80 MG PO HS, (Reported) Benzonatate 100 Mg Capsule, 100 MG PO TID Prescribed by: ABDIRIZAK TAYLOR on 07/27/18 1411 Brimonidine Tartrate 5 Ml Drops, 1 DROP OU Q8H, (Reported) Carvedilol 25 Mg Tablet, 25 MG PO BID, (Reported) Clopidogrel Bisulfate 75 Mg Tablet, 75 MG PO DAILY, (Reported) Empagliflozin 25 Mg Tablet, 25 MG PO DAILY, (Reported) Ergocalciferol (Vitamin D2) 50,000 Unit Capsule, 50,000 UNITS PO Mo, (Reported) Furosemide 80 Mg Tablet, 80 MG PO DAILY, (Reported) Gabapentin 100 Mg Capsule, 100 MG PO TID, (Reported) Hydrocodone/Acetaminophen 1 Each Tablet, 2 TAB PO Q6H PRN for PAIN, (Reported) Insulin Glargine,Hum.rec.anlog 300 Unit/1 Ml Insuln.pen, 150 UNITS SQ BID, ( Reported) Insulin Lispro 200 Unit/1 Ml Insuln.pen, 75 UNITS SQ BID, (Reported) Isosorbide Mononitrate 30 Mg Tab.er.24h, 30 MG PO DAILY, (Reported) Lisinopril 20 Mg Tablet, 20 MG PO DAILY, (Reported) Omeprazole 20 Mg Capsule.dr, 20 MG PO BID, (Reported) Paroxetine HCl 20 Mg Tablet, 20 MG PO DAILY, (Reported) Potassium Chloride 20 Meq Tab.er.prt, 20 MEQ PO DAILY, (Reported) Patient Home Medication List Home Medication List Reviewed: Yes Review of Systems Constitutional: see HPI; No fever Respiratory: no symptoms reported Cardiovascular: no symptoms reported Musculoskeletal: see HPI, joint pain, joint swelling Skin: change in color, lesions (left great toe abrasions as described above) Psychiatric/Neurological: No Symptoms Reported Past Lobgggq-Hvhwme-Wpnqst Hx Past Med/Social Hx: Reviewed Nursing Past Med/Soc Hx Patient Social History Alcohol Use: Denies Use Recreational Drug Use: No Smoking Status: Former Smoker Type Used: Cigarettes Former Smoker, Quit: Sep 24, 1986 Recent Foreign Travel: No Contact w/Someone Who Travel: No Recent Infectious Disease Expo: No Recent Hopitalizations: No Immunizations Up To Date Tetanus Booster (TDap): Unknown PED Vaccines UTD: Yes Date of Pneumonia Vaccine: February 04, 2014 Date of Influenza Vaccine: May 25, 2013 Seasonal Allergies Seasonal Allergies: No Past Medical History Surgeries: Yes (STENT PLACEMENT, VASECTOMY, SURGERY TO LEFT AXILARRY-DRAINED AREA, MRSA POS) Abdominal, Cardiac, Coronary Stent, Joint Replacement, Orthopedic, Vascular Surgery, Vasectomy Respiratory: No (O2 AT HS--REFUSES TO WEAR CPAP) Sleep Apnea, COPD Currently Using CPAP: No Currently Using BIPAP: No Cardiac: Yes (MULTIPLE INTERVENTIONS IN HEART AND LEGS; CHF; CAROTID BRUIT) Chronic Edema/Swelling, Coronary Artery Disease, Deep Vein Thrombosis, High Cholesterol, Hypertension, Peripheral Vascular, Valvular Heart Disease Neurological: Yes (CVA around 07') Neuropathy Reproductive Disorders: No Sexually Transmitted Disease: No HIV/AIDS: No Genitourinary: No Gastrointestinal: Yes Gastroesophageal Reflux Musculoskeletal: Yes Arthritis, Chronic Back Pain Endocrine: Yes (MORBID OBESITY) Diabetes, Insulin dep Glaucoma Loss of Vision: Denies Hearing Impairment: Denies Cancer: No Psychosocial: No Integumentary: Yes (MRSA; ABSCESSES AND CELLULITIS; I&D'S'; CHRONIC LEG ULCERS) Herpes Blood Disorders: No Adverse Reaction/Blood Tranf: No Family Medical History Reviewed Nursing Family Hx Arthritis 19 MOTHER Completed stroke 19 MOTHER Family history: Diabetes mellitus 19 MOTHER Family history: Hypertension 19 FATHER 19 MOTHER Hypercholesterolemia 19 MOTHER G8 BROTHER G8 BROTHER Hypertension 19 MOTHER Kidney disease 19 MOTHER Seizure disorder G8 BROTHER No Family History of: AIDS Abdominal aortic aneurysm Abdominal aortic aneurysm Lajas's disease Lajas's disease Alcoholism Alcoholism Alzheimer's disease Aphasia Aphasia Asthma Cancer Cancer of colon Cancer of mouth Cardiovascular disease Cataract Cataracts Chest pain Colon cancer Congenital disease Congenital heart disease Congenital heart disease Congestive heart failure Coronary thrombosis Cystic fibrosis Deafness or hearing loss Dementia Dementia Diabetes mellitus Drug abuse Dysphagia Family history: Allergy Family history: Alzheimer's disease Family history: Arthritis Family history: Asthma Family history: Breast disease Family history: Cardiovascular disease Family history: Coronary thrombosis Family history: Gastrointestinal disease Family history: Glaucoma Family history: Osteoporosis Family history: Thyroid disorder Fibrocystic disease of breast Gastroenteritis Glaucoma Headache Headache disorder Hearing loss Heart disease Hereditary disease History of - anemia History of - disorder History of - respiratory disease History of drug abuse Human immunodeficiency virus (HIV) seropositivity Infertile Malignant neoplasm of lung Myocardial infarction Parkinson's disease Prostate cancer Psychotic disorder Stroke Tuberculosis Visual impairment Physical Exam Vital Signs Vital Signs - First Documented 01/06/19 09:01 Temp 99.0 Pulse 87 Resp 18 B/P (MAP) 193/98 (129) Pulse Ox 95 O2 Delivery Room Air Capillary Refill : Less Than 3 Seconds Height, Weight, BMI Height: 5'11.00" Weight: 368lbs. 0.0oz. 166.011374jj; 51.3 BMI Method:Stated General Appearance: WD/WN, no apparent distress HEENT: PERRL/EOMI, pharynx normal Cardiovascular: regular rate, rhythm, no murmur Respiratory: lungs clear, normal breath sounds Knees: bilateral knee normal range of motion; left knee other (abrasion to the left knee lateral aspect. Does have some swelling about the knee although history of total left knee repair and may be chronic.) Feet: left foot other (left first and second toe swollen with moderate amount of ecchymosis about both great toe. There is abrasion to the lateral posterior aspect of the left foot that looks like a skin tear or blister that has subsequently opened.) Neurologic/Psychiatric: alert, oriented x 3 Skin: warm/dry, other (venous stasis changes to both lower extremities from mid tibia down. No obvious signs of infection to the left foot currently but does have bruising and injuries as noted above.) Progress/Results/Core Measures Results/Orders My Orders Orders - DOE DUMAS MD Knee, Left, 3 Views (01/06/19 09:13) Toe(S) (01/06/19 09:13) Vital Signs/I&O 01/06/19 09:01 Temp 99.0 Pulse 87 Resp 18 B/P (MAP) 193/98 (129) Pulse Ox 95 O2 Delivery Room Air Blood Pressure Mean: 129 Progress Progress Note : Progress Note Seen and evaluated. We will check x-ray of the left great toe as well as the left knee. Wound care done by nursing to left foot. 1045: Wounds cleaned by nursing and dressed with antibiotic ointment and dressing. Fracture of great toe noted. Postop shoe. Discharged home with return precautions. Patient verbalize understanding instructions and agreement with plan. Diagnostic Imaging Diagonstic Imaging: Xray Plain Films/CT/US/NM/MRI: other Comments [facility] [place] [place] NAME: JEFF TERRY [facility] REC#: [id number] PT STATUS: REG ER : 1950 PHYSICIAN: DOE DUMAS MD ADMIT DATE: 01/06/19/ER Draft Date of Exam:01/06/19 TOE(S) INDICATION: Injury to left toes AP, oblique, and lateral views of the left toes were obtained at 1005 AM. There is an acute oblique fracture of the first proximal phalanx which may extend to the interphalangeal joint. There is no other acute finding. IMPRESSION: Acute fracture of first proximal phalanx as described above, extending to the interphalangeal joint. Dictated on workstation # [id number] Dict: 01/06/19 1035 Trans: 01/06/19 1039 [place] [id number] Interpreted by: MADIE MOORE MD Electronically signed by: Diagonstic Imaging: Xray Plain Films/CT/US/NM/MRI: knee Comments [facility]. [place], [place] NAME: JEFF TERRY [facility] REC#: [id number] PT STATUS: REG ER : 1950 PHYSICIAN: DOE DUMAS MD ADMIT DATE: 01/06/19/ER Draft Date of Exam:01/06/19 KNEE, LEFT, 3 VIEWS INDICATION: Left knee pain. TECHNIQUE: AP, oblique, and lateral views of the left knee were obtained. FINDINGS: No fracture or acute bony abnormality is seen. The left knee prosthesis appears in good alignment with no sign of loosening. There are chronic soft tissue calcifications posteriorly with vascular calcifications noted. IMPRESSION: Well aligned left knee prosthesis with no acute bony abnormality. Dictated on workstation # [id number] Dict: 01/06/19 1030 Trans: 01/06/19 1031 [id number] Interpreted by: MADIE MOORE MD Electronically signed by: Departure Impression Primary Impression: Fracture of toe Qualified Codes: S92.415A - Nondisplaced fracture of proximal phalanx of left great toe, initial encounter for closed fracture Additional Impression: Multiple abrasions Disposition: HOME, SELF-CARE Condition: Improved Departure-Patient Inst. Decision time for Depature: 10:48 Referrals: TERESO PAN FLOYD R MD (PCP/Family) Primary Care Physician Patient Instructions: Skin Abrasions (DC), Toe Fracture Add. Discharge Instructions: All discharge instructions reviewed with patient and/or family. Voiced understanding. Follow-up with your doctor this week for recheck and further evaluation. You did fracture your toe. You may need to follow-up with orthopedist listed order choosing to ensure that the bone is healing properly. Your Dr. Siegel with this as well. Return for worse pain, swelling, red streaks up the foot or leg, weakness or other concerns as needed. Take medications as directed. Scripts Cephalexin (Cephalexin) 500 Mg Tablet 500 MG PO QID, #20 TAB 0 Refills Prov: DOE DUMAS MD 01/06/19 DOE DUMAS MD Jan 06, 2019 09:44
[2019-01-06] MEDS ORDERED: ONDANSETRON 4 MG/2 ML (SDV) Z0FRAN IVP ONE (10:00)
[2019-01-06] MEDS ORDERED: ceFAZolin INJECTION 1,000 MG in WATER (STERILE) FOR INJECTION 10 ML IV ONE (10:00)
[2019-01-06] MEDS ORDERED: NS IV 1000 ML 1,000 ML IV SCH (10:00)
[2019-01-06] MEDS ORDERED: ASPIRIN 81 MG CHEW (CHILDREN'S ASA) PO ONE (10:00)
--- NOTE | 2019-01-06 10:32 | Diagnostic Imaging Report ---
INDICATION: Left knee pain. TECHNIQUE: AP, oblique, and lateral views of the left knee were obtained. FINDINGS: No fracture or acute bony abnormality is seen. The left knee prosthesis appears in good alignment with no sign of loosening. There are chronic soft tissue calcifications posteriorly with vascular calcifications noted. IMPRESSION: Well aligned left knee prosthesis with no acute bony abnormality. Dictated by: Dictated on workstation # [id number]
--- NOTE | 2019-01-06 10:40 | Diagnostic Imaging Report ---
INDICATION: Injury to left toes AP, oblique, and lateral views of the left toes were obtained at 1005 AM. There is an acute oblique fracture of the first proximal phalanx which may extend to the interphalangeal joint. There is no other acute finding. IMPRESSION: Acute fracture of first proximal phalanx as described above, extending to the interphalangeal joint. Dictated by: Dictated on workstation # [id number]
[2019-01-06] MEDS ORDERED: CEPH500T PO (10:54)
[2019-01-06 11:10] VITALS: BP 193/98
== END 2019-01-06 11:10 | disposition home or self-care (01) ==
LOC: EDUNIT# 08:58 → ER 09:00
DX: S92.412A Displaced fracture of proximal phalanx of left great toe, initial encounter for closed fracture (principal); G47.30 Sleep apnea, unspecified; J44.9 Chronic obstructive pulmonary disease, unspecified; I11.0 Hypertensive heart disease with heart failure; I50.9 Heart failure, unspecified; I25.10 Atherosclerotic heart disease of native coronary artery without angina pectoris; E78.00 Pure hypercholesterolemia, unspecified; E11.51 Type 2 diabetes mellitus with diabetic peripheral angiopathy without gangrene; I73.9 Peripheral vascular disease, unspecified; K21.9 Gastro-esophageal reflux disease without esophagitis; E66.01 Morbid (severe) obesity due to excess calories; Z86.718 Personal history of other venous thrombosis and embolism; Z86.14 Personal history of Methicillin resistant Staphylococcus aureus infection; Z86.19 Personal history of other infectious and parasitic diseases; Z82.49 Family history of ischemic heart disease and other diseases of the circulatory system; Z68.43 Body mass index [BMI] 50.0-59.9, adult; Z79.82 Long term (current) use of aspirin; Z79.4 Long term (current) use of insulin; Z79.02 Long term (current) use of antithrombotics/antiplatelets; Z87.891 Personal history of nicotine dependence; Z95.5 Presence of coronary angioplasty implant and graft; Z98.52 Vasectomy status; W22.09XA Striking against other stationary object, initial encounter; Y92.002 Bathroom of unspecified non-institutional (private) residence as the place of occurrence of the external cause
CPT/HCPCS: 73562; 73660

== ENCOUNTER 2019-03-18 09:17 | Outpatient (CLI) | payer MEDICARE, MEDICAID ==
[~2019-03-18] VITALS: Ht 180.3 cm; Wt 156.5 kg
[~2019-03-18 09:17] MED LIST changes: +CEPH500T PO
[2019-03-18] MEDS ORDERED: INSU300I SQ (09:42)
[2019-03-18] MEDS ORDERED: OMEG1CAP58 PO (09:42)
[2019-03-18] MEDS ORDERED: AMIL5TAB3 PO (09:42)
[2019-03-18] MEDS ORDERED: CYCL10TA9 PO (09:42)
[2019-03-18] MEDS ORDERED: INSU100I48 SQ (09:42)
[2019-03-18] MEDS ORDERED: NITR0.4T39 SL (09:42)
[2019-03-18 09:49] VITALS: BP 95/49
== END 2019-03-18 10:54 | disposition home or self-care (01) ==
LOC: PREOP 09:17
PROVIDERS: ATTEND Orthopaedic Surgery Orthopaedic Surgery of the Spine
DX: Z01.818 Encounter for other preprocedural examination (principal)
CPT/HCPCS: 87081

== ENCOUNTER 2019-03-24 07:08 | Inpatient (IN) | payer MEDICARE, MEDICAID ==
--- NOTE | 2019-03-18 12:23 | NUR ---
MEDS WERE ENTERED AT [facility], I ALSO HAD A MED LIST FAXED FROM [facility]. I REVIEWED ALL THE MEDICATIONS AND MADE NO CHANGES.
[~2019-03-24] VITALS: Ht 180.3 cm; Wt 156.5 kg
[~2019-03-24 07:08] MED LIST changes: +AMIL5TAB3 PO; +HYDROcodone/APAP 10 MG/325 MG (LORTAB) TAB PO PRN; +INSU100I48 SQ; +MULTIVIT W/MINERALS TAB (THERAGRAN M) PO SCH; +NITR0.4T39 SL; +OMEG1CAP58 PO; +ONDANSETRON 4 MG/2 ML (SDV) Z0FRAN IV PRN; +morphine INJ 4 MG/ML 1 ML (VIAL/SYRINGE) IVP PRN
[2019-03-24 07:10] VITALS: BP 145/79
--- NOTE | 2019-03-24 07:30 | NUR ---
PT STATES HE STOPPED ASPIRIN 03/17 AND STATES HE TOOK PLAVIX YESTERDAY, 03/23/19. AFTER DISCUSSION, PT STATES HE IS "PRETTY SURE" HE STOPPED PLAVIX 03/17/19. DR SILVEIRA TO ROOM, DISCUSSED WITH PT RISKS OF PROCEEDING WITH SURGERY IF HE DID NOT, IN FACT, STOP PLAVIX PRE-OPERATIVELY. PT STATES HE MANAGES HIS OWN MEDS AND PUTS THEM IN A PILL BOX, CANNOT SAY WITH ABSOLUTE CERTAINTY THAT THE PLAVIX WAS STOPPED. SURGERY CANCELLED BY DR SILVEIRA. PT AND STEP-DAUGHTER VERBALIZE UNDERSTANDING OF THIS DECISION. STEP-DAUGHTER STATES PT IS "FORGETFUL" AT TIMES AND THAT PT'S SON, ESPINOZA, WHO LIVES WITH PT, WILL MANAGE HIS MEDS PRIOR TO RETURNING FOR RE-SCHEDULES SURGERY.
[2019-03-24] MEDS ORDERED: GENTAMICIN 40 MG/ML 2 ML INJ SDV ONE (07:43)
[2019-03-24] MEDS ORDERED: THROMBIN 5,000 UNIT (RECOTHROM) VIAL ONE (07:45)
[2019-03-24] MEDS ORDERED: LACTATED RINGERS 1,000 ML IV PRN (07:46)
[2019-03-24] MEDS ORDERED: ceFAZolin 2 GM/NS 50 ML IVPB IV ONE (08:00)
[2019-03-24] MEDS ORDERED: ceFAZolin 2 GM/50 ML NS 50 ML IV ONE (08:00)
[2019-03-24] MEDS ORDERED: ceFAZolin INJECTION 2,000 MG in WATER (STERILE) FOR INJECTION 10 ML IV SCH (10:45)
[2019-03-24] MEDS ORDERED: inSUlin ASPART (NovoLOG) 1 UNIT/0.01 ML (CHARGE PER UNIT) SC SCH (11:00)
== END 2019-03-24 08:30 | disposition home or self-care (01) | DRG 552 ==
LOC: 4TH 07:08 → SURG 07:09
PROVIDERS: ADMIT Orthopaedic Surgery Orthopaedic Surgery of the Spine; ATTEND Orthopaedic Surgery Orthopaedic Surgery of the Spine
DX: M48.02 Spinal stenosis, cervical region (principal); M54.12 Radiculopathy, cervical region; Z53.09 Procedure and treatment not carried out because of other contraindication
CPT/HCPCS: 82962

== ENCOUNTER 2019-04-22 06:49 | Inpatient (IN) | payer MEDICARE, MEDICAID ==
[~2019-04-22] VITALS: Ht 180.3 cm; Wt 156.5 kg
[2019-04-22] VITALS (10 sets, daily range): BP systolic 124–148; BP diastolic 55–84
[~2019-04-22 06:49] MED LIST changes: -HYDROcodone/APAP 10 MG/325 MG (LORTAB) TAB PO PRN; -MULTIVIT W/MINERALS TAB (THERAGRAN M) PO SCH; -ONDANSETRON 4 MG/2 ML (SDV) Z0FRAN IV PRN; -morphine INJ 4 MG/ML 1 ML (VIAL/SYRINGE) IVP PRN
--- OUTSIDE RECORDS SUMMARY | 2019-04-22 06:55 | XMS REPORT | Clinical Summary ---
Author Author [facility] Organization [facility] Address Unknown Phone Unavailable Care Team Providers Care Office Administrator Name Role Phone Haresh Goldsmith MD Unavailable Xiao Burrows MD Unavailable Maynor Gutiérrez MD PCP Nereyda Tafoya PA-C Unavailable Haresh Bo MD Unavailable Froilan Delgado MD Unavailable Meliza Spencer APRN Unavailable Unavailable Barry Gale MD Unavailable Sebastian Amador MD Unavailable [place] Choi MD Unavailable Source Comments Some departments are not documenting in the electronic medical record. If you d o not see the information that you expected, contact Release of Information in [facility] Information Management department at [phone] for further assistan ce in locating additional records.[facility] Allergies No Known Allergies Medications End Date [...] mg by 0 mg mouth daily. Active Miscellaneous Medical 1 Each 3 [...] with needed. long-term current use of insulin ([facility]), Coronary artery disease of [place] heart with stable angina pectoris, unspecified vessel or lesion type ([facility]) Active isosorbide mononitrate SR Take 30 mg by 0 (IMDUR) 30 mg tablet mouth every morning. Extended release Active cyclobenzaprine Take 10 mg by 0 (FLEXERIL) 10 mg tablet mouth three times daily as needed for Muscle Cramps. Active gabapentin (NEURONTIN) Take 100 mg 0 100 mg capsule by mouth three times daily. Active Alcohol Swabs padm Apply 1 each 400 each 3 topically to 8 affected area four times daily. E11.[address] Haresh Bo Active aMILoride (MIDAMOR) 5 mg Take 1 tablet 30 tablet 0 tabletIndications: by mouth 8 Essential hypertension daily. Active insulin lispro (HUMALOG 75 units in 10 Syringe 5 KWIKPEN INSULIN) 200 AM; 90 U ac 8 unit/mL (3 mL) supper, SQ inpnIndications: type 2 inj diabetes mellitus Active VITAMIN D 50,000 unit TAKE 1 12 capsule 3 capsuleIndications: CAPSULE BY 9 Vitamin D deficiency MOUTH EVERY 7 DAYS. Active ULTICARE PEN NEEDLE 32 USE 1 EACH 400 each 3 gauge x /32" pen needle DIRECTED FOUR 9 TIMES DAILY. Active VICTOZA 3-DOMI 0.6 mg/0.1 INJECT 1.8 MG 27 mL 1 mL (18 mg/3 mL) UNDER THE 9 pnijIndications: SKIN DAILY. Uncontrolled type 2 diabetes mellitus with complication, with long-term current use of insulin ([facility]) Active lisinopril (PRINIVIL; TAKE 1 TABLET 90 tablet 2 ZESTRIL) 20 mg BY MOUTH 9 tabletIndications: DAILY Essential hypertension, Uncontrolled type 2 diabetes mellitus with complication, with long-term current use of insulin (HCC) Active amLODIPine (NORVASC) 10 TAKE 1 TABLET 90 tablet 3 mg tabletIndications: BY MOUTH 9 Essential hypertension, EVERY Uncontrolled type 2 MORNING. diabetes mellitus with complication, with long-term current use of insulin (HCC) Active flaxseed oil (OMEGA 3 PO) Take 1,000 mg 0 by mouth daily. Active carvedilol (COREG) 25 mg TAKE 1 TABLET 180 tablet 2 tablet BY MOUTH 9 TWICE DAILY. TAKE WITH FOOD. Active JARDIANCE 25 mg TAKE ONE 90 tablet 3 tabIndications: TABLET BY 9 Uncontrolled type 2 MOUTH DAILY diabetes mellitus with 30 MINUTES complication, with BEFORE long-term current use of BREAKFAST. insulin ([facility]) Active TOUJEO SOLOSTAR U-300 INJECT 55 20.25 mL 1 INSULIN 300 unit/mL (1.5 UNITS UNDER 9 mL) THE SKIN injectableIndications: EVERY MORNING Uncontrolled type 2 AND 80 UNITS diabetes mellitus with UNDER THE complication, with SKIN EVERY long-term current use of EVENING insulin ([facility]) 04/14/2019 Discontinued insulin glargine U-300 Inject 55 27 mL 1 conc (TOUJEO SOLOSTAR units under 9 U-300 INSULIN) 300 the skin in unit/mL (1.5 mL) the morning injectableIndications: and 80 units Uncontrolled type 2 under the diabetes mellitus with skin at complication, with night. long-term current use of insulin ([facility]) Active Problems Problem Noted Date Urinary retention with incomplete bladder emptying 10/22/2012 Last Assessment & Plan: Now seeing urologist in [place]. Was given Rx that he did not [...] Claudication 08/05/2010 Overview: a. 03/26 - Lower arterial/SRAAH study: no LE arterial stenosis, mod reduced [...] & Plan: Following with sleep specialist in [place]. CAD (coronary artery disease) 12/13/2007 Overview: a. History of chest pain. Treated at [facility] and told that he had "small heart attack" given NTG tabs. Seen at [facility] x 2 for chest pain resolved [...] prior study J. 10/18/07 pt admitted to [facility] in [place] with CP. Cardiac cath showed a patent stent in the obtuse marginal. He had 50% stenosis in the mid LAD, 70% stenosis in a distal right PDA that was not amenable to intervention. It was felt that he didn't have anatomy suitable for intervention and he was managed medically. Reduced mobility 12/13/2007 Gait abnormality 12/13/2007 Encounters Care Team Description Date Type Specialty Haresh Bo MD Uncontrolled type 2 diabetes mellitus with complication, with long-term current use of insulin ([facility]) 04/14/2019 Refill Diabetes Services Nereyda Tafoya PA-C Uncontrolled type 2 diabetes mellitus with complication, with long-term current use of insulin ([facility]) 02/18/2019 Refill Diabetes Services Nereyda Tafoya PA-C 02/07/2019 Refill Diabetes Services Haresh Bo MD 02/03/2019 Hospital Lab Encounter Nereyda Tafoya PA-C 02/03/2019 Hospital Radiology Encounter Nereyda Tafoya PA-C Type 2 diabetes mellitus with other circulatory complication, with long-term current use of insulin (HCC) (Primary Dx); Left wrist pain; Essential hypertension; Hypercholesteremia; Hyponatremia 02/03/2019 Office Visit Diabetes Services Nereyda Tafoya PA-C Uncontrolled type 2 diabetes mellitus with complication, with long-term current use of insulin (HCC) 01/23/2019 Refill Diabetes Services Nereyda Tafoya PA-C Uncontrolled type 2 diabetes mellitus with complication, with long-term current use of insulin ([facility]) 01/22/2019 Refill Diabetes Services from Last 3 Months Immunizations Name Administration Dates Next Due FLU VACCINE >3YO 08/21/2012, 07/11/2011 Flu Vaccine Trivalent=>3 07/16/2013 YO Family History Medical History Relation Name Comments Seizures Brother Diabetes Brother T2DM Diabetes Father Melanoma Neg Hx Relation Name Status Comments Brother Brother Father Mother Social History Date Tobacco Use Types Packs/Day Years Used Quit: 08/05/1978 Former Smoker Cigarettes 28 Smokeless Tobacco: Never Used Tobacco Cessation: Counseling Given: No Drinks/Week oz/Week Comments Alcohol Use No Sex Assigned at Date Recorded Not on file Industry Job Start Date Occupation Not on file Not on file Not on file Travel End Travel History Travel Start No recent travel history available. Last Filed Vital Signs Reading Time Taken Comments Vital Sign 127/68 02/03/2019 9:08 AM CDT Blood Pressure 63 02/03/2019 9:08 AM CDT Pulse 36.1 C (97 F) 07/11/2011 9:22 AM CDT Temperature 18 08/21/2012 2:25 PM CONTACT LENS CUTTER Respiratory Rate 95% 08/19/2018 2:29 PM CONTACT LENS CUTTER room air Oxygen Saturation - - Inhaled Oxygen Concentration 164.2 kg (362 lb) 02/03/2019 9:08 AM CDT per pt Weight 180.3 cm (5' 11") 02/03/2019 9:08 AM CDT Height 50.49 02/03/2019 9:08 AM CDT Body Mass Index Plan of Treatment Health Maintenance Due Date Last Done Comments HEPATITIS C SCREENING 1950 PHYSICAL (COMPREHENSIVE) 1956 EXAM DTAP/TDAP VACCINES (1 - 1967 Tdap) COLORECTAL CANCER 1999 SCREENING SHINGLES RECOMBINANT 1999 VACCINE (1 of 2) ABDOMINAL AORTIC ANEURYSM 2014 SCREENING PNEUMONIA (PCV13/PPSV23) 2014 VACCINES (1 of 2 - PCV13) INFLUENZA VACCINE 06/24/2019 06/05/2018 (Previously completed), 07/03/2017 (Previously completed), 08/28/2014 (Declined), Additional history exists HBA1C 08/06/2019 02/03/2019, 10/30/2018, 08/19/2018, Additional history exists DILATED EYE EXAM 11/02/2019 11/02/2018 (Previously completed), 05/01/2018 (Previously completed), 10/29/2017 (Previously completed), Additional history exists FOOT EXAM 02/04/2020 02/03/2019, 10/30/2018, 08/19/2018, Additional history exists Goals Goal Patient Associated Recent Progress Patient-Stat Author Goal Type Problems ed? HEMOGLOBIN A1C < 8.0 Result 7.6 (12/05/2007 Katiuska Tafoya, Component 5:20 AM CDT) MARILEE Dawn Procedures Comments Procedure Name Priority Date/Time Associated Diagnosis COMPREHENSIVE METABOLIC Routine 02/03/2019 Type 2 diabetes mellitus PANEL 11:04 AM CDT with other circulatory complication, with long-term current use of insulin (HCC) WRIST 2 VIEWS LEFT Routine 02/03/2019 Left wrist pain 10:15 AM CDT POC GLUCOSE QUANTITATIVE Routine 02/03/2019 Type 2 diabetes mellitus BLOOD 9:17 AM CDT with other circulatory complication, with long-term current use of insulin (HCC) POC HEMOGLOBIN A1C Routine 02/03/2019 Type 2 diabetes mellitus 9:17 AM CDT with other circulatory complication, with long-term current use of insulin (HCC) from Last 3 Months Results * COMPREHENSIVE METABOLIC PANEL (02/03/2019 11:04 AM CDT) Sodium 135 (L) 137 - 147 MMOL/L [facility] Potassium 3.6 3.5 - 5.1 MMOL/L [facility] Chloride 103 98 - 110 MMOL/L [facility] Glucose 105 (H) 70 - 100 MG/DL [facility] Blood Urea 15 7 - 25 MG/DL [facility] Nitrogen Creatinine 0.97 0.4 - 1.24 MG/DL [facility] Calcium 9.3 8.5 - 10.6 MG/DL [facility] Total Protein 7.6 6.0 - 8.0 G/DL [facility] Total Bilirubin 0.6 0.3 - 1.2 MG/DL [facility] Albumin 4.2 3.5 - 5.0 G/DL [facility] Alk Phosphatase 84 25 - 110 U/L [facility] AST (SGOT) 16 7 - 40 U/L [facility] CO2 23 21 - 30 MMOL/L [facility] ALT (SGPT) 21 7 - 56 U/L [facility] Anion Gap 9 3 - 12 [facility] eGFR Non >60 >60 mL/min [facility] Comment: [place] The eGFR is not validated for use in drug dosing adjustments.Continue to use estimated creatinine clearance per dosing reference text.Please contact the Clinical Pharmacist for questions. eGFR >60 >60 mL/min [facility] [place] Comment: The eGFR is not validated for use in drug dosing adjustments.Continue to use estimated creatinine clearance per dosing reference text.Please contact the Clinical Pharmacist for questions. Specimen Blood Performing Organization Address City/State/Zipcode Phone Number [facility] [address] [place] [address] * WRIST 2 VIEWS LEFT (02/03/2019 10:15 AM CDT) Specimen Left Impressions Performed At FINDINGS/IMPRESSION: [facility] 1.There is no acute fracture. Normal alignment. 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 Joint spaces are well-maintained. 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 4.Severe diffuse arterial calcifications. Approved by Juan Pablo Enrique MD on 02/03/2019 1:01 PM By my electronic signature, I attest that I have personally reviewed the images for this examination and formulated the interpretations and opinions expressed in this report Finalized by Thierry Mauricio M.D. on 02/03/2019 4:22 PM. Dictated by Juan Pablo Enrique MD on 02/03/2019 11:04 AM. Narrative Performed At WRIST 2 VIEWS LEFT [facility] CLINICAL HISTORY: Male, 68 years old. Left wrist pain after fall COMPARISON:No previous exam. TECHNIQUE:WRIST 2 VIEWS LEFT Procedure Note Interface, Radiant Results - 02/03/2019 4:25 PM CDT WRIST 2 VIEWS LEFT CLINICAL HISTORY: Male, 68 years old. Left wrist pain after fall COMPARISON: No previous exam. TECHNIQUE: WRIST 2 VIEWS LEFT IMPRESSION FINDINGS/IMPRESSION: 1. There is no acute fracture. Normal alignment. 2. Mild first CMC and triscaphe osteoarthrosis with associated subchondral cystic changes. Joint spaces are well-maintained. 3. 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 4. Severe diffuse arterial calcifications. Approved by Juan Pablo Enrique MD on 02/03/2019 1:01 PM By my electronic signature, I attest that I have personally reviewed the images for this examination and formulated the interpretations and opinions expressed in this report Finalized by Thierry Mauricio M.D. on 02/03/2019 4:22 PM. Dictated by Juan Pablo Enrique MD on 02/03/2019 11:04 AM. Performing Organization Address [facility] Phone Number [facility] * POC GLUCOSE QUANTITATIVE BLOOD (02/03/2019 9:17 AM CDT) Glucose, POC [facility] Specimen Blood, capillary Performing Organization Address [facility] * POC HEMOGLOBIN A1C (02/03/2019 9:17 AM CDT) Poc Hemoglobin 7 % [facility] A1C Specimen Blood, capillary - Blood Performing Organization Address City/[facility] from Last 3 Months Insurance Type Payer Benefit Subscriber ID Effective Phone Address Plan / Dates Group Medicare MEDICARE MEDICARE xxxxxxxxxxx 2005-P PART A AND resent B Medicaid [facility] MEDICAID [facility] xxxxxxxxxxx 2012-P COMMUNITY resent PLAN [place] [address] Advance Directives Patient Candy Spreader Explanation Type Date Recorded Advance Directive/DPOA Date Inactivated Comments Code Status Date Activated 12/16/2007 6:14 PM Full Code 12/06/2007 9:00 PM
--- OUTSIDE RECORDS SUMMARY | 2019-04-22 06:55 | XMS REPORT | Encounter Summary ---
Author Author [facility] Organization [facility] Address Unknown Phone Unavailable Care Team Providers Care Sharepoint Administrator Name Role Phone Haresh Goldsmith MD [...] Type Department Haresh Bo MD [address] [facility] [address] [place] [address] [phone] Uncontrolled type 2 diabetes mellitus with complication, with long-term current use of insulin (HCC) 04/14/2019 Refill [facility] [address] [place] [address] Social History Date Tobacco Use Types Packs/Day Years Used Quit: 08/05/1978 Former Smoker Cigarettes 28 Smokeless Tobacco: Never Used Drinks/Week oz/Week Comments Alcohol Use No Sex [...]
--- OUTSIDE RECORDS SUMMARY | 2019-04-22 06:55 | XMS REPORT | Encounter Summary ---
Author Author [facility] Organization [facility] Address Unknown Phone Unavailable Care Team Providers Care Grain Elevator Superintendent Name Role Phone Haresh Goldsmith MD Unavailable [...] Date Type Department Nereyda Tafoya PA-C [address] [facility] [address] [address] [place] [address] Uncontrolled type 2 diabetes mellitus with complication, with long-term current use of insulin (HCC) 02/18/2019 Refill [facility] [address] [place] [address] Social History Date Tobacco Use [...] Telephone Encounter - Nuris Bee RN - 02/18/2019 2:13 PM CDT .E-scribe filled per standing order [...]
--- OUTSIDE RECORDS SUMMARY | 2019-04-22 06:56 | XMS REPORT | Encounter Summary ---
Author Author [facility] Organization [facility] Address Unknown Phone Unavailable Care Team Providers Care Patient Services Technician Name Role Phone Haresh Goldsmith MD Unavailable Xiao Burrows MD Unavailable Maynor Gutiérrez MD PCP Nereyda Tafoya PA-C Unavailable Haresh Bo MD Unavailable Froilan Delgado MD Unavailable Meliza Spencer APRN Unavailable Unavailable Barry Gale MD Unavailable Sebastian Amador MD Unavailable [place] Choi MD Unavailable Encounter Details Care Team Description Date Type Department Haresh Bo MD [address] [facility] [address] [place], [place] [id number] 02/03/2019 [facility] [address] [address] Social History Date Tobacco Use Types Packs/Day [...] impairment: No documented as of this encounter Medications at Time of Discharge Start Date End Date Medication Sig Dispensed Refills 01/28/2018 Alcohol Swabs padm Apply 1 each 400 each 3 topically to affected area four times daily. E11.[address] Haresh Bo 03/06/2018 aMILoride (MIDAMOR) 5 mg Take 1 tablet 30 tablet 0 tabletIndications: by mouth Essential hypertension daily. 01/21/2019 amLODIPine (NORVASC) 10 TAKE 1 TABLET 90 tablet 3 mg tabletIndications: BY MOUTH Essential hypertension, EVERY Uncontrolled type 2 MORNING. diabetes mellitus with complication, with long-term current use of insulin (HCC) aspirin EC 81 mg PO Take 81 mg by 0 tablet mouth daily. atorvastatin (LIPITOR) 80 Take 80 mg by 0 mg PO tablet mouth daily. blood sugar diagnostic Use 1 Strip 0 test strip as directed twice daily before meals. CareSens N brand Checks twice daily clopidogrel (PLAVIX) 75 Take 75 mg by 0 mg mouth daily. cyclobenzaprine Take 10 mg by 0 (FLEXERIL) 10 mg tablet mouth three times daily as needed for Muscle Cramps. flaxseed oil (OMEGA 3 PO) Take 1,000 mg 0 by mouth daily. furosemide (LASIX) 80 mg Take 80 mg by 0 tablet mouth daily. gabapentin (NEURONTIN) Take 100 mg 0 100 mg capsule by mouth three times daily. HYDROcodone/acetaminophen Take 2 0 (+) (LORTAB, NORCO) tablets by 10/325 mg tablet mouth every 6 hours as needed for Pain 08/19/2018 insulin lispro (HUMALOG 75 units in 10 Syringe 5 KWIKPEN INSULIN) 200 AM; 90 U ac unit/mL (3 mL) supper, SQ inpnIndications: type 2 inj diabetes mellitus isosorbide mononitrate SR Take 30 mg by 0 (IMDUR) 30 mg tablet mouth every morning. Extended release 01/21/2019 lisinopril (PRINIVIL; TAKE 1 TABLET 90 tablet 2 ZESTRIL) 20 mg BY MOUTH tabletIndications: DAILY Essential hypertension, Uncontrolled type 2 diabetes mellitus with complication, with long-term current use of insulin ([facility]) 02/07/2013 Miscellaneous Medical 1 Each 3 Supply (T.E.D. ANTI-EMBOLISM STOCKING) [facility] 08/24/2016 nitroglycerin (NITROSTAT) Place 1 Tab 25 Tab 0 0.4 mg tabletIndications: under tongue Type 2 diabetes mellitus every 5 with diabetic autonomic minutes as neuropathy, with needed. long-term current use of insulin ([facility]), Coronary artery disease of [place] heart with stable angina pectoris, unspecified vessel or lesion type ([facility]) paroxetine (PAXIL) 20 mg Take 20 mg by 0 PO tablet mouth daily. POTASSIUM CHLORIDE Take 20 mEq 0 (KLOR-CON M20 PO) by mouth daily. 11/11/2018 ULTICARE PEN NEEDLE 32 USE 1 EACH 400 each 3 gauge x 5/32" pen needle DIRECTED FOUR TIMES DAILY. 12/09/2018 VICTOZA 3-DOMI 0.6 mg/0.1 INJECT 1.8 MG 27 mL 1 mL (18 mg/3 mL) UNDER THE pnijIndications: SKIN DAILY. Uncontrolled type 2 diabetes mellitus with complication, with long-term current use of insulin ([facility]) 10/22/2018 VITAMIN D 50,000 unit TAKE 1 12 capsule 3 capsuleIndications: CAPSULE BY Vitamin D deficiency MOUTH EVERY 7 DAYS. 05/07/2018 02/07/2019 carvedilol (COREG) 25 mg TAKE 1 TABLET 180 tablet 2 tablet BY MOUTH TWICE DAILY. TAKE WITH FOOD. 02/18/2019 empagliflozin 25 mg Take 25 mg by 0 tabIndications: type 2 mouth daily. diabetes mellitus 01/22/2019 04/14/2019 insulin glargine U-300 Inject 55 27 mL 1 conc (TOUJEO SOLOSTAR units under U-300 INSULIN) 300 the skin in unit/mL (1.5 mL) the morning injectableIndications: and 80 units Uncontrolled type 2 under the diabetes mellitus with skin at complication, with night. long-term current use of insulin ([facility]) documented as of this encounter Plan of [...] of insulin (HCC) documented in this encounter Results * COMPREHENSIVE METABOLIC PANEL (02/03/2019 11:04 [...] >60 >60 mL/min [facility] Comment: [place] The eGFR is not validated for use in drug dosing adjustments.Continue to use estimated creatinine clearance per dosing reference text.Please contact the Clinical Pharmacist for questions. eGFR >60 >60 mL/min [facility] [place] Comment: The eGFR is not validated for use in drug dosing adjustments.Continue to use estimated creatinine clearance per dosing reference text.Please contact the Clinical Pharmacist for questions. Specimen Blood Performing Organization Address City/State/Zipcode Phone Number [facility] [address] [place] [address] documented in this encounter Visit Diagnoses Diagnosis Type 2 diabetes mellitus with other circulatory complication, with long-term current use of insulin (HCC) Uncontrolled diabetes mellitus with complications (HCC) Type II or unspecified type diabetes mellitus with unspecified complication, uncontrolled Hyponatremia Hyposmolality and/or hyponatremia Hyperkalemia Hyperpotassemia Hyperglycemia Other abnormal glucose documented in this encounter
--- OUTSIDE RECORDS SUMMARY | 2019-04-22 06:56 | XMS REPORT | Encounter Summary ---
Author Author [facility] Organization [facility] Address Unknown Phone Unavailable Care Team Providers Care Barrel Raiser Name Role Phone Haresh Goldsmith MD Unavailable [...] Date Type Department Nereyda Tafoya PA-C [address] [facility] [address] [place] [address] 02/07/[address] [facility] [address] [place] [address] Social History Date Tobacco Use [...] Telephone Encounter - Nuris Bee RN - 02/07/2019 2:46 PM CDT .E-scribe filled per standing order [...]
--- OUTSIDE RECORDS SUMMARY | 2019-04-22 06:57 | XMS REPORT | Encounter Summary ---
Author Author [facility] Organization [facility] Address Unknown Phone Unavailable Care Team Providers Care Inclinometer Tester Name Role Phone Haresh Goldsmith MD Unavailable Xiao Burrows MD Unavailable Maynor Gutiérrez MD PCP Nereyda Tafoya PA-C Unavailable Haresh Bo MD Unavailable Froilan Delgado MD Unavailable Meliza Spencer APRN Unavailable Unavailable Barry Gale MD Unavailable Sebastian Amador MD Unavailable Florida Choi MD Unavailable Reason for Visit * Reason Comments Diabetes Encounter Details Care Team Description Date Type Department Nereyda Tafoya PA-C [address] [facility] [place] [address] [place] [address] Type 2 diabetes mellitus with other circulatory complication, with long-term current use of insulin (HCC) (Primary Dx); Left wrist pain; Essential hypertension; Hypercholesteremia; Hyponatremia 02/03/2019 Office Visit [facility] [address] [place] [address] Social History Date Tobacco Use [...] of this encounter Last Filed Vital Signs Reading Time Taken Comments Vital Sign 127/68 02/03/2019 9:08 AM CDT Blood Pressure 63 02/03/2019 9:08 AM CDT Pulse - - Temperature - - Respiratory Rate - - Oxygen Saturation - - Inhaled Oxygen Concentration 164.2 kg (362 lb) 02/03/2019 9:08 AM CDT per pt Weight 180.3 cm (5' 11") 02/03/2019 9:08 AM CDT Height 50.49 02/03/2019 9:08 AM CDT Body Mass Index documented in this encounter Functional Status Date [...] this encounter Patient Instructions * Patient Instructions* Nereyda Tafoya PA-C - 02/03/2019 9:00 AM CDT Day before surgery Take Toujeo 135 units in the am but 100 units in the pm; Humalog 75/90 units before main meals; add Humalog 2 units for every 10 over 180 mg/dL; Jardiance 25 mg daily; Victoza 1.8 mg daily Day OF surgery Take Toujeo 100 units in the am No Humalog Skip Jardiance Skip Victoza documented in this encounter Progress Notes * Nereyda Tafoya PA-C - 02/03/2019 9:00 AM CDT Subjective: History of Present Illness Jeff Snug is a 68 y.o. male. Pt presents for follow up visit regarding diabetes. Interval history: Up 8 lbs since last OV Only 1 low bs (69 mg/dL) since last seen by DR Treated with glass of milk Upcoming surgery ACF Sx + bilateral arm pain/numbness > weakness Tripped/stubbed toe Could not feel pain so went to ER for check Xray showed toe fracture Given ortho shoe but he is no longer wesring C/o left wrist pain after fall Worse with extension Type 2 diabetes Dx: 1994 Current treatment: Toujeo 135 units bid; Humalog 75/90 units bid ac; add Humalog 2 units for every 10 over 180 mg/dL; Jardiance 25 mg daily; Victoza 1.8 mg daily Past treatment: Avandia; Actoplusmet (does not why this was discontinued); NPH a nd Humulin R, Humalog Mix insulin; Lantus insulin (ineffective); Invokana (kidne y infection 03/2015). Ozempic (N/V). SMB x/day Hyperglycemia: yes - often pp Hypoglycemia: one mild hypo since last OV. H/o one severe hypo episode. No g lucagon at home. Sx=BAR. Meals per day: 2, he eats a sandwich around noon and dinner at home or hoahaoism CHO intake: no limit Exercise: walking more in general (back and forth to garage to get scooter) Complications of DM: CAD: yes; last cath was 11/2016 CVA: yes; last mild stroke was 12/2016 PVD: yes - Dr Carmel larson, SARAH done - noncompressible aa Amputations: yes - fingers (not related to DM?) Retinopathy: possible, new problem in right eye; has glaucoma and cataracts; las t exam was 10/2018 Gastropathy: no Nephropathy: no Neuropathy: yes; had seen Dr Galvin, but now State won't pay for transpor tation to more than one doctor/trip to . Has not yet identified doctor close to home. Last saw Dr Horan 08/27/2018, upcoming OV in February. + SERAFIN - not using CPAP; using O2 at night Medications: Statin: atorvastatin 80 mg daily SHUKRI-I: lisinopril - 20 mg daily ASA: yes Brought meter for review. Log shows fasting readings in am but pp readings in pm. See Image Now Results for JEFF SUNG ( ) as of 02/06/2019 09:48 Ref. Range 02/03/2019 09:17 Poc Hemoglobin A1C Latest Units: % 7 Glucose, POC Unknown 206 Review of Systems Constitutional: Positive for fatigue and unexpected weight change. Negative for appetite change and fever. HENT: Positive for dental problem and hearing loss (left > right). Negative for postnasal drip, rhinorrhea, sinus pressure, sneezing and sore throat. Eyes: Positive for visual disturbance. Respiratory: Positive for apnea, cough and shortness of breath. Negative for whe ezing. Cardiovascular: Positive for chest pain (occasional, once yearly, sharp, improve s with nitro). Negative for leg swelling. Gastrointestinal: Negative for abdominal pain, blood in stool, constipation and diarrhea. Genitourinary: Negative for decreased urine volume, difficulty urinating, discha rge, dysuria, frequency, hematuria, penile pain, penile swelling, scrotal swelli ng, testicular pain and urgency. Musculoskeletal: Positive for back pain. Negative for neck pain. Left wrist pain Skin: Neurological: Positive for weakness, numbness and headaches. Negative for dizzin ess. Psychiatric/Behavioral: Positive for dysphoric mood. Negative for sleep disturba nce. Objective: Alcohol Swabs padm Apply 1 each [...] meals. CareSens N brand Checks twice daily carvedilol (COREG) 25 mg tablet TAKE 1 TABLET BY MOUTH TWICE DAILY. TAKE WIT H FOOD. clopidogrel (PLAVIX) 75 mg Take 75 mg by mouth daily. cyclobenzaprine (FLEXERIL) 10 mg tablet Take 10 mg by mouth three times shazia y as needed for Muscle Cramps. empagliflozin 25 mg tab Take 25 mg by mouth daily. flaxseed oil (OMEGA 3 PO) Take 1,000 mg by mouth daily. furosemide (LASIX) 80 mg tablet Take 80 mg by mouth daily. gabapentin (NEURONTIN) 100 mg capsule Take 100 mg by mouth three times daily . HYDROcodone/acetaminophen(+) (LORTAB, NORCO) 10/325 mg tablet Take 2 tablets by mouth every 6 hours as needed for Pain insulin glargine U-300 conc (TOUJEO SOLOSTAR U-300 INSULIN) 300 unit/mL (1.5 mL) injectable Inject 55 units under the skin in the morning and 80 units under the skin at night. (Patient taking differently: Inject 55 units + 80 units (two separate injections) twice daily) insulin lispro (HUMALOG KWIKPEN INSULIN) 200 unit/mL (3 mL) inpn 75 units in AM; 90 U ac supper, SQ inj isosorbide mononitrate SR (IMDUR) 30 mg tablet Take 30 mg by mouth every mor leanne. Extended release lisinopril (PRINIVIL; ZESTRIL) 20 mg tablet TAKE 1 TABLET BY MOUTH DAILY Miscellaneous Medical Supply (T.E.D. ANTI-EMBOLISM STOCKING) Misc nitroglycerin (NITROSTAT) 0.[address] 1 Tab under tongue every 5 min utes as needed. paroxetine (PAXIL) 20 mg PO tablet Take 20 mg by mouth daily. POTASSIUM CHLORIDE (KLOR-CON M20 PO) Take 20 mEq by mouth daily. ULTICARE PEN NEEDLE 32 gauge x 5/32" pen needle USE 1 EACH DIRECTED FOUR TIMES DAILY. VICTOZA 3-DOMI 0.6 mg/0.1 mL (18 mg/3 mL) pnij INJECT 1.8 MG UNDER THE SKIN D AILY. VITAMIN D 50,000 unit capsule TAKE 1 CAPSULE BY MOUTH EVERY 7 DAYS. Vitals: 02/03/19 0908 BP: 127/68 Pulse: 63 Weight: (!) 164.2 kg (362 lb) Height: 180.3 cm (71") Body mass index is 50.49 kg/m. Physical Exam Constitutional: He is oriented to person, place, and time. He appears well-devel oped and well-nourished. HENT: Head: Normocephalic and atraumatic. Right Ear: Hearing, tympanic membrane, external ear and ear canal normal. Left Ear: Tympanic membrane, external ear and ear canal normal. Tympanic membran e is not injected, not scarred and not perforated. Decreased hearing is noted. Teeth pulled, no dentures Eyes: Pupils are equal, round, and reactive to light. Conjunctivae and EOM are n ormal. Right conjunctiva is not injected. Left conjunctiva is not injected. Neck: Neck supple. Cardiovascular: Normal rate and regular rhythm. Murmur heard. Pulmonary/Chest: Effort normal and breath sounds normal. Abdominal: Soft. Bowel sounds are normal. He exhibits no distension and no mass. There is no tenderness. There is no rebound and no guarding. Genitourinary: Testes normal. Uncircumcised. Musculoskeletal: Trace edema in lower ext. Left wrist pain exacerbated with extension. Mild ozzie a/no deformity/no wound. Neurological: He is alert and oriented to person, place, and time. No cranial ne rve deficit. Skin: Skin is warm, dry and intact. Psychiatric: He has a normal mood and affect. His speech is normal and behavior is normal. Judgment and thought content normal. Cognition and memory are normal. Diabetic Foot Exam Bilateral vascular, sensation, integument are normal: No Vascular Status Left:normal Right:normal Monofilament Testing Left:Diminished Right:Diminished Sensation Left:vibration sense diminished Right:vibration sense diminished Skin Integrity Left:Callous and Hypertrophic nails Right:Callous and Hypertrophic nails Foot Structure Left:Normal Right:Normal Assessment and Plan: DM (Diabetes Mellitus)- uncontrolled but improved POC: Continue the same insulin regimen Take the Humalog WITH your meals (not > 20 minutes before or after your meals). Lab today (repeat CMP/recheck hyponatremia) For ACF----> Day before surgery Take Toujeo 135 units in the am but 100 units in the pm; Humalog 75/90 units before main meals; add Humalog 2 units for every 10 over 180 mg/dL; Jardiance 25 mg daily; Victoza 1.8 mg daily Day OF surgery Take Toujeo 100 units in the am No Humalog Skip Jardiance Skip Victoza Wrist pain Check Xray Cough Resolved Hypercholesterolemia Cont atorvastatin 80 mg daily. Results for JEFF SUNG ( ) as of 02/06/2019 09:48 Ref. Range 08/19/2018 14:49 Cholesterol Latest Ref Range: <200 MG/DL 92 Triglycerides Latest Ref Range: <150 MG/DL 223 (H) HDL Latest Ref Range: >40 MG/DL 23 (L) LDL Latest Ref Range: <100 MG/DL 42 VLDL Latest Units: MG/DL 45 Non HDL Cholesterol Latest Units: MG/DL 69 Hypertension goal BP (blood pressure) < 130/80 BP bettertoday. Taking ACEI. Results for JEFF SUNG ( ) as of 02/06/2019 09:48 Ref. Range 08/19/2018 14:56 Creatinine, Random Latest Units: MG/DL 74 Microalbumin, Random Latest Ref Range: <19 MCG/ML <7.0 SERAFIN (Obstructive Sleep Apnea) Had sleep study in [place]. Pt states he does not need CPAP On O2 only PVD S/pvascular surgery Dr Miguel is certified nurses aide Foot care Unable to reach/see feet + neuropathy and PVD At this time plans to continue seeing Dr Horan. Transportation paid for as long as visits not scheduled same day as ours. documented in this encounter Plan of Treatment Order Schedule Name Type Priority Associated Diagnoses Ordered: 02/03/2019 GLUCOSE METER DOWNLOAD Procedures Routine Type 2 diabetes mellitus with other circulatory complication, with long-term current use of insulin (HCC) documented as of this encounter Goals Goal Patient Associated Recent Progress Patient-Stat Author Goal Type Problems ed? HEMOGLOBIN A1C < 8.0 Result 7.6 (12/05/2007 No Lottie, Component 5:20 AM CDT) MARILEE Dawn documented as of this encounter Procedures Comments Procedure Name Priority Date/Time Associated Diagnosis POC GLUCOSE QUANTITATIVE Routine 02/03/2019 Type 2 diabetes mellitus BLOOD 9:17 AM CDT with other circulatory complication, with long-term current use of insulin (HCC) POC HEMOGLOBIN A1C Routine 02/03/2019 Type 2 diabetes mellitus 9:17 AM CDT with other circulatory complication, with long-term current use of insulin (HCC) documented in this encounter Results * WRIST 2 VIEWS LEFT (02/03/2019 10:15 [...] on 02/03/2019 11:04 AM. Performing Organization Address City/[facility]/Zipcode Phone Number [facility] RAD RESULTS * POC GLUCOSE QUANTITATIVE BLOOD (02/03/2019 9:17 AM CDT) Glucose, POC 206 IN CLINIC Specimen Blood, capillary Performing Organization Address City/[facility]/Zipcode Phone Number IN CLINIC * POC HEMOGLOBIN A1C (02/03/2019 9:17 AM CDT) Poc Hemoglobin 7 % IN CLINIC A1C Specimen Blood, capillary - Blood Performing Organization Address City/[facility] documented in this encounter Visit Diagnoses Diagnosis Type 2 diabetes mellitus with other circulatory complication, with long-term current use of insulin (HCC) - Primary Left wrist pain Pain in joint, forearm Essential hypertension Unspecified essential hypertension Hypercholesteremia Pure hypercholesterolemia Hyponatremia Hyposmolality and/or hyponatremia documented in this encounter
--- OUTSIDE RECORDS SUMMARY | 2019-04-22 06:57 | XMS REPORT | Encounter Summary ---
Author Author [facility] Organization [facility] Address Unknown Phone Unavailable Care Team Providers Care Senior Software Quality Engineer Name Role Phone Haresh Goldsmith MD Unavailable [...] Date Type Department Nereyda Tafoya PA-C [address] [facility] [address] [place] [address] Uncontrolled type 2 diabetes mellitus with complication, with long-term current use of insulin (HCC) 01/23/2019 Refill The [facility] [address] [place] [address] Social History Date Tobacco Use [...]
--- OUTSIDE RECORDS SUMMARY | 2019-04-22 06:57 | XMS REPORT | Encounter Summary ---
Author Author [facility] Organization [facility] Address Unknown Phone Unavailable Care Team Providers Care Commercial Lending Relationship Manager Name Role Phone Haresh Goldsmith MD Unavailable Xiao Brurows MD Unavailable Maynor Gutiérrez MD PCP Nereyda Tafoya PA-C Unavailable Haresh Bo MD Unavailable Froilan Delgado MD Unavailable Meliza Spencer APRN Unavailable Unavailable Barry Gale MD Unavailable Sebastian Amador MD Unavailable [place] Choi MD Unavailable Reason for Visit * Reason Comments Medication Refill Encounter Details Care Team Description Date Type Department Nereyda Tafoya PA-C [address] [facility] [address] [place] [address] Uncontrolled type 2 diabetes mellitus with complication, with long-term current use of insulin (HCC) 01/22/2019 Refill The [facility] [address] [place] [address] Social History Date Tobacco Use [...] Telephone Encounter - Nuris Bee RN - 01/22/2019 4:53 PM CDT .E-scribe filled per standing order [...]
--- OUTSIDE RECORDS SUMMARY | 2019-04-22 06:57 | XMS REPORT | Encounter Summary ---
Author Author [facility] Organization [facility] Address Unknown Phone Unavailable Care Team Providers Care Content Production Specialist Name Role Phone Haresh Goldsmith MD Unavailable Xiao Burrows MD Unavailable Maynor Gutiérrez MD PCP Nereyda Tafoya PA-C Unavailable Haresh Bo MD Unavailable Froilan Delgado MD Unavailable Meliza Spencer APRN Unavailable Unavailable Barry Gale MD Unavailable Sebastian Amador MD Unavailable [place] Choi MD Unavailable Encounter Details Care Team Description Date Type Department Nereyda Tafoya PA-C [address] [facility] [address] [place] [address] [phone] 02/03/2019 [facility] [address] [place] [address] Social History Date Tobacco Use Types Packs/Day [...] use of insulin ([facility]) 02/07/2013 Miscellaneous Medical 1 Each 3 Supply (T.E.D. ANTI-EMBOLISM STOCKING) [facility] 08/24/2016 nitroglycerin (NITROSTAT) Place 1 Tab 25 Tab 0 0.4 mg tabletIndications: under tongue Type 2 diabetes mellitus every 5 with diabetic autonomic minutes as neuropathy, with needed. 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 HEMOGLOBIN A1C < 8.0 Result 7.6 (12/05/2007 No Tafoya, Component 5:20 AM CDT) MARILEE Dawn documented as of this encounter Procedures Comments Procedure Name Priority Date/Time Associated Diagnosis WRIST 2 VIEWS LEFT Routine 02/03/2019 Left wrist pain 10:15 AM CDT documented in this encounter Results * WRIST [...] on 02/03/2019 11:04 AM. Performing Organization Address City/State/Zipcode Phone Number [facility] RAD RESULTS documented in this encounter Visit Diagnoses Diagnosis Left wrist pain Pain in joint, forearm documented in this encounter
--- OUTSIDE RECORDS SUMMARY | 2019-04-22 06:58 | XMS REPORT | Encounter Summary ---
Author Author [facility] Organization [facility] Address Unknown Phone Unavailable Care Team Providers Care High [employer] Industrial Arts Teacher Name Role Phone Haresh Goldsmith MD Unavailable [...] Type Department Nereyda Tafoya PA-C [address] [facility] [address] [place] [address] Uncontrolled type 2 diabetes mellitus with complication, with long-term current use of insulin (HCC) 12/09/2018 Refill The [facility] [address] [place] [address] Social History Date Tobacco Use [...]
--- OUTSIDE RECORDS SUMMARY | 2019-04-22 06:58 | XMS REPORT | Encounter Summary ---
Author Author [facility] Organization [facility] Address Unknown Phone Unavailable Care Team Providers Care Pararescue Craftsman Name Role Phone Haresh Goldsmith MD Unavailable [...] Date Type Department Haresh Bo MD [address] [facility] [address] [place] [address] [phone] 11/11/2018 Refill [facility] [address] [place] [address] Social History Date Tobacco Use Types Packs/Day [...]
--- OUTSIDE RECORDS SUMMARY | 2019-04-22 06:58 | XMS REPORT | Encounter Summary ---
Author Author [facility] Organization [facility] Address Unknown Phone Unavailable Care Team Providers Care Vba Developer Name Role Phone Haresh Goldsmith MD Unavailable [...] Type Department Haresh Bo MD [address] [facility] [address] [place], [place] [id number] Type 2 diabetes mellitus with other circulatory complication, with long-term current use of insulin (HCC) (Primary Dx) 10/30/2018 Office Visit [facility] [address] [place] [address] Social History Date Tobacco Use [...] Signs Reading Time Taken Comments Vital Sign 114/62 10/30/2018 12:51 PM WINDER HELPER Blood Pressure 76 10/30/2018 12:51 PM WINDER HELPER Pulse - - Temperature - - Respiratory Rate - - Oxygen Saturation - - Inhaled Oxygen Concentration 160.8 kg (354 lb 6.4 oz) 10/30/2018 12:51 PM WINDER HELPER Weight 180.3 cm (5' 11") 10/30/2018 12:51 PM WINDER HELPER Height 49.43 10/30/2018 12:51 PM WINDER HELPER Body Mass Index documented in this encounter [...] Haresh Bo MD - 10/30/2018 1:00 PM WINDER HELPER Your A1c today is 7.5%, a good value. I like it under 8%. Your blood sugars are sometimes high at bedtime because you eat more carbohydrat e with your dinner meal. When you have a dinner with extra carbohydrate, INCREASE your PREmeal insulin (H umalog) to 100 units instead of 90. Good job, please stop in the lab today to check you blood chemitries. Your Foot Exam: . The foot should have good circulation, normal sensation and no deformities. Actions taken today: Please follow regularly with a foot doctor or fashion design professor . Wear shoes or slippers all the time. Trim your toe nails carefully. Cut straight across and file the nail. Do not cut cuticles or pop blisters. Wash your feet with warm water and soap every day and pat them dry. Put a johan sturizing cream or lotion on your feet. Check both feet every day. Look for cuts, blisters, swelling, or redness. Milton e sure to check all over your feet, including the bottoms of your feet and in be tween your toes. If you cant see well or if you have trouble seeing the botto ms of your feet, ask a family member or friend to check your feet. Wear socks that are not too tight, and change them every day. Wear shoes that fit well, but are not too tight. Check inside your shoes before you put them on. Make sure there is nothing sh roberta inside. Have your doctor check your feet at each visit. File calluses after shower/bath with vernony board ER HELPER documented in this encounter Progress Notes * Haresh Bo MD - 10/30/2018 1:00 PM WINDER HELPER Date of Service: 10/30/2018 Subjective: Edis Sung is a 67 y.o. male. History of Present Illness This is a 67-year-old obese type II diabetic with high insulin requirements who comes to clinic today without any specific complaints. He admits that he is fee ling better and doing well. He is prior to the fact that he is eating a little less and exercising somewhat more in the past. He walks around at home when pos sible. His current complaints include numbness in the hands and feet which tends to saud p him up at night. His hands are tingling all the time and they are symmetrical in the fingers. Nothing seems to give him relief although he tries stretching them and massaging and when possible. His feet are numb from the toes to the se veral inches above the ankle joint. He is also complaining of a fine tremor in both hands that does not interfere with his ability to write. He eats 2 meals a day breakfast and supper. His supper is his largest meal at a bout 530. He takes 75 units of Humalog [...] sugars approach 450 again without any particular patte rn to range from about 115 up to the mid 400s. He attributes the high blood sug ars before bedtime to eating more carbohydrate with his meal and not taking extr a insulin. He has no hypoglycemia at home. He has no hypoglycemic unawareness. He had a d ilated eye exam in August 2018 and was not told of any diabetic pathology. He has chest pain when he walks about 100 feet. It is substernal and a pressure feeling it is nonradiating and is relieved by rest. He is seen his photograph editor 3 weeks ago and this is apparently [...] ophthalmic solution Apply 1 Drop to both eye s three times daily. carvedilol (COREG) 25 mg [...] U-300 INSULIN) 300 unit/mL (1.5 mL) injectable 135 U bid insulin lispro (HUMALOG KWIKPEN INSULIN) 200 unit/mL (3 mL) inpn 75 units in AM; 90 U ac supper, SQ inj insulin pen needles (disposable) (ULTICARE PEN NEEDLE) 32 gauge x 5/32" pen needle Use one each as directed four times daily. isosorbide mononitrate SR (IMDUR) 30 mg tablet Take 30 mg by mouth every mor leanne. Extended release liraglutide(+) (VICTOZA) 0.6 mg/0.1 mL [...] time. He appears well-devel oped and well-nourished. No distress. HENT: Head: Normocephalic [...] regular rhythm, normal heart sounds and intact dist al pulses. No murmur heard. Pulses: Dorsalis pedis pulses are 1+ on the right side, and 1+ on the left side. Posterior tibial pulses are 1+ on the right side, and 0 on the left side. Pulmonary/Chest: Effort normal and breath sounds normal. He has no wheezes. He h as no rales. Abdominal: Soft. Bowel sounds are normal. Musculoskeletal: Normal range of motion. Right foot: There is deformity. Left foot: There is deformity. Sl hammer toes. Skin dry and cool, flaky. Mild pretibial and pedal edema. Feet: Right Foot: Protective Sensation: 5 sites tested. 0 sites sensed. Skin Integrity: Positive for skin breakdown and dry skin. Negative for ulcer, bl ister, erythema, warmth or callus. Left Foot: Protective Sensation: 5 sites tested. 0 sites sensed. Skin Integrity: Positive for skin breakdown and dry skin. Negative for ulcer, bl ister, erythema, warmth or callus. Lymphadenopathy: He has [...] and affect. His behavior is normal. Judgment a nd thought content normal. Nursing note and vitals [...] counting, but I suggested adding +10U Humalog w hen he has extra CHO w dinner. 1. Type 2 diabetes mellitus with other circulatory complication, with long-term current use of insulin ([facility]) COMPREHENSIVE METABOLIC PANEL POC GLUCOSE QUANTITATIVE BLOOD POC HEMOGLOBIN A1C POC GLUCOSE QUANTITATIVE BLOOD POC GLUCOSE QUANTITATIVE BLOOD Diagnoses and all orders for this visit: Type 2 diabetes mellitus with other circulatory complication, with long-term cur rent use of insulin ([facility]) - COMPREHENSIVE METABOLIC PANEL; Future; Expected date: 10/30/2018 - POC GLUCOSE QUANTITATIVE BLOOD - POC HEMOGLOBIN A1C - POC GLUCOSE QUANTITATIVE BLOOD - POC GLUCOSE QUANTITATIVE BLOOD Patient Instructions Your A1c today is 7.5%, a good value. I like it under 8%. Your blood sugars are sometimes high at bedtime because you eat more carbohydrat e with your dinner meal. When you have a dinner with extra carbohydrate, INCREASE your PREmeal insulin (H umalog) to 100 units instead of 90. Good job, please stop in the lab today to check you blood chemitries. Your Foot Exam: . The foot should have good circulation, normal sensation and no deformities. Actions taken today: Please follow regularly with a foot doctor or fashion design professor . Wear shoes or slippers all the time. Trim your toe nails carefully. Cut straight across and file the nail. Do not cut cuticles or pop blisters. Wash your feet with warm water and soap every day and pat them dry. Put a johan sturizing cream or lotion on your feet. Check both feet every day. Look for cuts, blisters, swelling, or redness. Milton e sure to check all over your feet, including the bottoms of your feet and in be tween your toes. If you cant see well or if you have trouble seeing the botto ms of your feet, ask a family member or friend to check your feet. Wear socks that are not too tight, and change them every day. Wear shoes that fit well, but are not too tight. Check inside your shoes before you put them on. Make sure there is nothing sh roberta inside. Have your doctor check your feet at each visit. File calluses after shower/bath with emery board No future appointments. ' ER HELPER documented in this encounter Plan of Treatment [...] Type 2 diabetes mellitus BLOOD 1:35 PM WINDER HELPER with other circulatory complication, with long-term current use of insulin (HCC) POC GLUCOSE QUANTITATIVE Routine 10/30/2018 Type 2 diabetes mellitus BLOOD 1:20 PM WINDER HELPER with other circulatory complication, with long-term current use of insulin (HCC) POC GLUCOSE QUANTITATIVE Routine 10/30/2018 Type 2 diabetes mellitus BLOOD 1:05 PM WINDER HELPER with other circulatory complication, with long-term current use of insulin (HCC) POC HEMOGLOBIN A1C Routine 10/30/2018 Type 2 diabetes mellitus 1:05 PM WINDER HELPER with other circulatory complication, with long-term current [...] >60 >60 mL/min [facility] Comment: [place] The eGFR is not validated for use in drug dosing adjustments.Continue to use estimated creatinine clearance per dosing reference text.Please contact the Clinical Pharmacist for questions. eGFR >60 >60 mL/min [facility] [place] Comment: The eGFR is not validated for use in drug dosing adjustments.Continue to use estimated creatinine clearance per dosing reference text.Please contact the Clinical Pharmacist for questions. Specimen Blood Performing Organization Address City/State/Zipcode Phone Number MAIN LAB [address] [place] [address] * POC GLUCOSE QUANTITATIVE BLOOD (10/30/2018 1:35 PM WINDER HELPER) Glucose, POC [facility] IN CLINIC Specimen Blood, capillary Performing Organization Address City/State/Zipcode Phone Number IN CLINIC * POC GLUCOSE QUANTITATIVE BLOOD (10/30/2018 1:20 PM WINDER HELPER) Glucose, POC 66Comment: gave additional cup IN CLINIC of apple juice - physician in room Specimen Blood, capillary Performing Organization Address City/[facility] Phone Number IN CLINIC * POC HEMOGLOBIN A1C (10/30/2018 1:05 PM WINDER HELPER) Poc Hemoglobin 7.5 % IN CLINIC A1C Specimen Blood, capillary - Blood Performing Organization Address [facility] Phone Number IN CLINIC * POC GLUCOSE QUANTITATIVE BLOOD (10/30/2018 1:05 PM WINDER HELPER) Glucose, POC 67Comment: gave 1 cup of apple IN CLINIC juice Specimen Blood, capillary Performing Organization Address [facility] Phone Number IN CLINIC documented in this encounter Visit Diagnoses Diagnosis Type 2 diabetes mellitus with other circulatory complication, with long-term current use of insulin (HCC) - Primary documented in this encounter
--- OUTSIDE RECORDS SUMMARY | 2019-04-22 06:58 | XMS REPORT | Encounter Summary ---
Author Author [facility] Organization [facility] Address Unknown Phone Unavailable Care Team Providers Care Fresh Foods Clerk Name Role Phone Haresh Goldsmith MD Unavailable [...] Date Type Department Nereyda Tafoya PA-C [address] [facility] Ortho/[facility] [address] [place] [address] Essential hypertension; Uncontrolled type 2 diabetes mellitus with complication, with long-term current use of insulin (HCC) 01/20/2019 Refill The [facility] [address] [place] [address] Social History Date Tobacco Use [...] as of this encounter Visit Diagnoses Diagnosis Essential hypertension Unspecified essential hypertension Uncontrolled type 2 diabetes mellitus with complication, with long-term current use of insulin (HCC) documented in this encounter
[2019-04-22] MEDS ORDERED: ACETAMINOPHEN 325 MG TABLET PO PRN (07:15)
[2019-04-22] MEDS ORDERED: NITROGLYCERIN 0.4 MG SL TABS BTL 25'S SL PRN (07:15)
[2019-04-22] MEDS ORDERED: CYCLOBENZAPRINE 10 MG (FLEXERIL) TAB PO PRN (07:15)
[2019-04-22] MEDS ORDERED: morphine INJ 10 MG/ML 1ML (SYR OR VIAL) IVP PRN (07:15)
[2019-04-22] MEDS ORDERED: ONDANSETRON 4 MG/2 ML (SDV) Z0FRAN IV PRN (07:15)
[2019-04-22] MEDS ORDERED: DOCUSATE SODIUM 100 MG (COLACE) CAP PO PRN (07:15)
[2019-04-22] MEDS ORDERED: INSULIN LISPRO SQ SCH ×2 (07:15→09:00)
[2019-04-22] MEDS ORDERED: SUCCINYLCHOLINE INJ 100 MG/5 ML SYR ONE (07:22)
[2019-04-22] MEDS ORDERED: SEVOFLURANE (ULTANE) 15 ML INHAL SOLN ONE (07:22)
[2019-04-22] MEDS ORDERED: MIDAZOLAM 2 MG/2 ML (VERSED) VIAL ONE ×2 (07:22→08:16)
[2019-04-22] MEDS ORDERED: GLYCOPYRROLATE 0.2 MG/ML (ROBINUL) 2 ML VIAL ONE ×2 (07:22→09:30)
[2019-04-22] MEDS ORDERED: LIDOCAINE PF 2% 5 ML (XYLOCAINE) VIAL ONE ×2 (07:22→08:15)
[2019-04-22] MEDS ORDERED: ONDANSETRON 4 MG/2 ML (SDV) Z0FRAN ONE ×2 (07:22→08:15)
[2019-04-22] MEDS ORDERED: NEOSTIGMINE 3 MG/3 ML VIAL ONE (07:22)
[2019-04-22] MEDS ORDERED: proPOfol 200 MG/20 ML (DIPRIVAN) VIAL IV ONE ×3 (07:22→09:51)
[2019-04-22] MEDS ORDERED: ROCURONIUM 10 MG/ML 5 ML SYRINGE IV ONE (07:22)
[2019-04-22] MEDS ORDERED: GENTAMICIN 40 MG/ML 2 ML INJ SDV ONE (07:23)
[2019-04-22] MEDS ORDERED: PROPOFOL INJECTION 0 ML IV ONE (07:23)
[2019-04-22] MEDS ORDERED: fentaNYL INJECTION 100 MCG/2 ML AMP ONE ×2 (07:23→08:16)
[2019-04-22] MEDS: LACTATED RINGERS 1,000 ML IV PRN ×2 (07:30→10:02)
[2019-04-22] MEDS ORDERED: THROMBIN 5,000 UNIT (RECOTHROM) VIAL ONE (07:30)
[2019-04-22] MEDS ORDERED: ceFAZolin 2 GM/50 ML NS 50 ML ONE (07:35)
[2019-04-22] MEDS ORDERED: ceFAZolin 2 GM/50 ML NS 50 ML IV ONE (08:00)
[2019-04-22] MEDS ORDERED: CATHETER FLUSH 10 ML SYR IV PRN (08:00)
[2019-04-22] MEDS ORDERED: PROPOFOL INJECTION 50 ML IV ONE (08:16)
[2019-04-22] MEDS ORDERED: AMILORIDE HCL 5 MG PO SCH (09:00)
[2019-04-22] MEDS ORDERED: NON-FORMULARY MEDICATION 1 EA EA (Furosemide 80 MG) PO SCH (09:00)
[2019-04-22] MEDS ORDERED: INSULIN GLARGINE HUM REC ANLOG 55 UNIT SQ SCH (09:00)
[2019-04-22] MEDS ORDERED: [UNRECOGNIZED DRUG - OTHER] SQ SCH (09:00)
[2019-04-22] MEDS ORDERED: NON-FORMULARY MEDICATION 1 EA EA (Amlodipine Besylate 10 MG) PO SCH (09:00)
[2019-04-22] MEDS ORDERED: NON-FORMULARY MEDICATION 1 EA EA (Carvedilol 25 MG) PO SCH (09:00)
[2019-04-22] MEDS ORDERED: NON-FORMULARY MEDICATION 1 EA EA (Empagliflozin (Jardiance) 25 MG) PO SCH (09:00)
[2019-04-22] MEDS ORDERED: HYDROmorphone 2 MG/ML VIAL (DILAUDID) ONE (09:33)
--- NOTE | 2019-04-22 10:52 | Progress Note-Post Operative ---
Post-Operative Progess Note Surgeon (s)/Iron And Steel Work Supervisor (s) Surgeon DEMETRA SILVEIRA MD Iron And Steel Work Supervisor: RAVEN Mcwilliams Pre-Operative Diagnosis Cervical Stenosis Post-Operative Diagnosis Same Procedure & Operative Findings Date of Procedure 04/22/19 Procedure Performed/Findings C4-7 ACDF Anesthesia Type GETA Estimated Blood Loss Estimated blood loss (mL): Min Specimens/Packing Specimens Removed None DEMETRA SILVEIRA MD Apr 22, 2019 10:52
[2019-04-22] MEDS ORDERED: HYDROmorphone 2 MG/ML VIAL (DILAUDID) IV ONE (11:15)
[2019-04-22] MEDS ORDERED: ceFAZolin INJECTION 2,000 MG in WATER (STERILE) FOR INJECTION 10 ML IV SCH (11:15)
[2019-04-22] MEDS ORDERED: ONDANSETRON 4 MG/2 ML (SDV) Z0FRAN IVP PRN (11:15)
--- NOTE | 2019-04-22 12:00 | NUR ---
TRANSFERRED FROM R.R. TO ROOM 418. ALERT AND COOPERATIVE. SKIN W/D. RESP. REGULAR. SLEEPY AT TIMES. SOFT NECK BRACE ON. DRESSING TO ANT. NECK WITH TELFA AND OP-SITE IN PLACE D/I. TAMMY DRAIN TO RIGHT SIDE OF NECK WITH TELFA AND OP-SITE IN PLACE. SMALL AMT. DARK RED DRAINAGE NOTED IN TAMMY DRAIN. IV SITE TO LEFT HAND WITH IV FLUIDS INFUSING. IMTIAZ CHECK DONE ALL 4 EXT. EQUAL. ALERT AND ORIENTED.
--- NOTE | 2019-04-22 12:14 | Diagnostic Imaging Report ---
INDICATION: Fluoroscopy during cervical spine surgery. FINDINGS: Fluoroscopy was provided in the OR during cervical spine ACDF. 11 seconds of fluoroscopy was utilized. Images demonstrate an anterior plate and screws extending from approximately C4 through C7. IMPRESSION: Fluoroscopy for ACDF. Dictated by: Dictated on workstation # [id number]
[2019-04-22] MEDS ORDERED: morphine INJ 4 MG/ML 1 ML (VIAL/SYRINGE) IV PRN (13:15)
[2019-04-22] MEDS ORDERED: ARTIFICAL TEARS 0.4 ML UNIT DOSE (REFRESH PLUS) OD PRN (13:15)
[2019-04-22] MEDS: NS IV 1000 ML 1,000 ML IV SCH ×2 (13:16→17:40)
[2019-04-22] MEDS: HYDROcodone/APAP 5 MG/325 MG (LORTAB) TAB PO PRN ×3 (13:16→21:19)
--- NOTE | 2019-04-22 14:37 | Consultation - Hospitalist ---
HPI History of Present Illness: HPI/Chief Complaint Procedure performed: C4-7 ACDF Chief complaint: Medical management following extensive cervical spine surgery History of present illness: This is a 68-year-old white male clinic patient of Dr. Gutiérrez and Dr. Miguel who presents to room 418 following an extensive cervical spine surgery by Dr. Ganesh rcuz. Patient currently is having a lot of pain in his neck and trapezius muscle spasms but denies any chest pain or shortness of breath. I explained my role in his care and monitoring blood pressure heart and lungs and I have asked Dr. Middleton to see him in consultation due to extensive heart history. I have reviewed all of his home medications. Source: patient Exam Limitations: clinical condition Date Seen 04/22/19 Attending Physician Raul Andersen MD PCP Maynor Gutiérrez MD Referring Physician Date of Admission Apr 22, 2019 at 06:49 Home Medications & Allergies Home Medications Reviewed patient Home Medication Reconciliation performed by pharmacy medication reconciliations podiatric technician and/or nursing. Patients Allergies have been reviewed. Allergies Allergies Coded Allergies No Known Drug Allergies (Unverified03/18/19) Past Pcysyxt-Qzlkdw-Rxilin Hx Past Med/Social Hx: Reviewed Nursing Past Med/Soc Hx, Reviewed and Corrections made Patient Social History Marrital Status: Employed/Student: retired Alcohol Use: Occasionally Uses Number of Drinks Today: 0 Alcohol Beverage of Choice: Beer Recreational Drug Use: No Smoking Status: Former Smoker Former Smoker, Quit: Sep 24, 1986 Type Used: Cigarettes Physical Abuse Screen: No Sexual Abuse: No Recent Foreign Travel: No Contact w/other who traveled: No Recent Hopitalizations: No Recent Infectious Disease Expo: No Immunizations Up To Date Tetanus Booster (TDap): Unknown Pediatric: Yes Date of Pneumonia Vaccine: Sep 02, 2018 Date of Influenza Vaccine: May 25, 2013 Seasonal Allergies Seasonal Allergies: No Past Medical History Surgeries: Abdominal, Cardiac, Coronary Stent, Joint Replacement, Orthopedic, Vascular Surgery, Vasectomy Respiratory: COPD, Sleep Apnea Currently Using CPAP: No Currently Using BIPAP: No Cardiac: Chronic Edema/Swelling, Coronary Artery Disease, Deep Vein Thrombosis, High Cholesterol, Hypertension, Peripheral Vascular, Valvular Heart Disease Neurological: Neuropathy Reproductive: No Sexually Transmitted Disease: No HIV/AIDS: No Gastrointestinal: Gastroesophageal Reflux Musculoskeletal: Arthritis, Chronic Back Pain Endocrine: Diabetes, Insulin dep HEENT: Glaucoma Loss of Vision: Denies Hearing Impairment: Denies Psychosocial: Depression Skin/Integumentary: Herpes History of Blood Disorders: No Adverse Reaction to Blood Mackenzie: No (N/A) Family History Arthritis 19 MOTHER Completed stroke 19 MOTHER Family history: Diabetes mellitus 19 MOTHER Family history: Hypertension 19 FATHER 19 MOTHER Hypercholesterolemia 19 MOTHER G8 BROTHER G8 BROTHER Hypertension 19 MOTHER Kidney disease 19 MOTHER Seizure disorder G8 BROTHER No Family History of: AIDS Abdominal aortic aneurysm Abdominal aortic aneurysm Houston's disease Neeraj's disease Alcoholism Alcoholism Alzheimer's disease Aphasia Aphasia Asthma Cancer Cancer of colon Cancer of mouth Cardiovascular disease Cataract Cataracts Chest pain Colon cancer Congenital disease Congenital heart disease Congenital heart disease Congestive heart failure Coronary thrombosis Cystic fibrosis Deafness or hearing loss Dementia Dementia Diabetes mellitus Drug abuse Dysphagia Family history: Allergy Family history: Alzheimer's disease Family history: Arthritis Family history: Asthma Family history: Breast disease Family history: Cardiovascular disease Family history: Coronary thrombosis Family history: Gastrointestinal disease Family history: Glaucoma Family history: Osteoporosis Family history: Thyroid disorder Fibrocystic disease of breast Gastroenteritis Glaucoma Headache Headache disorder Hearing loss Heart disease Hereditary disease History of - anemia History of - disorder History of - respiratory disease History of drug abuse Human immunodeficiency virus (HIV) seropositivity Infertile Malignant neoplasm of lung Myocardial infarction Parkinson's disease Prostate cancer Psychotic disorder Stroke Tuberculosis Visual impairment Review of Systems Constitutional: see HPI EENTM: no symptoms reported Respiratory: no symptoms reported Cardiovascular: no symptoms reported Gastrointestinal: No nausea Musculoskeletal: neck pain All Other Systems Reviewed Negative Unless Noted: Yes Physical Exam Physical Exam Vital Signs Vital Signs - First Documented Capillary Refill : Height, Weight, BMI Height: 5'11.00" Weight: 345lbs. 1.0oz. 156.195974hl; 48.1 BMI Method:Stated General Appearance: No Apparent Distress, WD/WN, Anxious, Chronically ill, Mild Distress Eyes: Bilateral Eye Normal Inspection, Bilateral Eye PERRL HEENT: PERRL/EOMI, Normal ENT Inspection, Pharynx Normal, Other (c-collar in place) Neck: Full Range of Motion, Normal Inspection, Non Tender, Supple, Carotid Bruit Respiratory: Chest Non Tender, Lungs Clear, Normal Breath Sounds, No Accessory Muscle Use, No Respiratory Distress Cardiovascular: Regular Rate, Rhythm, No Edema, No Gallop, No JVD, No Murmur, Normal Peripheral Pulses Gastrointestinal: Normal Bowel Sounds, No Organomegaly, No Pulsatile Mass, Non Tender, Soft Back: Normal Inspection, No CVA Tenderness, No Vertebral Tenderness, Decreased Range of Motion (neck) Extremity: Normal Capillary Refill, Normal Inspection, Normal Range of Motion, Non Tender, No Calf Tenderness, No Pedal Edema Neurologic/Psychiatric: Alert, Oriented x3, No Motor/Sensory Deficits, Normal Mood/Affect Skin: Normal Color, Warm/Dry Lymphatic: No Adenopathy Results Results/Procedures Labs Patient resulted labs reviewed. Assessment/Plan Assessment and Plan Assess & Plan/Chief Complaint Assessment: Status post extensive cervical spine surgery by Dr. Andersen CAD PVD Multiple stents in the past Hypertension Obstructive sleep apnea noncompliant with CPAP Hyperlipidemia Plan: Monitor labs Pain control IS PT/OT Diagnosis/Problems Diagnosis/Problems (1) Cervical spinal stenosis Status: Acute (2) Neck pain Status: Acute (3) Uncontrolled diabetes mellitus Status: Chronic Qualifiers: Diabetes mellitus type: type 2 Glycemic state: with hyperglycemia Qualified Codes: E11.65 - Type 2 diabetes mellitus with hyperglycemia (4) Non compliance with medical treatment Status: Chronic (5) CHF (congestive heart failure) Status: Chronic Qualifiers: Heart failure type: unspecified Heart failure chronicity: unspecified Qualified Codes: I50.9 - Heart failure, unspecified (6) Muscle spasms of neck Status: Acute (7) CAD (coronary artery disease) Status: Chronic Qualifiers: Coronary Disease-Associated Artery/Lesion type: [place] artery [place] vs. transplanted heart: [place] heart Associated angina: with stable angina Qualified Codes: I25.118 - Atherosclerotic heart disease of [place] coronary artery with other forms of angina pectoris (8) PVD (peripheral vascular disease) Status: Chronic (9) SERAFIN (obstructive sleep apnea) Status: Chronic FAITH MORE DO Apr 22, 2019 14:37
[2019-04-22] MEDS ORDERED: inSUlin ASPART (NovoLOG) 1 UNIT/0.01 ML (CHARGE PER UNIT) SC SCH (17:00)
[2019-04-22] MEDS: MILK OF MAGNESIA 400 MG/5 ML 30 ML UDC PO SCH (17:18)
[2019-04-22] MEDS: PARoxetine 20 MG (PAXIL) TAB PO SCH (17:19)
[2019-04-22] MEDS: ISOSORBIDE MONONITRATE 30 MG (IMDUR) TAB PO SCH (17:19)
[2019-04-22] MEDS: lisINopril 20 MG (PRINIVIL) TABLET PO SCH (17:19)
[2019-04-22] MEDS: KCL 20 MEQ TAB (K-DUR) PO SCH (17:20)
[2019-04-22] MEDS: GABAPENTIN 100 MG (NEURONTIN) CAP PO SCH ×2 (17:20→21:19)
[2019-04-22] MEDS ORDERED: ceFAZolin INJECTION 0 MG ONE (17:21)
[2019-04-22] MEDS: amLODIPine 10 MG (NORVASC) TAB PO SCH (17:21)
[2019-04-22] MEDS ORDERED: WATER (STERILE) FOR INJECTION 0 ML ONE (17:21)
[2019-04-22] MEDS: FUROSEMIDE 40 MG (LASIX) TAB PO SCH (17:21)
[2019-04-22] MEDS: ceFAZolin 2 GM/NS 50 ML IVPB IV SCH (17:33)
[2019-04-22] MEDS ORDERED: PATIENT MAY USE OWN MED,SINGLE MED PO SCH (18:00)
--- NOTE | 2019-04-22 18:19 | OPERATIVE REPORT ---
DATE OF SERVICE: 04/22/2019 PREOPERATIVE DIAGNOSES: Cervical stenosis, neural canal degenerative disk and osseous structures, cervical radiculopathy, cervical spondylosis. POSTOPERATIVE DIAGNOSES: Cervical stenosis, neural canal degenerative disk and osseous structures, cervical radiculopathy, cervical spondylosis. PROCEDURE PERFORMED: 1. C4-C5 anterior cervical discectomy and fusion. 2. C5-C6 anterior cervical discectomy and fusion. 3. C6-C7 anterior cervical discectomy and fusion. 4. C4-C5, C5-C6 and C6-C7 interbody cage instrumentation without interval fixation. 5. C4-C7 anterior plate instrumentation. 6. Allograft for spine surgery, morselized. DATE AND TIME OF SURGERY: Please see anesthesia record. IMPLANTS USED: NuVasive Archon plate, Corelink Titanium interbody cages, NuVasive Osteocel bone graft. SURGEON: Demetra Andersen MD PARTS ORDER AND STOCK CLERK: ANNELIESE Mcwilliams. ROLE OF TURN OPERATOR: Aid in retraction of the procedure, aid in implantation, instrumentation and wound closure. ANESTHESIA: General endotracheal. ESTIMATED BLOOD LOSS: Minimal. INTRAVENOUS FLUIDS: Please see anesthesia record. ANTIBIOTICS: Ancef. COMPLICATIONS: None. INDICATIONS FOR PROCEDURE: The patient is a 68-year-old male with progressively intolerable neck and arm pain, stenosis, failed conservative therapy, desires operative treatment. NEUROMONITORING: Standard intraoperative neuromonitoring carried out by means of real time continuous high quality bidirectional mode, audio and visual communication to both the r and d lab technician and surgeon was carried out by Dr. Infante. SSEPs, EMGs, TcMEPs, TOFs were stable throughout the procedure. DESCRIPTION OF PROCEDURE: The patient was taken to preoperative holding area and brought back to the operative suite. After adequate induction of general anesthetic, preoperative antibiotics, placed supine on the OR table. Shoulder roll was placed, head extended, sterile prep and drape, the anterior cervical spine. Standard left-sided Zarate-Arevalo approach, neck was carried out without difficulty. Once the appropriate level was confirmed starting at C6-C7, Ironside pins were placed. Anterior diskectomy performed. Disk decompression all the way down to the posterior longitudinal ligament, which was taken down was performed. Bilateral foraminotomies performed . Trial spacer was utilized and the appropriate sized cord lengthening titanium interbody cage filled with Osteocel bone graft was impacted in position with great fit achieved. The procedure was then carried out at the C5-C6 and C4-C5 levels. Once all 3 levels were adequately decompressed and infused, Ironside pins were removed. Anterior osteophytes taken down. The appropriate size Archon plate was affixed to the spine with a combination of 15 and 17 mm variable angle screws. Locking mechanism was deployed. Wound was copiously irrigated. Deep drain was placed. Wound was closed in layers. The patient transferred to recovery room in stable condition having tolerated the procedure well. Job ID: [id number] DocumentID: [id number] Dictated Date: 04/22/2019 10:51:38 Bridge Mechanic Date: 04/22/2019 15:56:29 Dictated By: DEMETRA ANDERSEN MD
[2019-04-22] MEDS: AMILORIDE 5 MG PO SCH (18:42)
[2019-04-22] MEDS ORDERED: INSULIN GLARGINE HUM REC ANLOG 80 UNIT SQ SCH (21:00)
[2019-04-22] MEDS ORDERED: ATORVASTATIN 80 MG (LIPITOR) TABLET PO SCH (21:00)
[2019-04-22] MEDS ORDERED: [UNRECOGNIZED DRUG - OTHER] SQ SCH (21:00)
--- NOTE | 2019-04-22 21:06 | Consultation-Cardiology ---
HPI-Cardiology Cardiology Consultation: Date of Consultation 04/22/19 Date of Admission Attending Physician Raul Andersen MD Admitting Physician Maynor Gutiérrez MD Consulting Physician Dominick MIDDLETON MD HPI: Time Seen by a Provider: 16:30 Chief Complaint: Post spine surgery This is a 68-year-old gentleman who is a patient of Dr. Miguel as an outpatient. He has history of aortic stenosis, CAD, PAD status post intervention. He presented postoperatively after having cervical spine surgery with orthopedics. Uncomplicated surgery. No chest pain or shortness of breath. Review of Systems-Cardiology Review of Systems Constitutional: As described under HPI; No As described under HPI, No no symptoms reported, No chills, No fever, No lightheadedness Eyes: No As described under HPI, No no symptoms reported, No blindness, No blurred vision, No contact lenses, No drainage, No decreased acuity, No foreign body sensation, No pain, No vision change Ears/Nose/Throat: No As described under HPI, No no symptoms reported, No chronic hearing loss, No ear discharge, No ear pain, No nasal drainage, No ulcerations Respiratory: No no symptoms reported; As described under HPI; No As described under HPI, No cough, No orthopnea, No shortness of breath, No SOB with excertion Cardiovascular: No no symptoms reported; As described under HPI; No As describ ed under HPI, No chest pain, No edema, No irregular heart rate, No lightheadedness, No palpitations Gastrointestinal: No no symptoms reported, No As described under HPI, No abdomen distended, No abdominal pain, No blood streaked bowels, No constipation, No diarrhea, No nausea, No vomiting, No stool coloration changes Genitourinary: No As described under HPI, No burning, No dysuria, No discharge, No frequency, No flank pain, No hematuria, No urgency Musculoskeletal: neck pain Skin: No rash, No skin related problems, No ulcerations Psychiatric/Neurological: No anxiety, No depression, No seizure, No focal weakness, No syncope Hematologic: No bleeding abnormalities All Other Systems Reviewed Negative Unless Noted: Yes [id number] Hx Patient Social History Marrital Status: Employed/Student: retired Alcohol Use: Occasionally Uses Recreational Drug Use: No Smoking Status: Former Smoker Former smoker/When Quit: Sep 24, 1998 Type Used: Cigarettes Recent Foreign Travel: No Recent Infectious Disease Expo: No Physical Abuse Screen: No Sexual Abuse: No Immunizations Up To Date Tetanus Booster (TDap): Unknown Date of Pneumonia Vaccine: Sep 02, 2018 Date of Influenza Vaccine: May 25, 2013 Past Medical History PMH As described under Assessment. Family Medical History Family Medical History: He reports a family h/o hypertension in his father and mother. He reports his mother had a stroke. He reports no family h/o CAD or premature SCD. Family History: Arthritis 19 MOTHER Completed stroke 19 MOTHER Family history: Diabetes mellitus 19 MOTHER Family history: Hypertension 19 FATHER 19 MOTHER Hypercholesterolemia 19 MOTHER G8 BROTHER G8 BROTHER Hypertension 19 MOTHER Kidney disease 19 MOTHER Seizure disorder G8 BROTHER No Family History of: AIDS Abdominal aortic aneurysm Abdominal aortic aneurysm [place]'s disease Neeraj's disease Alcoholism Alcoholism Alzheimer's disease Aphasia Aphasia Asthma Cancer Cancer of colon Cancer of mouth Cardiovascular disease Cataract Cataracts Chest pain Colon cancer Congenital disease Congenital heart disease Congenital heart disease Congestive heart failure Coronary thrombosis Cystic fibrosis Deafness or hearing loss Dementia Dementia Diabetes mellitus Drug abuse Dysphagia Family history: Allergy Family history: Alzheimer's disease Family history: Arthritis Family history: Asthma Family history: Breast disease Family history: Cardiovascular disease Family history: Coronary thrombosis Family history: Gastrointestinal disease Family history: Glaucoma Family history: Osteoporosis Family history: Thyroid disorder Fibrocystic disease of breast Gastroenteritis Glaucoma Headache Headache disorder Hearing loss Heart disease Hereditary disease History of - anemia History of - disorder History of - respiratory disease History of drug abuse Human immunodeficiency virus (HIV) seropositivity Infertile Malignant neoplasm of lung Myocardial infarction Parkinson's disease Prostate cancer Psychotic disorder Stroke Tuberculosis Visual impairment Allergies and Home Medications Allergies Coded Allergies: No Known Drug Allergies (Unverified , 03/18/19) Home Medications Amiloride HCl 5 Mg Tablet, 5 MG PO DAILY, (Reported) Amlodipine Besylate 10 Mg Tablet, 10 MG PO DAILY, (Reported) Aspirin 81 Mg Tab.chew, 81 MG PO DAILY, (Reported) Atorvastatin Calcium 80 Mg Tablet, 80 MG PO HS, (Reported) Carvedilol 25 Mg Tablet, 25 MG PO BID, (Reported) Clopidogrel Bisulfate 75 Mg Tablet, 75 MG PO DAILY, (Reported) Cyclobenzaprine HCl 10 Mg Tablet, 10 MG PO TID PRN for MUSCLE SPASMS, (Reported) Empagliflozin 25 Mg Tablet, 25 MG PO DAILY, (Reported) Ergocalciferol (Vitamin D2) 50,000 Unit Capsule, 50,000 UNITS PO Mo, (Reported) Furosemide 80 Mg Tablet, 80 MG PO DAILY, (Reported) Gabapentin 100 Mg Capsule, 100 MG PO TID, (Reported) Hydrocodone/Acetaminophen 1 Each Tablet, 2 TAB PO Q6H PRN for PAIN, (Reported) Insulin Glargine,Hum.rec.anlog 300 Unit/1 Ml Insuln.pen, 55 UNITS SQ DAILY, (Reported) Insulin Glargine,Hum.rec.anlog 300 Unit/1 Ml Insuln.pen, 80 UNIT SQ HS, (Reported) Insulin Lispro 200 Unit/1 Ml Insuln.pen, 75 UNITS SQ DAILY, (Reported) Insulin Lispro 100 Unit/1 Ml Insuln.pen, 90 UNIT SQ WITH EVENING MEAL, (Report ed) Isosorbide Mononitrate 30 Mg Tab.er.24h, 30 MG PO DAILY, (Reported) Lisinopril 20 Mg Tablet, 20 MG PO DAILY, (Reported) Nitroglycerin 0.4 Mg Tab.subl, 0.4 MG SL UD PRN for CHEST PAIN, (Reported) [place]-3 Fatty Acids/Fish Oil 1 Each Capsule, 1 EACH PO DAILY, (Reported) Paroxetine HCl 20 Mg Tablet, 20 MG PO DAILY, (Reported) Potassium Chloride 20 Meq Tab.er.prt, 20 MEQ PO DAILY, (Reported) Patient Home Medication List Home Medication List Reviewed: Yes Physical Exam-Cardiology Physical Exam Vital Signs/I&O 04/22/19 04/22/19 04/22/19 04/22/19 10:59 10:59 11:10 11:15 Temp 97.1 Resp 10 18 Pulse Ox 94 97 O2 Delivery OxyMask OxyMask OxyMask OxyMask O2 Flow Rate 6 6 6 6 04/22/19 04/22/19 04/22/19 04/22/19 11:20 11:30 11:30 11:40 Resp 18 18 18 Pulse Ox 96 98 98 O2 Delivery OxyMask OxyMask OxyMask OxyMask O2 Flow Rate 6 6 6 6 04/22/19 04/22/19 04/22/19 04/22/19 11:45 11:50 12:00 12:00 Temp 97.2 98.2 Pulse 78 Resp 18 18 18 B/P (MAP) 129/78 (95) Pulse Ox 95 90 95 O2 Delivery Nasal Cannula Nasal Cannula Nasal Cannula Nasal Cannula O2 Flow Rate 2 2 3.00 2 04/22/19 04/22/19 04/22/19 04/22/19 12:00 16:00 19:45 19:45 Temp 97.2 97.2 Pulse 74 71 Resp 20 18 B/P (MAP) 136/76 (96) 139/84 (102) Pulse Ox 95 99 O2 Delivery Nasal Cannula Nasal Cannula Nasal Cannula Nasal Cannula O2 Flow Rate 2 4.00 4.00 4.00 Capillary Refill : Constitutional: appears stated age, AAO x 3; No apparent distress; well- developed, well-nourished HEENT: PERRL; No normal ENT inspection, No TMs normal, No pharynx normal, No scleral icterus (R), No scleral icterus (L), No pale conjunctivae (R), No pale conjunctivae (L), No photophobia, No TM abnormal (R), No TM abnormal (L), No pharyngeal erythema, No tonsillar exudate, No other, No discharge, No EOMI; hearing is well preserved; No hard of hearing; oral hygience is good; No ulceration, No xanthelasmas are seen Neck: No non-tender, No full range of motion, No supple, No normal inspection, No carotid bruit, No limited range of motion, No lymphadenopathy (R), No lymphadenopathy (L), No tender lateral, No tender midline, No thyromegaly, No other; carotid pulses are 2 + bilaterally; No with good upstrokes Respiratory: No accessory muscle use, No respiratory distress, No chest tender, No chest expansion is symmetric; chest is bilaterally symmetric; No lungs clear to percussion; lungs clear to auscultation; No crackles, No rhonchi, No rales, No stridor, No wheezing, No pleural rub, No other Cardiovascular: regular rate-rhythm; No irregularly irregular, No extra beats, No parasternal heave is noted, No JVD, No edema, No bradycardia, No tachycardia, No point of maximal impulse, No cardiac thrills are palpable; S1 and S2; No gallop/S3, No gallop/S4, No diastolic murmur, No systolic murmur, No friction rub, No click, No other Gastrointestinal: No tender, No soft, No round, No distended, No pulsatile mass, No organomegaly, No guarding, No rebound, No tenderness, No hernia, No mass, No audible bowel sounds, No abnormal bowel sounds, No abdominal bruits, No spleenomegaly, No other Rectal: deferred Extremities: No normal range of motion, No non-tender, No normal inspection, No pedal edema, No calf tenderness, No normal capillary refill, No pelvis stable, No calf tenderness, No inflammation, No pedal edema, No slow capillary refill, No swelling, No other, No abrasion, No clubbing, No cyanosis, No ecchymosis, No laceration, No no lower extremity edema bilateral, No significant edema, No tenderness, No wound Neurologic/Psychiatric: no motor/sensory deficits, alert, normal mood/affect, oriented x 3, power is 5/5 both on sides Skin: No normal color, No warm/dry, No cyanosis, No cool, No diaphoresis, No damp, No ecchymosis, No jaundice, No mottled, No pallor, No rash, No tattoos/piercings, No ulcerations, No rash on exposed areas, No ulcerations on exposed areas, No other Data Review Labs Laboratory Tests 04/22/19 07:12: Glucometer 107 04/22/19 16:00: Glucometer 160H 04/22/19 20:46: Glucometer 137H A/P-Cardiology Assessment/Admission Diagnosis Post cervical spine surgery, CAD, PAD, Aortic stenosis Plan - Continue pain relief, DVT prophylaxis. - Restart all CAD medications including antiplatelet therapy. - PAD, no active issues. - Systolic murmur, likely aortic sclerosis vs stenosis. Echocardiogram in 02/2018 did not show any significant gradient. Dr Miguel to take over cardiology care from tomorrow. Thank you for your consultation. Please call me if you have any questions. Verna Middleton MD, FACP, FACC, FSCAI, FHRS, CCDS Interventional Cardiology Cardiac Electrophysiology Vascular Medicine and Endovascular Interventions Clinical Quality Measures DVT/VTE Risk/Contraindication: Risk Factor Score Per Nursin RFS Level Per Nursing on Admit: 3=High Dominick MIDDLETON MD Apr 22, 2019 21:06
[2019-04-22] MEDS: CARVEDILOL 12.5 MG (COREG) TABLET PO SCH (21:18)
[2019-04-23 00:09] VITALS: BP 130/73
[2019-04-23] MEDS: ceFAZolin 2 GM/NS 50 ML IVPB IV SCH ×2 (00:32→08:20)
[2019-04-23] MEDS: NS IV 1000 ML 1,000 ML IV SCH ×2 (00:33→08:21)
[2019-04-23] MEDS: HYDROcodone/APAP 5 MG/325 MG (LORTAB) TAB PO PRN ×2 (04:10→08:22)
[2019-04-23 06:14] LABS: BASOPHILS % (AUTO) 0 % (0-10); EOSINOPHILS # (AUTO) 0.3 10^3/uL (0.0-0.3); EOSINOPHILS % (AUTO) 3 % (0-10); HEMATOCRIT 41 % (40-54); HEMOGLOBIN 13.6 G/DL (13.3-17.7); LYMPHOCYTES # (AUTO) 1.8 X 10^3 (1.0-4.0); LYMPHOCYTES % (AUTO) 18 % (12-44); MEAN CORPUSCULAR HEMOGLOBIN 30 PG (25-34); MEAN CORPUSCULAR HGB CONC 33 G/DL (32-36); MEAN CORPUSCULAR VOLUME 89 FL (80-99); MEAN PLATELET VOLUME 11.1 FL (7.4-10.4); MONOCYTES % (AUTO) 10 % (0-12); NEUTROPHILS # (AUTO) 6.5 X 10^3 (1.8-7.8); NEUTROPHILS % (AUTO) 68 % (42-75); PLATELET COUNT 228 10^3/uL (130-400); RED CELL DISTRIBUTION WIDTH 14.8 % (10.0-14.5); WHITE BLOOD COUNT 9.5 10^3/uL (4.3-11.0)
[2019-04-23 06:37] LABS: ALANINE AMINOTRANSFERASE 19 U/L (0-55); ALBUMIN 3.6 GM/DL (3.2-4.5); ALKALINE PHOSPHATASE 88 U/L (40-136); BILIRUBIN,TOTAL 0.6 MG/DL (0.1-1.0); BUN/CREATININE RATIO 19; CALCIUM 8.8 MG/DL (8.5-10.1); CARBON DIOXIDE 19 MMOL/L (21-32); CHLORIDE 106 MMOL/L (98-107); CREATININE SERUM 0.85 MG/DL (0.60-1.30); GFR ESTIMATED > 60; GLUCOSE 129 MG/DL (70-105); POTASSIUM 3.8 MMOL/L (3.6-5.0); SODIUM 136 MMOL/L (135-145); TOTAL PROTEIN 6.7 GM/DL (6.4-8.2)
[2019-04-23] MEDS: FUROSEMIDE 40 MG (LASIX) TAB PO SCH (06:39)
--- NOTE | 2019-04-23 06:44 | Progress Note ---
Subjective Date Seen by a Provider: Apr 23, 2019 Time Seen by a Provider: 06:41 Subjective/Events-last exam POD #1, s/p C4-7 ACDF VSS, Afebrile Complains of mild sore throat Review of Systems General: No Chills Pulmonary: No Dyspnea, No Cough Cardiovascular: No: Chest Pain Gastrointestinal: No: Abdominal Pain Musculoskeletal: neck pain; No: arm pain Neurological: No: Weakness, Numbness, Confusion Objective Exam Vital Signs Date Time Temp Pulse Resp B/P (MAP) Pulse Ox O2 Delivery O2 Flow Rate FiO2 04/23/19 04:00 97.8 60 Nasal Cannula 4.00 04/23/19 00:09 98.0 81 15 130/73 (92) 99 Room Air 04/22/19 21:48 99 Nasal Cannula 4.00 04/22/19 19:45 Nasal Cannula 4.00 04/22/19 19:45 97.2 71 18 139/84 (102) 99 Nasal Cannula 4.00 04/22/19 16:00 97.2 74 20 136/76 (96) 95 Nasal Cannula 4.00 04/22/19 12:00 Nasal Cannula 2 04/22/19 12:00 98.2 18 95 Nasal Cannula 2 04/22/19 12:00 97.2 78 18 129/78 (95) 90 Nasal Cannula 3.00 04/22/19 11:50 18 95 Nasal Cannula 2 04/22/19 11:45 Nasal Cannula 2 04/22/19 11:40 18 98 OxyMask 6 04/22/19 11:30 OxyMask 6 04/22/19 11:30 18 98 OxyMask 6 04/22/19 11:20 18 96 OxyMask 6 04/22/19 11:15 OxyMask 6 04/22/19 11:10 18 97 OxyMask 6 04/22/19 10:59 97.1 10 94 OxyMask 6 04/22/19 10:59 OxyMask 6 04/22/19 07:05 Room Air 04/22/19 07:05 98.3 74 16 135/83 96 Room Air I & O 04/23/19 07:00 Intake Total 4040 ml Output Total 1590 ml Balance 2450 ml Capillary Refill : General Appearance: No Apparent Distress Neck: No Full Range of Motion Respiratory: Chest Non Tender, No Accessory Muscle Use, No Respiratory Distress Cardiovascular: Normal Peripheral Pulses Gastrointestinal: non tender, soft Extremity: Normal Capillary Refill Neurologic/Psychiatric: Alert, Oriented x3, No Motor/Sensory Deficits, Normal Mood/Affect, 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 Norm as Tested Skin: Other (Dressing CDI, No swelling, Trachea midline) Results Lab Laboratory Tests 04/22/19 07:12: Glucometer 107 04/22/19 16:00: Glucometer 160H 04/22/19 20:46: Glucometer 137H 04/23/19 05:19: Glucometer 129H 04/23/19 05:40: White Blood Count 9.5, Red Blood Count 4.57, Hemoglobin 13.6, Hematocrit 41, Mean Corpuscular Volume 89, Mean Corpuscular Hemoglobin 30, Mean Corpuscular Hemoglobin Concent 33, Red Cell Distribution Width 14.8H, Platelet Count 228, Mean Platelet Volume 11.1H, Neutrophils (%) (Auto) 68, Lymphocytes (%) (Auto) 18, Monocytes (%) (Auto) 10, Eosinophils (%) (Auto) 3, Basophils (%) (Auto) 0, Neutrophils # (Auto) 6.5, Lymphocytes # (Auto) 1.8, Monocytes # (Auto) 1.0, Eosinophils # (Auto) 0.3, Basophils # (Auto) 0.0, Sodium Level 136, Potassium Level 3.8, Chloride Level 106, Carbon Dioxide Level 19L, Anion Gap 11, Blood Urea Nitrogen 16, Creatinine 0.85, Estimat Glomerular Filtration Rate > 60, BUN/Creatinine Ratio 19, Glucose Level 129H, Calcium Level 8.8, Corrected Calcium 9.1, Total Bilirubin 0.6, Aspartate Amino Transf (AST/SGOT) 18, Alanine Aminotransferase (ALT/SGPT) 19, Alkaline Phosphatase 88, Total Protein 6.7, Albumin 3.6 Assessment/Plan Assessment/Plan Assess & Plan/Chief Complaint Cervical stenosis with radiculopathy S/P C4-7 ACDF Will monitor drain output this morning. If drainage is minimal, patient may possibly be discharged at noon Clinical Quality Measures DVT/VTE Risk/Contraindication: Risk Factor Score Per Nursin RFS Level Per Nursing on Admit: 3=High JUANITA HAILE Apr 23, 2019 06:44
--- NOTE | 2019-04-23 06:49 | Discharge Inst-Simple/Standard ---
Discharge Inst-Standard Patient Instructions/Follow Up Plan of Care/Instructions/FU: May resume Aspirin and Plavix on 04-27-[address] Andersen in 2 weeks Call with questions or concerns No driving until follow up appointment No lifting > 10 lbs. Activity as Tolerated: No Discharge Diet: JUANITA Salgado Apr 23, 2019 06:48
[2019-04-23] MEDS ORDERED: MULTIVIT W/MINERALS TAB (THERAGRAN M) PO SCH (07:00)
[2019-04-23] MEDS ORDERED: inSUlin ASPART (NovoLOG) 1 UNIT/0.01 ML (CHARGE PER UNIT) SC SCH (07:00)
[2019-04-23 08:00] VITALS: BP 138/76
[2019-04-23] MEDS: MILK OF MAGNESIA 400 MG/5 ML 30 ML UDC PO SCH (08:05)
[2019-04-23] MEDS: PARoxetine 20 MG (PAXIL) TAB PO SCH (08:21)
[2019-04-23] MEDS: KCL 20 MEQ TAB (K-DUR) PO SCH (08:21)
[2019-04-23] MEDS: CARVEDILOL 12.5 MG (COREG) TABLET PO SCH (08:21)
[2019-04-23] MEDS: amLODIPine 10 MG (NORVASC) TAB PO SCH (08:21)
[2019-04-23] MEDS: ISOSORBIDE MONONITRATE 30 MG (IMDUR) TAB PO SCH (08:21)
[2019-04-23] MEDS: GABAPENTIN 100 MG (NEURONTIN) CAP PO SCH ×2 (08:21→13:59)
[2019-04-23] MEDS: lisINopril 20 MG (PRINIVIL) TABLET PO SCH (08:21)
[2019-04-23] MEDS: AMILORIDE 5 MG PO SCH (08:23)
--- NOTE | 2019-04-23 08:42 | Anesthesia-General Post-Op ---
General Patient Condition Mental Status/LOC: Same as Preop Cardiovascular: Satisfactory Nausea/Vomiting: Absent Respiratory: Satisfactory Pain: Controlled Complications: Absent Post Op Complications Complications None Follow Up Care/Instructions Patient Instructions None needed. Anesthesia/Patient Condition Patient Condition Patient is doing well, no complaints, stable vital signs, no apparent adverse anesthesia problems. No complications reported per nursing. CONNIE URIAS CRNA Apr 23, 2019 08:42
--- NOTE | 2019-04-23 08:57 | Cardiology Progress Note ---
Subjective Date Seen by Provider: Apr 23, 2019 Time Seen by Provider: 08:51 Subjective/Events-last exam Patient sitting up in chair, denies any chest pain or dyspnea. Objective-Cardiology Exam Last Set of Vital Signs Vital Signs 04/23/19 04/23/19 00:09 04:00 Temp 97.8 Pulse 60 Resp 15 B/P (MAP) 130/73 (92) Pulse Ox 99 O2 Delivery Nasal Cannula O2 Flow Rate 4.00 Capillary Refill : I&O Intake and Output 04/23/19 00:00 Intake Total 3540 ml Output Total 1090 ml Balance 2450 ml Intake Oral 1440 ml IV Total 2100 ml Output Urine Total 1050 ml Other 40 ml Daily Weight Change No No General: Alert, Oriented X3, Cooperative HEENT: Atraumatic, PERRLA Neck: Supple, No JVD, No Thyromegaly Lungs: Clear to Auscultation, Normal Air Movement Heart: Regular Rate, Normal S1, Normal S2, No Murmurs Abdomen: Normal Bowel Sounds, Soft, No Tenderness, No Hepatosplenomegaly, No Masses Extremities: No Clubbing, No Cyanosis, No Edema, Normal Pulses, No Tenderness/Swelling Skin: No Rashes, No Breakdown, No Significant Lesion Neuro: Normal Gait, Normal Speech, Strength at 5/5 X4 Ext, Normal Tone, Sensation Intact Psych/Mental Status: Mental Status NL, Mood NL Results Lab Laboratory Tests 04/23/19 05:40 A/P-Cardiology Admission Diagnosis cervical spine surgery CAD HTN Diastolic dysfunction Assessment/Plan s/p cervical spine surgery, slowly recovering. Diastolic congestive heart failure, last echocardiogram showed moderate LVH, ejection fraction 60 percent, mild mitral regurgitation, left atrial enlargement. Continue to monitor Moderate-severe aortic valve stenosis, last echocardiogram January 2018 did not show significant gradient across the aortic valve. Most recent cardiac catheterization done March 2017 revealed severe aortic stenosis. Continue to monitor. Coronary artery disease-history of coronary stenting at in 2007, cardiac catheterization was carried out on November 04, 2014 showed [id number] aortic valve stenosis, patent stent in the second obtuse marginal branch, 40-50 percent stenosis in the mid LAD with mild irregularity in the first obtuse marginal branch and mild disease in the right coronary artery, nonobstructive disease, normal left ventricular size and function, ejection fraction 60 percent. Most recent cardiac catheterization done March 2017 revealed patent stent to the obtuse marginal branch with otherwise nonobstructive disease. Continue to monitor. PVCs, ventricular bigeminy, noted on 48 hour Holter done December 2016. Maintained on Coreg 25 mg twice daily. Continue to monitor. Peripheral arterial disease, foot ulcer has healed completely, returned at this time with ulcer again on his left leg, Underwent angiogram on May 17, 2016 which showed severe stenosis at a calcified lesion at the left common femoral artery, underwent complex intervention using cutting balloon (Angioscoe) and [place] balloon with improvement. Most recent peripheral angiogram done November 01, 2016 revealing severe restenosis of the left common femoral artery, successful balloon angioplasty and drug-coated 11 using Lutonix 716 mm with excellent results. Mild disease at the left SFA and small vessel disease distally. Mild small vessel disease in the right lower extremity distally. Most recent SARAH's done January 2018 were mildly abnormal, continue to monitor. Obesity, BMI is 51, educated on weight loss, exercise. Diabetes mellitus, followed and managed by Dr. Gutiérrez. History of joint replacement, history of glaucoma. Nonobstructive carotid artery stenosis, most recent carotid duplex done January 2018. Continue to monitor. Clinical Quality Measures DVT/VTE Risk/Contraindication: Risk Factor Score Per Nursin RFS Level Per Nursing on Admit: 3=High CORINNA CASTRO Apr 23, 2019 08:57
[2019-04-23] MEDS ORDERED: CARVEDILOL 12.5 MG (COREG) TABLET PO SCH (09:00)
--- NOTE | 2019-04-23 09:21 | NUR ---
CM/SS, interviewed for discharge planning. Patient is in soft collar post op, surgeon monitoring drain output and patient could possibly discharge later today. Patient will return home. He ambulates via power chair. SKIL: Patient has 7 hours weekly, caregiver assists with bathing, cooking. [employer] CM is Ellen Miller. PH: [phone] Patient indicates no needs.
--- NOTE | 2019-04-23 10:07 | Cardiology Progress Note ---
Subjective Date Seen by Provider: Apr 23, 2019 Time Seen by Provider: 10:07 Subjective/Events-last exam Patient is sitting in a chair, complaining of neck pain. Denied any chest pain. Review of Systems General: No Chills, No Night Sweats, No Fatigue, No Malaise, No Appetite, No Other HEENT: No Head Aches, No Visual Changes, No Eye Pain, No Ear Pain, No Dysphasia, No Sinus Congestion, No Post Nasal Drip, No Sore Throat, No Other Pulmonary: No Dyspnea, No Cough, No Pleuritic Chest Pain, No Other Cardiovascular: No: Chest Pain, Palpitations, Orthopnea, Paroxysmal Noc. Dyspnea, Edema, Lt Headedness, Other Objective-Cardiology Exam Last Set of Vital Signs Vital Signs 04/23/19 04/23/19 08:00 09:00 Temp 97.7 Pulse 69 Resp 20 B/P (MAP) 138/76 (96) Pulse Ox 99 O2 Delivery Nasal Cannula O2 Flow Rate 4.00 Capillary Refill : I&O Intake and Output 04/23/19 00:00 Intake Total 3540 ml Output Total 1090 ml Balance 2450 ml Intake Oral 1440 ml IV Total 2100 ml Output Urine Total 1050 ml Other 40 ml Daily Weight Change No No General: Alert, Oriented X3, Cooperative HEENT: Atraumatic, PERRLA Neck: Supple, No JVD, No Thyromegaly Lungs: Clear to Auscultation, Normal Air Movement Heart: Regular Rate, Normal S1, Normal S2, No Murmurs Abdomen: Normal Bowel Sounds, Soft, No Tenderness, No Hepatosplenomegaly, No Ma sses Extremities: No Clubbing, No Cyanosis, No Edema, Normal Pulses, No Tender ness/Swelling Neuro: Normal Speech, Sensation Intact Psych/Mental Status: Mental Status NL, Mood NL Results Lab Laboratory Tests 04/23/19 05:40 A/P-Cardiology Admission Diagnosis cervical spine surgery CAD HTN Diastolic dysfunction Assessment/Plan S/p cervical spine surgery, slowly recovering. Diastolic congestive heart failure, last echocardiogram showed moderate LVH, ejection fraction 60 percent, mild mitral regurgitation, left atrial enlargement. Continue to monitor Moderate-severe aortic valve stenosis, last echocardiogram January 2018 did not show significant gradient across the aortic valve. Most recent cardiac catheterization done March 2017 revealed severe aortic stenosis. Continue to monitor. Coronary artery disease-history of coronary stenting at in 2007, cardiac catheterization was carried out on November 04, 2014 showed [id number] aortic valve stenosis, patent stent in the second obtuse marginal branch, 40-50 percent stenosis in the mid LAD with mild irregularity in the first obtuse marginal branch and mild disease in the right coronary artery, nonobstructive disease, normal left ventricular size and function, ejection fraction 60 percent. Most recent cardiac catheterization done March 2017 revealed patent stent to the obtuse marginal branch with otherwise nonobstructive disease. Continue to monitor. PVCs, ventricular bigeminy, noted on 48 hour Holter done December 2016. Maintained on Coreg 25 mg twice daily. Continue to monitor. Peripheral arterial disease, foot ulcer has healed completely, returned at this time with ulcer again on his left leg, Underwent angiogram on May 17, 2016 which showed severe stenosis at a calcified lesion at the left common femoral artery, underwent complex intervention using cutting balloon (Angioscoe) and [place] balloon with improvement. Most recent peripheral angiogram done November 01, 2016 revealing severe restenosis of the left common femoral artery, successful balloon angioplasty and drug-coated 11 using Lutonix 716 mm with excellent results. Mild disease at the left SFA and small vessel disease distally. Mild small vessel disease in the right lower extremity distally. Most recent SARAH's done January 2018 were mildly abnormal, continue to monitor. Obesity, BMI is 51, educated on weight loss, exercise. Diabetes mellitus, followed and managed by Dr. Gutiérrez. History of joint replacement, history of glaucoma. Nonobstructive carotid artery stenosis, most recent carotid duplex done January 2018. Continue to monitor. Clinical Quality Measures DVT/VTE Risk/Contraindication: Risk Factor Score Per Nursin RFS Level Per Nursing on Admit: 3=High GAMAL BRUNO MD Apr 23, 2019 10:07
--- NOTE | 2019-04-23 10:29 | Progress Note - Hospitalist ---
Subjective HPI/CC On Admission Date Seen by Provider: Apr 23, 2019 Time Seen by Provider: 10:00 Procedure performed: C4-7 ACDF Chief complaint: Medical management following extensive cervical spine surgery History of present illness: This is a 68-year-old white male clinic patient of Dr. Gutiérrez and Dr. Miguel who presents to room 418 following an extensive cervical spine surgery by Dr. Ganesh cruz. Patient currently is having a lot of pain in his neck and trapezius muscle spasms but denies any chest pain or shortness of breath. I explained my role in his care and monitoring blood pressure heart and lungs and I have asked Dr. Middleton to see him in consultation due to extensive heart history. I have reviewed all of his home medications. Subjective/Events-last exam Pt doing very well Urinating well Bowels are moving Pain is fairly well controlled today TAMMY drain will be evaluated at noon that will be pulled and likely discharged today No cardiac meds No respiratory events Maintain on Oxygen at night Review of Systems Musculoskeletal: neck pain Objective Exam Vital Signs Vital Signs Date Time Temp Pulse Resp B/P (MAP) Pulse Ox O2 Delivery O2 Flow Rate FiO2 04/23/19 14:15 69 20 138/76 99 Nasal Cannula 4.00 04/23/19 12:00 97.4 Capillary Refill : General Appearance: No Apparent Distress, WD/WN, Chronically ill, Obese HEENT: PERRL/EOMI, Normal ENT Inspection, Pharynx Normal, Other (c-collar in place) Neck: No Full Range of Motion; Other (limited ROM) Respiratory: Chest Non Tender, No Accessory Muscle Use, No Respiratory Distress Cardiovascular: Normal Peripheral Pulses Gastrointestinal: Normal Bowel Sounds, No Organomegaly, No Pulsatile Mass, Non Tender, Soft Back: Normal Inspection, No CVA Tenderness, No Vertebral Tenderness, Decreased Range of Motion (neck) Extremity: Normal Capillary Refill Neurologic/Psychiatric: Alert, Oriented x3, No Motor/Sensory Deficits, Normal Mood/Affect, 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 Assessment/Plan Assessment and Plan Assess & Plan/Chief Complaint Assessment: Status post extensive cervical spine surgery by Dr. Andersen CAD PVD Multiple stents in the past Hypertension Obstructive sleep apnea noncompliant with CPAP Hyperlipidemia Plan: Monitor labs Pain control IS PT/OT DC home? Diagnosis/Problems Diagnosis/Problems (1) Cervical spinal stenosis Status: Acute (2) Neck pain Status: Acute (3) Uncontrolled diabetes mellitus Status: Chronic Qualifiers: Diabetes mellitus type: type 2 Glycemic state: with hyperglycemia Qualified Codes: E11.65 - Type 2 diabetes mellitus with hyperglycemia (4) Non compliance with medical treatment Status: Chronic (5) CHF (congestive heart failure) Status: Chronic Qualifiers: Heart failure type: unspecified Heart failure chronicity: unspecified Qualified Codes: I50.9 - Heart failure, unspecified (6) Muscle spasms of neck Status: Acute (7) CAD (coronary artery disease) Status: Chronic Qualifiers: Coronary Disease-Associated Artery/Lesion type: [place] artery [place] vs. transplanted heart: [place] heart Associated angina: with stable angina Qualified Codes: I25.118 - Atherosclerotic heart disease of [place] coronary artery with other forms of angina pectoris (8) PVD (peripheral vascular disease) Status: Chronic (9) SERAFIN (obstructive sleep apnea) Status: Chronic Clinical Quality Measures DVT/VTE Risk/Contraindication: Risk Factor Score Per Nursin RFS Level Per Nursing on Admit: 3=High FAITH MORE DO Apr 23, 2019 10:28
[2019-04-23 12:00] VITALS: BP 125/83
--- NOTE | 2019-04-23 12:02 | Physical Therapy Evaluation ---
PT Evaluation-General Medical Diagnosis Admission Date Apr 22, 2019 at 06:49 Medical Diagnosis: C4-7 ACDF Onset Date: Apr 22, 2019 Therapy Diagnosis Therapy Diagnosis: impaired mobility, strength, endurance Height/Weight Height (Feet): 5 Height (Inches): 11.00 Weight (Pounds): 345 Weight (Ounces): 1.0 Precautions Precautions/Isolations: Standard Precautions Weight Bear Status Right Lower Extremity: Right Weight Bearing/Tolerated Left Lower Extremity: Left Weight Bearing/Tolerated Referral Physician: Yasmany Carey Reason for Referral: Evaluation/Treatment Medical History Additional Medical History Past Medical History Surgeries: Abdominal, Cardiac, Coronary Stent, Joint Replacement, Orthopedic, Vascular Surgery, Vasectomy Respiratory: COPD, Sleep Apnea Currently Using CPAP: No Currently Using BIPAP: No Cardiac: Chronic Edema/Swelling, Coronary Artery Disease, Deep Vein Thrombosis, High Cholesterol, Hypertension, Peripheral Vascular, Valvular Heart Disease Neurological: Neuropathy Reproductive: No Sexually Transmitted Disease: No HIV/AIDS: No Gastrointestinal: Gastroesophageal Reflux Musculoskeletal: Arthritis, Chronic Back Pain Endocrine: Diabetes, Insulin dep HEENT: Glaucoma Loss of Vision: Denies Hearing Impairment: Denies Psychosocial: Depression Skin/Integumentary: Herpes History of Blood Disorders: No Adverse Reaction to Blood [place]: No (N/A) Reviewed History: Yes Social History Home: Single Level Current Living Status: Children Entry Into Home: Stairs Without Railing PT Steps Into Home: 1 Prior/Core FIM Prior Level of Function Therapy Code Descriptions/Definitions Functional [place] Measure: 0=Not Assessed/NA 4=Minimal Assistance 1=Total Assistance 5=Supervision or Setup 2=Maximal Assistance 6=Modified [place] 3=Moderate Assistance 7=Complete [place] Therapy Quality Codes: 6 Independent with activity with or without an assistive device 5 Patient requires set up or clean up by helper. Patient completes activity by themselves 4 Supervision or touching assist (CGA). [place] provide cues , steadying assist 3 The helper provides less than half the effort to complete the activity 2 The helper provides more than half the effort to complete the activity 1 Dependent. The helper does all the effort to complete an activity 7 Patient refused to complete or attempt activity 9 The patient did not perform the activity before the current illness or injury 88 Not attempted due to Medical conditions or safety concerns Functional Abilities and Goals: Independent: Patient completed the activities by him/herself, with or without an assistive device, with no assistance from a helper. Needed Some Help: Patient needed partial assistance from another person to complete activities. Dependent: A helper completed the activities for the patient. Unknown: Not Applicable: Bed Mobility: 6 Transfers (B,C,W/C) (FIM): 6 Indoor Mobility (Ambulation): Independent Prior Devices Use: Manual wheelchair Patient states he was not really ambulating previously, into the bathroom from his wheelchair was about it. PT Evaluation-Current Subjective Patient in recliner pre tx, agrees to PT, has 6/10 pain in his neck and back. Pt/Family Goals "to improve my neck pain" Objective Patient Orientation: Person, Place, Situation Attachments: Oxygen, IV ROM/Strength ROM Lower Extremities limited due to obesity and swelling Strength Lower Extremities 4/5 gross BLE Sensory Vision: Wears Glasses Hearing: Functional Sensation Right Lower Extremit: Impaired Sensation Left Lower Extremity: Impaired Transfers Therapy Code Descriptions/Definitions Functional [place] Measure: 0=Not Assessed/NA 4=Minimal Assistance 1=Total Assistance 5=Supervision or Setup 2=Maximal Assistance 6=Modified [place] 3=Moderate Assistance 7=Complete [place] Transfers (B, C, W/C) (FIM): 4 Sit to/from Stand: 4 Patient was able to stand for about 1 min, he was not willing to try ambulating at this time. Patient had slight light headedness initially upon standing that passed quickly. Balance Sitting Static: Normal Sitting Dynamic: Normal Standing Static: Fair Standing Dynamic: Fair Treatment BLE exercises x15 (AP, LAQ) Assessment/Needs Patient has impaired mobility, strength, endurance. He is mostly gets around in a wheelchair previously and ambulates very little. Rehab Potential: Guarded PT Short Term Goals Short Term Goals Time Frame: Apr 30, 2019 Transfers (B,C,W/C) (FIM): 5 Gait (FIM): 1 Gait Distance Comment: 10' Gait Level of Assist: 5 Gait Assistive Device: FWW PT Plan Problem List Problem List: Activity Tolerance, Functional Strength, Safety, Balance, Gait, Transfer, Bed Mobility, ROM Treatment/Plan Treatment Plan: Continue Plan of Care Treatment Plan: Bed Mobility, Education, Functional Activity Tomy, Functional Strength, Gait, Safety, Therapeutic Exercise, Transfers Treatment Duration: Apr 30, 2019 Frequency: 6 times per week Estimated Hrs Per Day: .25 hour per day Patient and/or Family Agrees t: Yes Safety Risks/Education Patient Education: Transfer Techniques, Reviewed Precautions, Correct Positioning, Safety Issues Teaching Recipient: Patient Teaching Methods: Demonstration, Discussion Response to Teaching: Reinforcement Needed Discharge Recommendations Plan Patient will perform bed mobility and transfer training, balance and endurance training, functional strengthening, gait training, and education, to improve functional mobility and independence at home. Therapy D/C Recommendations: Home w/ Family Support Time/GCodes Time In: 1140 Time Out: 1155 Total Billed Treatment Time: 15 Total Billed Treatment 1 visit KENZIE Pires' BOOKER GATES PT Apr 23, 2019 12:02
--- NOTE | 2019-04-23 12:55 | Occupational Therapy Eval ---
OT Evaluation-General/PLF Medical Diagnosis Admission Date Apr 22, 2019 at 06:49 Medical Diagnosis: C4-7 ACDF Onset Date: Apr 22, 2019 Therapy Diagnosis Therapy Diagnosis: decreased self care skills Height/Weight Height (Feet): 5 Height (Inches): 11.00 Weight (Pounds): 345 Weight (Ounces): 1.0 Precautions Precautions/Isolations: Standard Precautions Safety Interventions: Reorient-PRN Referral Physician: Yasmany Carey Medical History Pertinent Medical History: Arthritis, CAD, COPD, DM, GERD, HTN, Neuropathy, PVD Additional Medical History chronic edema, sleep apnea, DVT, high cholesterol, valvular heart disease, chronic back pain, glaucoma, depression Current History pt s/p C4-7 ACDF Social History Home: Single Level Current Living Status: Children Entry Into Home: Stairs Without Railing Steps Into Home: 1 ADL-Prior Level of Function Therapy Code Descriptions/Definitions Functional [place] Measure: 0=Not Assessed/NA 4=Minimal Assistance 1=Total Assistance 5=Supervision or Setup 2=Maximal Assistance 6=Modified [place] 3=Moderate Assistance 7=Complete [place] Therapy Quality Codes: 6 Independent with activity with or without an assistive device 5 Patient requires set up or clean up by helper. Patient completes activity by themselves 4 Supervision or touching assist (CGA). [place] provide cues , steadying assist 3 The helper provides less than half the effort to complete the activity 2 The helper provides more than half the effort to complete the activity 1 Dependent. The helper does all the effort to complete an activity 7 Patient refused to complete or attempt activity 9 The patient did not perform the activity before the current illness or injury 88 Not attempted due to Medical conditions or safety concerns Functional Abilities and Goals: Independent: Patient completed the activities by him/herself, with or without an assistive device, with no assistance from a helper. Needed Some Help: Patient needed partial assistance from another person to complete activities. Dependent: A helper completed the activities for the patient. Unknown: Not Applicable: ADL PLOF Comments Pt reports receiving some assist with ADLs. 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 Pt states he has assist with bathing and LE dressing. Uses a walker in the house and an electric w/c outside. Self Care: Needed Some Help DME/Equipment: Bath Chair, Tub/Shower Drive Self: No OT Current Status Subjective Pt sitting in chair, agrees to therapy. Reports 6/10 pain in neck. Mental Status/Objective Patient Orientation: Person, Place Attachments: Drains, IV, Oxygen Current Glasses/Contacts: Yes Dentures/Partials: No Hand Dominance: Right Upper Extremity Coordination decreased left >right Upper Extremity Sensation Pt reports tingling in hands. Upper Extremity Strength generalized weakness ADL-Treatment ADL-Current Pt participated in UE assessment while seated. Pt washed face with set up. Pt able to complete sit to stand with CGA. Pt has decreased balance initially in standing. Requests to remain up in chair. Sitting in chair with needs met. Therapy Code Descriptions/Definitions Functional [place] Measure: 0=Not Assessed/NA 4=Minimal Assistance 1=Total Assistance 5=Supervision or Setup 2=Maximal Assistance 6=Modified [place] 3=Moderate Assistance 7=Complete [place] Therapy Quality Codes: 6 Independent with activity with or without an assistive device 5 Patient requires set up or clean up by helper. Patient completes activity by themselves 4 Supervision or touching assist (CGA). [place] provide cues , steadying assi st 3 The helper provides less than half the effort to complete the activity 2 The helper provides more than half the effort to complete the activity 1 Dependent. The helper does all the effort to complete an activity 7 Patient refused to complete or attempt activity 9 The patient did not perform the activity before the current illness or injury 88 Not attempted due to Medical conditions or safety concerns Eating (FIM): 5 (by report) Education OT Patient Education: Rehab process Teaching Recipient: Patient Teaching Methods: Discussion Response to Teaching: Verbalize Understanding OT Short Term Goals Short Term Goals Transfers (B,C,W/C) (FIM): 5 1=Demonstrate adherence to instructed precautions during ADL tasks. 2=Patient will verbalize/demonstrate understanding of assistive devices/modifications for ADL. 3=Patient will improve strength/tolerance for activity to enable patient to perform ADL's. OT Snf Goals [employer] Servicer Supervisor Goals Time Frame: Apr 30, 2019 Upper Body Dressing(FIM): 5 Lower Body Dressing(FIM): 4 Toileting(FIM): 5 Toilet/Commode Transfer(FIM): 5 Additional Goals: 1-Demonstrate ADL Tasks, 2-Verbalize Understanding, 3- ImproveStrength/Tomy 1=Demonstrate adherence to instructed precautions during ADL tasks. 2=Patient will verbalize/demonstrate understanding of assistive devices/modifications for ADL. 3=Patient will improve strength/tolerance for activity to enable patient to perform ADL's. OT Education/Plan Problem List/Assessment Assessment: Dependent Transfers, Impaired Self-Care Skills Pt to benefit from skilled OT services while hospitalized for ADL training, transfers, and home safety education to increase level of independence and allow safe discharge home. Discharge Recommendations Plan/Recommendations: Continue POC Treatment Plan/Plan of Care Treatment,Training & Education: Yes Patient would benefit from OT for education, treatment and training to promote independence in ADL's, mobility, safety and/or upper extremity function for ADL's. Plan of Care: ADL Retraining, Functional Mobility, UE Funct Exercise/Act Treatment Duration: Apr 30, 2019 Frequency: 5 times per week Estimated Hrs Per Day: .25 hour per day Rehab Potential: Fair Time/GCodes Start Time: 09:46 Stop Time: 10:00 Total Time Billed (hr/min): 14 Billed Treatment Time 1, visit, EVM(14minutes) ESTRELLA BAUMANN OT Apr 23, 2019 12:54
--- NOTE | 2019-04-23 13:00 | NUR ---
The pt affiliates with [facility]. States his throat is sore, but he is positive he will soon feel better. Pt expressed he looks forward to discharging from the hospital, but that everyone has been kind to his during his stay.
--- NOTE | 2019-04-23 13:59 | NUR ---
PATIENT IS DISCHARGING. HE WILL TAKE HIS 2ND DOSE OF GABAPENTIN AT HOME.
[2019-04-23 14:15] VITALS: BP 138/76
--- NOTE | 2019-04-23 14:37 | Diagnostic Imaging Report ---
Indication: Postop cervical spine surgery. Time of exam: 2:17 PM Multiple views of the cervical spine demonstrate postop changes of ACDF with anterior plate and screws transfixing C4-C7 levels. Hardware appears to be intact. Alignment is normal. No fractures are seen. Impression: C4-C7 ACDF. Dictated by: Dictated on workstation # [id number]
== END 2019-04-23 14:12 | disposition home or self-care (01) | DRG 472 ==
LOC: 4TH 06:49 → SURG 06:50 → 4TH 12:00
PROVIDERS: ADMIT Orthopaedic Surgery Orthopaedic Surgery of the Spine; ATTEND Orthopaedic Surgery Orthopaedic Surgery of the Spine
PROC: 0RB30ZZ Excision of Cervical Vertebral Disc, Open Approach (ICD-10-PCS; 2019-04-22)
PROC: 0RG20K0 Fusion of 2 or more Cervical Vertebral Joints with Nonautologous Tissue Substitute, Anterior Approach, Anterior Column, Open Approach (ICD-10-PCS; principal; 2019-04-22 08:56)
DX: M48.02 Spinal stenosis, cervical region (principal); M50.11 Cervical disc disorder with radiculopathy, high cervical region; M47.22 Other spondylosis with radiculopathy, cervical region; E66.01 Morbid (severe) obesity due to excess calories; Z68.42 Body mass index [BMI] 45.0-49.9, adult; I50.32 Chronic diastolic (congestive) heart failure; E11.51 Type 2 diabetes mellitus with diabetic peripheral angiopathy without gangrene; E11.40 Type 2 diabetes mellitus with diabetic neuropathy, unspecified; E11.65 Type 2 diabetes mellitus with hyperglycemia; I73.9 Peripheral vascular disease, unspecified; I25.10 Atherosclerotic heart disease of native coronary artery without angina pectoris; J44.9 Chronic obstructive pulmonary disease, unspecified; G47.33 Obstructive sleep apnea (adult) (pediatric); F32.9 Major depressive disorder, single episode, unspecified; E78.5 Hyperlipidemia, unspecified; K21.9 Gastro-esophageal reflux disease without esophagitis; I08.0 Rheumatic disorders of both mitral and aortic valves; I49.3 Ventricular premature depolarization; Z79.891 Long term (current) use of opiate analgesic; Z86.718 Personal history of other venous thrombosis and embolism; Z86.73 Personal history of transient ischemic attack (TIA), and cerebral infarction without residual deficits; Z99.81 Dependence on supplemental oxygen; Z87.891 Personal history of nicotine dependence; Z79.4 Long term (current) use of insulin; Z86.19 Personal history of other infectious and parasitic diseases; Z95.5 Presence of coronary angioplasty implant and graft
CPT/HCPCS: 36415; 72040; 80053; 82962; 85025; 87081

== ENCOUNTER 2019-04-26 05:14 | Emergency (ER) | payer MEDICARE, MEDICAID ==
[~2019-04-26] VITALS: Ht 180.3 cm; Wt 162.8 kg
[~2019-04-26 05:14] MED LIST changes: +OMEP20CA13 PO
[2019-04-26] MEDS ORDERED: NS IV 1000 ML 1,000 ML IV SCH (05:26)
[2019-04-26] MEDS ORDERED: fentaNYL INJECTION 100 MCG/2 ML AMP IVP ONE (05:30)
--- NOTE | 2019-04-26 05:33 | ED Back Pain ---
General Stated Complaint: NECK PAIN Source of Information: Patient, EMS, Old Records Exam Limitations: No Limitations (VICTORINA ANDRE) History of Present Illness Date Seen by Provider: Apr 26, 2019 Time Seen by Provider: 05:18 Initial Comments The patient presents to ER by EMS from home with chief complaint that he woke up in the early hours the morning with neck and upper back pain. He is 4 days status post anterior neck surgery stents were placed for his nerves. He is having no paresthesias just a worsening version of pain has had for the past 4 days since his surgery. He reported to EMS that he has not been able to eat or drink very well secondary to having difficulty swallowing and has only had a bowl of grits some DrTito Pepper and a little bit of water and the 4 days he's been home. He does take Lasix 80 mg daily. He is diabetic and his blood sugar was in the 120s per EMS. He denies chest pain shortness of breath nausea vomiting, dysuria, diarrhea or constipation. He's not having any pain in his mid thoracic or lumbar spine. He's having no weakness or numbness. Uses a walker to ambulate and says that most of the time since she's been home he spent laying down in bed. He uses 3 L of oxygen per nasal cannula at baseline to sleep. He took a hydrocodone 5 x 325 at 0200 but he's been very sparing using the hydrocodone because he only has 2 tablets left get him through the weekend and his appointment with his primary care doctor is not until the sixth, 3 days from now. (VICTORINA ANDRE) Allergies and Home Medications Allergies Coded Allergies: No Known Drug Allergies (Unverified , 03/18/19) Home Medications Amiloride HCl 5 Mg Tablet, 5 MG PO DAILY, (Reported) Amlodipine Besylate 10 Mg Tablet, 10 MG PO DAILY, (Reported) Aspirin 81 Mg Tab.chew, 81 MG PO DAILY, (Reported) Atorvastatin Calcium 80 Mg Tablet, 80 MG PO HS, (Reported) Carvedilol 25 Mg Tablet, 25 MG PO BID, (Reported) Clopidogrel Bisulfate 75 Mg Tablet, 75 MG PO DAILY, (Reported) Cyclobenzaprine HCl 10 Mg Tablet, 10 MG PO TID PRN for MUSCLE SPASMS, (Reported) Empagliflozin 25 Mg Tablet, 25 MG PO DAILY, (Reported) Ergocalciferol (Vitamin D2) 50,000 Unit Capsule, 50,000 UNITS PO Mo, (Reported) Furosemide 80 Mg Tablet, 80 MG PO DAILY, (Reported) Gabapentin 100 Mg Capsule, 100 MG PO TID, (Reported) Hydrocodone/Acetaminophen 1 Each Tablet, 2 TAB PO Q6H PRN for PAIN, (Reported) Insulin Glargine,Hum.rec.anlog 300 Unit/1 Ml Insuln.pen, 55 UNITS SQ DAILY, (Reported) Insulin Glargine,Hum.rec.anlog 300 Unit/1 Ml Insuln.pen, 80 UNIT SQ HS, (Reported) Insulin Lispro 200 Unit/1 Ml Insuln.pen, 75 UNITS SQ DAILY, (Reported) Insulin Lispro 100 Unit/1 Ml Insuln.pen, 90 UNIT SQ WITH EVENING MEAL, (Reported) Isosorbide Mononitrate 30 Mg Tab.er.24h, 30 MG PO DAILY, (Reported) Lisinopril 20 Mg Tablet, 20 MG PO DAILY, (Reported) Nitroglycerin 0.4 Mg Tab.subl, 0.4 MG SL UD PRN for CHEST PAIN, (Reported) Paroxetine HCl 20 Mg Tablet, 20 MG PO DAILY, (Reported) Potassium Chloride 20 Meq Tab.er.prt, 20 MEQ PO DAILY, (Reported) Patient Home Medication List Home Medication List Reviewed: Yes (VICTORINA ANDRE) Review of Systems Constitutional: No chills, No diaphoresis EENTM: No ear discharge, No ear pain Respiratory: No cough, No short of breath Cardiovascular: No chest pain; Hx of Intervention (stent 1) Gastrointestinal: No abdominal pain, No nausea Genitourinary: No discharge, No dysuria Musculoskeletal: see HPI; No back pain; neck pain (VICTORINA ANDRE) Past Ldshfso-Wgurmq-Xbliac Hx Patient Social History Alcohol Use: Occasionally Uses Alcohol Beverage of Choice: Beer Recreational Drug Use: No Smoking Status: Former Smoker Type Used: Cigarettes Former Smoker, Quit: Sep 24, 1986 Recent Foreign Travel: No Contact w/Someone Who Travel: No Recent Hopitalizations: No (VICTORINA ANDRE) Immunizations Up To Date Tetanus Booster (TDap): Unknown PED Vaccines UTD: Yes Date of Pneumonia Vaccine: Sep 02, 2018 Date of Influenza Vaccine: May 25, 2013 (VICTORINA ANDRE) Seasonal Allergies Seasonal Allergies: No (VICTORINA ANDRE) Past Medical History Surgeries: Yes (STENTS, SURGERY TO LEFT AXILARRY-DRAINED AREA, L TKR, FINGER AMPUTATION,) Abdominal, Cardiac, Coronary Stent, Joint Replacement, Orthopedic, Vascular Surg john, Vasectomy Respiratory: No (O2 AT HS--REFUSES TO WEAR CPAP) Sleep Apnea, COPD Currently Using CPAP: No Currently Using BIPAP: No Cardiac: Yes (MULTIPLE INTERVENTIONS IN HEART AND LEGS; CHF) Chronic Edema/Swelling, Coronary Artery Disease, Deep Vein Thrombosis, High Cholesterol, Hypertension, Peripheral Vascular, Valvular Heart Disease Neurological: Yes (CVA around 07') Neuropathy Reproductive Disorders: No Sexually Transmitted Disease: No HIV/AIDS: No Genitourinary: No Gastrointestinal: No Gastroesophageal Reflux Musculoskeletal: Yes Arthritis, Chronic Back Pain Endocrine: Yes Diabetes, Insulin dep HEENT: Yes ([place]) Glaucoma Loss of Vision: Denies Hearing Impairment: Denies Cancer: No Psychosocial: Yes Depression Integumentary: No Herpes Blood Disorders: No Adverse Reaction/Blood Tranf: No (N/A) (VICTORINA ANDRE) Family Medical History Arthritis 19 MOTHER Completed stroke 19 MOTHER Family history: Diabetes mellitus 19 MOTHER Family history: Hypertension 19 FATHER 19 MOTHER Hypercholesterolemia 19 MOTHER G8 BROTHER G8 BROTHER Hypertension 19 MOTHER Kidney disease 19 MOTHER Seizure disorder G8 BROTHER No Family History of: AIDS Abdominal aortic aneurysm Abdominal aortic aneurysm [place]'s disease [place]'s disease Alcoholism Alcoholism Alzheimer's disease Aphasia Aphasia Asthma Cancer Cancer of colon Cancer of mouth Cardiovascular disease Cataract Cataracts Chest pain Colon cancer Congenital disease Congenital heart disease Congenital heart disease Congestive heart failure Coronary thrombosis Cystic fibrosis Deafness or hearing loss Dementia Dementia Diabetes mellitus Drug abuse Dysphagia Family history: Allergy Family history: Alzheimer's disease Family history: Arthritis Family history: Asthma Family history: Breast disease Family history: Cardiovascular disease Family history: Coronary thrombosis Family history: Gastrointestinal disease Family history: Glaucoma Family history: Osteoporosis Family history: Thyroid disorder Fibrocystic disease of breast Gastroenteritis Glaucoma Headache Headache disorder Hearing loss Heart disease Hereditary disease History of - anemia History of - disorder History of - respiratory disease History of drug abuse Human immunodeficiency virus (HIV) seropositivity Infertile Malignant neoplasm of lung Myocardial infarction Parkinson's disease Prostate cancer Psychotic disorder Stroke Tuberculosis Visual impairment Physical Exam Vital Signs Vital Signs - First Documented 04/26/19 05:14 Temp 99.7 Pulse 74 Resp 18 B/P (MAP) 129/79 (96) Pulse Ox 97 O2 Delivery Room Air (GERHARD WILLS DO) Vital Signs Capillary Refill : (VICTORINA ANDRE) Height, Weight, BMI Height: 5'11.00" Weight: 345lbs. 1.0oz. 156.687969ul; 48.1 BMI Method:Stated General Appearance: Mild Distress, Obese HEENT: PERRL/EOMI; No Pharynx Normal (oropharynx is dry), No Moist Mucous Membranes Neck: Normal Inspection, Other (clean dry intact dressing on the anterior neck without erythema swelling fluctuance or discharge.) Cardiovascular: Regular Rate, Rhythm, Normal Peripheral Pulses, Other (chronic 1+ edema bilateral lower ankles) Respiratory: Chest Non Tender, Lungs Clear, Normal Breath Sounds, No Accessory Muscle Use, No Respiratory Distress Peripheral Pulses: 2+ Radial Pulses (R), 2+ Radial Pulses (L) Gastrointestinal: Normal Bowel Sounds, Non Tender, Soft Extremity: Normal Capillary Refill, Normal Range of Motion, Non Tender, No Calf Tenderness Neurologic/Psychiatric: Alert, Oriented x3, No Motor/Sensory Deficits (VICTORINA ANDRE) Progress/Results/Core Measures Results/Orders Lab Results Laboratory Tests Test 04/26/19 05:22 Range/Units White Blood Count 11.0 4.3-11.0 10^3/uL Red Blood Count 5.01 4.35-5.85 10^6/uL Hemoglobin 14.6 13.3-17.7 G/DL Hematocrit 44 40-54 % Mean Corpuscular Volume 88 80-99 FL Mean Corpuscular Hemoglobin 29 25-34 PG Mean Corpuscular Hemoglobin Concent 33 32-36 G/DL Red Cell Distribution Width 15.1 H 10.0-14.5 % Platelet Count 300 130-400 10^3/uL Mean Platelet Volume 11.1 H 7.4-10.4 FL Neutrophils (%) (Auto) 73 42-75 % Lymphocytes (%) (Auto) 15 12-44 % Monocytes (%) (Auto) 10 0-12 % Eosinophils (%) (Auto) 2 0-10 % Basophils (%) (Auto) 0 0-10 % Neutrophils # (Auto) 8.1 H 1.8-7.8 X 10^3 Lymphocytes # (Auto) 1.7 1.0-4.0 X 10^3 Monocytes # (Auto) 1.1 H 0.0-1.0 X 10^3 Eosinophils # (Auto) 0.2 0.0-0.3 10^3/uL Basophils # (Auto) 0.0 0.0-0.1 10^3/uL Sodium Level 134 L 135-145 MMOL/L Potassium Level 4.3 3.6-5.0 MMOL/L Chloride Level 103 98-107 MMOL/L Carbon Dioxide Level 15 L 21-32 MMOL/L Anion Gap 16 H 5-14 MMOL/L Blood Urea Nitrogen 18 7-18 MG/DL Creatinine 1.02 0.60-1.30 MG/DL Estimat Glomerular Filtration Rate > 60 BUN/Creatinine Ratio 18 Glucose Level 120 H 70-105 MG/DL Calcium Level 9.9 8.5-10.1 MG/DL Corrected Calcium 9.8 8.5-10.1 MG/DL Magnesium Level 2.6 H 1.8-2.4 MG/DL Total Bilirubin 0.8 0.1-1.0 MG/DL Aspartate Amino Transf (AST/SGOT) 35 H 5-34 U/L Alanine Aminotransferase (ALT/SGPT) 21 0-55 U/L Alkaline Phosphatase 103 40-136 U/L Total Protein 8.3 H 6.4-8.2 GM/DL Albumin 4.1 3.2-4.5 GM/DL (JOHANNGERHARD K ) My Orders Orders - JOHANNGERHARD K Hydrocodone/Apap 10/325 Tablet (Lortab 1 (04/26/19 06:30) (JOHANNGERHARD K ) Medications Given in ED Current Medications Medications Dose Ordered Sig/Coral Route Start Time Stop Time Status Last Admin Dose Admin Fentanyl Citrate 50 mcg ONCE ONCE IVP 04/26/19 05:30 04/26/19 05:31 DC 04/26/19 05:40 50 MCG (JOHANN,GERHARD K DO) Vital Signs/I&O 04/26/19 05:14 Temp 99.7 Pulse 74 Resp 18 B/P (MAP) 129/79 (96) Pulse Ox 97 O2 Delivery Room Air (JOHANNYENIFERA K ) Progress Progress Note : Time: 05:32 Progress Note We'll check labs as the patient reports he has not been taking much oral and appears clinically to be dry and is on Lasix. Plan to give him a liter of saline. We'll start low with 50 g of fentanyl and work your way up to give him some relief. He is not going to be a candidate for NSAIDs. (VICTORINA ANDRE) Progress Note : Progress Note 06--ASSUMED CARE FROM DR. ANDRE. LAB PENDING. 629--MILD IMPROVEMENT IN PAIN, PT WANTS TO SIT UP. PT ABLE TO SIT UP. PT GIVEN WATER AND PT IS ABLE TO SWALLOW WITHOUT CHOKING, ETC. GIVEN HYDROCODONE AND PT ABLE TO SWALLOW PILL WITHOUT DIFFICULTY--STATES IT JUST HURTS TO SWALLOW--AGAIN, NO CHOKING WHEN HE SWALLOWS PT REPORTS THAT HE ONLY HAS 1 PAIN PILL LEFT. WILL GIVE RX FOR A FEW HYDROCODONE TO GET HIM THROUGH WEEKEND, UNTIL HE CAN FOLLOW UP WITH HIS DR ON SUNDAY. (GERHARD WILLS DO) Departure Impression Primary Impression: Post-op pain Additional Impression: Mild dehydration Disposition: HOME, SELF-CARE Condition: Improved Departure-Patient Inst. Referrals: DEMETRA SILVEIRA MD, FLOYD R MD (PCP/Family) Primary Care Physician Patient Instructions: Dehydration, Adult (DC), Managing Pain After Surgery, Postoperative Pain (DC) Add. Discharge Instructions: TAKE YOUR REGULAR MEDICATIONS PRESCRIBED LOTS OF FLUIDS EAT SOFT FOODS FOLLOW UP WITH DR. SILVEIRA ON SUNDAY FOR FURTHER CARE Scripts Hydrocodone/Acetaminophen (Hydrocodon-Acetaminophn 10-325) 1 Each Tablet 1 EACH PO Q6H PRN for PAIN-MODERATE MDD 5 for 3 Days, #10 TAB Prov: GERHARD WILLS DO 04/26/19 VICTORINA ANDRE Apr 26, 2019 05:33 GERHARD WILLS DO Apr 26, 2019 06:36
[2019-04-26 05:46] LABS: BASOPHILS % (AUTO) 0 % (0-10); EOSINOPHILS # (AUTO) 0.2 10^3/uL (0.0-0.3); EOSINOPHILS % (AUTO) 2 % (0-10); HEMATOCRIT 44 % (40-54); HEMOGLOBIN 14.6 G/DL (13.3-17.7); LYMPHOCYTES # (AUTO) 1.7 X 10^3 (1.0-4.0); LYMPHOCYTES % (AUTO) 15 % (12-44); MEAN CORPUSCULAR HEMOGLOBIN 29 PG (25-34); MEAN CORPUSCULAR HGB CONC 33 G/DL (32-36); MEAN CORPUSCULAR VOLUME 88 FL (80-99); MEAN PLATELET VOLUME 11.1 FL (7.4-10.4); MONOCYTES # (AUTO) 1.1 X 10^3 (0.0-1.0); MONOCYTES % (AUTO) 10 % (0-12); NEUTROPHILS # (AUTO) 8.1 X 10^3 (1.8-7.8); NEUTROPHILS % (AUTO) 73 % (42-75); PLATELET COUNT 300 10^3/uL (130-400); RED CELL DISTRIBUTION WIDTH 15.1 % (10.0-14.5)
--- NOTE | 2019-04-26 06:00 | NUR ---
See current list for medications.
[2019-04-26 06:09] LABS: ALANINE AMINOTRANSFERASE 21 U/L (0-55); ALBUMIN 4.1 GM/DL (3.2-4.5); ALKALINE PHOSPHATASE 103 U/L (40-136); BILIRUBIN,TOTAL 0.8 MG/DL (0.1-1.0); BUN/CREATININE RATIO 18; CALCIUM 9.9 MG/DL (8.5-10.1); CARBON DIOXIDE 15 MMOL/L (21-32); CHLORIDE 103 MMOL/L (98-107); CREATININE SERUM 1.02 MG/DL (0.60-1.30); GFR ESTIMATED > 60; GLUCOSE 120 MG/DL (70-105); MAGNESIUM 2.6 MG/DL (1.8-2.4); POTASSIUM 4.3 MMOL/L (3.6-5.0); SODIUM 134 MMOL/L (135-145); TOTAL PROTEIN 8.3 GM/DL (6.4-8.2)
--- OUTSIDE RECORDS SUMMARY | 2019-04-26 06:18 | XMS REPORT | Encounter Summary ---
Author Author [facility] Organization [facility] Address Unknown Phone Unavailable Care Team Providers Care Social Psychologist Name Role Phone Haresh Goldsmith MD Unavailable [...] Date Type Department Nereyda Tafoya PA-C [address] [facility] Ortho/Med [address] [place] [address] Uncontrolled type 2 diabetes mellitus with complication, with long-term current use of insulin (HCC) 02/18/2019 Refill [facility] [address] [place] [address] Social History Date Tobacco Use [...]
--- OUTSIDE RECORDS SUMMARY | 2019-04-26 06:18 | XMS REPORT | Encounter Summary ---
Author Author [facility] Organization [facility] Address Unknown Phone Unavailable Care Team Providers Care Inside Solar Sales Consultant Name Role Phone Haresh Goldsmith MD Unavailable [...] PA-C [address] [facility] Ortho/Med Pavilion [address] [place] [address] 02/07/2019 Refill [facility] [address] [place] [address] Social History Date Tobacco Use [...]
--- OUTSIDE RECORDS SUMMARY | 2019-04-26 06:18 | XMS REPORT | Encounter Summary ---
Author Author [facility] Organization [facility] Address Unknown Phone Unavailable Care Team Providers Care Angle Furnaceman Name Role Phone Haresh Goldsmith MD Unavailable [...] Type Department Haresh Bo MD [address] [facility] [address] [place] [address] [phone] Uncontrolled type 2 diabetes mellitus with complication, with long-term current use of insulin (HCC) 04/14/2019 Refill [facility] [address] [place] [address] Social History Date Tobacco Use [...]
--- OUTSIDE RECORDS SUMMARY | 2019-04-26 06:18 | XMS REPORT | Clinical Summary ---
Author Author [facility] Organization [facility] Address Unknown Phone Unavailable Care Team Providers Care Resource Conservation Specialist Name Role Phone Haresh Goldsmith MD [...] you expected, contact Release of Information in [facility] Information Management department at [phone] for further assistan ce in locating additional records.[facility] Allergies No Known Allergies Medications End Date [...] with needed. long-term current use of insulin ([facility]), Coronary artery disease of [place] heart with stable angina pectoris, unspecified vessel or lesion type ([facility]) Active isosorbide mononitrate SR Take 30 mg [...] complication, with long-term current use of insulin ([facility]) Active lisinopril (PRINIVIL; TAKE 1 TABLET 90 [...] BEFORE long-term current use of BREAKFAST. insulin ([facility]) Active TOUJEO SOLOSTAR U-300 INJECT 55 20.25 mL 1 INSULIN 300 unit/mL (1.5 UNITS UNDER 9 mL) THE SKIN injectableIndications: EVERY MORNING Uncontrolled type 2 AND 80 UNITS diabetes mellitus with UNDER THE complication, with SKIN EVERY long-term current use of EVENING insulin ([facility]) 04/14/2019 Discontinued insulin glargine U-300 Inject 55 27 mL 1 conc (TOUJEO SOLOSTAR units under 9 U-300 INSULIN) 300 the skin in unit/mL (1.5 mL) the morning injectableIndications: and 80 units Uncontrolled type 2 under the diabetes mellitus with skin at complication, with night. long-term current use of insulin ([facility]) Active Problems Problem Noted Date Urinary retention with incomplete bladder emptying 10/22/2012 Last Assessment & Plan: Now seeing urologist in [place]. Was given Rx that he did not [...] & Plan: Following with sleep specialist in [place]. CAD (coronary artery disease) 12/13/2007 Overview: a. History of chest pain. Treated at [facility] and told that he had "small heart attack" given NTG tabs. Seen at [facility] x 2 for chest pain resolved [...] prior study J. 10/18/07 pt admitted to [facility] in [place] with CP. Cardiac cath showed a patent [...] complication, with long-term current use of insulin ([facility]) 04/14/2019 Refill [facility] Nereyda Tafoya PA-C Uncontrolled type 2 diabetes mellitus with complication, with long-term current use of insulin ([facility]) 02/18/2019 Refill [facility] Nereyda Tafoya PA-C 02/07/2019 Refill [facility] Haresh Bo MD 02/03/2019 Hospital Lab Encounter Nereyda Tafoya PA-C 02/03/2019 Hospital Radiology Encounter Nereyda aTfoya PA-C Type 2 diabetes mellitus with other circulatory complication, with long-term current use of insulin (HCC) (Primary Dx); Left wrist pain; Essential hypertension; Hypercholesteremia; Hyponatremia 02/03/2019 Office Visit Diabetes Services from Last 3 Months Immunizations [...] AM CDT Temperature 18 08/21/2012 2:25 PM HOME VISITS NURSE Respiratory Rate 95% 08/19/2018 2:29 PM HOME VISITS NURSE room air Oxygen Saturation - - Inhaled [...] complication, with long-term current use of insulin ([facility]) WRIST 2 VIEWS LEFT Routine 02/03/2019 Left wrist pain 10:15 AM CDT POC GLUCOSE QUANTITATIVE Routine 02/03/2019 Type 2 diabetes mellitus BLOOD 9:17 AM CDT with other circulatory complication, with long-term current use of insulin ([facility]) POC HEMOGLOBIN A1C Routine 02/03/2019 Type 2 diabetes mellitus 9:17 AM CDT with other circulatory complication, with long-term current use of insulin ([facility]) from Last 3 Months Results * COMPREHENSIVE [...] >60 >60 mL/min [facility] Comment: [place] The eGFR is not validated for use in drug dosing adjustments.Continue to use estimated creatinine clearance per dosing reference text.Please contact the Clinical Pharmacist for questions. eGFR >60 >60 mL/min [facility] [place] Comment: The eGFR is not validated for use in drug dosing adjustments.Continue to use estimated creatinine clearance per dosing reference text.Please contact the Clinical Pharmacist for questions. Specimen Blood Performing Organization Address City/State/Zipcode Phone Number MAIN LAB [address] [place] [address] * WRIST 2 VIEWS LEFT (02/03/2019 10:15 [...] Address City/State/Zipcode Phone Number [facility] RAD RESULTS * POC [...] 2005-P PART A AND resent B Medicaid [facility] MEDICAID [facility] xxxxxxxxxxx 2012-P [place]AN [place] [address] Advance Directives Patient Slot Editor Explanation Type Date Recorded Advance Directive/DPOA Date Inactivated Comments Code Status Date Activated 12/16/2007 6:14 PM Full Code 12/06/2007 9:00 PM
--- OUTSIDE RECORDS SUMMARY | 2019-04-26 06:19 | XMS REPORT | Encounter Summary ---
Author Author [facility] Organization [facility] Address Unknown Phone Unavailable Care Team Providers Care Eyeglass Fitter Name Role Phone Haresh Goldsmith MD Unavailable [...] Type Department Haresh Bo MD [address] [facility] [address] [place], [place] [id number] Type 2 diabetes mellitus with other circulatory complication, with long-term current use of insulin (HCC) (Primary Dx) 10/30/2018 Office Visit [facility] [address] [place] [address] Social History Date Tobacco Use [...] Comments Vital Sign 114/62 10/30/2018 12:51 PM RV MECHANIC Blood Pressure 76 10/30/2018 12:51 PM RV MECHANIC Pulse - - Temperature - - Respiratory Rate - - Oxygen Saturation - - Inhaled Oxygen Concentration 160.8 kg (354 lb 6.4 oz) 10/30/2018 12:51 PM RV MECHANIC Weight 180.3 cm (5' 11") 10/30/2018 12:51 PM RV MECHANIC Height 49.43 10/30/2018 12:51 PM RV MECHANIC Body Mass Index documented in this encounter [...] Haresh Bo MD - 10/30/2018 1:00 PM RV MECHANIC Your A1c today is 7.5%, a good [...] follow regularly with a foot doctor or administrative library assistant . Wear shoes or slippers all the [...] File calluses after shower/bath with vernony board MECHANIC documented in this encounter Progress Notes * Haresh Bo MD - 10/30/2018 1:00 PM RV MECHANIC Date of Service: 10/30/2018 Subjective: Edis Sung [...] relieved by rest. He is seen his welding equipment repairer supervisor 3 weeks ago and this is apparently [...] complication, with long-term current use of insulin ([facility]) COMPREHENSIVE METABOLIC PANEL POC GLUCOSE QUANTITATIVE BLOOD POC HEMOGLOBIN A1C POC GLUCOSE QUANTITATIVE BLOOD POC GLUCOSE QUANTITATIVE BLOOD Diagnoses and all orders for this visit: Type 2 diabetes mellitus with other circulatory complication, with long-term cur rent use of insulin ([facility]) - COMPREHENSIVE METABOLIC PANEL; Future; Expected date: [...] follow regularly with a foot doctor or administrative library assistant . Wear shoes or slippers all the [...] with emery board No future appointments. ' MECHANIC documented in this encounter Plan of Treatment [...] Type 2 diabetes mellitus BLOOD 1:35 PM RV MECHANIC with other circulatory complication, with long-term current use of insulin (HCC) POC GLUCOSE QUANTITATIVE Routine 10/30/2018 Type 2 diabetes mellitus BLOOD 1:20 PM RV MECHANIC with other circulatory complication, with long-term current use of insulin (HCC) POC GLUCOSE QUANTITATIVE Routine 10/30/2018 Type 2 diabetes mellitus BLOOD 1:05 PM RV MECHANIC with other circulatory complication, with long-term current use of insulin (HCC) POC HEMOGLOBIN A1C Routine 10/30/2018 Type 2 diabetes mellitus 1:05 PM RV MECHANIC with other circulatory complication, with long-term current [...] >60 >60 mL/min [facility] Comment: [place] The eGFR is not validated for use in drug dosing adjustments.Continue to use estimated creatinine clearance per dosing reference text.Please contact the Clinical Pharmacist for questions. eGFR >60 >60 mL/min [facility] [place] Comment: The eGFR is not validated for use in drug dosing adjustments.Continue to use estimated creatinine clearance per dosing reference text.Please contact the Clinical Pharmacist for questions. Specimen Blood Performing Organization Address City/State/Zipcode Phone Number MAIN LAB [address] [place] [address] * POC GLUCOSE QUANTITATIVE BLOOD (10/30/2018 1:35 PM RV MECHANIC) Glucose, POC [facility] Specimen Blood, capillary Performing Organization Address City/State/Zipcode Phone Number IN CLINIC * POC GLUCOSE QUANTITATIVE BLOOD (10/30/2018 1:20 PM RV MECHANIC) Glucose, POC 66Comment: gave additional cup IN CLINIC of apple juice - physician in room Specimen Blood, capillary Performing Organization Address City/[facility] Phone Number IN CLINIC * POC HEMOGLOBIN A1C (10/30/2018 1:05 PM RV MECHANIC) Poc Hemoglobin 7.5 % IN CLINIC A1C Specimen Blood, capillary - Blood Performing Organization Address [facility] Phone Number IN CLINIC * POC GLUCOSE QUANTITATIVE BLOOD (10/30/2018 1:05 PM RV MECHANIC) Glucose, POC 67Comment: gave 1 cup of apple IN CLINIC juice Specimen Blood, capillary Performing Organization Address [facility] Phone Number IN CLINIC documented in this encounter Visit Diagnoses Diagnosis Type 2 diabetes mellitus with other circulatory complication, with long-term current use of insulin (HCC) - Primary documented in this encounter
--- OUTSIDE RECORDS SUMMARY | 2019-04-26 06:19 | XMS REPORT | Encounter Summary ---
Author Author [facility] Organization [facility] Address Unknown Phone Unavailable Care Team Providers Care Shipfitter Helper Name Role Phone Haresh Goldsmith MD Unavailable Xiao Burrows MD Unavailable Maynor Gutiérrez MD PCP Nereyda Tafoya PA-C Unavailable Haresh Bo MD Unavailable Froilan Delgado MD Unavailable Melzia Spencer APRN Unavailable Unavailable Barry Gale MD Unavailable Sebastian Amador MD Unavailable [place] Choi MD Unavailable Reason for Visit * Reason Comments Medication Refill Encounter Details Care Team Description Date Type Department Nereyda Tafoya PA-C [address] [facility] Ortho/Med Pavilion [address] [place] [address] Uncontrolled type 2 diabetes mellitus with complication, with long-term current use of insulin (HCC) 12/09/2018 Refill [facility] [address] [place] [address] Social History Date Tobacco Use [...]
--- OUTSIDE RECORDS SUMMARY | 2019-04-26 06:19 | XMS REPORT | Encounter Summary ---
Author Author [facility] Organization [facility] Address Unknown Phone Unavailable Care Team Providers Care Tourist Agent Name Role Phone Haresh Goldsmith MD Unavailable [...] Department Nereyda Tafoya PA-C [address] [facility] Ortho/Med [address] [place] [address] Type 2 diabetes mellitus with other circulatory complication, with long-term current use of insulin (HCC) (Primary Dx); Left wrist pain; Essential hypertension; Hypercholesteremia; Hyponatremia 02/03/2019 Office Visit [facility] [address] [place] [address] Social History Date Tobacco Use [...] CDT Subjective: History of Present Illness Jeff Sung is a 68 y.o. male. Pt presents [...] around noon and dinner at home or taoist CHO intake: no limit Exercise: walking more [...] (Obstructive Sleep Apnea) Had sleep study in [place]. Pt states he does not need CPAP On O2 only PVD S/pvascular surgery Dr Miguel is tester electronic scale Foot care Unable to reach/see feet + [...] on 02/03/2019 11:04 AM. Performing Organization Address City/[facility]/Zipcode Phone Number [facility] RAD RESULTS * POC GLUCOSE QUANTITATIVE BLOOD (02/03/2019 9:17 AM CDT) Glucose, POC [facility] Specimen Blood, capillary Performing Organization Address City/[facility]/Zipcode Phone Number IN CLINIC * POC HEMOGLOBIN A1C (02/03/2019 9:17 AM CDT) Poc Hemoglobin 7 % [facility] A1C Specimen Blood, capillary - Blood Performing Organization Address City/[facility] documented in this encounter Visit Diagnoses Diagnosis Type 2 diabetes mellitus with other circulatory complication, with long-term current use of insulin (HCC) - Primary Left wrist pain Pain in joint, forearm Essential hypertension Unspecified essential hypertension Hypercholesteremia Pure hypercholesterolemia Hyponatremia Hyposmolality and/or hyponatremia documented in this encounter
--- OUTSIDE RECORDS SUMMARY | 2019-04-26 06:19 | XMS REPORT | Encounter Summary ---
Author Author [facility] Organization [facility] Address Unknown Phone Unavailable Care Team Providers Care R&D Engineer Name Role Phone Haresh Goldsmith MD [...] Date Type Department Nereyda Tafoya PA-C [address] [facility] Ortho/Med [address] [place] [address] Uncontrolled type 2 diabetes mellitus with complication, with long-term current use of insulin (HCC) 01/23/2019 Refill [facility] [address] [place] [address] Social History Date Tobacco Use [...]
--- OUTSIDE RECORDS SUMMARY | 2019-04-26 06:19 | XMS REPORT | Encounter Summary ---
Author Author [facility] Organization [facility] Address Unknown Phone Unavailable Care Team Providers Care Manager Compliance Name Role Phone Haresh Goldsmith MD Unavailable Xiao Burrows MD Unavailable Maynor Gutiérrez MD PCP Nereyda Tafoya PA-C Unavailable Haersh Bo MD Unavailable Froilan Delgado MD Unavailable Meliza Spencer APRN Unavailable Unavailable Barry Gale MD Unavailable Sebastian Amador MD Unavailable [place] Choi MD Unavailable Encounter Details Care Team Description Date Type Department Nereyda Tafoya PA-C [address] Ortho/Med [address] [place] [address] [phone] 02/03/2019 [facility] [address] [place] [address] Social History Date Tobacco Use Types Packs/Day [...] complication, with long-term current use of insulin ([facility]) 02/07/2013 Miscellaneous Medical 1 Each 3 Supply (T.E.D. ANTI-EMBOLISM STOCKING) [facility] 08/24/2016 nitroglycerin (NITROSTAT) Place 1 Tab 25 Tab 0 0.4 mg tabletIndications: under tongue Type 2 diabetes mellitus every 5 with diabetic autonomic minutes as neuropathy, with needed. long-term current use of insulin ([facility]), Coronary artery disease of [place] heart with stable angina pectoris, unspecified vessel or lesion type ([facility]) paroxetine (PAXIL) 20 mg Take 20 mg [...] complication, with long-term current use of insulin ([facility]) 10/22/2018 VITAMIN D 50,000 unit TAKE 1 [...] with night. long-term current use of insulin ([facility]) documented as of this encounter Plan of [...]
--- OUTSIDE RECORDS SUMMARY | 2019-04-26 06:19 | XMS REPORT | Encounter Summary ---
Author Author [facility] Organization [facility] Address Unknown Phone Unavailable Care Team Providers Care Agile Developer Name Role Phone Haresh Goldsmith MD [...] Type Department Nereyda Tafoya PA-C [address] [facility] Ortho/[place] [address] [place] [address] Uncontrolled type 2 diabetes mellitus with complication, with long-term current use of insulin (HCC) 01/22/2019 Refill [facility] [address] [place] [address] Social History Date Tobacco Use [...]
--- OUTSIDE RECORDS SUMMARY | 2019-04-26 06:19 | XMS REPORT | Encounter Summary ---
Author Author [facility] Organization [facility] Address Unknown Phone Unavailable Care Team Providers Care Senior Construction Estimator Name Role Phone Haresh Goldsmith MD Unavailable Xiao Burrows MD Unavailable Maynor Gutiérrez MD PCP Nereyda Tafoya PA-C Unavailable Haresh Bo MD Unavailable Froilan Delgado MD Unavailable Meliza Spencer APRN Unavailable Unavailable Barry Gale MD Unavailable Seabstian Amador MD Unavailable [place] Choi MD Unavailable Encounter Details Care Team Description Date Type Department Haresh Bo MD [address] [facility] [address] [place], [place] [id number] 02/03/2019 [facility] [address] [address] Social History Date Tobacco Use Types Packs/Day [...] long-term current use of insulin ([facility]) 02/07/2013 Miscellaneous Medical 1 Each 3 Supply (T.E.D. ANTI-EMBOLISM STOCKING) [facility] 08/24/2016 nitroglycerin (NITROSTAT) Place 1 Tab 25 Tab 0 0.4 mg tabletIndications: under tongue Type 2 diabetes mellitus every 5 with diabetic autonomic minutes as neuropathy, with needed. long-term current use of insulin ([facility]), Coronary artery disease of [place] heart with stable angina pectoris, unspecified vessel or lesion type ([facility]) paroxetine (PAXIL) 20 mg Take 20 mg [...] long-term current use of insulin ([facility]) 10/22/2018 VITAMIN D 50,000 unit TAKE 1 [...] with night. long-term current use of insulin ([facility]) documented as of this encounter Plan of [...] >60 >60 mL/min [facility] Comment: [place] The eGFR is not validated for use in drug dosing adjustments.Continue to use estimated creatinine clearance per dosing reference text.Please contact the Clinical Pharmacist for questions. eGFR >60 >60 mL/min [facility] [place] Comment: The eGFR is not validated for use in drug dosing adjustments.Continue to use estimated creatinine clearance per dosing reference text.Please contact the Clinical Pharmacist for questions. Specimen Blood Performing Organization Address City/State/Zipcode Phone Number MAIN LAB [address] [place] [address] documented in this encounter Visit Diagnoses Diagnosis Type 2 diabetes mellitus with other circulatory complication, with long-term current use of insulin (HCC) Uncontrolled diabetes mellitus with complications (HCC) Type II or unspecified type diabetes mellitus with unspecified complication, uncontrolled Hyponatremia Hyposmolality and/or hyponatremia Hyperkalemia Hyperpotassemia Hyperglycemia Other abnormal glucose documented in this encounter
--- OUTSIDE RECORDS SUMMARY | 2019-04-26 06:19 | XMS REPORT | Encounter Summary ---
Author Author [facility] Organization [facility] Address Unknown Phone Unavailable Care Team Providers Care Laboratory Courier Name Role Phone Haresh Goldsmith MD Unavailable [...] Date Type Department Haresh Bo MD [address] [facility] [address] [place] [address] [phone] 11/11/2018 Refill [facility] [address] [place] [address] Social History Date Tobacco Use Types Packs/Day [...]
--- OUTSIDE RECORDS SUMMARY | 2019-04-26 06:19 | XMS REPORT | Encounter Summary ---
Author Author [facility] Organization [facility] Address Unknown Phone Unavailable Care Team Providers Care Datastage Consultant Name Role Phone Haresh Goldsmith MD [...] Type Department Nereyda Tafoya PA-C [address] [facility] Ortho/Med [address] [place] [address] Essential hypertension; Uncontrolled type 2 diabetes mellitus with complication, with long-term current use of insulin (HCC) 01/20/2019 Refill [facility] [address] [place] [address] Social History Date Tobacco Use [...]
[2019-04-26] MEDS ORDERED: HYDROcodone/APAP 10 MG/325 MG (LORTAB) TAB PO ONE (06:30)
[2019-04-26] MEDS ORDERED: HYDR-3820 PO (06:41)
[2019-04-26 06:53] VITALS: BP 145/84
== END 2019-04-26 06:58 | disposition home or self-care (01) ==
LOC: EDUNIT# 05:14 → ER 05:16
DX: G89.18 Other acute postprocedural pain (principal); M54.2 Cervicalgia; E86.0 Dehydration; E11.9 Type 2 diabetes mellitus without complications; I10 Essential (primary) hypertension; J44.9 Chronic obstructive pulmonary disease, unspecified; I25.10 Atherosclerotic heart disease of native coronary artery without angina pectoris; E78.00 Pure hypercholesterolemia, unspecified; G62.9 Polyneuropathy, unspecified; G47.30 Sleep apnea, unspecified; K21.9 Gastro-esophageal reflux disease without esophagitis; F32.9 Major depressive disorder, single episode, unspecified; Z86.73 Personal history of transient ischemic attack (TIA), and cerebral infarction without residual deficits; Z86.718 Personal history of other venous thrombosis and embolism; Z79.82 Long term (current) use of aspirin; Z79.02 Long term (current) use of antithrombotics/antiplatelets; Z79.4 Long term (current) use of insulin; Z87.891 Personal history of nicotine dependence; Z82.49 Family history of ischemic heart disease and other diseases of the circulatory system
CPT/HCPCS: 36415; 80053; 83735; 85025; 96361; 96374

== ENCOUNTER 2019-05-18 09:08 | Observation (INO) | payer MEDICARE, MEDICAID ==
[~2019-05-18] VITALS: Ht 180.3 cm; Wt 149.7 kg
[2019-05-18] MEDS ORDERED: NS IV 1000 ML 1,000 ML IV ONE (09:21)
[2019-05-18] MEDS ORDERED: ACETAMINOPHEN 500 MG TAB (TYLENOL) PO PRN ×2 (09:30→13:15)
[2019-05-18 09:46] LABS: BASOPHILS % (AUTO) 0 % (0-10); EOSINOPHILS # (AUTO) 0.2 10^3/uL (0.0-0.3); EOSINOPHILS % (AUTO) 2 % (0-10); HEMATOCRIT 40 % (40-54); HEMOGLOBIN 13.2 G/DL (13.3-17.7); LYMPHOCYTES # (AUTO) 1.9 X 10^3 (1.0-4.0); LYMPHOCYTES % (AUTO) 19 % (12-44); MEAN CORPUSCULAR HEMOGLOBIN 29 PG (25-34); MEAN CORPUSCULAR HGB CONC 33 G/DL (32-36); MEAN CORPUSCULAR VOLUME 88 FL (80-99); MEAN PLATELET VOLUME 11.1 FL (7.4-10.4); MONOCYTES # (AUTO) 1.2 X 10^3 (0.0-1.0); MONOCYTES % (AUTO) 12 % (0-12); NEUTROPHILS # (AUTO) 6.7 X 10^3 (1.8-7.8); NEUTROPHILS % (AUTO) 67 % (42-75); PLATELET COUNT 371 10^3/uL (130-400); RED CELL DISTRIBUTION WIDTH 15.1 % (10.0-14.5)
[2019-05-18 09:56] LABS: PROTHROMBIN TIME PATIENT 13.9 SEC (12.2-14.7)
[2019-05-18 10:01] LABS: ALBUMIN 3.8 GM/DL (3.2-4.5); BILIRUBIN,TOTAL 0.6 MG/DL (0.1-1.0); CALCIUM 9.4 MG/DL (8.5-10.1); CREATININE SERUM 1.21 MG/DL (0.60-1.30); POTASSIUM 4.7 MMOL/L (3.6-5.0); TOTAL PROTEIN 7.5 GM/DL (6.4-8.2)
--- NOTE | 2019-05-18 10:14 | Diagnostic Imaging Report ---
INDICATION: Shortness of breath. FINDINGS: There is cardiomegaly. Lungs are clear. No pleural effusion or pneumothorax. Mediastinum is unremarkable. IMPRESSION: 1. No acute cardiopulmonary abnormality. 2. Cardiomegaly. Dictated by: Dictated on workstation # [id number]
--- NOTE | 2019-05-18 10:15 | Diagnostic Imaging Report ---
INDICATION: Pain. Three views were obtained. FINDINGS: The alignment is normal. The plafonds and talar dome are intact. Ankle mortise is symmetric. No fracture or dislocation. Soft tissues are unremarkable. IMPRESSION: Mild degenerative changes, however, no acute fracture or dislocation. Dictated by: Dictated on workstation # [id number]
--- NOTE | 2019-05-18 10:17 | Diagnostic Imaging Report ---
PATIENT HISTORY: Right foot and ankle pain after injury. TECHNIQUE: 3 views of the right foot COMPARISON: Radiographs from 08/26/2007 FINDINGS: No acute fracture or dislocation is seen in the right foot. Alignment appears normal. There are mild scattered degenerative changes throughout the right foot. There is chronic mild cortical thickening at the metatarsals which appears stable since 2006. There is enthesopathy at the base of the fifth metatarsal and at the calcaneus. There is calcific atherosclerosis. No cortical erosions are seen. IMPRESSION: No acute osseous abnormality is seen in the right foot. Dictated by: Dictated on workstation # [id number]
--- NOTE | 2019-05-18 10:29 | NUR ---
Pt's temp 99.6 at this time.
[2019-05-18 10:44] LABS: BILIRUBIN,URINE NEGATIVE (NEGATIVE); CLARITY,URINE CLEAR; COLOR,URINE YELLOW; GLUCOSE, URINE (UA) 4+ (NEGATIVE); KETONES,URINE NEGATIVE (NEGATIVE); LEUKOCYTE ESTERASE ,URINE NEGATIVE (NEGATIVE); NITRITE,URINE NEGATIVE (NEGATIVE); PH,URINE 6 (5-9); PROTEIN,URINE 1+ (NEGATIVE); UROBILINOGEN,URINE NORMAL (NORMAL)
[2019-05-18 10:59] LABS: BACTERIA,URINE TRACE /HPF; SQUAMOUS EPITHELIAL CELL,UR RARE /HPF
[2019-05-18] MEDS ORDERED: VANCOMYCIN INJECTION 1,000 MG in NS (IVPB) 250 ML IV SCH (11:15)
[2019-05-18] MEDS ORDERED: KETOROLAC 30 MG/ML VIAL IVP STA (11:23)
[2019-05-18 11:28] LABS: URIC ACID 8.7 MG/DL (2.6-7.2)
[2019-05-18] MEDS ORDERED: PIPERACILLIN SODIUM/TAZOBACTAM 4.5 GM in NS (IVPB) 100 ML IV ONE (11:30)
--- NOTE | 2019-05-18 12:29 | ED Lower Extremity ---
General Chief Complaint: Lower Extremity Stated Complaint: CELLULITIS R ANKLE, IDDM Nursing Triage Note: Pt ambulatory with walker to rm 10. Pt c/o R ankle pain after "312 pound dog jumped on ankle at 0300 am this morning". This nurse questioned size of dog and pt repeated twice that dog weighs 312 pounds. Pt reports pain of 15/10. Upon assessment, noted pt has 101.1 temperature. Pt unaware of elevated temperature. Nursing Sepsis Screen: No Definite Risk Source: patient, old records History of Present Illness Date Seen by Provider: May 18, 2019 Time Seen by Provider: 09:20 Initial Comments PT ARRIVES VIA POV FROM HOME--USING A WALKER C/O RIGHT ANKLE PAIN STATES THAT A "#312 LB DOG JUMPED ON HIS RIGHT ANKLE AT 0300 THIS AM", AND HAS HAD SEVERE PAIN IN THE ARE SINCE THEN--RATES PAIN "15/10" HAS NOT TAKEN ANYTHING FOR PAIN NO PARESTHESIAS OR MOTOR DEFICITS PT NOTED TO HAVE TEMP OF 101.1 ON ARRIVAL HERE PT WAS UNAWARE OF FEVER NO SWEATS OR CHILLS PT DENIES ANY COUGH, OR SHORTNESS OF BREATH DENIES SORE THROAT, NO HEADACHE, NO URI SYMPTOMS PT HAD C-SPINE SURGERY 04/22/[address] SILVEIRA--STATES WOUND IS HEALING WELL, NO DRAINAGE OR REDNESS, AND DOES NOT HAVE SIGNIFICANT PAIN TO THE AREA--PT STILL WEARING A SOFT C-COLLAR NO SORES OR OPEN WOUNDS ANYWHERE NO GI SYMPTOMS NO URINARY SYMPTOMS NO KNOWN SICK CONTACTS PCP: DR. COOK LASER ENGRAVER: DR. BRUNO Allergies and Home Medications Allergies Coded Allergies: No Known Drug Allergies (Unverified , 03/18/19) Home Medications Amiloride HCl 5 Mg Tablet, 5 MG PO DAILY, (Reported) Amlodipine Besylate 10 Mg Tablet, 10 MG PO DAILY, (Reported) Aspirin 81 Mg Tab.chew, 81 MG PO DAILY, (Reported) Atorvastatin Calcium 80 Mg Tablet, 80 MG PO HS, (Reported) Carvedilol 25 Mg Tablet, 25 MG PO BID, (Reported) Clopidogrel Bisulfate 75 Mg Tablet, 75 MG PO DAILY, (Reported) Cyclobenzaprine HCl 10 Mg Tablet, 10 MG PO TID PRN for MUSCLE SPASMS, (Reported) Empagliflozin 25 Mg Tablet, 25 MG PO DAILY, (Reported) Ergocalciferol (Vitamin D2) 50,000 Unit Capsule, 50,000 UNITS PO Mo, (Reported) Furosemide 80 Mg Tablet, 80 MG PO DAILY, (Reported) Gabapentin 100 Mg Capsule, 100 MG PO TID, (Reported) Hydrocodone/Acetaminophen 1 Each Tablet, 2 TAB PO Q6H PRN for PAIN, (Reported) Hydrocodone/Acetaminophen 1 Each Tablet, 1 EACH PO Q6H PRN for PAIN-MODERATE Prescribed by: GERHARD WILLS on 04/26/19 0641 Insulin Glargine,Hum.rec.anlog 300 Unit/1 Ml Insuln.pen, 55 UNITS SQ DAILY, (Reported) Insulin Glargine,Hum.rec.anlog 300 Unit/1 Ml Insuln.pen, 80 UNIT SQ HS, (Reported) Insulin Lispro 200 Unit/1 Ml Insuln.pen, 75 UNITS SQ DAILY, (Reported) Insulin Lispro 100 Unit/1 Ml Insuln.pen, 90 UNIT SQ WITH EVENING MEAL, (Reported) Isosorbide Mononitrate 30 Mg Tab.er.24h, 30 MG PO DAILY, (Reported) Lisinopril 20 Mg Tablet, 20 MG PO DAILY, (Reported) Nitroglycerin 0.4 Mg Tab.subl, 0.4 MG SL UD PRN for CHEST PAIN, (Reported) Paroxetine HCl 20 Mg Tablet, 20 MG PO DAILY, (Reported) Potassium Chloride 20 Meq Tab.er.prt, 20 MEQ PO DAILY, (Reported) Patient Home Medication List Home Medication List Reviewed: Yes Review of Systems Constitutional: see HPI; No chills, No diaphoresis, No dizziness, No malaise, No weakness EENTM: no symptoms reported Respiratory: no symptoms reported; No cough, No short of breath, No wheezing Cardiovascular: no symptoms reported; No chest pain, No palpitations, No syncope Gastrointestinal: no symptoms reported; No abdominal pain, No diarrhea, No loss of appetite, No nausea, No vomiting Genitourinary: no symptoms reported Musculoskeletal: see HPI Skin: no symptoms reported Psychiatric/Neurological: No Symptoms Reported; Denies Headache, Denies Numbness, Denies Paresthesia, Denies Tingling, Denies Weakness Past Meynosv-Zecdiu-Askdvc Hx Past Med/Social Hx: Reviewed and Corrections made Patient Social History Alcohol Use: Past History Number of Drinks Today: AA Alcohol Beverage of Choice: Beer Recreational Drug Use: No (DENIES HX OF DRUG USE, BUT HAS A TATTOO OF A NEEDLE AND SYRINGE TO LEFT AC) Drug of Choice: past hx Smoking Status: Former Smoker Type Used: Cigarettes Former Smoker, Quit: Sep 24, 1986 2nd Hand Smoke Exposure: No Recent Foreign Travel: No Contact w/Someone Who Travel: No Recent Infectious Disease Expo: No Recent Hopitalizations: No Physical Abuse: No Sexual Abuse: No Immunizations Up To Date Tetanus Booster (TDap): Unknown PED Vaccines UTD: Yes Date of Pneumonia Vaccine: Sep 02, 2018 Date of Influenza Vaccine: May 25, 2013 Seasonal Allergies Seasonal Allergies: No Past Medical History Surgeries: Yes (LEFT KNEE TKR; BILATERAL INGUINAL HERNIA REPAIRS; AMPUTATION RIGHT FINGERS 3,4,5; I&D'S; CARDIAC CATHS WITH STENTS IN HEART AND LEGS + ANGIOPLASTIES--LAST INTERVENTION 11/01/16--BALLOON ANGIOPLASTY LEFT COMMON FEMORAL ARTERY; C-SPINE SURGERY 04/22/[address] SILVEIRA. ) Abdominal, Cardiac, Coronary Stent, Joint Replacement, Orthopedic, Vascular Surgery, Vasectomy Respiratory: Yes (RFUSES TO WEAR CPAP, BUT DOES WEAR O2 AT HS) Sleep Apnea, COPD Currently Using CPAP: No Currently Using BIPAP: No Cardiac: Yes (MULTIPLE INTERVENTIONS IN HEART AND LEGS--STENTS AND ANGIOPLASTIES; CHF) Chronic Edema/Swelling, Coronary Artery Disease, Deep Vein Thrombosis, High Cholesterol, Hypertension, Peripheral Vascular, Valvular Heart Disease Neurological: Yes (CVA around ') Neuropathy, Stroke Reproductive Disorders: No Sexually Transmitted Disease: No HIV/AIDS: No Genitourinary: No Gastrointestinal: Yes Gastroesophageal Reflux Musculoskeletal: Yes (LEFT KNEE REPLACEMENT; AMPTUATION RIGHT FINGERS 3, 4, 5; CHRONIC NECK PAIN--S/P C-SPINE SURGERY 04/22/19) Amputee, Arthritis, Chronic Back Pain Endocrine: Yes (OBESITY) Diabetes, Insulin dep HEENT: Yes (READING GLASSES) Glaucoma Loss of Vision: Denies Hearing Impairment: Denies Cancer: No Psychosocial: Yes Depression Integumentary: Yes (MRSA, ABSCESSES AND CELLULITITS; I&D'S; CHRONIC LEG ULCERS) Blood Disorders: No Adverse Reaction/Blood Tranf: No (N/A) Family Medical History Arthritis 19 MOTHER Completed stroke 19 MOTHER Family history: Diabetes mellitus 19 MOTHER Family history: Hypertension 19 FATHER 19 MOTHER Hypercholesterolemia 19 MOTHER G8 BROTHER G8 BROTHER Hypertension 19 MOTHER Kidney disease 19 MOTHER Seizure disorder G8 BROTHER No Family History of: AIDS Abdominal aortic aneurysm Abdominal aortic aneurysm Gustavus's disease Gustavus's disease Alcoholism Alcoholism Alzheimer's disease Aphasia Aphasia Asthma Cancer Cancer of colon Cancer of mouth Cardiovascular disease Cataract Cataracts Chest pain Colon cancer Congenital disease Congenital heart disease Congenital heart disease Congestive heart failure Coronary thrombosis Cystic fibrosis Deafness or hearing loss Dementia Dementia Diabetes mellitus Drug abuse Dysphagia Family history: Allergy Family history: Alzheimer's disease Family history: Arthritis Family history: Asthma Family history: Breast disease Family history: Cardiovascular disease Family history: Coronary thrombosis Family history: Gastrointestinal disease Family history: Glaucoma Family history: Osteoporosis Family history: Thyroid disorder Fibrocystic disease of breast Gastroenteritis Glaucoma Headache Headache disorder Hearing loss Heart disease Hereditary disease History of - anemia History of - disorder History of - respiratory disease History of drug abuse Human immunodeficiency virus (HIV) seropositivity Infertile Malignant neoplasm of lung Myocardial infarction Parkinson's disease Prostate cancer Psychotic disorder Stroke Tuberculosis Visual impairment Physical Exam Vital Signs Vital Signs - First Documented 05/18/19 09:14 Temp 101.1 Pulse 88 Resp 14 B/P (MAP) 140/66 (90) Pulse Ox 94 O2 Delivery Room Air Capillary Refill : Less Than 3 Seconds Height, Weight, BMI Height: 5'11.00" Weight: 338lbs. 1.0oz. 153.337106ez; 48.1 BMI Method:Stated General Appearance: no apparent distress, obese, other (DIRTY, MALODOROUS, VERY UNKEMPT. SOFT C-COLLAR IN PLACE) HEENT: PERRL/EOMI Neck: other (SURGICAL WOUND TO ANTERIOR NECK IS HEALING WELL, WITH NO SIGNS OF INFECTION, AND IS NON-TENDEROK) Cardiovascular: normal peripheral pulses, regular rate, rhythm, systolic murmur (09/29) Respiratory: normal breath sounds, no respiratory distress, no accessory muscle use Gastrointestinal: non tender, soft Hips: bilateral hip normal inspection Legs: bilateral leg other (BILATERAL LOWER LEGS WITH CHRONIC VENOUS STASIS CHANGES, WITH ERYTHEMA AND WOODY INDURATION. APPEARS TO HAVE MORE ERYTHEMA AND WARMTH ON RIGHT ) Knees: bilateral knee normal inspection Ankles: bilateral ankle other (RIGHT ANKLE WITH MODERATE SWELLING, WARMTH, AND ERYTHEMA. MARKEDLY TENDER. NO EXTERNAL EVIDENCE OF TRAUMA. NO OPEN WOUNDS. DISTAL MOTOR/SENSORY/VASCULAR INTACT--DOES HAVE HX OF NEUROPATHY; LEFT ANKLE WITH TRACE EDEMA. NON-TENDER, AND LESS ERYTHEMA AND NO WARMTH, ) Feet: left foot normal inspection; right foot other (NO WOUNDS OR GROSS SWELLING. DISTAL MOTOR/SENSORY/VASCULAR INTACT. NO TENDERNESS TO MID OR DISTAL ASPECT OF FOOT) Neurologic/Tendon: normal sensation, normal motor functions, normal tendon functions Neurologic/Psychiatric: metal coater operator II-XII nml as tested, no motor/sensory deficits, alert, normal mood/affect, oriented x 3 Skin: normal color, warm/dry, other ( ABOVE) Progress/Results/Core Measures Results/Orders Lab Results Laboratory Tests Test 05/18/19 09:29 05/18/19 10:25 Range/Units White Blood Count 10.0 4.3-11.0 10^3/uL Red Blood Count 4.55 4.35-5.85 10^6/uL Hemoglobin 13.2 L 13.3-17.7 G/DL Hematocrit 40 40-54 % Mean Corpuscular Volume 88 80-99 FL Mean Corpuscular Hemoglobin 29 25-34 PG Mean Corpuscular Hemoglobin Concent 33 32-36 G/DL Red Cell Distribution Width 15.1 H 10.0-14.5 % Platelet Count 371 130-400 10^3/uL Mean Platelet Volume 11.1 H 7.4-10.4 FL Neutrophils (%) (Auto) 67 42-75 % Lymphocytes (%) (Auto) 19 12-44 % Monocytes (%) (Auto) 12 0-12 % Eosinophils (%) (Auto) 2 0-10 % Basophils (%) (Auto) 0 0-10 % Neutrophils # (Auto) 6.7 1.8-7.8 X 10^3 Lymphocytes # (Auto) 1.9 1.0-4.0 X 10^3 Monocytes # (Auto) 1.2 H 0.0-1.0 X 10^3 Eosinophils # (Auto) 0.2 0.0-0.3 10^3/uL Basophils # (Auto) 0.0 0.0-0.1 10^3/uL Erythrocyte Sedimentation Rate 43 H 0-30 MM/HR Prothrombin Time 13.9 12.2-14.7 SEC INR Comment 1.0 0.8-1.4 Activated Partial Thromboplast Time 30 24-35 SEC Sodium Level 135 135-145 MMOL/L Potassium Level 4.7 3.6-5.0 MMOL/L Chloride Level 104 98-107 MMOL/L Carbon Dioxide Level 17 L 21-32 MMOL/L Anion Gap 14 5-14 MMOL/L Blood Urea Nitrogen 25 H 7-18 MG/DL Creatinine 1.21 0.60-1.30 MG/DL Estimat Glomerular Filtration Rate 59 BUN/Creatinine Ratio 21 Glucose Level 132 H 70-105 MG/DL Lactic Acid Level 2.14 *H 0.50-2.00 MMOL/L Uric Acid 8.7 H 2.6-7.2 MG/DL Calcium Level 9.4 8.5-10.1 MG/DL Corrected Calcium 9.6 8.5-10.1 MG/DL Total Bilirubin 0.6 0.1-1.0 MG/DL Aspartate Amino Transf (AST/SGOT) 17 5-34 U/L Alanine Aminotransferase (ALT/SGPT) 20 0-55 U/L Alkaline Phosphatase 110 40-136 U/L C-Reactive Protein High Sensitivity 3.89 H 0.00-0.50 MG/DL Total Protein 7.5 6.4-8.2 GM/DL Albumin 3.8 3.2-4.5 GM/DL Urine Color YELLOW Urine Clarity CLEAR Urine pH 6 5-9 Urine Specific Coral 1.010 L 1.016-1.022 Urine Protein 1+ H NEGATIVE Urine Glucose (UA) 4+ H NEGATIVE Urine Ketones NEGATIVE NEGATIVE Urine Nitrite NEGATIVE NEGATIVE Urine Bilirubin NEGATIVE NEGATIVE Urine Urobilinogen NORMAL NORMAL MG/DL Urine Leukocyte Esterase NEGATIVE NEGATIVE Urine RBC (Auto) NEGATIVE NEGATIVE Urine RBC NONE /HPF Urine WBC NONE /HPF Urine Squamous Epithelial Cells RARE /HPF Urine Crystals NONE /LPF Urine Bacteria TRACE /HPF Urine Casts NONE /LPF Urine Mucus NEGATIVE /LPF Urine Culture Indicated NO Micro Results Microbiology 05/18/19 Influenza Types A,B Antigen ([facility]AUGHN) - Final, Complete My Orders Orders - GERHARD WILLS DO Cbc With Automated Diff (05/18/19 09:21) Comprehensive Metabolic Panel (05/18/19 09:21) Blood Culture (05/18/19 09:21) Urinalysis (05/18/19 09:21) Urine Culture (05/18/19 09:21) Protime With Inr (05/18/19 09:21) Partial Thromboplastin Time (05/18/19 09:21) Chest 1 View, Ap/Pa Only (05/18/19 09:21) Acetaminophen Tablet (Tylenol Tablet) (05/18/19 09:30) Ed Iv/Invasive Line Start (05/18/19 09:21) Ed Iv/Invasive Line Start (05/18/19 09:21) Ekg Tracing (05/18/19 09:21) Vital Signs Adult Sepsis Patie Q15M (05/18/19 09:21) O2 (05/18/19 09:21) Remove Rings In Anticipation O (05/18/19 09:21) Lactic Acid Analyzer (05/18/19 09:21) Ed Iv/Invasive Line Start (05/18/19 09:21) Ns Iv 1000 Ml (Sodium Chloride 0.9%) (05/18/19 09:21) Foot, Right, 3 View (05/18/19 09:28) Ankle, Right, 3 Views (05/18/19 09:28) Influenza A And B Antigens (05/18/19 09:28) Hs C Reactive Protein (05/18/19 11:13) Erythrocyte Sedimentation Rate (05/18/19 11:13) Uric Acid (05/18/19 11:13) Medications Given in ED Current Medications Medications Dose Ordered Sig/Coral Route Start Time Stop Time Status Last Admin Dose Admin Acetaminophen 1,000 mg ONCE PRN PO 05/18/19 09:30 05/18/19 09:50 DC 05/18/19 09:49 1,000 MG Sodium Chloride 1,000 ml @ 0 mls/hr Q0M ONCE IV 05/18/19 09:21 05/18/19 09:25 DC 05/18/19 09:48 1,000 MLS/HR Vital Signs/I&O 05/18/19 09:14 Temp 101.1 Pulse 88 Resp 14 B/P (MAP) 140/66 (90) Pulse Ox 94 O2 Delivery Room Air Blood Pressure Mean: 90 Progress Progress Note : Progress Note UNEVENTFUL ER STAY Initial ECG Impression Date: May 18, 2019 Initial ECG Impression Time: 09:25 Initial ECG Rate: 89 Initial ECG Rhythm: Normal Sinus Initial ECG Impression: Nonspecific Changes Initial ECG Comparisson: Unchanged Diagnostic Imaging Comments CXR--NO ACUTE PROCESS XRAYS RIGHT FOOT AND ANKLE--NO ACUTE PROCESS, DEGENERATIVE CHANGES PER RADIOLOGIST REPORTS AT 1018 Reviewed: Reviewed by Me Departure Communication (Admissions) 1115--SPOKE WITH DR. RENEE, HOSPITALIST, ACCEPTS PT FOR ADMIT Impression Primary Impression: Cellulitis of right ankle Additional Impressions: Cellulitis of right anterior lower leg IDDM (insulin dependent diabetes mellitus) Hx of coronary artery disease RECENT C-SPINE SURGERY Hyperuricemia POSSIBLE GOUT FLARE Disposition: ADMITTED INPATIENT Condition: Stable Admissions Decision to Admit Reason: Admit from ER (General) Decision to Admit/Date: May 18, 2019 Time/Decision to Admit Time: 11:15 Departure-Patient Inst. Referrals: SHIV COOK MD (PCP/Family) Primary Care Physician GERHARD WILLS DO May 18, 2019 12:29
--- NOTE | 2019-05-18 12:40 | NUR ---
JEFF TERRY admitted to room 406-1, with an admitting diagnosis of CELLULITIS RIGHT ANKLE, IDDM, HX GOUT, on 05/18/19 from ED via WHEELCHAIR, accompanied by ED STAFF. JEFF TERRY introduced to surroundings, call light, bed controls, phone, TV, temperature control, lights, meal times, smoking policy, visitor policy, side rail policy, bathrooms and showers. Patient Rights given to patient in the handbook. JEFF TERRY verbalizes understanding that [facility] is not responsible for the loss or damage to any personal effects or valuables that are kept in the patients possession during their hospitalization. The following Patient Care Plans were discussed with the PATIENT: Discharge Planning, CELLULITIS and KNOWLEDGE DEFICIT. JEFF TERRY verbalizes understanding of Interdisciplinary Patient Education. Patient and/or family were informed about the Rapid Response Team and its purpose.
[2019-05-18 12:50] VITALS: BP 128/75
[2019-05-18 12:51] VITALS: BP 128/75
[2019-05-18] MEDS ORDERED: VANCOMYCIN 2000 MG/NS 500 ML IVPB IV NR ×2 (13:07)
--- NOTE | 2019-05-18 13:29 | NUR ---
Vancomycin - Give a one time loading dose of 2gm over 2 hours, then start 1250mg every 8 hours.
--- NOTE | 2019-05-18 13:51 | NUR ---
CALLED RESP THERAPIST LOY. PT WEARS 3L OXYGEN AT HS AT HOME.
[2019-05-18] MEDS: NS IV 1000 ML 1,000 ML IV SCH ×2 (13:59→23:00)
[2019-05-18] MEDS: COLCHICINE 0.6 MG (COLCRYS) TABLET PO SCH ×3 (14:00→20:51)
[2019-05-18] MEDS ORDERED: ONDANSETRON 4 MG (ZOFRAN) ORAL DISSOLVE TAB PO PRN (14:00)
[2019-05-18] MEDS ORDERED: BISACODYL 10 MG SUPP (DULCOLAX) PR PRN (14:00)
[2019-05-18] MEDS ORDERED: CYCLOBENZAPRINE 10 MG (FLEXERIL) TAB PO PRN (14:00)
[2019-05-18] MEDS ORDERED: MELATONIN 3 MG TABLET PO PRN (14:00)
[2019-05-18] MEDS ORDERED: ACETAMINOPHEN 325 MG TABLET PO PRN (14:00)
--- NOTE | 2019-05-18 14:21 | History & Physical-Hospitalist ---
History of Present Illness HPI/Chief Complaint Edis Sung is a 68-year-old male with past medical history of hypertension, type II diabetes mellitus, hyperlipidemia, coronary artery disease, peripheral vascular disease, diastolic heart failure, cervical stenosis, aortic stenosis, morbid obesity, who presented after his dog fell on his leg. He reports that he has been having right ankle pain since that time. He denies any pain prior to the event. He denies any fevers or chills. He denies any chest pain or shortness of breath. He denies any abdominal pain, nausea, vomiting, diarrhea, or constipation. He denies any dysuria. Source: patient Exam Limitations: no limitations Date Seen 05/18/19 Time Seen by a Provider: 13:00 Attending Physician Angela Renee MD PCP Maynor Gutiérrez MD Referring Physician Date of Admission May 18, 2019 at 11:15 Home Medications & Allergies Home Medications Reviewed patient Home Medication Reconciliation performed by pharmacy medication reconciliations pharmaceutical laboratory technician and/or nursing. Patients Allergies have been reviewed. Allergies Allergies Coded Allergies No Known Drug Allergies (Unverified03/18/19) Past Nbmnvui-Bpjpdo-Hyqpua Hx Past Med/Social Hx: Reviewed Nursing Past Med/Soc Hx Patient Social History Alcohol Use: Denies Use Number of Drinks Today: AA Alcohol Beverage of Choice: Beer Recreational Drug Use: No Drug of Choice: past hx Smoking Status: Former Smoker Former Smoker, Quit: Apr 24, 1985 Type Used: Cigars 2nd Hand Smoke Exposure: No Physical Abuse Screen: No Sexual Abuse: No Recent Foreign Travel: No Contact w/other who traveled: No Recent Hopitalizations: No Recent Infectious Disease Expo: No Immunizations Up To Date Tetanus Booster (TDap): Unknown Pediatric: Yes Date of Pneumonia Vaccine: Sep 02, 2018 Date of Influenza Vaccine: May 25, 2013 Seasonal Allergies Seasonal Allergies: No Past Medical History Surgeries: Abdominal, Cardiac, Coronary Stent, Joint Replacement, Orthopedic, Vascular Surgery, Vasectomy Respiratory: COPD, Sleep Apnea Currently Using CPAP: No Currently Using BIPAP: No Cardiac: Chronic Edema/Swelling, Coronary Artery Disease, Deep Vein Thrombosis, High Cholesterol, Hypertension, Peripheral Vascular, Valvular Heart Disease Neurological: Neuropathy, Stroke Reproductive: No Sexually Transmitted Disease: No HIV/AIDS: No Gastrointestinal: Gastroesophageal Reflux Musculoskeletal: Amputee, Arthritis, Chronic Back Pain, Gout Endocrine: Diabetes, Insulin dep HEENT: Glaucoma Loss of Vision: Denies Hearing Impairment: Denies Psychosocial: Depression Skin/Integumentary: Herpes History of Blood Disorders: No Adverse Reaction to Blood Mackenzie: No (N/A) Family History Arthritis 19 MOTHER Completed stroke 19 MOTHER Family history: Diabetes mellitus 19 MOTHER Family history: Hypertension 19 FATHER 19 MOTHER Hypercholesterolemia 19 MOTHER G8 BROTHER G8 BROTHER Hypertension 19 MOTHER Kidney disease 19 MOTHER Seizure disorder G8 BROTHER No Family History of: AIDS Abdominal aortic aneurysm Abdominal aortic aneurysm Neeraj's disease Bassett's disease Alcoholism Alcoholism Alzheimer's disease Aphasia Aphasia Asthma Cancer Cancer of colon Cancer of mouth Cardiovascular disease Cataract Cataracts Chest pain Colon cancer Congenital disease Congenital heart disease Congenital heart disease Congestive heart failure Coronary thrombosis Cystic fibrosis Deafness or hearing loss Dementia Dementia Diabetes mellitus Drug abuse Dysphagia Family history: Allergy Family history: Alzheimer's disease Family history: Arthritis Family history: Asthma Family history: Breast disease Family history: Cardiovascular disease Family history: Coronary thrombosis Family history: Gastrointestinal disease Family history: Glaucoma Family history: Osteoporosis Family history: Thyroid disorder Fibrocystic disease of breast Gastroenteritis Glaucoma Headache Headache disorder Hearing loss Heart disease Hereditary disease History of - anemia History of - disorder History of - respiratory disease History of drug abuse Human immunodeficiency virus (HIV) seropositivity Infertile Malignant neoplasm of lung Myocardial infarction Parkinson's disease Prostate cancer Psychotic disorder Stroke Tuberculosis Visual impairment Review of Systems Constitutional: no symptoms reported EENTM: no symptoms reported Respiratory: no symptoms reported Cardiovascular: no symptoms reported Gastrointestinal: no symptoms reported Genitourinary: no symptoms reported Musculoskeletal: joint pain Skin: no symptoms reported Psychiatric/Neurological: No Symptoms Reported Physical Exam Physical Exam Vital Signs Vital Signs - First Documented 05/18/19 05/18/19 09:14 12:50 Temp 101.1 Pulse 88 Resp 14 B/P (MAP) 140/66 (90) Pulse Ox 94 O2 Delivery Room Air O2 Flow Rate 98.00 Capillary Refill : Less Than 3 Seconds Height, Weight, BMI Height: 5'11.00" Weight: 330lbs. 0.5oz. 149.635191mp; 46.0 BMI Method:Stated General Appearance: No Apparent Distress, WD/WN, Obese HEENT: Pharynx Normal Neck: Other (neck brace in place) Respiratory: Lungs Clear, Normal Breath Sounds, No Respiratory Distress Cardiovascular: Regular Rate, Rhythm, No Edema, No Murmur Gastrointestinal: Normal Bowel Sounds, Non Tender, Soft Extremity: Pedal Edema, Other (chronic venous stasis changes bilaterally, right ankle and osuna with mild erythema and warmth) Neurologic/Psychiatric: Alert, Oriented x3 Skin: Erythema, Other (venous-stasis changes) Lymphatic: No Adenopathy Results Results/Procedures Labs Laboratory Tests 05/18/19 09:29 Patient resulted labs reviewed. Imaging: Reviewed Imaging Report Assessment/Plan Admission Diagnosis cellulitis Admission Status: Observation Reason for Inpatient Admission: HTN T2DM HLD CAD PVD CKD CHF Assessment and Plan Cellulitis right ankle and osuna with mild erythema and warmth workup on admission not indicative of sepsis Vancomycin and Zosyn ordered in the ER Transitioned to Ancef for nonpurulent cellulitis Maintenance fluids ordered Type II diabetes mellitus with long-term insulin use Home regimen: Lantus 70 units in the morning and 80 units at night, Humalog 75 units with breakfast and 90 units with dinner, and Empagliflozin begin Levemir 80 units this evening and then 70 units in the morning Decreased to NovoLog 50 units with meals sliding scale insulin C Accu-Cheks before meals and at bedtime Essential hypertension Continue home meds Hyperlipidemia Continue statin CAD Continue aspirin and Plavix Heart failure with preserved ejection fraction Chronic, no acute management needs Cervical stenosis Status post surgery in the end of March C-collar remains in place Aortic stenosis Moderate to severe, no acute management needs Morbid obesity BMI 46 Clinically significant, no acute management needs DVT prophylaxis: Heparin Diagnosis/Problems Diagnosis/Problems (1) Cellulitis of right anterior lower leg Status: Acute (2) Hypertension Status: Chronic (3) Hyperlipidemia Status: Chronic (4) Morbid obesity Status: Chronic (5) CAD (coronary artery disease) Status: Chronic (6) PVD (peripheral vascular disease) Status: Chronic (7) Cervical spinal stenosis Status: Chronic (8) IDDM (insulin dependent diabetes mellitus) Status: Chronic (9) CHF (congestive heart failure) Status: Chronic Clinical Quality Measures DVT/VTE Risk/Contraindication: Risk Factor Score Per Nursin RFS Level Per Nursing on Admit: 4+=Very High ANGELA RENEE MD May 18, 2019 14:21
[2019-05-18] MEDS: ceFAZolin 2 GM/50 ML NS 50 ML IV SCH ×2 (14:35→20:56)
[2019-05-18] MEDS: inSUlin ASPART (NovoLOG) 1 UNIT/0.01 ML (CHARGE PER UNIT) SC SCH ×4 (14:35→20:48)
[2019-05-18] MEDS ORDERED: inSUlin ASPART (NovoLOG) 1 UNIT/0.01 ML (CHARGE PER UNIT) SC SCH (16:00)
[2019-05-18 16:36] VITALS: BP 106/58
[2019-05-18] MEDS ORDERED: KETOROLAC 30 MG/ML VIAL IV PRN (17:00)
--- NOTE | 2019-05-18 17:05 | NUR ---
CALLED DR RENEE REGARDING 1700 DOSE OF NOVOLOG. PATIENT'S BLOOD SUGAR IS 1600 DECREASE THE DOSE TO 40 UNITS. Addendum: 05/18/19 at 1707 by MEGA CHERY RN PATIENTS' BLOOD SUGAR AT 1600 IS 100.
[2019-05-18] MEDS ORDERED: PIPERACILLIN/TAZO 4.5 GM/NS 100 ML IV SCH ×2 (18:00)
--- NOTE | 2019-05-18 20:32 | NUR ---
1954- PT BLOOD SUGAR 51. HYPOGLYCEMIC PROTOCOL FOLLOWED. PT GIVEN MILK, CRACKERS, AND PEANUT BUTTER. 2029- DR. RENEE NOTIFIED OF PT BLOOD SUGAR. ORDERS TO HALF LEVEMIR FROM 80 UNITS TO 40 UNITS AND ADD ACCUCHECK AT 2AM. WILL FOLLOW ORDERS ORDERED AND CONTINUE TO MONITOR.
[2019-05-18 20:41] VITALS: BP 149/81
[2019-05-18] MEDS: GABAPENTIN 100 MG (NEURONTIN) CAP PO SCH (20:46)
[2019-05-18] MEDS: DOCUSATE SODIUM 100 MG (COLACE) CAP PO SCH (20:46)
[2019-05-18] MEDS: CARVEDILOL 12.5 MG (COREG) TABLET PO SCH (20:47)
[2019-05-18] MEDS ORDERED: ATORVASTATIN 80 MG (LIPITOR) TABLET PO SCH (21:00)
[2019-05-18] MEDS ORDERED: POLYETHYLENE GLYCOL 17 GM (MIRALAX) PACK PO SCH (21:00)
[2019-05-19] VITALS: BP 137/82
[2019-05-19] MEDS: NS IV 1000 ML 1,000 ML IV SCH (01:35)
[2019-05-19 04:00] VITALS: BP 128/60
[2019-05-19] MEDS: inSUlin ASPART (NovoLOG) 1 UNIT/0.01 ML (CHARGE PER UNIT) SC SCH ×2 (05:32→08:18)
[2019-05-19] MEDS: ceFAZolin 2 GM/50 ML NS 50 ML IV SCH (05:45)
[2019-05-19 06:01] LABS: BASOPHILS % (AUTO) 0 % (0-10); EOSINOPHILS # (AUTO) 0.3 10^3/uL (0.0-0.3); EOSINOPHILS % (AUTO) 4 % (0-10); HEMATOCRIT 39 % (40-54); HEMOGLOBIN 13.1 G/DL (13.3-17.7); LYMPHOCYTES # (AUTO) 1.9 X 10^3 (1.0-4.0); LYMPHOCYTES % (AUTO) 25 % (12-44); MEAN CORPUSCULAR HEMOGLOBIN 30 PG (25-34); MEAN CORPUSCULAR HGB CONC 33 G/DL (32-36); MEAN CORPUSCULAR VOLUME 89 FL (80-99); MEAN PLATELET VOLUME 11.2 FL (7.4-10.4); MONOCYTES # (AUTO) 0.8 X 10^3 (0.0-1.0); MONOCYTES % (AUTO) 10 % (0-12); NEUTROPHILS # (AUTO) 4.5 X 10^3 (1.8-7.8); NEUTROPHILS % (AUTO) 60 % (42-75); PLATELET COUNT 301 10^3/uL (130-400); RED CELL DISTRIBUTION WIDTH 14.7 % (10.0-14.5); WHITE BLOOD COUNT 7.4 10^3/uL (4.3-11.0)
[2019-05-19 06:29] LABS: ALANINE AMINOTRANSFERASE 21 U/L (0-55); ALBUMIN 3.5 GM/DL (3.2-4.5); ALKALINE PHOSPHATASE 84 U/L (40-136); BILIRUBIN,TOTAL 0.4 MG/DL (0.1-1.0); BUN/CREATININE RATIO 21; CALCIUM 8.8 MG/DL (8.5-10.1); CARBON DIOXIDE 20 MMOL/L (21-32); CHLORIDE 110 MMOL/L (98-107); CREATININE SERUM 0.86 MG/DL (0.60-1.30); GFR ESTIMATED > 60; GLUCOSE 126 MG/DL (70-105); POTASSIUM 4.3 MMOL/L (3.6-5.0); SODIUM 139 MMOL/L (135-145); TOTAL PROTEIN 6.8 GM/DL (6.4-8.2)
[2019-05-19 08:00] VITALS: BP 129/84
[2019-05-19] MEDS: COLCHICINE 0.6 MG (COLCRYS) TABLET PO SCH (08:19)
[2019-05-19] MEDS: GABAPENTIN 100 MG (NEURONTIN) CAP PO SCH (08:19)
[2019-05-19] MEDS: DOCUSATE SODIUM 100 MG (COLACE) CAP PO SCH (08:19)
[2019-05-19] MEDS: CARVEDILOL 12.5 MG (COREG) TABLET PO SCH (08:20)
[2019-05-19] MEDS ORDERED: CEPH-507 PO (08:46)
[2019-05-19] MEDS ORDERED: SENN-141 PO (08:46)
--- NOTE | 2019-05-19 08:48 | Discharge Inst-Simple/Standard ---
Discharge Inst-Standard Discharge Medications New, Converted or Re-Newed RX: Transmitted to Pharmacy Patient Instructions/Follow Up Plan of Care/Instructions/FU: Please continue to take your medications as written. Please follow up with your PCP in the next week to follow up this hospital stay. Activity as Tolerated: Yes Discharge Diet: ADA Diet Return to The Hospital For: Fever, confusion, worsening pain, worsening redness, if you feel you are getting worse. RONNY GONGORA MD May 19, 2019 8:48 am
--- NOTE | 2019-05-19 08:49 | Discharge Summary ---
Diagnosis/Chief Complaint Date of Admission May 18, 2019 at 11:15 am Date of Discharge Discharge Date: May 19, 2019 Admission Diagnosis cellulitis Primary Care Maynor Gutiérrez MD Discharge Diagnosis (1) Cellulitis of right anterior lower leg Status: Acute (2) Hypertension Status: Chronic (3) Hyperlipidemia Status: Chronic (4) Morbid obesity Status: Chronic (5) CAD (coronary artery disease) Status: Chronic (6) PVD (peripheral vascular disease) Status: Chronic (7) Cervical spinal stenosis Status: Chronic (8) IDDM (insulin dependent diabetes mellitus) Status: Chronic (9) CHF (congestive heart failure) Status: Chronic Discharge Summary Discharge Physical Exam Allergies: Coded Allergies: No Known Drug Allergies (Unverified , 03/18/19) Vitals & I&Os Vital Signs Date Time Temp Pulse Resp B/P (MAP) Pulse Ox O2 Delivery O2 Flow Rate FiO2 05/19/19 11:00 89 20 129/84 95 Room Air 05/19/19 08:00 98.1 05/18/19 12:50 98.00 General Appearance: No Apparent Distress, Chronically ill, Obese Neurologic/Psychiatric: Alert, Oriented x3 Hospital Course Patient was admitted due to cellulitis of the right lower extremity. He was admitted for IV antibiotics after his dog who reportedly weighs 312 pounds fell on his leg at 3 o'clock in the morning yesterday. He reports feeling much better today and is requesting discharge home. He had an uncomplicated hospital course. He is to discharge home on Ancef to complete antibiotics. He is to follow-up with his primary care Dr. Gutiérrez in the next week to follow-up this hospital stay. Labs (last 24 hrs) Laboratory Tests 05/18/19 16:25: Glucometer 100 05/18/19 19:55: Glucometer 51*L 05/18/19 20:39: Glucometer 90 05/19/19 03:30: Glucometer 117H 05/19/19 05:17: Glucometer 114H 05/19/19 05:20: White Blood Count 7.4, Red Blood Count 4.44, Hemoglobin 13.1L, Hematocrit 39L, Mean Corpuscular Volume 89, Mean Corpuscular Hemoglobin 30, Mean Corpuscular Hemoglobin Concent 33, Red Cell Distribution Width 14.7H, Platelet Count 301, Mean Platelet Volume 11.2H, Neutrophils (%) (Auto) 60, Lymphocytes (%) (Auto) 25, Monocytes (%) (Auto) 10, Eosinophils (%) (Auto) 4, Basophils (%) (Auto) 0, Neutrophils # (Auto) 4.5, Lymphocytes # (Auto) 1.9, Monocytes # (Auto) 0.8, Eosinophils # (Auto) 0.3, Basophils # (Auto) 0.0, Sodium Level 139, Potassium Level 4.3, Chloride Level 110H, Carbon Dioxide Level 20L, Anion Gap 9, Blood Urea Nitrogen 18, Creatinine 0.86, Estimat Glomerular Filtration Rate > 60, BUN/Creatinine Ratio 21, Glucose Level 126H, Calcium Level 8.8, Corrected Calcium 9.2, Total Bilirubin 0.4, Aspartate Amino Transf (AST/SGOT) 18, Alanine Aminotransferase (ALT/SGPT) 21, Alkaline Phosphatase 84, Total Protein 6.8, Albumin 3.5 Microbiology 05/18/19 Blood Culture - Preliminary, Resulted No growth 05/18/19 Influenza Types A,B Antigen (VAUGNH) - Final, Complete 05/18/19 Urine Culture - Final, Complete 3 or more isolates Patient resulted labs reviewed. Pending Labs Imaging: Reviewed Imaging Report Discussion & Recommendations Discharge Planning: <30 minutes discharge planning Discharge Home Medications: Active Scripts Active Keflex (Cephalexin) 500 Mg Capsule 500 Mg PO BID Senna (Sennosides) 8.6 Mg Tablet 8.6 Mg PO BID PRN Hydrocodon-Acetaminophn 10-325 (Hydrocodone/Acetaminophen) 1 Each Tablet 1 Each PO Q6H PRN MDD 5 3 Days Reported Nitroglycerin 0.4 Mg Tab.subl 0.4 Mg SL UD PRN Insulin Lispro Kwikpen U-100 (Insulin Lispro) 100 Unit/1 Ml Insuln.pen 90 Unit SQ WITH EVENING MEAL Toujeo Solostar (Insulin Glargine,Hum.rec.anlog) 300 Unit/1 Ml Insuln.pen 80 Unit SQ HS Cyclobenzaprine HCl 10 Mg Tablet 10 Mg PO TID PRN Amiloride HCl 5 Mg Tablet 5 Mg PO DAILY Isosorbide Mononitrate ER (Isosorbide Mononitrate) 30 Mg Tab.er.24h 30 Mg PO DAILY Gabapentin 100 Mg Capsule 100 Mg PO TID Jardiance (Empagliflozin) 25 Mg Tablet 25 Mg PO DAILY Toujeo Solostar (Insulin Glargine,Hum.rec.anlog) 300 Unit/1 Ml Insuln.pen 55 Units SQ DAILY Humalog Kwikpen (Insulin Lispro) 200 Unit/1 Ml Insuln.pen 75 Units SQ DAILY Aspirin 81 Mg Tab.chew 81 Mg PO DAILY Potassium Chloride 20 Meq Tab.er.prt 20 Meq PO DAILY Vitamin D2 (Ergocalciferol (Vitamin D2)) 50,000 Unit Capsule 50,000 Units PO MO Atorvastatin Calcium 80 Mg Tablet 80 Mg PO HS Amlodipine Besylate 10 Mg Tablet 10 Mg PO DAILY Furosemide 80 Mg Tablet 80 Mg PO DAILY Carvedilol 25 Mg Tablet 25 Mg PO BID Lisinopril 20 Mg Tablet 20 Mg PO DAILY Clopidogrel (Clopidogrel Bisulfate) 75 Mg Tablet 75 Mg PO DAILY Paroxetine HCl 20 Mg Tablet 20 Mg PO DAILY Hydrocodon-Acetaminophn 10-325 (Hydrocodone/Acetaminophen) 1 Each Tablet 2 Tab PO Q6H PRN Instructions to patient/family Please see electronic discharge instructions given to patient. Clinical Quality Measures DVT/VTE Risk/Contraindication: Risk Factor Score Per Nursin RFS Level Per Nursing on Admit: 4+=Very High RONNY GONGORA MD May 19, 2019 08:49
[2019-05-19] MEDS ORDERED: FUROSEMIDE 40 MG (LASIX) TAB PO SCH (09:00)
[2019-05-19] MEDS ORDERED: AMILORIDE 5 MG PO SCH (09:00)
[2019-05-19] MEDS ORDERED: amLODIPine 10 MG (NORVASC) TAB PO SCH (09:00)
[2019-05-19] MEDS ORDERED: PARoxetine 20 MG (PAXIL) TAB PO SCH (09:00)
[2019-05-19] MEDS ORDERED: PATIENT MAY USE OWN MED,SINGLE MED PO SCH (09:00)
[2019-05-19] MEDS ORDERED: ISOSORBIDE MONONITRATE 30 MG (IMDUR) TAB PO SCH (09:00)
[2019-05-19] MEDS ORDERED: lisINopril 20 MG (PRINIVIL) TABLET PO SCH (09:00)
[2019-05-19] MEDS ORDERED: ASPIRIN 81 MG CHEW (CHILDREN'S ASA) PO SCH (09:00)
[2019-05-19] MEDS ORDERED: CLOPIDOGREL 75 MG (PLAVIX) TABLET PO SCH (09:00)
--- NOTE | 2019-05-19 10:00 | NUR ---
Initial visit: Pt recalled me from our visit during a previous admission and welcomed me. He confirmed that he is not muslim and does not have any harshal affiliation. He is anticipating discharging soon.
[2019-05-19 11:00] VITALS: BP 129/84
== END 2019-05-19 08:46 | disposition home or self-care (01) ==
LOC: EDUNIT# 09:08 → ER 09:10 → 4TH 11:15 → UNDOADMOB 11:15 → 4TH 12:40 → UNDODISOB 05-19 11:00
PROVIDERS: ADMIT Internal Medicine; ATTEND Internal Medicine
DX: L03.115 Cellulitis of right lower limb (principal); I73.9 Peripheral vascular disease, unspecified; I25.10 Atherosclerotic heart disease of native coronary artery without angina pectoris; I11.0 Hypertensive heart disease with heart failure; I50.9 Heart failure, unspecified; I35.0 Nonrheumatic aortic (valve) stenosis; E79.0 Hyperuricemia without signs of inflammatory arthritis and tophaceous disease; E78.00 Pure hypercholesterolemia, unspecified; E11.40 Type 2 diabetes mellitus with diabetic neuropathy, unspecified; K21.9 Gastro-esophageal reflux disease without esophagitis; G89.29 Other chronic pain; M54.9 Dorsalgia, unspecified; M19.90 Unspecified osteoarthritis, unspecified site; M48.02 Spinal stenosis, cervical region; F32.9 Major depressive disorder, single episode, unspecified; E78.5 Hyperlipidemia, unspecified; E66.01 Morbid (severe) obesity due to excess calories; Z68.42 Body mass index [BMI] 45.0-49.9, adult; Z79.4 Long term (current) use of insulin; Z86.79 Personal history of other diseases of the circulatory system; Z87.09 Personal history of other diseases of the respiratory system; Z95.5 Presence of coronary angioplasty implant and graft; Z79.82 Long term (current) use of aspirin; Z96.652 Presence of left artificial knee joint
CPT/HCPCS: 36415; 71045; 73610; 73630; 80053; 81000; 82962; 83605; 84550; 85025; 85610; 85652; 85730; 86141; 87040; 87088; 87804; 93005; G0378

== ENCOUNTER 2019-07-17 12:32 | Outpatient (RCR) | payer MEDICARE, MEDICAID ==
[~2019-07-17 12:32] MED LIST changes: +SENN-141 PO
== END 2019-07-17 14:33 | disposition home or self-care (01) ==
PROVIDERS: ATTEND Orthopaedic Surgery Orthopaedic Surgery of the Spine
DX: M54.2 Cervicalgia (principal); R53.1 Weakness; M79.602 Pain in left arm; M79.601 Pain in right arm; Z98.1 Arthrodesis status

== ENCOUNTER 2019-10-20 12:15 | Emergency (ER) | payer MEDICARE, MEDICAID ==
[~2019-10-20] VITALS: Ht 180 cm; Wt 152.0 kg
[~2019-10-20 12:15] MED LIST changes: +MAGN400T8 PO; +METF500T19 PO; +OMEP-280 PO; -OMEP20CA13 PO
[2019-10-20 14:00] LABS: BILIRUBIN,URINE NEGATIVE (NEGATIVE); CLARITY,URINE CLEAR; COLOR,URINE YELLOW; GLUCOSE, URINE (UA) 3+ (NEGATIVE); KETONES,URINE NEGATIVE (NEGATIVE); LEUKOCYTE ESTERASE ,URINE NEGATIVE (NEGATIVE); NITRITE,URINE NEGATIVE (NEGATIVE); PROTEIN,URINE NEGATIVE (NEGATIVE)
[2019-10-20 14:01] LABS: BASOPHILS % (AUTO) 1 % (0-10); EOSINOPHILS # (AUTO) 0.1 10^3/uL (0.0-0.3); EOSINOPHILS % (AUTO) 2 % (0-10); HEMATOCRIT 43 % (40-54); HEMOGLOBIN 13.9 G/DL (13.3-17.7); LYMPHOCYTES % (AUTO) 26 % (12-44); MEAN CORPUSCULAR HEMOGLOBIN 28 PG (25-34); MEAN CORPUSCULAR HGB CONC 33 G/DL (32-36); MEAN CORPUSCULAR VOLUME 86 FL (80-99); MEAN PLATELET VOLUME 11.5 FL (7.4-10.4); MONOCYTES # (AUTO) 0.7 X 10^3 (0.0-1.0); MONOCYTES % (AUTO) 9 % (0-12); NEUTROPHILS # (AUTO) 4.7 X 10^3 (1.8-7.8); NEUTROPHILS % (AUTO) 63 % (42-75); PLATELET COUNT 319 10^3/uL (130-400); RED CELL DISTRIBUTION WIDTH 15.4 % (10.0-14.5); WHITE BLOOD COUNT 7.5 10^3/uL (4.3-11.0)
[2019-10-20 14:07] LABS: BACTERIA,URINE NEGATIVE /HPF; HYALINE CASTS, URINE 0-2 /LPF; SQUAMOUS EPITHELIAL CELL,UR 0-2 /HPF
[2019-10-20 14:21] LABS: ALANINE AMINOTRANSFERASE 23 U/L (0-55); ALBUMIN 4.6 GM/DL (3.2-4.5); ALKALINE PHOSPHATASE 92 U/L (40-136); BILIRUBIN,TOTAL 0.5 MG/DL (0.1-1.0); BUN/CREATININE RATIO 24; CALCIUM 9.8 MG/DL (8.5-10.1); CARBON DIOXIDE 12 MMOL/L (21-32); CHLORIDE 111 MMOL/L (98-107); CREATININE SERUM 2.33 MG/DL (0.60-1.30); GFR ESTIMATED 28; GLUCOSE 172 MG/DL (70-105); LIPASE 63 U/L (8-78); SODIUM 129 MMOL/L (135-145); TOTAL PROTEIN 8.7 GM/DL (6.4-8.2)
[2019-10-20 14:28] LABS: POTASSIUM 7.8 MMOL/L (3.6-5.0)
[2019-10-20] MEDS ORDERED: NS IV 1000 ML 1,000 ML IV ONE (14:29)
[2019-10-20] MEDS ORDERED: RT-ALBUTEROL SULF 2.5 MG/3 ML PRE-MIX VIAL INH STA (15:03)
[2019-10-20 15:12] LABS: MAGNESIUM 1.8 MG/DL (1.6-2.4)
--- NOTE | 2019-10-20 15:14 | Diagnostic Imaging Report ---
INDICATION: Pain and nausea. FINDINGS: The heart size is within normal limits. The lungs are clear. No effusion or pneumothorax. IMPRESSION: No acute appearing abnormality. Dictated by: Dictated on workstation # [id number]
[2019-10-20] MEDS ORDERED: inSUlin (REGULAR) HUMAN 1 UNIT/0.01 ML (CHARGE PER UNIT) IV ONE (15:15)
[2019-10-20] MEDS ORDERED: SOD POLYSTERENE 15 GM/60 ML (KAYEXALATE) UNIT DOSE PO ONE (15:15)
[2019-10-20] MEDS ORDERED: DEXTROSE 50% 50 ML (IMS) SYR IV ONE (15:15)
[2019-10-20] MEDS ORDERED: CALCIUM CHLORIDE 1 GM/10 ML (IMS) SYR INJ ONE (15:15)
--- NOTE | 2019-10-20 15:17 | Diagnostic Imaging Report ---
PROCEDURE: CT abdomen and pelvis without contrast. TECHNIQUE: Multiple contiguous axial images were obtained through the abdomen and pelvis without the use of intravenous contrast. Auto Exposure Controls were utilized during the CT exam to meet ALARA standards for radiation dose reduction. INDICATION: Pain and diarrhea. FINDINGS: There is no ascites, abscess, hematoma, or acute fluid collection. There is no bowel obstruction. There are extensive nonaneurysmal aortoiliac and mesenteric vascular calcifications. No CT findings suggestive of acute end organ ischemia at this unenhanced exam. There is a small hiatal hernia. The liver, gallbladder, bile ducts, spleen, adrenals, and pancreas are all nonacute. The appendix is normal. There is no diverticulitis. IMPRESSION: No hemorrhage, edema, fluid collection, ascites, inflammatory process, or acute appearing abnormalities. Dictated by: Dictated on workstation # [id number]
--- NOTE | 2019-10-20 15:23 | ED General ---
General Chief Complaint: Abdominal/GI Problems Stated Complaint: SHAKING,ABD PAIN Nursing Triage Note: PT PRESENTS TO THE ED TRIAGE C/O ABD. PAIN AND NAUSEA THAT HAS BEEN ONGOING FOR 2-3 DAYS. PT DENIES FEVERS, CHILLS DIFFICULTY WITH URINATION. PT VERBALIZES DIZZYNESS UPON PRESENTATION TO ED. Nursing Sepsis Screen: No Definite Risk Source of Information: Patient Exam Limitations: No Limitations History of Present Illness Date Seen by Provider: Oct 20, 2019 Time Seen by Provider: 12:41 Initial Comments This 68-year-old gentleman presents to the emergency room with multiple vague complaints including dizziness, feeling lightheaded upon standing, episodes of diarrhea last night, and nausea without vomiting. He states these symptoms really have been present to some degree since having a cervical fusion performed in March. He additionally states he's been expressing dyspnea on exertion for about 2 days. He denies any urinary changes. Today he has some lower abdominal pain and tenderness as well. He has history of diabetes, heart disease, and cervical spinal disease. He is also oxygen dependent at night. He is a fairly vague and poor historian. Allergies and Home Medications Allergies Coded Allergies: No Known Drug Allergies (Unverified , 03/18/19) Home Medications Amiloride HCl 5 Mg Tablet, 5 MG PO DAILY, (Reported) Amlodipine Besylate 10 Mg Tablet, 10 MG PO DAILY, (Reported) Aspirin 81 Mg Tab.chew, 81 MG PO DAILY, (Reported) Atorvastatin Calcium 80 Mg Tablet, 80 MG PO HS, (Reported) Carvedilol 25 Mg Tablet, 25 MG PO BID, (Reported) Cephalexin 500 Mg Capsule, 500 MG PO BID Prescribed by: RONNY BENNETT on 05/19/19 0846 Clopidogrel Bisulfate 75 Mg Tablet, 75 MG PO DAILY, (Reported) Cyclobenzaprine HCl 10 Mg Tablet, 10 MG PO TID PRN for MUSCLE SPASMS, (Reported) Empagliflozin 25 Mg Tablet, 25 MG PO DAILY, (Reported) Ergocalciferol (Vitamin D2) 50,000 Unit Capsule, 50,000 UNITS PO Mo, (Reported) Furosemide 80 Mg Tablet, 80 MG PO DAILY, (Reported) Gabapentin 100 Mg Capsule, 100 MG PO TID, (Reported) Hydrocodone/Acetaminophen 1 Each Tablet, 2 TAB PO Q6H PRN for PAIN, (Reported) Hydrocodone/Acetaminophen 1 Each Tablet, 1 EACH PO Q6H PRN for PAIN-MODERATE Prescribed by: GERHARD WILLS on 04/26/19 0641 Insulin Glargine,Hum.rec.anlog 300 Unit/1 Ml Insuln.pen, 55 UNITS SQ DAILY, (Reported) Insulin Glargine,Hum.rec.anlog 300 Unit/1 Ml Insuln.pen, 80 UNIT SQ HS, (Reporte d) Insulin Lispro 200 Unit/1 Ml Insuln.pen, 75 UNITS SQ DAILY, (Reported) Insulin Lispro 100 Unit/1 Ml Insuln.pen, 90 UNIT SQ WITH EVENING MEAL, (Reported) Isosorbide Mononitrate 30 Mg Tab.er.24h, 30 MG PO DAILY, (Reported) Lisinopril 20 Mg Tablet, 20 MG PO DAILY, (Reported) Nitroglycerin 0.4 Mg Tab.subl, 0.4 MG SL UD PRN for CHEST PAIN, (Reported) Paroxetine HCl 20 Mg Tablet, 20 MG PO DAILY, (Reported) Potassium Chloride 20 Meq Tab.er.prt, 20 MEQ PO DAILY, (Reported) Sennosides 8.6 Mg Tablet, 8.6 MG PO BID PRN for CONSTIPATION-1ST LINE Prescribed by: RONNY BENNETT on 05/19/19 0846 Patient Home Medication List Home Medication List Reviewed: Yes Review of Systems Review of Systems Constitutional: see HPI EENTM: no symptoms reported Respiratory: see HPI Cardiovascular: see HPI Gastrointestinal: see HPI Genitourinary: no symptoms reported Musculoskeletal: no symptoms reported Skin: no symptoms reported Psychiatric/Neurological: See HPI Hematologic/Lymphatic: No Symptoms Reported Immunological/Allergic: no symptoms reported Past Pfgzltx-Zlccok-Zrefrb Hx Past Med/Social Hx: Reviewed Nursing Past Med/Soc Hx Patient Social History Alcohol Use: Occasionally Uses Number of Drinks Today: AA Alcohol Beverage of Choice: Beer Recreational Drug Use: No Drug of Choice: past hx Smoking Status: Former Smoker Type Used: Cigars Former Smoker, Quit: Apr 24, 1985 2nd Hand Smoke Exposure: No Recent Foreign Travel: No Contact w/Someone Who Travel: No Recent Infectious Disease Expo: No Recent Hopitalizations: No Physical Abuse: No Sexual Abuse: No Mistreated: No Fear: No Immunizations Up To Date Tetanus Booster (TDap): Unknown PED Vaccines UTD: Yes Date of Pneumonia Vaccine: Sep 02, 2018 Date of Influenza Vaccine: May 25, 2013 Seasonal Allergies Seasonal Allergies: No Past Medical History Surgeries: Yes Abdominal, Cardiac, Coronary Stent, Joint Replacement, Orthopedic, Vascular Surgery, Vasectomy Respiratory: Yes (RFUSES TO WEAR CPAP, BUT DOES WEAR O2 AT HS) Sleep Apnea, COPD Currently Using CPAP: No Currently Using BIPAP: No Cardiac: Yes (MULTIPLE INTERVENTIONS IN HEART AND LEGS--STENTS AND ANGIOPLASTIES; CHF) Chronic Edema/Swelling, Coronary Artery Disease, Deep Vein Thrombosis, High Cholesterol, Hypertension, Peripheral Vascular, Valvular Heart Disease Neurological: Yes (CVA around 07') Neuropathy, Stroke Reproductive Disorders: No Sexually Transmitted Disease: No HIV/AIDS: No Genitourinary: No Gastrointestinal: Yes Gastroesophageal Reflux Musculoskeletal: Yes Amputee, Arthritis, Chronic Back Pain, Gout Endocrine: Yes (OBESITY) Diabetes, Insulin dep HEENT: Yes (READING GLASSES) Glaucoma Loss of Vision: Denies Hearing Impairment: Denies Cancer: No Psychosocial: Yes Depression Integumentary: Yes (MRSA, ABSCESSES AND CELLULITITS; I&D'S; CHRONIC LEG ULCERS) Herpes Blood Disorders: No Adverse Reaction/Blood Tranf: No (N/A) Family Medical History Reviewed Nursing Family Hx Arthritis 19 MOTHER Completed stroke 19 MOTHER Family history: Diabetes mellitus 19 MOTHER Family history: Hypertension 19 FATHER 19 MOTHER Hypercholesterolemia 19 MOTHER G8 BROTHER G8 BROTHER Hypertension 19 MOTHER Kidney disease 19 MOTHER Seizure disorder G8 BROTHER No Family History of: AIDS Abdominal aortic aneurysm Abdominal aortic aneurysm Weston's disease Weston's disease Alcoholism Alcoholism Alzheimer's disease Aphasia Aphasia Asthma Cancer Cancer of colon Cancer of mouth Cardiovascular disease Cataract Cataracts Chest pain Colon cancer Congenital disease Congenital heart disease Congenital heart disease Congestive heart failure Coronary thrombosis Cystic fibrosis Deafness or hearing loss Dementia Dementia Diabetes mellitus Drug abuse Dysphagia Family history: Allergy Family history: Alzheimer's disease Family history: Arthritis Family history: Asthma Family history: Breast disease Family history: Cardiovascular disease Family history: Coronary thrombosis Family history: Gastrointestinal disease Family history: Glaucoma Family history: Osteoporosis Family history: Thyroid disorder Fibrocystic disease of breast Gastroenteritis Glaucoma Headache Headache disorder Hearing loss Heart disease Hereditary disease History of - anemia History of - disorder History of - respiratory disease History of drug abuse Human immunodeficiency virus (HIV) seropositivity Infertile Malignant neoplasm of lung Myocardial infarction Parkinson's disease Prostate cancer Psychotic disorder Stroke Tuberculosis Visual impairment Physical Exam Vital Signs Vital Signs - First Documented 10/20/19 13:28 Temp 36.9 Pulse 70 Resp 20 B/P (MAP) 112/71 (85) Pulse Ox 98 O2 Delivery Room Air Capillary Refill : Less Than 3 Seconds Height, Weight, BMI Height: 5'11.00" Weight: 330lbs. 0.5oz. 149.614153ue; 46.00 BMI Method:Stated General Appearance: No Apparent Distress, WD/WN HEENT: PERRL/EOMI, Normal ENT Inspection, Other (because membranes somewhat dry) Neck: Normal Inspection Respiratory: Lungs Clear, Normal Breath Sounds, No Accessory Muscle Use, No Respiratory Distress Cardiovascular: Regular Rate, Rhythm, No Edema, Systolic Murmur, Other (peripheral pulses palpable but weak) Gastrointestinal: Normal Bowel Sounds, Soft, Tenderness (mild and generalized) Extremity: Normal Inspection, Non Tender, No Pedal Edema Neurologic/Psychiatric: Alert, Oriented x3, No Motor/Sensory Deficits, Normal 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, 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 Norm as Tested Skin: Normal Color, Warm/Dry Progress/Results/Core Measures Suspected Sepsis Recent Fever Within 48 Hours: No Infection Criteria Present: Suspected New Infection New/Unexplained Altered Menta: Yes Sepsis Screen: No Definite Risk SIRS Temperature: Pulse: 70 Respiratory Rate: 20 Laboratory Tests 10/20/19 13:45: White Blood Count 7.5 Blood Pressure 112 /71 Mean: 85 Laboratory Tests 10/20/19 13:45: Creatinine 2.33H, Platelet Count 319, Total Bilirubin 0.5 Results/Orders Lab Results Laboratory Tests Test 10/20/19 13:45 10/20/19 14:38 10/20/19 16:18 Range/Units White Blood Count 7.5 4.3-11.0 10^3/uL Red Blood Count 4.94 4.35-5.85 10^6/uL Hemoglobin 13.9 13.3-17.7 G/DL Hematocrit 43 40-54 % Mean Corpuscular Volume 86 80-99 FL Mean Corpuscular Hemoglobin 28 25-34 PG Mean Corpuscular Hemoglobin Concent 33 32-36 G/DL Red Cell Distribution Width 15.4 H 10.0-14.5 % Platelet Count 319 130-400 10^3/uL Mean Platelet Volume 11.5 H 7.4-10.4 FL Neutrophils (%) (Auto) 63 42-75 % Lymphocytes (%) (Auto) 26 12-44 % Monocytes (%) (Auto) 9 0-12 % Eosinophils (%) (Auto) 2 0-10 % Basophils (%) (Auto) 1 0-10 % Neutrophils # (Auto) 4.7 1.8-7.8 X 10^3 Lymphocytes # (Auto) 2.0 1.0-4.0 X 10^3 Monocytes # (Auto) 0.7 0.0-1.0 X 10^3 Eosinophils # (Auto) 0.1 0.0-0.3 10^3/uL Basophils # (Auto) 0.0 0.0-0.1 10^3/uL Urine Color YELLOW Urine Clarity CLEAR Urine pH 5.0 5-9 Urine Specific [place] 1.020 1.016-1.022 Urine Protein NEGATIVE NEGATIVE Urine Glucose (UA) 3+ H NEGATIVE Urine Ketones NEGATIVE NEGATIVE Urine Nitrite NEGATIVE NEGATIVE Urine Bilirubin NEGATIVE NEGATIVE Urine Urobilinogen 0.2 < = 1.0 MG/DL Urine Leukocyte Esterase NEGATIVE NEGATIVE Urine RBC (Auto) NEGATIVE NEGATIVE Urine RBC NONE /HPF Urine WBC NONE /HPF Urine Squamous Epithelial Cells 0-2 /HPF Urine Crystals NONE /LPF Urine Bacteria NEGATIVE /HPF Urine Casts PRESENT /LPF Urine Hyaline Casts 0-2 H /LPF Urine Mucus NEGATIVE /LPF Urine Culture Indicated NO Sodium Level 129 L 135-145 MMOL/L Potassium Level 7.8 #*H 8.2 *H 3.6-5.0 MMOL/L Chloride Level 111 H 98-107 MMOL/L Carbon Dioxide Level 12 L 21-32 MMOL/L Anion Gap 6 5-14 MMOL/L Blood Urea Nitrogen 55 H 7-18 MG/DL Creatinine 2.33 H 0.60-1.30 MG/DL Estimat Glomerular Filtration Rate 28 BUN/Creatinine Ratio 24 Glucose Level 172 H 70-105 MG/DL Calcium Level 9.8 8.5-10.1 MG/DL Corrected Calcium 8.5-10.1 MG/DL Total Bilirubin 0.5 0.1-1.0 MG/DL Aspartate Amino Transf (AST/SGOT) 17 5-34 U/L Alanine Aminotransferase (ALT/SGPT) 23 0-55 U/L Alkaline Phosphatase 92 40-136 U/L Total Protein 8.7 H 6.4-8.2 GM/DL Albumin 4.6 H 3.2-4.5 GM/DL Lipase 63 8-78 U/L Magnesium Level 1.8 1.6-2.4 MG/DL Troponin I < 0.028 <0.028 NG/ML B-Type Natriuretic Peptide 17.9 <100.0 PG/ML My Orders Orders - BECKI PADILLA MD Cbc With Automated Diff (10/20/19 12:41) Comprehensive Metabolic Panel (10/20/19 12:41) Lipase (10/20/19 12:41) Ua Culture If Indicated (10/20/19 12:41) Ed Iv/Invasive Line Start (10/20/19 12:41) BNP (10/20/19 14:17) Magnesium (10/20/19 14:17) Troponin I (10/20/19 14:17) Chest 1 View, Ap/Pa Only (10/20/19 14:17) Ekg Tracing (10/20/19 14:17) Monitor-Rhythm Ecg Trace Only (10/20/19 14:17) Potassium (10/20/19 14:29) Ns Iv 1000 Ml (Sodium Chloride 0.9%) (10/20/19 14:29) Ct Abdomen/Pelvis Wo (10/20/19 14:55) Sodium Polystyrene Sulfonate (Kayexalate (10/20/19 15:15) D50w (Emergency) Syringe (Dextrose 50% 5 (10/20/19 15:15) Insulin (Regular) Human (Humulin R (Per (10/20/19 15:15) Albuterol Pre-Mix Nebs (Rt) (Proventil (10/20/19 15:03) Calcium Chloride 10% Injection (Calcium (10/20/19 15:15) Calcium Gluconate 10% Inj (Calcium Glu (10/20/19 15:45) Calcium Gluconate 10% Inj (Calcium Glu (10/20/19 15:45) Calcium Gluconate 10% Inj (Calcium Glu (10/20/19 15:45) Accucheck Stat ONCE (10/20/19 16:09) Potassium (10/20/19 16:09) Furosemide Injection (Lasix Injection) (10/20/19 16:15) Medications Given in ED Current Medications Medications Dose Ordered Sig/Coral Route Start Time Stop Time Status Last Admin Dose Admin Calcium Gluconate 4.65 meq ONCE ONCE IV 10/20/19 15:45 10/20/19 15:47 DC 1/27/20 16:04 4.65 MEQ Calcium Gluconate 4.65 meq ONCE ONCE IV 10/20/19 15:45 10/20/19 15:47 DC 10/20/19 16:04 4.65 MEQ Calcium Gluconate 4.65 meq ONCE ONCE IV 10/20/19 15:45 10/20/19 15:47 DC 10/20/19 16:05 4.65 MEQ Dextrose 25 ml ONCE ONCE IV 10/20/19 15:15 10/20/19 15:16 DC 10/20/19 15:22 25 ML Insulin Human Regular 10 unit ONCE ONCE IV 10/20/19 15:15 10/20/19 15:16 DC 10/20/19 15:22 10 UNIT Sodium Polystyrene Sulfonate 15 gm ONCE ONCE PO 10/20/19 15:15 10/20/19 15:16 DC 10/20/19 15:22 15 GM Sodium Chloride 1,000 ml @ 0 mls/hr Q0M ONCE IV 10/20/19 14:29 10/20/19 14:30 DC 10/20/19 15:03 1,000 MLS/HR Vital Signs/I&O 10/20/19 13:28 Temp 36.9 Pulse 70 Resp 20 B/P (MAP) 112/71 (85) Pulse Ox 98 O2 Delivery Room Air Capillary Refill : Less Than 3 Seconds Blood Pressure Mean: 85 Progress Note : Time: 16:21 Progress Note Patient was found to have significant hyperkalemia. The serum potassium was repeated and found to be correctly elevated. Patient was also found to have significant renal failure when compared to his baseline. Measures to correct hyperkalemia have been initiated including a 2 L IV normal saline bolus, D50 25 g IV, insulin 10 units IV, calcium gluconate 3 A IV, Lasix 40 mg IV, and Kayexalate 15 g orally, and albuterol 5 mg nebulized. Lasix was ordered to initiate after he received at least 1 L of IV fluid. I discussed the case with Dr. Bennett, hospitalist on-call. She does not feel comfortable accepting this patient to [facility] without nephrology services available. She requested transfer the patient. I discussed with the patient and he is agreeable to transfer. Dr. Bernal at [facility] has graciously accepted to receive the patient. She requests a potassium be obtained to document a downward trend prior to transfer. Care of this patient is being transitioned to Dr. Bryant at this time. ECG Initial ECG Impression Date: Oct 20, 2019 Initial ECG Impression Time: 15:29 Initial ECG Rate: 76 Initial ECG Rhythm: Normal Sinus Initial ECG Intervals: Normal Initial ECG Impression: Normal Comment Normal sinus rhythm with no ST elevation or depression. Slightly peaked T waves on this fairly low amplitude EKG. Diagnostic Imaging Diagonstic Imaging: Xray Plain Films/CT/US/NM/MRI: chest Comments Chest x-ray viewed by me and report reviewed. See report below: NAME: JEFF TERRY [facility] REC#: [id number] PT STATUS: REG ER : 1950 PHYSICIAN: BECKI PADILLA MD ADMIT DATE: 10/20/19/ER Draft Date of Exam:10/20/19 CHEST 1 VIEW, AP/PA ONLY INDICATION: Pain and nausea. FINDINGS: The heart size is within normal limits. The lungs are clear. No effusion or pneumothorax. IMPRESSION: No acute appearing abnormality. Dictated on workstation # [id number] Dict: 10/20/19 1513 Trans: 10/20/19 [facility]4 [id number] Interpreted by: CHRISTOPHER NI Diagonstic Imaging: CT Plain Films/CT/US/NM/MRI: abdomen, pelvis Comments CT abdomen and pelvis viewed by me and report reviewed. See report below: NAME: JEFF TERRY [facility] REC#: [id number] PT STATUS: REG ER : 1950 PHYSICIAN: BECKI PADILLA MD ADMIT DATE: 10/20/19/ER Draft Date of Exam:10/20/19 CT ABDOMEN/PELVIS WO PROCEDURE: CT abdomen and pelvis without contrast. TECHNIQUE: Multiple contiguous axial images were obtained through the abdomen and pelvis without the use of intravenous contrast. Auto Exposure Controls were utilized during the CT exam to meet ALARA standards for radiation dose reduction. INDICATION: Pain and diarrhea. FINDINGS: There is no ascites, abscess, hematoma, or acute fluid collection. There is no bowel obstruction. There are extensive nonaneurysmal aortoiliac and mesenteric vascular calcifications. No CT findings suggestive of acute end organ ischemia at this unenhanced exam. There is a small hiatal hernia. The liver, gallbladder, bile ducts, spleen, adrenals, and pancreas are all nonacute. The appendix is normal. There is no diverticulitis. IMPRESSION: No hemorrhage, edema, fluid collection, ascites, inflammatory process, or acute appearing abnormalities. Dictated on workstation # [id number] Dict: 10/20/19 1513 Trans: 10/20/19 1517 [id number] Interpreted by: CHRISTOPHER NI Departure Impression Primary Impression: Hyperkalemia Additional Impressions: Acute kidney failure Qualified Codes: N17.9 - Acute kidney failure, unspecified Hyponatremia Generalized abdominal pain Diarrhea Qualified Codes: R19.7 - Diarrhea, unspecified Disposition: ADMITTED INPATIENT Condition: Improved Admissions Decision to Admit Reason: Admit from ER (General) Transfer Transfer Reason: Exceeds level of care Time Spoke to Accepting Phy: 15:58 Transfer Progress Notes Transfer accepted by Dr. Bernal at [facility]. Transfer Facility: [facility] Method of Transfer: EMS Departure-Patient Inst. Referrals: EMMA HOUSTON MD (PCP/Family) Primary Care Physician BECKI PADILLA MD Oct 20, 2019 15:22
[2019-10-20] MEDS ORDERED: CALCIUM GLUC. 10% 4.65 MEQ/10 ML VIAL IV ONE ×3 (15:45)
[2019-10-20] MEDS ORDERED: FUROSEMIDE 40 MG/4 ML INJ (LASIX) IVP ONE (16:15)
[2019-10-20 18:10] VITALS: BP 116/73
== END 2019-10-20 18:10 | disposition other institution (70) ==
LOC: EDUNIT# 12:15 → ER 12:17
DX: N17.9 Acute kidney failure, unspecified (principal); E87.1 Hypo-osmolality and hyponatremia; R10.84 Generalized abdominal pain; R19.7 Diarrhea, unspecified; E11.9 Type 2 diabetes mellitus without complications; J44.9 Chronic obstructive pulmonary disease, unspecified; I11.0 Hypertensive heart disease with heart failure; I50.9 Heart failure, unspecified; I25.10 Atherosclerotic heart disease of native coronary artery without angina pectoris; E78.00 Pure hypercholesterolemia, unspecified; E11.40 Type 2 diabetes mellitus with diabetic neuropathy, unspecified; F32.9 Major depressive disorder, single episode, unspecified; K21.9 Gastro-esophageal reflux disease without esophagitis; M10.9 Gout, unspecified; Z79.82 Long term (current) use of aspirin; Z79.02 Long term (current) use of antithrombotics/antiplatelets; Z79.4 Long term (current) use of insulin; Z87.891 Personal history of nicotine dependence; Z95.5 Presence of coronary angioplasty implant and graft
CPT/HCPCS: 36415; 71045; 74176; 80053; 81000; 83690; 83735; 83880; 84132; 84484; 85025; 93005; 93041; 94640

== ENCOUNTER 2019-11-29 12:30 | Emergency (ER) | payer MEDICARE, MEDICAID ==
[~2019-11-29] VITALS: Ht 180 cm; Wt 153.8 kg
[~2019-11-29 12:30] MED LIST changes: -HYDR-3820 PO; -OMEP-280 PO; +OMEP20CA18 PO
--- NOTE | 2019-11-29 13:46 | ED Lower Extremity ---
General Chief Complaint: Lower Extremity Stated Complaint: R LEG PAIN Nursing Triage Note: Pt to triage via ED w/c by ED staff with c/o R leg discomfort. Pt reports upon rise on this day, he began to experience discomfort radiating from his R foot to his R hip. Pt reports increase in discomfort when bearing weight. Superficial abrasions noted to R osuna surrounded with erythema. Pt deneis fever or chills. Pt denies injury. Nursing Sepsis Screen: No Definite Risk Source: patient Exam Limitations: no limitations History of Present Illness Date Seen by Provider: Nov 29, 2019 Time Seen by Provider: 13:45 Initial Comments 69-year-old male patient presents with complaints of right lower extremity pain which began this a.m. upon waking. Patient denies a history of similar symptoms. Pain radiates from the right buttock to the right ankle. Denies known injury. Patient does report abrasions to the right anterior osuna which he states his been there for a few days. States his legs were "really swollen and were draining clear fluid", but have now is scabbed over. He states this has happened "off and on". Location Injury Occurred: denies known injury Onset: this morning Severity: mild Method of Injury: unknown (denies known injury) Modifying Factors: Worse With Other (worse with sitting) Allergies and Home Medications Allergies Coded Allergies: No Known Drug Allergies (Unverified , 03/18/19) Home Medications Amiloride HCl 5 Mg Tablet, 5 MG PO DAILY, (Reported) Amlodipine Besylate 10 Mg Tablet, 10 MG PO DAILY, (Reported) Aspirin 81 Mg Tab.chew, 81 MG PO DAILY, (Reported) Atorvastatin Calcium 80 Mg Tablet, 80 MG PO HS, (Reported) Carvedilol 25 Mg Tablet, 25 MG PO BID, (Reported) Cephalexin 500 Mg Capsule, 500 MG PO BID Prescribed by: RONNY GONGORA on 05/19/19 0846 Clopidogrel Bisulfate 75 Mg Tablet, 75 MG PO DAILY, (Reported) Cyclobenzaprine HCl 10 Mg Tablet, 10 MG PO TID PRN for MUSCLE SPASMS, (Reported) Empagliflozin 25 Mg Tablet, 25 MG PO DAILY, (Reported) Ergocalciferol (Vitamin D2) 50,000 Unit Capsule, 50,000 UNITS PO Mo, (Reported) Furosemide 80 Mg Tablet, 80 MG PO DAILY, (Reported) Gabapentin 100 Mg Capsule, 100 MG PO TID, (Reported) Hydrocodone Bit/Acetaminophen 1 Each Tablet, 2 TAB PO Q6H PRN for PAIN, (Reported) Hydrocodone Bit/Acetaminophen 1 Each Tablet, 1 EACH PO Q6H PRN for PAIN-MODERATE Prescribed by: GERHARD WILLS on 04/26/19 0641 Insulin Glargine,Hum.rec.anlog 300 Unit/1 Ml Insuln.pen, 55 UNITS SQ DAILY, (Reported) Insulin Glargine,Hum.rec.anlog 300 Unit/1 Ml Insuln.pen, 80 UNIT SQ HS, (Reporte d) Insulin Lispro 200 Unit/1 Ml Insuln.pen, 75 UNITS SQ DAILY, (Reported) Insulin Lispro 100 Unit/1 Ml Insuln.pen, 90 UNIT SQ WITH EVENING MEAL, (Reported) Isosorbide Mononitrate 30 Mg Tab.er.24h, 30 MG PO DAILY, (Reported) Lisinopril 20 Mg Tablet, 20 MG PO DAILY, (Reported) Nitroglycerin 0.4 Mg Tab.subl, 0.4 MG SL UD PRN for CHEST PAIN, (Reported) Paroxetine HCl 20 Mg Tablet, 20 MG PO DAILY, (Reported) Potassium Chloride 20 Meq Tab.er.prt, 20 MEQ PO DAILY, (Reported) Prednisone 20 Mg Tab, 20 MG PO BID Prescribed by: HUGH MOSHER on 11/29/19 1408 Sennosides 8.6 Mg Tablet, 8.6 MG PO BID PRN for CONSTIPATION-1ST LINE Prescribed by: RONNY GONGORA on 05/19/19 0846 Patient Home Medication List Home Medication List Reviewed: Yes Review of Systems Constitutional: No chills, No diaphoresis, No dizziness, No fever, No malaise EENTM: no symptoms reported Respiratory: No cough, No dyspnea on exertion, No orthopnea, No phlegm, No short of breath Cardiovascular: No chest pain; edema (chronic BLE edema); No palpitations, No syncope Gastrointestinal: no symptoms reported Genitourinary: no symptoms reported Musculoskeletal: see HPI Skin: see HPI Psychiatric/Neurological: Denies Numbness (denies worsened symptoms of numbness to the lower extremities), Denies Paresthesia (denies worsened symptoms); Pre- Existing Deficit (diabetic neuropathy) All Other Systems Reviewed Negative Unless Noted: Yes (Negative excepted noted.) Past Btodcdh-Tjoawo-Rxkdse Hx Past Med/Social Hx: Reviewed Nursing Past Med/Soc Hx Patient Social History Alcohol Use: Denies Use Number of Drinks Today: AA Alcohol Beverage of Choice: Beer Recreational Drug Use: No Drug of Choice: past hx Smoking Status: Former Smoker Type Used: Cigars Former Smoker, Quit: Apr 24, 1985 2nd Hand Smoke Exposure: No Recent Foreign Travel: No Contact w/Someone Who Travel: No Recent Infectious Disease Expo: No Recent Hopitalizations: No Immunizations Up To Date Tetanus Booster (TDap): Unknown PED Vaccines UTD: Yes Date of Pneumonia Vaccine: Sep 02, 2018 Date of Influenza Vaccine: May 25, 2013 Seasonal Allergies Seasonal Allergies: No Past Medical History Surgeries: Yes Abdominal, Cardiac, Coronary Stent, Joint Replacement, Orthopedic, Vascular Surgery, Vasectomy Respiratory: Yes (RFUSES TO WEAR CPAP, BUT DOES WEAR O2 AT HS) Sleep Apnea, COPD Currently Using CPAP: No Currently Using BIPAP: No Cardiac: Yes (MULTIPLE INTERVENTIONS IN HEART AND LEGS--STENTS AND ANGIOPLASTIES; CHF) Chronic Edema/Swelling, Coronary Artery Disease, Deep Vein Thrombosis, High Cholesterol, Hypertension, Peripheral Vascular, Valvular Heart Disease Neurological: Yes (CVA around 07') Neuropathy, Stroke Reproductive Disorders: No Sexually Transmitted Disease: No HIV/AIDS: No Genitourinary: No Gastrointestinal: Yes Gastroesophageal Reflux Musculoskeletal: Yes Amputee, Arthritis, Chronic Back Pain, Gout Endocrine: Yes (OBESITY) Diabetes, Insulin dep HEENT: Yes (READING GLASSES) Glaucoma Loss of Vision: Denies Hearing Impairment: Denies Cancer: No Psychosocial: Yes Depression Integumentary: Yes (MRSA, ABSCESSES AND CELLULITITS; I&D'S; CHRONIC LEG ULCERS) Herpes Blood Disorders: No Adverse Reaction/Blood Tranf: No (N/A) Family Medical History Reviewed Nursing Family Hx Arthritis 19 MOTHER Completed stroke 19 MOTHER Family history: Diabetes mellitus 19 MOTHER Family history: Hypertension 19 FATHER 19 MOTHER Hypercholesterolemia 19 MOTHER G8 BROTHER G8 BROTHER Hypertension 19 MOTHER Kidney disease 19 MOTHER Seizure disorder G8 BROTHER No Family History of: AIDS Abdominal aortic aneurysm Abdominal aortic aneurysm [place]'s disease [place]ney's disease Alcoholism Alcoholism Alzheimer's disease Aphasia Aphasia Asthma Cancer Cancer of colon Cancer of mouth Cardiovascular disease Cataract Cataracts Chest pain Colon cancer Congenital disease Congenital heart disease Congenital heart disease Congestive heart failure Coronary thrombosis Cystic fibrosis Deafness or hearing loss Dementia Dementia Diabetes mellitus Drug abuse Dysphagia Family history: Allergy Family history: Alzheimer's disease Family history: Arthritis Family history: Asthma Family history: Breast disease Family history: Cardiovascular disease Family history: Coronary thrombosis Family history: Gastrointestinal disease Family history: Glaucoma Family history: Osteoporosis Family history: Thyroid disorder Fibrocystic disease of breast Gastroenteritis Glaucoma Headache Headache disorder Hearing loss Heart disease Hereditary disease History of - anemia History of - disorder History of - respiratory disease History of drug abuse Human immunodeficiency virus (HIV) seropositivity Infertile Malignant neoplasm of lung Myocardial infarction Parkinson's disease Prostate cancer Psychotic disorder Stroke Tuberculosis Visual impairment No Pertinent Family Hx Physical Exam Vital Signs Vital Signs - First Documented 11/29/19 12:40 Temp 36.6 Pulse 74 Resp 18 B/P (MAP) 104/54 (71) Pulse Ox 98 O2 Delivery Room Air Capillary Refill : Less Than 3 Seconds Height, Weight, BMI Height: 5'11.00" Weight: 330lbs. 0.5oz. [id number]; 47.00 BMI Method:Stated General Appearance: WD/WN, no apparent distress HEENT: PERRL/EOMI, pharynx normal Cardiovascular: normal peripheral pulses, regular rate, rhythm, no edema (2+ pedal edema bilaterally with venous stasis changes), no murmur Respiratory: lungs clear, normal breath sounds, no respiratory distress, no accessory muscle use Back: normal inspection, no vertebral tenderness; No decreased range of motion, No muscle spasm Hips: left hip non-tender; bilateral hip normal inspection, bilateral hip normal range of motion, bilateral hip no evidence of injury; right hip pain (Right buttock TTP), right hip soft tissue tenderness (rt buttock TTP) Legs: left leg non-tender; bilateral leg normal range of motion, bilateral leg no evidence of injury; right leg soft tissue tenderness (rt lateral and posterior thigh mildly TTP.); bilateral leg swelling (2+ pedal edema bilat), bilateral leg other (venous stasis changes to the bilat distal legs with scattered scabs.) Knees: bilateral knee non-tender, bilateral knee normal inspection, bilateral knee normal range of motion, bilateral knee no evidence of injury Ankles: bilateral ankle non-tender, bilateral ankle normal inspection (pedal edema bilaterally), bilateral ankle normal range of motion, bilateral ankle no evidence of injury Feet: bilateral foot non-tender, bilateral foot normal inspection (pedal edema bilaterally), bilateral foot normal range of motion, bilateral foot no evidence of injury Neurologic/Tendon: normal sensation (sensation with the exception of known diabetic neuropathy to the bilateral feet), normal motor functions, normal tendon functions, responds to pain, no evidence tendon injury Neurologic/Psychiatric: alert, normal mood/affect, oriented x 3 Skin: normal color, warm/dry, other (venous stasis changes to the bilateral distal legs with scattered scabs. No evidence of cellulitis.) Progress/Results/Core Measures Results/Orders Vital Signs/I&O 11/29/19 11/29/19 12:40 14:15 Temp 36.6 36.6 Pulse 74 70 Resp 18 19 B/P (MAP) 104/54 (71) 109/63 (71) Pulse Ox 98 99 O2 Delivery Room Air Room Air Blood Pressure Mean: 71 Departure Communication (Admissions) Patient seen and evaluated. We'll plan for discharge to home with oral prednisone. Patient to follow-up with his primary care provider for recheck and for further management of the chronic venous stasis to the lower extremities. Patient instructed to call Dr. Houston's office for appointment time sooner then January 12 as previously scheduled. Impression Primary Impression: Right sided sciatica Additional Impression: Venous stasis dermatitis Qualified Codes: I87.2 - Venous insufficiency (chronic) (peripheral) Disposition: HOME, SELF-CARE Condition: Improved Departure-Patient Inst. Decision time for Depature: 14:06 Referrals: EMMA HOUSTON MD (PCP/Family) Primary Care Physician Patient Instructions: Sciatica (DC), Sciatica Exercises Add. Discharge Instructions: All discharge instructions reviewed with patient and/or family. Voiced understanding. Medications as instructed. Continue usual home medications. Avoid sitting on hard surfaces. Sit on a soft pillow or fluid the right buttock. Monitor blood sugars closely. Follow-up with Dr. Houston as an outpatient for recheck. Return in the emergency department for worsened symptoms, bowel incontinence, bladder incontinence, numbness of the genitals, or any other concerns. Scripts Prednisone (Prednisone) 20 Mg Tab 20 MG PO BID, #6 TAB 0 Refills Prov: HUGH MOSHER 11/29/19 HUGH MOSHER Nov 29, 2019 13:46
[2019-11-29] MEDS ORDERED: PRD20T PO (14:08)
[2019-11-29 14:15] VITALS: BP 109/63
== END 2019-11-29 14:15 | disposition home or self-care (01) ==
LOC: EDUNIT# 12:30 → ER 12:31
DX: M54.31 Sciatica, right side (principal); I87.2 Venous insufficiency (chronic) (peripheral); J44.9 Chronic obstructive pulmonary disease, unspecified; I10 Essential (primary) hypertension; E11.40 Type 2 diabetes mellitus with diabetic neuropathy, unspecified; E78.00 Pure hypercholesterolemia, unspecified; I25.10 Atherosclerotic heart disease of native coronary artery without angina pectoris; K21.9 Gastro-esophageal reflux disease without esophagitis; F32.9 Major depressive disorder, single episode, unspecified; E66.9 Obesity, unspecified; Z86.73 Personal history of transient ischemic attack (TIA), and cerebral infarction without residual deficits; Z86.718 Personal history of other venous thrombosis and embolism; Z68.42 Body mass index [BMI] 45.0-49.9, adult; Z79.82 Long term (current) use of aspirin; Z79.02 Long term (current) use of antithrombotics/antiplatelets; Z79.4 Long term (current) use of insulin; Z87.891 Personal history of nicotine dependence
CPT/HCPCS: 99283

== ENCOUNTER 2019-12-31 18:04 | Emergency (ER) | payer MEDICARE, MEDICAID ==
[~2019-12-31] VITALS: Ht 180.3 cm; Wt 153.0 kg
[~2019-12-31 18:04] MED LIST changes: +PRD20T PO; -SENN-141 PO; +SENN-234 PO
[2019-12-31] MEDS ORDERED: ONDANSETRON 4 MG/2 ML (SDV) Z0FRAN IVP ONE (18:15)
[2019-12-31] MEDS ORDERED: NS IV 1000 ML 1,000 ML IV SCH (18:15)
[2019-12-31] MEDS ORDERED: HYOSCYAMINE 0.125 MG (LEVSIN) TAB PO ONE (18:15)
--- NOTE | 2019-12-31 18:15 | ED Abdominal Pain ---
General Chief Complaint: Abdominal/GI Problems Stated Complaint: NAUSEA AND DIARRHEA Source of Information: Patient Exam Limitations: No Limitations History of Present Illness Date Seen by Provider: Dec 31, 2019 Time Seen by Provider: 18:13 Initial Comments To ER with 2 days of belching and "the shits". Denies cough. Reports fever of 9 9 at home. Timing/Duration: 1-2 Days Severity/Quality: Cramping Location: Generalized Abdomen Radiation: No Radiation Activities at Onset: None Associated Symptoms: Nausea/Vomiting Allergies and Home Medications Allergies Coded Allergies: No Known Drug Allergies (Unverified , 03/18/19) Home Medications Amiloride HCl 5 Mg Tablet, 5 MG PO DAILY, (Reported) Amlodipine Besylate 10 Mg Tablet, 10 MG PO DAILY, (Reported) Aspirin 81 Mg Tab.chew, 81 MG PO DAILY, (Reported) Atorvastatin Calcium 80 Mg Tablet, 80 MG PO HS, (Reported) Carvedilol 25 Mg Tablet, 25 MG PO BID, (Reported) Cephalexin 500 Mg Capsule, 500 MG PO BID Prescribed by: RONNY GONGORA on 05/19/19 0846 Clopidogrel Bisulfate 75 Mg Tablet, 75 MG PO DAILY, (Reported) Cyclobenzaprine HCl 10 Mg Tablet, 10 MG PO TID PRN for MUSCLE SPASMS, (Reported) Empagliflozin 25 Mg Tablet, 25 MG PO DAILY, (Reported) Ergocalciferol (Vitamin D2) 50,000 Unit Capsule, 50,000 UNITS PO Mo, (Reported) Furosemide 80 Mg Tablet, 80 MG PO DAILY, (Reported) Gabapentin 100 Mg Capsule, 100 MG PO TID, (Reported) Hydrocodone Bit/Acetaminophen 1 Each Tablet, 2 TAB PO Q6H PRN for PAIN, (Reported) Hydrocodone Bit/Acetaminophen 1 Each Tablet, 1 EACH PO Q6H PRN for PAIN-MODERATE Prescribed by: GERHARD WILLS on 04/26/19 0641 Insulin Glargine,Hum.rec.anlog 300 Unit/1 Ml Insuln.pen, 55 UNITS SQ DAILY, (Reported) Insulin Glargine,Hum.rec.anlog 300 Unit/1 Ml Insuln.pen, 80 UNIT SQ HS, (Reported) Insulin Lispro 200 Unit/1 Ml Insuln.pen, 75 UNITS SQ DAILY, (Reported) Insulin Lispro 100 Unit/1 Ml Insuln.pen, 90 UNIT SQ WITH EVENING MEAL, (Reported) Isosorbide Mononitrate 30 Mg Tab.er.24h, 30 MG PO DAILY, (Reported) Lisinopril 20 Mg Tablet, 20 MG PO DAILY, (Reported) Nitroglycerin 0.4 Mg Tab.subl, 0.4 MG SL UD PRN for CHEST PAIN, (Reported) Paroxetine HCl 20 Mg Tablet, 20 MG PO DAILY, (Reported) Potassium Chloride 20 Meq Tab.er.prt, 20 MEQ PO DAILY, (Reported) Prednisone 20 Mg Tab, 20 MG PO BID Prescribed by: HUGH MOSHER on 11/29/19 1408 Sennosides 8.6 Mg Tablet, 8.6 MG PO BID PRN for CONSTIPATION-1ST LINE Prescribed by: RONNY GONGORA on 05/19/19 0846 Patient Home Medication List Home Medication List Reviewed: Yes Review of Systems Review of Systems Constitutional: see HPI EENTM: No Symptoms Reported Respiratory: See HPI; Denies Cough Gastrointestinal: Abdominal Pain, Diarrhea, Nausea Genitourinary: No Symptoms Reported Musculoskeletal: no symptoms reported Skin: no symptoms reported Psychiatric/Neurological: No Symptoms Reported Endocrine: No Symptoms Reported Hematologic/Lymphatic: No Symptoms Reported Past Ceudcte-Ozhnqh-Mfzlyy Hx Patient Social History Alcohol Beverage of Choice: Beer Drug of Choice: past hx Type Used: Cigars Former Smoker, Quit: Apr 24, 1985 2nd Hand Smoke Exposure: No Recent Hopitalizations: No Immunizations Up To Date Tetanus Booster (TDap): Unknown PED Vaccines UTD: Yes Date of Pneumonia Vaccine: Sep 02, 2018 Date of Influenza Vaccine: May 25, 2013 Seasonal Allergies Seasonal Allergies: No Past Medical History Surgeries: Yes Abdominal, Cardiac, Coronary Stent, Joint Replacement, Orthopedic, Vascular Surgery, Vasectomy Respiratory: Yes (RFUSES TO WEAR CPAP, BUT DOES WEAR O2 AT HS) Sleep Apnea, COPD Currently Using CPAP: No Currently Using BIPAP: No Cardiac: Yes (MULTIPLE INTERVENTIONS IN HEART AND LEGS--STENTS AND ANGIOPLASTIES; CHF) Chronic Edema/Swelling, Coronary Artery Disease, Deep Vein Thrombosis, High Cholesterol, Hypertension, Peripheral Vascular, Valvular Heart Disease Neurological: Yes (CVA around 07') Neuropathy, Stroke Reproductive Disorders: No Sexually Transmitted Disease: No HIV/AIDS: No Genitourinary: No Gastrointestinal: Yes Gastroesophageal Reflux Musculoskeletal: Yes Amputee, Arthritis, Chronic Back Pain, Gout Endocrine: Yes (OBESITY) Diabetes, Insulin dep HEENT: Yes (READING GLASSES) Glaucoma Loss of Vision: Denies Hearing Impairment: Denies Cancer: No Psychosocial: Yes Depression Integumentary: Yes (MRSA, ABSCESSES AND CELLULITITS; I&D'S; CHRONIC LEG ULCERS) Herpes Blood Disorders: No Adverse Reaction/Blood Tranf: No (N/A) Family Medical History Arthritis 19 MOTHER Completed stroke 19 MOTHER Family history: Diabetes mellitus 19 MOTHER Family history: Hypertension 19 FATHER 19 MOTHER Hypercholesterolemia 19 MOTHER G8 BROTHER G8 BROTHER Hypertension 19 MOTHER Kidney disease 19 MOTHER Seizure disorder G8 BROTHER No Family History of: AIDS Abdominal aortic aneurysm Abdominal aortic aneurysm [place]'s disease [place]'s disease Alcoholism Alcoholism Alzheimer's disease Aphasia Aphasia Asthma Cancer Cancer of colon Cancer of mouth Cardiovascular disease Cataract Cataracts Chest pain Colon cancer Congenital disease Congenital heart disease Congenital heart disease Congestive heart failure Coronary thrombosis Cystic fibrosis Deafness or hearing loss Dementia Dementia Diabetes mellitus Drug abuse Dysphagia Family history: Allergy Family history: Alzheimer's disease Family history: Arthritis Family history: Asthma Family history: Breast disease Family history: Cardiovascular disease Family history: Coronary thrombosis Family history: Gastrointestinal disease Family history: Glaucoma Family history: Osteoporosis Family history: Thyroid disorder Fibrocystic disease of breast Gastroenteritis Glaucoma Headache Headache disorder Hearing loss Heart disease Hereditary disease History of - anemia History of - disorder History of - respiratory disease History of drug abuse Human immunodeficiency virus (HIV) seropositivity Infertile Malignant neoplasm of lung Myocardial infarction Parkinson's disease Prostate cancer Psychotic disorder Stroke Tuberculosis Visual impairment No Pertinent Family Hx Physical Exam Vital Signs Vital Signs - First Documented 12/31/19 18:11 Temp 38.1 Pulse 93 Resp 18 B/P (MAP) 164/70 (101) O2 Delivery Room Air Capillary Refill : Height/Weight/BMI Height: 5'11.00" Weight: 330lbs. 0.5oz. 149.896722mr; 47.00 BMI Method:Stated General Appearance: WD/WN, no apparent distress, obese Neck: non-tender, full range of motion Respiratory: no respiratory distress, no accessory muscle use Gastrointestinal: normal bowel sounds, soft Extremities: normal range of motion, non-tender Neurologic/Psychiatric: alert, normal mood/affect, oriented x 3 Skin: normal color, warm/dry Progress/Results/Core Measures Results/Orders Lab Results Laboratory Tests Test 12/31/19 18:28 12/31/19 19:18 Range/Units White Blood Count 8.5 4.3-11.0 10^3/uL Red Blood Count 4.83 4.35-5.85 10^6/uL Hemoglobin 13.7 13.3-17.7 G/DL Hematocrit 41 40-54 % Mean Corpuscular Volume 84 80-99 FL Mean Corpuscular Hemoglobin 28 25-34 PG Mean Corpuscular Hemoglobin Concent 34 32-36 G/DL Red Cell Distribution Width 15.3 H 10.0-14.5 % Platelet Count 340 130-400 10^3/uL Mean Platelet Volume 11.2 H 7.4-10.4 FL Neutrophils (%) (Auto) 59 42-75 % Lymphocytes (%) (Auto) 27 12-44 % Monocytes (%) (Auto) 12 0-12 % Eosinophils (%) (Auto) 2 0-10 % Basophils (%) (Auto) 0 0-10 % Neutrophils # (Auto) 5.0 1.8-7.8 X 10^3 Lymphocytes # (Auto) 2.3 1.0-4.0 X 10^3 Monocytes # (Auto) 1.0 0.0-1.0 X 10^3 Eosinophils # (Auto) 0.2 0.0-0.3 10^3/uL Basophils # (Auto) 0.0 0.0-0.1 10^3/uL Sodium Level 130 L 135-145 MMOL/L Potassium Level 5.1 H 3.6-5.0 MMOL/L Chloride Level 103 98-107 MMOL/L Carbon Dioxide Level 14 L 21-32 MMOL/L Anion Gap 13 5-14 MMOL/L Blood Urea Nitrogen 46 H 7-18 MG/DL Creatinine 1.81 H 0.60-1.30 MG/DL Estimat Glomerular Filtration Rate 37 BUN/Creatinine Ratio 25 Glucose Level 337 H 70-105 MG/DL Calcium Level 9.0 8.5-10.1 MG/DL Corrected Calcium 8.8 8.5-10.1 MG/DL Total Bilirubin 0.3 0.1-1.0 MG/DL Aspartate Amino Transf (AST/SGOT) 11 5-34 U/L Alanine Aminotransferase (ALT/SGPT) 15 0-55 U/L Alkaline Phosphatase 97 40-136 U/L Total Protein 8.4 H 6.4-8.2 GM/DL Albumin 4.3 3.2-4.5 GM/DL Lipase 123 H 8-78 U/L Urine Color YELLOW Urine Clarity CLEAR Urine pH 5.5 5-9 Urine Specific Pierce 1.010 L 1.016-1.022 Urine Protein NEGATIVE NEGATIVE Urine Glucose (UA) 3+ H NEGATIVE Urine Ketones NEGATIVE NEGATIVE Urine Nitrite NEGATIVE NEGATIVE Urine Bilirubin NEGATIVE NEGATIVE Urine Urobilinogen 0.2 < = 1.0 MG/DL Urine Leukocyte Esterase NEGATIVE NEGATIVE Urine RBC (Auto) NEGATIVE NEGATIVE Urine RBC NONE /HPF Urine WBC NONE /HPF Urine Crystals PRESENT H /LPF Urine Amorphous Sediment FEW MIRZA URATES H /LPF Urine Bacteria TRACE /HPF Urine Casts NONE /LPF Urine Mucus NEGATIVE /LPF Urine Culture Indicated NO My Orders Orders - IVELISSE VALVERDE APRN Cbc With Automated Diff (12/31/19 18:11) Comprehensive Metabolic Panel (12/31/19 18:11) Lipase (12/31/19 18:11) Ua Culture If Indicated (12/31/19 18:11) Ed Iv/Invasive Line Start (12/31/19 18:11) Ct Abdomen/Pelvis Wo (12/31/19 18:11) Ns Iv 1000 Ml (Sodium Chloride 0.9%) (12/31/19 18:15) Ondansetron Injection (Zofran Injectio (12/31/19 18:15) Hyoscyamine Sl Tablet (Levsin Sl Tablet) (12/31/19 18:15) Medications Given in ED Current Medications Medications Dose Ordered Sig/Coral Route Start Time Stop Time Status Last Admin Dose Admin Hyoscyamine Sulfate 0.25 mg ONCE ONCE PO 12/31/19 18:15 12/31/19 18:16 DC 12/31/19 18:34 0.25 MG Ondansetron HCl 4 mg ONCE ONCE IVP 12/31/19 18:15 12/31/19 18:16 DC 12/31/19 18:34 4 MG Vital Signs/I&O 12/31/19 18:11 Temp 38.1 Pulse 93 Resp 18 B/P (MAP) 164/70 (101) O2 Delivery Room Air Diagnostic Imaging Diagonstic Imaging: CT Comments NAME: JEFF TERRY [facility] REC#: [id number] PT STATUS: REG ER : 1950 PHYSICIAN: IVELISSE VALVERDE APRN ADMIT DATE: 12/31/19/ER Draft Date of Exam:12/31/19 CT ABDOMEN/PELVIS WO EXAM: CT abdomen and pelvis without intravenous contrast. INDICATION: Midline abdominal pain with diarrhea. COMPARISON: 10/20/2019. FINDINGS: Lung bases are clear. The liver appears normal. The gallbladder and bile ducts are normal. The pancreas and spleen are normal. There is a small fatty lesion in the right adrenal gland which is unchanged, measuring approximately 1 cm. Kidneys show no evidence of obstruction or calculi. There is a hypodense area in the right kidney parenchyma midportion, measuring 1.5 cm, which appears stable. There is an exophytic lesion along the cortex of the left kidney, laterally, measuring 2 cm. This shows a mean Hounsfield unit of approximately 16. The stomach is fluid-filled. No evidence of hiatal hernia. Stomach is not distended. Small bowel is not dilated. No evidence of bowel wall thickening. The colon shows normal stool and gas pattern. The appendix is normal. There is no free air or free fluid. There is no intra-abdominal adenopathy of pathologic size. Bladder is not distended. Prostate is not enlarged. No blastic or lytic lesions. IMPRESSION: 1. No acute intra-abdominal findings. 2. Hypodense lesions in the kidneys, bilaterally, most likely cystic though cannot be further characterized with noncontrasted exam. 3. Bowel gas pattern and appendix appear normal. 4. Benign-appearing right adrenal lesion. 5. No acute changes have occurred when compared with previous exam. Dictated on workstation # [id number] Dict: 12/31/19 1835 Trans: 12/31/[address] [facility] [id number] Interpreted by: DIANNA LEBRON MD Electronically signed by: Departure Impression Primary Impression: Nausea vomiting and diarrhea Disposition: 01 HOME, SELF-CARE Condition: Stable Departure-Patient Inst. Decision time for Depature: 18:42 Referrals: EMMA HOUSTON MD (PCP/Family) Primary Care Physician Patient Instructions: Diarrhea in Adolescents and Adults Add. Discharge Instructions: 1. He can take whey-loh-dctbzri Imodium to help with the diarrhea. Return to ER for any concerns. Drink plenty of liquids to stay hydrated. Follow-up with your doctor next week. If you are taking a potassium pill you should stop taking it for the next 3 or 4 days. All discharge instructions reviewed with patient and/or family. Voiced understanding. IVELISSE VALVERDE [employer] O[employer]ATOR Dec 31, 2019 18:15
[2019-12-31 18:34] LABS: BASOPHILS % (AUTO) 0 % (0-10); EOSINOPHILS # (AUTO) 0.2 10^3/uL (0.0-0.3); EOSINOPHILS % (AUTO) 2 % (0-10); HEMATOCRIT 41 % (40-54); HEMOGLOBIN 13.7 G/DL (13.3-17.7); LYMPHOCYTES # (AUTO) 2.3 X 10^3 (1.0-4.0); LYMPHOCYTES % (AUTO) 27 % (12-44); MEAN CORPUSCULAR HEMOGLOBIN 28 PG (25-34); MEAN CORPUSCULAR HGB CONC 34 G/DL (32-36); MEAN CORPUSCULAR VOLUME 84 FL (80-99); MEAN PLATELET VOLUME 11.2 FL (7.4-10.4); MONOCYTES % (AUTO) 12 % (0-12); NEUTROPHILS % (AUTO) 59 % (42-75); PLATELET COUNT 340 10^3/uL (130-400); RED CELL DISTRIBUTION WIDTH 15.3 % (10.0-14.5); WHITE BLOOD COUNT 8.5 10^3/uL (4.3-11.0)
[2019-12-31 18:42] LABS: ALBUMIN 4.3 GM/DL (3.2-4.5)
[2019-12-31 18:44] LABS: TOTAL PROTEIN 8.4 GM/DL (6.4-8.2)
[2019-12-31 18:46] LABS: BILIRUBIN,TOTAL 0.3 MG/DL (0.1-1.0)
--- NOTE | 2019-12-31 18:46 | Diagnostic Imaging Report ---
EXAM: CT abdomen and pelvis without intravenous contrast. INDICATION: Midline abdominal pain with diarrhea. COMPARISON: 10/20/2019. FINDINGS: Lung bases are clear. The liver appears normal. The gallbladder and bile ducts are normal. The pancreas and spleen are normal. There is a small fatty lesion in the right adrenal gland which is unchanged, measuring approximately 1 cm. Kidneys show no evidence of obstruction or calculi. There is a hypodense area in the right kidney parenchyma midportion, measuring 1.5 cm, which appears stable. There is an exophytic lesion along the cortex of the left kidney, laterally, measuring 2 cm. This shows a mean Hounsfield unit of approximately 16. The stomach is fluid-filled. No evidence of hiatal hernia. Stomach is not distended. Small bowel is not dilated. No evidence of bowel wall thickening. The colon shows normal stool and gas pattern. The appendix is normal. There is no free air or free fluid. There is no intra-abdominal adenopathy of pathologic size. Bladder is not distended. Prostate is not enlarged. No blastic or lytic lesions. IMPRESSION: 1. No acute intra-abdominal findings. 2. Hypodense lesions in the kidneys, bilaterally, most likely cystic though cannot be further characterized with noncontrasted exam. 3. Bowel gas pattern and appendix appear normal. 4. Benign-appearing right adrenal lesion. 5. No acute changes have occurred when compared with previous exam. Dictated by: Dictated on workstation # [id number]
[2019-12-31 18:48] LABS: CREATININE SERUM 1.81 MG/DL (0.60-1.30)
[2019-12-31 19:06] LABS: POTASSIUM 5.1 MMOL/L (3.6-5.0)
[2019-12-31 19:25] LABS: BILIRUBIN,URINE NEGATIVE (NEGATIVE); CLARITY,URINE CLEAR; COLOR,URINE YELLOW; GLUCOSE, URINE (UA) 3+ (NEGATIVE); KETONES,URINE NEGATIVE (NEGATIVE); LEUKOCYTE ESTERASE ,URINE NEGATIVE (NEGATIVE); NITRITE,URINE NEGATIVE (NEGATIVE); PH,URINE 5.5 (5-9); PROTEIN,URINE NEGATIVE (NEGATIVE)
[2019-12-31 19:36] LABS: BACTERIA,URINE TRACE /HPF
[2019-12-31 19:38] LABS: AMORPHOUS SEDIMENT,UR FEW AMOR URATES /LPF
[2019-12-31] MEDS ORDERED: RX-HYOSCYAMINE 0.125 MG SL (LEVSIN) PPK#6 SL STA (19:58)
[2019-12-31 20:12] VITALS: BP 117/68
== END 2019-12-31 20:12 | disposition home or self-care (01) ==
LOC: EDUNIT# 18:04 → ER 18:05
DX: R11.2 Nausea with vomiting, unspecified (principal); R19.7 Diarrhea, unspecified; I10 Essential (primary) hypertension; E78.00 Pure hypercholesterolemia, unspecified; I25.10 Atherosclerotic heart disease of native coronary artery without angina pectoris; E11.40 Type 2 diabetes mellitus with diabetic neuropathy, unspecified; J44.9 Chronic obstructive pulmonary disease, unspecified; K21.9 Gastro-esophageal reflux disease without esophagitis; E66.9 Obesity, unspecified; F32.9 Major depressive disorder, single episode, unspecified; Z86.711 Personal history of pulmonary embolism; Z99.81 Dependence on supplemental oxygen; Z79.82 Long term (current) use of aspirin; Z79.02 Long term (current) use of antithrombotics/antiplatelets; Z79.4 Long term (current) use of insulin; Z87.891 Personal history of nicotine dependence; Z95.5 Presence of coronary angioplasty implant and graft; Z86.73 Personal history of transient ischemic attack (TIA), and cerebral infarction without residual deficits; Z82.49 Family history of ischemic heart disease and other diseases of the circulatory system; Z68.42 Body mass index [BMI] 45.0-49.9, adult
CPT/HCPCS: 36415; 74176; 80053; 81000; 83690; 85025

== ENCOUNTER → 2022-07-05 | Day surgery (SDC) | payer OTHER ==
[~2022-07-05] VITALS: Ht 180.3 cm; Wt 121.8 kg
[~2022-07-05] MED LIST changes: +AMLO-251 PO; -AMLO10TA7 PO; +CYCL10TA25 PO; -ISOS30TA3 PO; +ISOS30TA82 PO; +LIDOCAINE 1% INJ 10 ML VIAL INJ ONE; -LISI-552 PO; +LISI20TA26 PO; -MAGN400T8 PO; +METF-865 PO; -METF500T19 PO; +MGX400T PO; +POTA-177 PO; +POTA-179 PO; -POTA10TA36 PO; -POTA20TA15 PO
--- NOTE | 2022-07-05 14:36 | Diagnostic Imaging Report ---
INDICATION: Left parotid mass. Patient presents for ultrasound-guided biopsy. Patient was brought to the procedure room and placed on table in the [id number] decubitus position. Ultrasound imaging of the left neck was performed to evaluate appropriate entry site. The left neck was then prepped and draped in the usual sterile fashion. A small amount of 1% lidocaine was utilized for local anesthesia. A total of four core biopsies were made of the left parotid mass utilizing an 18-gauge Temno needle. Hemostasis was obtained using manual compression. Patient tolerated the procedure well and left the department in stable condition. IMPRESSION: Successful ultrasound-guided left parotid mass biopsy. Pathology results are currently pending. Dictated by: Dictated on workstation # [id number]
== END ==
LOC: RAD 10:40
PROVIDERS: ATTEND Nurse Practitioner Family
DX: D11.0 Benign neoplasm of parotid gland (principal)
CPT/HCPCS: 76942